=== PATIENT | female | born 2000 | race Caucasian/White ===

== ENCOUNTER 2021-04-09 19:31 | Outpatient (CLI) | payer BC, OTHER ==
[2021-04-09 20:02] VITALS: BP 133/71
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
--- NOTE | 2021-04-09 22:31 | REPVR ---
PROCEDURE INFORMATION: Exam: US Biophysical Profile without Non-Stress Test Exam date and time: 04/09/21 (8:20pm) Age: 20 years old Clinical indication: female. Decreased movement. High risk diabetic. TECHNIQUE: Imaging protocol: US biophysical profile without non-stress testing COMPARISON: No relevant prior studies available FINDINGS: FINDINGS: The LMP is reported to be: 08/27/20 Based on the menstrual history, the current expected age = 32 weeks 1 day (with KAREN = 06/03/21). heart rate is recorded at 143 bpm. The fetus lies cephalic. The placenta is fundal, with no evidence of previa nor abruption. The placenta is Grade I. The cervix is closed, measuring 2.6 cm in length. Amniotic fluid volume is adequate, with the KAMERON = 12.1 cm (at the 45th percentile for the current expected age). The deepest fluid pocket = 5.5 cm. The umbilical artery S/D ratio = 1.97 (in the normal range). A anatomic survey was not performed. BIOPHYSICAL PROFILE: Breathin/2 Gross body movements: 2/2 tone: 2/2 Qualitative amniotic fluid: 2/2 Biophysical Profile Score: 8/8 IMPRESSION: A single live intrauterine is identified, approx. 32 weeks 1 day gestational age (based on the LMP provided). Based on the menstrual history, the KAREN = 06/03/21. heartbeat is seen. The placenta is fundal, with no nor abruption noted. The cervix is closed. Umbilical artery S/D ratio is in the normal range. KAMERON (12.1 cm) is adequate. BPP score = 8/8 points. See additional comments above. Electronically signed by: Sarah Olvera On 04/09/2021 22:31:09 PM
== END 2021-04-09 21:50 | disposition home or self-care (01) ==
LOC: M LDO 19:31
PROVIDERS: ATTEND Advanced Practice Midwife
DX: O36.8130 Decreased fetal movements, third trimester, not applicable or unspecified (principal); Z3A.32 32 weeks gestation of pregnancy; O24.113 Pre-existing type 2 diabetes mellitus, in pregnancy, third trimester; O99.213 Obesity complicating pregnancy, third trimester; E66.01 Morbid (severe) obesity due to excess calories; O99.343 Other mental disorders complicating pregnancy, third trimester; F32.9 Major depressive disorder, single episode, unspecified; F43.10 Post-traumatic stress disorder, unspecified; O99.283 Endocrine, nutritional and metabolic diseases complicating pregnancy, third trimester; E88.01 Alpha-1-antitrypsin deficiency; Z68.43 Body mass index [BMI] 50.0-59.9, adult
CPT/HCPCS: 59025; 76815; 76819; 76820; G0378; G0463

== ENCOUNTER 2021-04-18 10:17 | Inpatient (IN) | payer OTHER, BC ==
[2021-04-18] VITALS (8 sets, daily range): BP systolic 107–135; BP diastolic 54–85
[~2021-04-18] VITALS: Ht 162.6 cm; Wt 160.8 kg
[2021-04-18] MEDS ORDERED: ECOT81TA5 PO (11:51)
[2021-04-18] MEDS ORDERED: HUMA100I3 SC (11:51)
[2021-04-18] MEDS ORDERED: PRENTAB9 PO (11:51)
[2021-04-18] MEDS ORDERED: INSUDET SC (11:51)
[2021-04-18] MEDS ORDERED: INSULIN IV RATE CHANGE DOCUMENTATION ML/HR XX SCH (12:55)
[2021-04-18] MEDS ORDERED: diphenhydrAMINE 50MG CAP PO PRN (12:55)
[2021-04-18] MEDS ORDERED: CARBOPROST TROMETHAMINE 250 MCG/ML AMP IM PRN (12:55)
[2021-04-18] MEDS ORDERED: METHYLERGONOVINE MALEATE 0.2 MG/ML VIAL (J2210) IM PRN (12:55)
[2021-04-18] MEDS ORDERED: OXYTOCIN DRIP 30 UNITS in IV 1 EA IV PRN (12:55)
[2021-04-18] MEDS ORDERED: ONDANSETRON 4MG/2ML VIAL IV PRN (12:55)
[2021-04-18] MEDS ORDERED: INSULIN REGULAR IN 0.9 % NACL 100 UNIT in IV 1 EA IV SCH ×2 (12:55)
[2021-04-18] MEDS ORDERED: OXYTOCIN INJ 10 UNITS/ML VIAL (J2590) IM PRN (12:55)
[2021-04-18] MEDS ORDERED: PENICILLIN G POTASSIUM IV 5 MU in D5W MINI-BAG PLUS 100 ML IV ONE (12:55)
[2021-04-18] MEDS ORDERED: NS 1,000 ML IV SCH (12:55)
[2021-04-18] MEDS ORDERED: LIDOCAINE 1% MDV 20ML VIAL INFIL PRN (12:55)
[2021-04-18] MEDS ORDERED: AZITHROMYCIN 250MG TABLET PO ONE (13:00)
--- NOTE | 2021-04-18 13:55 | HPE ---
HISTORY AND PHYSICAL DATE OF ADMISSION: 04/18/2021 HISTORY OF PRESENT ILLNESS: Paz is a 20-year-old 1, para 0, who is at 33 and 3/7 weeks gestation. She presents to labor and delivery with a report of waking up soaking wet this morning, continued leakage of fluid, cramping that has been all night long, and became more uncomfortable at 2300, and increased pressure this morning. She does report movement. She denies vaginal bleeding. Her care was initiated at [facility] with a transfer of care to the center. Her course complicated by morbid obesity, type 2 diabetes insulin dependent, alpha-1 antitrypsin deficiency, and excessive weight gain during . PAST MEDICAL HISTORY: 1. Alpha-1 antitrypsin deficiency. 2. Reflux. 3. Morbid obesity. 4. Type 2 diabetes insulin dependent. PAST SURGICAL HISTORY: None. FAMILY HISTORY: Non-contributory. SOCIAL HISTORY: The patient is . Her is at bedside and supportive. She is a nonsmoker. Denies alcohol and drug use. Denies history of abuse physical, sexual, or emotional. Denies history of sexually transmitted infections. ALLERGIES: No known drug allergies. CURRENT MEDICATIONS: 1. Famotidine 20 mg. 2. Levemir 36 units b.i.d. 3. Humalog 30 units at noon and 32 units at dinner. PHYSICAL EXAMINATION: VITAL SIGNS: Temperature 96.6, pulse 109, respirations 18, blood pressure 120/72. GENERAL: She is alert and oriented x3. She does appear uncomfortable. VITAL SIGNS: heart rate is 135 with moderate variability, positive accelerations, and negative decelerations. There is an occasional contraction on the monitor. She is extremely difficult to trace due to her body habitus. ABDOMEN: Gravid, cephalic presentation with that presentation confirmed by bedside ultrasound. Estimated weight unable to determine at this time due to body habitus. PELVIC: Negative Valsalva and negative pooling; however, positive nitrazine and positive fern. Sterile vaginal exam 1.5 cm dilated, 80% effaced, -3 station, posterior soft and no show with the exam. GBS obtained. OBSTETRIC LABORATORY DATA: A negative. Antibody screen negative. Syphilis negative. Hepatitis B negative. Hepatitis C negative. HIV negative. Her initial hemoglobin A1c was 11.6 and the most recent 9.0. Lead less than 1. Gonorrhea and chlamydia negative. Varicella immune. Horizon negative. Panorama negative for aneuploidy female fetus. GBS is unknown. She was most recently seen on 04/17/2021, at the center where she did report a watery discharge that was not evaluated for rupture of membranes. She did undergo ultrasound yesterday with a reported KAMERON of 17.34 cm of fluid. ASSESSMENT: Intrauterine at 33 and 3/7 weeks, heart rate category 1, premature rupture of membranes, insulin-dependent diabetes, morbid obesity, not in labor. PLAN: Per consult with Dr. Soliz, admit to labor and delivery. Routine laboratories. Bathroom privileges. Consistent carbohydrate diet. Betamethasone for lung maturity. Due to her diabetes insulin drip will be started. Antibiotics for latency. Order a formal ultrasound for growth, KAMERON, and BPP. The patient is aware of the plan. Risks, benefits, and alternatives have been discussed. All of her and her 's questions have been answered. Continue to observe. MTDD
[2021-04-18] MEDS: BETAMETHASONE SOLUSPAN 6MG/ML 5ML VIAL (J0702 PER 3MG) IM SCH (13:56)
[2021-04-18 14:07] LABS: HEMATOCRIT 37.9 % (36.0-47.0); HEMOGLOBIN 12.8 g/dl (12.0-15.5); MEAN CORPUSCULAR HEMOGLOBIN 29.2 pg (27.0-33.0); MEAN CORPUSCULAR HGB CONC 33.8 g/dl (32.0-36.5); MEAN CORPUSCULAR VOLUME 86.3 fl (80.0-96.0); PLATELET COUNT, AUTOMATED 203 10^3/uL (150-450); RED BLOOD COUNT 4.39 10^6/uL (4.00-5.40); WHITE BLOOD COUNT 11.8 10^3/uL (4.0-10.0)
--- NOTE | 2021-04-18 16:23 | REP ---
INDICATION: KAMERON, BPP, growth. PPROM, IDDM COMPARISON: 04/09/2021 TECHNIQUE: Transabdominal obstetrical ultrasound with color Doppler evaluation. FINDINGS: Examination demonstrates a single live intrauterine in cephalic presentation. motion is identified by technologist. Placenta is noted fundal and grade 1 without evidence for placenta previa or abruption. Amniotic fluid volume is normal. Cervix measures 2.6 cm in length and appears closed.. Gestational age by LMP and 1st U/S 33 weeks 3 days with KAREN 06/03/2021. Gestational age by current measurements 34 weeks 4 days with KAREN 05/26/2021. FHR equals 142 beats per minute. BPD: 8.7 cm at 34 weeks 6 days HC: 30.0 cm at 33 weeks 2 days AC: 34.2 cm at 38 weeks 1 day FL: 6.5 cm at 33 weeks 4 days HL: 5.7 cm at 33 weeks 0 days HC/AC: 0.88 Estimated weight 2855 grams (81stpercentile). KAMERON: 12.0 cm Biophysical profile score: 8/8 Umbilical artery SD ratio: 2.23 (1.70-3.63) IMPRESSION: 1. Single live intrauterine in cephalic presentation demonstrating appropriate interval growth. 2. Normal amniotic fluid index and biophysical profile score. 3. Cervix measures 2.6 cm in length. <Electronically signed by Zachary Griffin > 04/18/21 [id number]
[2021-04-18] MEDS: HumaLOG INSULIN (NovoLOG) PER UNIT SC SCH (17:30)
[2021-04-18] MEDS ORDERED: HumaLOG INSULIN (NovoLOG) PER UNIT SC SCH (17:30)
[2021-04-18] MEDS: PENICILLIN G POTASSIUM IV 2.5 MU in IV 1 EA IV SCH ×2 (18:09→22:00)
[2021-04-18] MEDS ORDERED: GLUCOSE 4GM CHEW TABLET PO PRN (20:00)
[2021-04-18] MEDS ORDERED: GLUCAGON INJ 1MG VIAL SC PRN (20:00)
[2021-04-18] MEDS ORDERED: DEXTROSE 50% 50 ML SYRINGE IV PRN (20:00)
[2021-04-18] MEDS: LEVEMIR (INSULIN DETEMIR) 1 UNITS/0.01ML SC SCH (20:46)
[2021-04-18] MEDS: NS 1,000 ML IV SCH (20:46)
[2021-04-18] MEDS: INSULIN REGULAR IN 0.9 % NACL 100 UNIT in IV 1 EA IV SCH ×2 (20:46)
[2021-04-18] MEDS ORDERED: LEVEMIR (INSULIN DETEMIR) 1 UNITS/0.01ML SC SCH (21:00)
[2021-04-19] VITALS (9 sets, daily range): BP systolic 102–137; BP diastolic 56–79
[2021-04-19] MEDS: INSULIN IV RATE CHANGE DOCUMENTATION ML/HR XX SCH ×4 (00:55→07:16)
[2021-04-19] MEDS: PENICILLIN G POTASSIUM IV 2.5 MU in IV 1 EA IV SCH ×4 (02:02→14:10)
[2021-04-19] MEDS: NS 1,000 ML IV SCH ×3 (05:19→22:14)
[2021-04-19] MEDS ORDERED: HumaLOG INSULIN (NovoLOG) PER UNIT SC SCH (07:30)
[2021-04-19] MEDS: INSULIN REGULAR IN 0.9 % NACL 100 UNIT in IV 1 EA IV SCH ×2 (08:07)
[2021-04-19] MEDS: PRENATAL VITAMINS CHEWABLE TABLET PO SCH (08:52)
[2021-04-19] MEDS: LEVEMIR (INSULIN DETEMIR) 1 UNITS/0.01ML SC SCH ×2 (09:00→21:06)
--- NOTE | 2021-04-19 09:26 | IPNPDOC ---
Text Note Date of Service The patient was seen on 04/19/21. NOTE S: 20 yo G1 at 33 4/7 weeks by 7 weeks ultrasound (EDC=06/03/2021) HD#2 with P PROM. She is still leaking fluid per vagina. She has low back pain. Not feeling any pain in her abdomen. O: AVSS NAD abd: NT, gravid FHT: cat. I toco: irregular, mild SSE: + pool, + fern, +nitrazine cervix appears closed visually A/P 20 yo G1 at 33 4/7 weeks with PPROM Finish course of steroids Continue latency antibiotics Continue insulin drip for glucose control during hospitalization EDC could be arguably different based upon review of records; however, will keep current date that was established early in . Plan induction on 04/22/2021, corresponding to 34 weeks gestation VS,Fishbone, I+O VS, Fishbone, I+O Laboratory Tests 04/18/21 13:47 Vital Signs Date Time Temp Pulse Resp B/P (MAP) Pulse Ox O2 Delivery O2 Flow Rate FiO2 04/19/21 07:09 96.7 75 18 105/58 (74) Room Air 04/18/21 10:38 96 I&O- Last 24 Hours up to 6 AM 04/19/21 06:00 Intake Total 2003.9 ml Balance 2003.9 ml LILIAN NI MD April 19, 2021 09:26
[2021-04-19] MEDS: HumaLOG INSULIN (NovoLOG) PER UNIT SC SCH ×2 (12:00→17:34)
[2021-04-19] MEDS: BETAMETHASONE SOLUSPAN 6MG/ML 5ML VIAL (J0702 PER 3MG) IM SCH (13:03)
[2021-04-19] MEDS ORDERED: AMPICILLIN SOD 2 GM in D5W MINI-BAG PLUS 100 ML IV SCH (20:00)
[2021-04-19] MEDS: AMPICILLIN SOD IV SCH (20:08)
[2021-04-19] MEDS: NS IV SCH (20:08)
[2021-04-19] MEDS ORDERED: INSULIN REGULAR IN 0.9 % NACL 100 UNIT in IV 1 EA IV SCH ×2 (21:30)
--- NOTE | 2021-04-19 21:34 | IPNPDOC ---
Text Note Date of Service The patient was seen on 04/19/21. NOTE S: contractions getting stronger. They occur every 2-3 minutes, Leakage is more pronounced. O: AVSS Appears uncomfortable SVE: 2 cm/50%/-2 posterior soft vertex FHT: cat. I toco: difficult to monitor. Appear every 2-3 minutes A/P 20 yo G1 at 33 4/7 weeks with PPROM, early labor Pt completed steroids Restart insulin drip move to clear liquid diet Anticipate letting labor progress VS,Fishbone, I+O VS, Fishbone, I+O Vital Signs Date Time Temp Pulse Resp B/P (MAP) Pulse Ox O2 Delivery O2 Flow Rate FiO2 04/19/21 19:25 97.6 100 18 137/75 (95) 98 Room Air I&O- Last 24 Hours up to 6 AM 04/19/21 06:00 Intake Total 2003.9 ml Balance 2003.9 ml LILIAN NI MD April 19, 2021 21:34
[2021-04-19] MEDS ORDERED: FAMOTIDINE 20 MG TAB PO ONE (21:35)
[2021-04-19] MEDS ORDERED: PROMETHAZINE INJ 25 MG/ML VIAL (J2550) IV ONE (22:35)
[2021-04-19] MEDS ORDERED: BUTORPHANOL 2 MG/ML INJ (J0595) IV ONE (22:35)
[2021-04-20] VITALS (10 sets, daily range): BP systolic 115–178; BP diastolic 59–96
[2021-04-20] MEDS: AMPICILLIN SOD IV SCH ×2 (01:55→08:07)
[2021-04-20] MEDS: NS IV SCH ×2 (01:55→08:07)
[2021-04-20] MEDS: INSULIN IV RATE CHANGE DOCUMENTATION ML/HR XX SCH ×2 (03:48→05:44)
[2021-04-20] MEDS: NS 1,000 ML IV SCH ×2 (05:54→20:31)
[2021-04-20] MEDS: HumaLOG INSULIN (NovoLOG) PER UNIT SC SCH ×3 (08:23→17:03)
[2021-04-20] MEDS: PRENATAL VITAMINS CHEWABLE TABLET PO SCH (08:59)
[2021-04-20] MEDS: LEVEMIR (INSULIN DETEMIR) 1 UNITS/0.01ML SC SCH ×2 (09:00→21:25)
[2021-04-20] MEDS: AMOXICILLIN 500 MG CAP PO SCH ×2 (13:55→21:25)
[2021-04-21] VITALS (9 sets, daily range): BP systolic 111–134; BP diastolic 57–87
[2021-04-21] MEDS: CALCIUM CARBONATE 500 MG CHEW U/D PO PRN ×2 (03:33→21:06)
[2021-04-21] MEDS: AMOXICILLIN 500 MG CAP PO SCH ×3 (04:41→21:57)
[2021-04-21] MEDS: HumaLOG INSULIN (NovoLOG) PER UNIT SC SCH ×3 (07:48→17:10)
--- NOTE | 2021-04-21 07:48 | IPNPDOC ---
Text Note Date of Service The patient was seen on 04/21/21. NOTE Progress Feels well. Reports good movement. States fluid remains clear. Mild cramping Cat I tracing Rare UC Afebrile, normotensive Continue with plan. Anticipate delivery tonight or tomorrow. VS,Fishbone, I+O VS, Fishbone, I+O Vital Signs Date Time Temp Pulse Resp B/P (MAP) Pulse Ox O2 Delivery O2 Flow Rate FiO2 04/21/21 07:10 96.6 04/21/21 04:30 82 18 125/82 (96) 04/19/21 19:25 98 Room Air Saniya Mccurdy CNM April 21, 2021 07:48
[2021-04-21] MEDS: LEVEMIR (INSULIN DETEMIR) 1 UNITS/0.01ML SC SCH ×2 (09:04→21:02)
[2021-04-21] MEDS: PRENATAL VITAMINS CHEWABLE TABLET PO SCH (09:04)
[2021-04-22] VITALS (39 sets, daily range): BP systolic 95–158; BP diastolic 52–83
--- NOTE | 2021-04-22 01:21 | IPNPDOC ---
Obstetrical Progress Note Date of Service April 22, 2021 Subjective Patient continues to leak fluid. No VB. No fever/chills. Denies any contractions. Objective Vital Signs Date Time Temp Pulse Resp B/P (MAP) Pulse Ox O2 Delivery O2 Flow Rate FiO2 04/21/21 23:56 96.8 85 16 111/57 (75) 04/19/21 19:25 98 Room Air Assessment Heart Rate Tracing: Category I Tocometer Frequency: irregular Strength: palpated as mild Sterile Vaginal Examination Dilation: 1cm Effacement (%): 70% Station: -3 Cervical Consistency: Medium Cervical Position: Posterior Postion/Presentation: Cephalic presentation Assessment and Plan Status: Reassuring Anticipate: Vaginal Delivery Additional Comments 34+0 weeks, PPROM. Rationale for proceeding with IOL for PPROM at 34+ weeks reviewed with patient. Cervix is unfavorable. Start with cervical ripening using Cytotec 50mcg SL q4h until favorable. JESSE TAMAYO DO April 22, 2021 01:21
[2021-04-22] MEDS: miSOPROStol 50MCG 1/2 TABLET SL SCH ×3 (01:46→09:51)
[2021-04-22] MEDS: AMOXICILLIN 500 MG CAP PO SCH (05:53)
[2021-04-22] MEDS: HumaLOG INSULIN (NovoLOG) PER UNIT SC SCH ×2 (08:12→11:57)
[2021-04-22] MEDS ORDERED: AMPICILLIN SOD 2 GM in D5W MINI-BAG PLUS 100 ML IV STA (08:14)
[2021-04-22] MEDS: PRENATAL VITAMINS CHEWABLE TABLET PO SCH (09:20)
[2021-04-22] MEDS: LEVEMIR (INSULIN DETEMIR) 1 UNITS/0.01ML SC SCH ×2 (09:20→21:20)
[2021-04-22] MEDS ORDERED: OXYTOCIN DRIP 30 UNITS in IV 1 EA IV SCH (13:55)
[2021-04-22] MEDS: NS 1,000 ML IV SCH (14:22)
--- NOTE | 2021-04-22 14:35 | IPNPDOC ---
Obstetrical Progress Note Date of Service April 22, 2021 Subjective Patient has become more uncomfortable with contractions after receiving 3 doses of misoprostol. Coping with the pain;declining pain medication at this time. No VB. Continues to leak fluid. Objective Vital Signs Date Time Temp Pulse Resp B/P (MAP) Pulse Ox O2 Delivery O2 Flow Rate FiO2 04/22/21 10:54 97.4 88 17 131/69 (89) 04/19/21 19:25 98 Room Air Assessment Heart Rate Tracing: Category I Tocometer Frequency: irregular Sterile Vaginal Examination Dilation: 2cm Effacement (%): 70% Station: -3 Cervical Consistency: Medium Cervical Position: Middle Postion/Presentation: Cephalic presentation Assessment and Plan Status: Reassuring Group B Streptococcus: Positive Anticipate: Vaginal Delivery Additional Comments Reassuring maternal and status. No IAI. Continue with GBS ppx and initiate Pitocin IOL/augmentation. Continue insulin drip protocol. JESSE TAMAYO DO April 22, 2021 14:35
[2021-04-22] MEDS ORDERED: INSULIN IV RATE CHANGE DOCUMENTATION ML/HR XX SCH ×2 (15:15→18:40)
[2021-04-22] MEDS ORDERED: INSULIN REGULAR IN 0.9 % NACL 100 UNIT in IV 1 EA IV SCH ×4 (15:15→18:40)
[2021-04-22] MEDS ORDERED: BUTORPHANOL 2 MG/ML INJ (J0595) IV ONE (16:45)
[2021-04-22] MEDS ORDERED: PROMETHAZINE INJ 25 MG/ML VIAL (J2550) IV ONE (16:45)
[2021-04-22] MEDS: AMPICILLIN SOD 1 GM in D5W MINI-BAG PLUS 50 ML IV SCH ×3 (17:06→21:19)
[2021-04-22] MEDS ORDERED: NS 1,000 ML IV SCH ×2 (18:40)
--- NOTE | 2021-04-22 20:02 | IPNPDOC ---
Obstetrical Progress Note Date of Service April 22, 2021 Subjective Patient complaining of increasing pain with contractions. Requesting epidural. Objective Vital Signs Date Time Temp Pulse Resp B/P (MAP) Pulse Ox O2 Delivery O2 Flow Rate FiO2 04/22/21 18:26 97.2 78 14 158/77 (104) 04/19/21 19:25 98 Room Air Assessment Heart Rate Tracing: Category I Tocometer Contractions: Yes Frequency: every 1-3 min. (Pit at 2mU/min) Sterile Vaginal Examination Dilation: 4 cm Effacement (%): 70% Station: -2 Cervical Consistency: Soft Cervical Position: Middle Postion/Presentation: Cephalic presentation Assessment and Plan Status: Reassuring Group B Streptococcus: Positive Anticipate: Vaginal Delivery Additional Comments Anesthesia notified of patient's request for epidural. Continue with JESSE White DO April 22, 2021 20:02
[2021-04-22] MEDS ORDERED: FENTANYL 2MCG/ML ROPIVACAINE 0.2% IN 0.9% NACL 100ML IVBAG As Ordered ONE (20:28)
[2021-04-22] MEDS ORDERED: ONDANSETRON 4MG/2ML VIAL IV PRN (20:35)
[2021-04-22] MEDS ORDERED: EPIDURAL/PCA KEYS XX PRN (20:35)
[2021-04-22] MEDS ORDERED: EPIDURAL COMMENT XX SCH (20:35)
[2021-04-22] MEDS ORDERED: diphenhydrAMINE 50MG/ML VIAL (J1200) IV PRN (20:35)
[2021-04-22] MEDS ORDERED: NALOXONE INJ 0.4MG/1ML VIAL (J2310 PER 1MG) IV PRN (20:35)
[2021-04-22] MEDS ORDERED: LACTATED RINGER'S 1000 ML IV PRN (20:35)
[2021-04-22] MEDS ORDERED: REFRIGERATOR IV KEYS XX PRN (20:35)
[2021-04-22] MEDS: FENTANYL/ROPIVACAINE/NACL BAG 100 ML EPIDURAL SCH (20:54)
[2021-04-22] MEDS: ePHEDrine SULFATE 25 MG/5 ML(5MG/ML) SYRINGE IV PRN ×2 (21:54→22:18)
[2021-04-23] VITALS (19 sets, daily range): BP systolic 100–141; BP diastolic 55–78
[2021-04-23] MEDS: AMPICILLIN SOD 1 GM in D5W MINI-BAG PLUS 50 ML IV SCH ×2 (00:48→04:39)
--- NOTE | 2021-04-23 02:43 | IPNPDOC ---
Obstetrical Progress Note Date of Service April 23, 2021 Subjective Pt is comfortable with epidural. Objective Vital Signs Date Time Temp Pulse Resp B/P (MAP) Pulse Ox O2 Delivery O2 Flow Rate FiO2 04/22/21 23:26 85 115/54 (74) 04/22/21 22:57 97.8 19 04/19/21 19:25 98 Room Air Assessment Heart Rate Tracing: Category I Tocometer Contractions: Yes Frequency: every 2-5 min. (Pit at 6mU/min. IUPC in place) Sterile Vaginal Examination Dilation: 4 cm Effacement (%): 70% Station: -2 Cervical Consistency: Soft Cervical Position: Anterior Postion/Presentation: Cephalic presentation Assessment and Plan Status: Reassuring Group B Streptococcus: Positive Additional Comments Protracted labor progress. Need to increase Pitocin as tolerated; instructed RN to increase dose. Inadequate contraction pattern. status reassuring. JESSE TAMAYO DO April 23, 2021 02:43
[2021-04-23] MEDS: FENTANYL/ROPIVACAINE/NACL BAG 100 ML EPIDURAL SCH (05:42)
[2021-04-23] MEDS ORDERED: BICITRA 30ML SOLN UDC PO ONE (06:00)
--- NOTE | 2021-04-23 06:27 | IPNPDOC ---
Obstetrical Progress Note Date of Service April 23, 2021 Subjective Patient comfortable with epidural. Objective Vital Signs Date Time Temp Pulse Resp B/P (MAP) Pulse Ox O2 Delivery O2 Flow Rate FiO2 04/23/21 04:36 97.4 78 18 129/67 (87) 04/19/21 19:25 98 Room Air Assessment Heart Rate Tracing: Category I Tocometer Contractions: Yes Frequency: every 1-3 min. Sterile Vaginal Examination Dilation: 4 cm Effacement (%): 70% Station: -2 Cervical Consistency: Soft Cervical Position: Middle Postion/Presentation: Cephalic presentation Assessment and Plan Status: Reassuring Group B Streptococcus: Positive Anticipate: Section Additional Comments Patient meets criteria for failed induction / arrest of dilation. Minimal to no cervical global climate change analyst the past several hours, despite pitocin augmentation. Offered PLTCS and patient has agreed to proceed in this fashion. R/b/a/i of PLTCS versus continuing with IOL reviewed. Informed consent obtained. JESSE TAMAYO DO April 23, 2021 06:27
[2021-04-23] MEDS ORDERED: AZITHROMYCIN INJ 500 MG, VIAL MATE ADAPTER 1 EACH in NS 250 ML IV ONE (06:45)
[2021-04-23] MEDS ORDERED: ceFAZolin SOD 1 GM in D5W MINI-BAG PLUS 50 ML IV ONE (07:00)
[2021-04-23] MEDS ORDERED: ceFAZolin SOD 2 GM in IV 1 EA IV ONE (07:00)
[2021-04-23 07:42] LABS: HEMATOCRIT 34.8 % (36.0-47.0); HEMOGLOBIN 11.6 g/dl (12.0-15.5); MEAN CORPUSCULAR HEMOGLOBIN 29.1 pg (27.0-33.0); MEAN CORPUSCULAR HGB CONC 33.3 g/dl (32.0-36.5); MEAN CORPUSCULAR VOLUME 87.2 fl (80.0-96.0); PLATELET COUNT, AUTOMATED 207 10^3/uL (150-450); RED BLOOD COUNT 3.99 10^6/uL (4.00-5.40); WHITE BLOOD COUNT 15.4 10^3/uL (4.0-10.0)
[2021-04-23] MEDS ORDERED: KETOROLAC 60MG 2ML VIAL As Ordered ONE (07:45)
[2021-04-23] MEDS ORDERED: OXYTOCIN INJ 10 UNITS/ML VIAL (J2590) As Ordered ONE (07:45)
[2021-04-23] MEDS ORDERED: ONDANSETRON 4MG/2ML VIAL As Ordered ONE (07:45)
[2021-04-23] MEDS ORDERED: LIDOCAINE PRES-FREE 2% 10ML AMP As Ordered ONE (07:45)
[2021-04-23] MEDS ORDERED: MORPHINE PRES-FREE INJ 10 MG/10 ML VIAL (J2274) As Ordered ONE (07:47)
[2021-04-23] MEDS ORDERED: BUPIVACAINE/EPIN 0.25% 30 ML VIAL As Ordered ONE (08:43)
[2021-04-23] MEDS ORDERED: NALBUPHINE HCL 10 MG/ML AMP (J2300) IV PRN ×2 (09:19→10:25)
[2021-04-23] MEDS ORDERED: diphenhydrAMINE 50MG/ML VIAL (J1200) IV PRN (09:19)
[2021-04-23] MEDS ORDERED: METOCLOPRAMIDE INJ 10MG/2ML VIAL (J2765 PER 1) IV PRN (09:19)
[2021-04-23] MEDS ORDERED: ONDANSETRON 4MG/2ML VIAL IV PRN ×3 (09:19→10:25)
[2021-04-23] MEDS ORDERED: NALOXONE INJ 0.4MG/1ML VIAL (J2310 PER 1MG) IV PRN ×2 (09:19)
[2021-04-23] MEDS ORDERED: PERCOCET 5MG/325MG TAB PO PRN (09:45)
[2021-04-23] MEDS ORDERED: ANUSOL HC CREAM 30GM TOP PRN (09:45)
[2021-04-23] MEDS ORDERED: SIMETHICONE 80MG CHEW TAB PO PRN (09:45)
[2021-04-23] MEDS ORDERED: METHYLERGONOVINE MALEATE 0.2 MG TAB PO PRN (09:45)
[2021-04-23] MEDS ORDERED: RHOGAM 300 MCG (1500 IU) INJ (J2790) IM SCH (09:45)
[2021-04-23] MEDS ORDERED: LR 1,000 ML IV SCH ×2 (09:45→10:25)
[2021-04-23] MEDS ORDERED: MEASLES,MUMPS,RUBELLA VACCINE INJ (MMR-II) (90707) SC SCH (09:45)
[2021-04-23] MEDS ORDERED: MOM 30ML SUSPENSION UDC PO PRN (09:45)
[2021-04-23] MEDS ORDERED: OXYTOCIN DRIP 30 UNITS in IV 1 EA IV SCH (09:45)
--- NOTE | 2021-04-23 09:46 | ROOPDOC ---
[facility] Report Of Operation Report of Operation DATE OF PROCEDURE: 04/23/2021 PREPROCEDURE DIAGNOSES:. 34+1 weeks gestation, prelabor rupture of membranes/steroid complete, arrest of dilation, insulin-dependent pregestational diabetes severe obesity POSTPROCEDURE DIAGNOSES: Same PROCEDURE: Primary low transverse section SURGEON: Guy Nagy DO [employer] MARKETING REPRESENTATIVE: Rory Brunson CNM (Essential role in retraction, extraction, and closure of all tissue layers) ANESTHESIA: Epidural ESTIMATED BLOOD LOSS: 600 mL. IV FLUIDS: 2000 mL LR URINE OUTPUT: 450 mL COMPLICATIONS: None. PREOPERATIVE ANTIBIOTICS: Ancef 3g IV x 1, Azithromycin 500mg IV. COMPLICATIONS: none DATA: Apgars 8,3,7. Birthweight 2994 g, 6 lbs 10 oz. SPECIMENS: none PRIMARY INDICATION FOR : Arrest of dilation DESCRIPTION OF PROCEDURE: The patient was counseled on the risks, benefits, indications and alternatives of the procedure. Informed consent was obtained. She was taken to the operating room with IV running and placed on the operating table in the dorsal supine position with a leftward tilt. Regional anesthesia was found to be adequate. Sequential compression devices were placed on the lower extremities. A Rahamn cat heter was placed under sterile conditions. She was prepared and draped in normal sterile fashion. A time out was performed per protocol. Regional anesthesia was again found to be adequate. A Pfannenstiel skin incision was made with the 10 blade. The 10 blade was used to dissect down to the level of the rectus sheath fascia. The rectus sheath pressure was incised midline and this was extended bilaterally with Holguin scissors , and manual stretch. The rectus muscle bellies were dissected off the rectus sheath fascia superiorly and inferiorly using both sharp and blunt dissection. The midline was identified. The peritoneum was identified and entered digitally. The peritoneal opening was extended with manual stretch. The Mobius retractor was placed. The vesicouterine peritoneum was dissected with Metzenbaum scissors to create the bladder flap. A low transverse uterine incision was made with the 10 blade. This was extended with manual stretch. The amniotic sac was punctured, and clear fluid was noted. The baby delivered through the hysterotomy without difficulty. The cord was doubly clamped and cut, and the baby was handed off to awaiting care. data shown above. The placenta was removed manually. The intrauterine cavity was cleared of all clot and debris. The hysterotomy was closed with 0 Vicryl in running locked fashion. This was reinforced with a second imbricating layer using 0 Monocryl in running fashion. Excellent hemostasis of the hysterotomy was noted. The pelvis was irrigated and the fluid suctioned. The Mobius retractor was removed. The peritoneum was closed with 3-0 Vicryl running fashion. The rectus muscle bellies were reapproximated with interrupted stitches using 3-0 Vicryl. The rectus muscles bellies were hemostatic. The rectus sheath fascia was closed with 0 Vicryl running fashion. The subcutaneous layer was irrigated and the fluid suctioned. Small bleeding vessels were cauterized with Bovie. Excellent hemostasis was noted. The subcutaneous layer was reapproximated with 3-0 Vicryl running fashion. Skin was closed with 3-0 Monocryl in subcuticular fashion. An Optifoam bandage was placed over the closed incision. Sponge, needle and instrument counts were correct per protocol throughout the procedure. The patient tolerated the entire procedure very well. She was transferred to the PACU in stable condition. DO ALBERTO Quiñones JONATHAN R. DO April 23, 2021 09:46
[2021-04-23] MEDS ORDERED: OXYC1TAB23 PO (09:47)
[2021-04-23] MEDS ORDERED: IBUP1TAB7 PO (09:48)
[2021-04-23] MEDS ORDERED: DOK1CAP7 PO (09:48)
[2021-04-23] MEDS ORDERED: OXYTOCIN 30 UNITS IN 0.9% NaCl 500ML IV BAG (J2590) As Ordered ONE (10:20)
[2021-04-23] MEDS ORDERED: fentaNYL 100 MCG/2 ML INJECTION (J3010) IV PRN (10:25)
[2021-04-23] MEDS ORDERED: AMOXICILLIN 500 MG CAP PO SCH (12:00)
[2021-04-23] MEDS: HumaLOG INSULIN (NovoLOG) PER UNIT SC SCH ×2 (12:13→18:01)
[2021-04-23] MEDS: NS 1,000 ML IV SCH ×2 (15:32→18:01)
[2021-04-23] MEDS: KETOROLAC 30 MG/ML 1ML VIAL IV SCH ×2 (16:49→22:12)
[2021-04-23] MEDS: DOCUSATE SODIUM 100MG CAPSULE PO SCH (21:40)
[2021-04-23] MEDS: LEVEMIR (INSULIN DETEMIR) 1 UNITS/0.01ML SC SCH (22:11)
[2021-04-23] MEDS: PERCOCET 5MG/325MG TAB PO PRN (23:45)
[2021-04-24 02:00] VITALS: BP 138/89
[2021-04-24] MEDS: NS 1,000 ML IV SCH (03:08)
[2021-04-24] MEDS: KETOROLAC 30 MG/ML 1ML VIAL IV SCH (04:59)
[2021-04-24 06:00] VITALS: BP 138/90
[2021-04-24] MEDS ORDERED: ceFAZolin SOD 3 GM in IV 1 EA IV ONE (06:00)
[2021-04-24 07:46] LABS: HEMOGLOBIN 11.2 g/dl (12.0-15.5); MEAN CORPUSCULAR HEMOGLOBIN 29.1 pg (27.0-33.0); MEAN CORPUSCULAR HGB CONC 32.9 g/dl (32.0-36.5); MEAN CORPUSCULAR VOLUME 88.3 fl (80.0-96.0); PLATELET COUNT, AUTOMATED 175 10^3/uL (150-450); RED BLOOD COUNT 3.85 10^6/uL (4.00-5.40); WHITE BLOOD COUNT 14.4 10^3/uL (4.0-10.0)
[2021-04-24] MEDS: HumaLOG INSULIN (NovoLOG) PER UNIT SC SCH ×3 (08:25→17:56)
[2021-04-24] MEDS: DOCUSATE SODIUM 100MG CAPSULE PO SCH ×2 (08:26→21:44)
[2021-04-24] MEDS: ENOXAPARIN 30MG/0.3ML SYRINGE (J1650 PER 10MG) SC SCH ×2 (08:26→20:33)
[2021-04-24] MEDS: PRENATAL VITAMINS CHEWABLE TABLET PO SCH (08:26)
[2021-04-24] MEDS: LEVEMIR (INSULIN DETEMIR) 1 UNITS/0.01ML SC SCH ×2 (08:27→21:45)
[2021-04-24] MEDS: PERCOCET 5MG/325MG TAB PO PRN ×2 (08:27→23:08)
[2021-04-24 10:01] VITALS: BP 130/60
[2021-04-24] MEDS: IBUPROFEN 800 MG TAB PO SCH ×2 (12:37→20:33)
[2021-04-24 14:00] VITALS: BP 126/66
[2021-04-24 17:30] VITALS: BP 146/86
[2021-04-24 22:00] VITALS: BP 137/72
[2021-04-25 02:00] VITALS: BP 124/79
[2021-04-25] MEDS: IBUPROFEN 800 MG TAB PO SCH ×2 (04:27→11:49)
[2021-04-25 06:00] VITALS: BP 133/75
--- NOTE | 2021-04-25 07:27 | DS.PDOC ---
Discharge Summary General Date of Admission April 18, 2021 at 12:33 Date of Discharge April 25, 2021 Discharge Summary PROCEDURES PERFORMED DURING STAY: . ADMITTING DIAGNOSES: 1. 33 3/7 weeks, PPROM, type 2 diabetes on insulin. DISCHARGE DIAGNOSES: 1. same. COMPLICATIONS/CHIEF COMPLAINT: Prom 33.3 Weeks. HISTORY OF PRESENT ILLNESS: 20 yo G1 at 33 3/7 weeks gestation presents swith leakage of fluid per vagina. She was diagnosed with premature rupture of membranes. care through [facility] itself with a center. She is a type II diabetic on insulin. She is morbidly obese.. HOSPITAL COURSE: The patient was admitted on 04/18/2020. She had confirmed premature rupture membranes by speculum exam. She is placed on lites, antibiotics. She was given betamethasone for lung maturity. Her blood sugars were initially managed with insulin drip. She was subsequently placed back on her regular insulin regimen. The plan was made for labor induction at 34 weeks. She had monitoring throughout the latency period. She had labor induction initiated with nasal process. Progress of labor. She essentially diagnosed with arrest of dilation. On 04/23/2021, term primary section. Procedures without complication. Her postoperative course was unremarkable. She had return of bladder, bowel function. Sugars were maintained in a reasonable range. The baby was stable in the NICU. DISCHARGE MEDICATIONS: Please see below. ALLERGIES: Please see below. PHYSICAL EXAMINATION ON DISCHARGE: VITAL SIGNS: Please see below. GENERAL: wnl HEENT: wnl CARDIOVASCULAR EXAMINATION: RRR RESPIRATORY EXAMINATION: Clear to auscultation ABDOMINAL EXAMINATION: Nontender, dressing clean, dry and intact EXTREMITIES: Nontender LABORATORY DATA: Please see below. PROGNOSIS: good ACTIVITY: As tolerated. DISCHARGE PLAN: Home DISCHARGE INSTRUCTIONS: 1. Instructions reviewed. 2. Pain management. 3. Follow-up 2 weeks. DISCHARGE CONDITION: Stable. TIME SPENT ON DISCHARGE: Greater than 10 minutes. Vital Signs/I&Os Vital Signs Date Time Temp Pulse Resp B/P (MAP) Pulse Ox O2 Delivery O2 Flow Rate FiO2 04/25/21 06:00 97.0 78 20 133/75 (94) 99 Room Air I&O- Last 24 Hours up to 6 AM 04/25/21 06:00 Intake Total 777 ml Output Total 800 ml Balance -23 ml Laboratory Data Labs 24H Laboratory Tests 2 04/24/21 08:07: Bedside Glucose (Misc Panel) 179H 04/24/21 12:23: Bedside Glucose (Misc Panel) 188H 04/24/21 17:15: Bedside Glucose (Misc Panel) 184H 04/24/21 21:37: Bedside Glucose (Misc Panel) 165H FSBS Laboratory Tests Test 04/24/21 08:07 04/24/21 12:23 04/24/21 17:15 04/24/21 21:37 Range/Units Bedside Glucose (Misc Panel) 179 188 184 165 70-105 MG/DL Microbiology Microbiology 04/18/21 Group B Streptococcus Screen (TIM) - Final, Complete Strep Agalactiae Group B Discharge Medications Scheduled Docusate Sodium (Dok) 100 Mg Capsule, 100 MG PO BID Ibuprofen (Ibuprofen) 800 Mg Tablet, 800 MG PO TID for pain Insulin Detemir (Levemir) 100 Unit/1 Ml Vial, 38 UNITS SC BID, (Reported) Levimer 38units at 0800 and 1700 Insulin Lispro (Humalog) 100 Unit/1 Ml Cartridge, 32 UNITS SC TID, (Reported) Humalog 32units 0800; 34units 1200; 36units 1700. No.137/Iron/Folic Acd ( Vitamin Tablet) 1 Each Tablet, 1 TAB PO DAILY, (Reported) Scheduled PRN Oxycodone HCl/Acetaminophen (Oxycodone-Acetaminophen 5-325) 1 Each Tablet, 1 TAB PO QIDP PRN for pain Allergies Coded Allergies: TAPE (Verified Allergy, Intermediate, SKIN TEARS OFF, 04/18/21) 'CLEAR MEDICAL TAPE' latex (Verified Allergy, Intermediate, HIVES; SWELLING, 04/18/21) metformin (Verified Adverse Reaction, Mild, GI UPSET, 04/18/21) LILIAN NI MD Apr 25, 2021 07:27
[2021-04-25] MEDS: HumaLOG INSULIN (NovoLOG) PER UNIT SC SCH (08:58)
[2021-04-25] MEDS: LEVEMIR (INSULIN DETEMIR) 1 UNITS/0.01ML SC SCH (08:59)
[2021-04-25] MEDS: ENOXAPARIN 30MG/0.3ML SYRINGE (J1650 PER 10MG) SC SCH (09:00)
[2021-04-25] MEDS: PRENATAL VITAMINS CHEWABLE TABLET PO SCH (09:01)
[2021-04-25] MEDS: DOCUSATE SODIUM 100MG CAPSULE PO SCH (09:01)
[2021-04-25 10:00] VITALS: BP 129/74
== END 2021-04-25 12:08 | disposition home or self-care (01) | DRG 771 ==
LOC: M LDO 10:17 → M LDI 12:33 → M OBS 04-23 11:13
PROVIDERS: ADMIT Advanced Practice Midwife; ATTEND Advanced Practice Midwife
PROC: 3E033VJ Introduction of Other Hormone into Peripheral Vein, Percutaneous Approach (ICD-10-PCS; 2021-04-18)
PROC: 10D00Z1 Extraction of Products of Conception, Low, Open Approach (ICD-10-PCS; principal; 2021-04-23 08:00)
DX: O42.013 Preterm premature rupture of membranes, onset of labor within 24 hours of rupture, third trimester (principal); O24.32 Unspecified pre-existing diabetes mellitus in childbirth; O99.214 Obesity complicating childbirth; Z37.0 Single live birth; Z3A.33 33 weeks gestation of pregnancy; E66.01 Morbid (severe) obesity due to excess calories; O99.284 Endocrine, nutritional and metabolic diseases complicating childbirth; E11.9 Type 2 diabetes mellitus without complications; Z79.4 Long term (current) use of insulin; E88.01 Alpha-1-antitrypsin deficiency; O62.0 Primary inadequate contractions; Z91.040 Latex allergy status; Z88.8 Allergy status to other drugs, medicaments and biological substances; O99.824 Streptococcus B carrier state complicating childbirth

== ENCOUNTER 2021-06-29 21:09 | Emergency (ER) | payer OTHER, BC ==
[~2021-06-29] VITALS: Ht 162.6 cm; Wt 142.8 kg
[~2021-06-29 21:09] MED LIST: DOK1CAP4 PO; ECOT81TA5 PO; HUMA100I3 SC; IBUP1TAB7 PO; INSUDET SC; OXYC1TAB23 PO; PRENTAB9 PO
[2021-06-29] MEDS ORDERED: ACET-841 PO (21:20)
[2021-06-29] MEDS ORDERED: SPRI28TA PO (21:20)
[2021-06-30 02:08] VITALS: BP 122/85
== END 2021-06-30 04:20 | disposition left against medical advice (07) ==
LOC: M ED 21:09
DX: Z53.21 Procedure and treatment not carried out due to patient leaving prior to being seen by health care provider (principal)

== ENCOUNTER → 2021-07-25 | Outpatient (CLI) | payer BC, OTHER ==
[~2021-07-25] MED LIST changes: +ACET-841 PO; +SPRI28TA PO
--- NOTE | 2021-07-26 07:27 | REP ---
INDICATION: PELVIC PAIN COMPARISON: None. TECHNIQUE: Transabdominal pelvic ultrasound followed by transvaginal examination for better evaluation of the endometrium and adnexa. FINDINGS: Bladder is unremarkable and measures 12.4 x 7.0 x 10.4 cm. Normal anteverted uterus measures 8.6 x 4.2 x 5.7 cm. The endometrial complex measures 6 mm thickness. A small amount of endocervical fluid is identified which appears to extend towards a presumed Caesarean section scar. No discrete hematoma or significant abnormal fluid collection otherwise noted. Ovaries are not visualized. No pelvic fluid. IMPRESSION: Anteverted uterus with minimal endocervical fluid and Caesarean section scar.. Ovaries not visualized. No pelvic free fluid. <Electronically signed by Zachary Griffin > 07/26/21 [id number]
== END ==
LOC: M RAD 16:04
PROVIDERS: ATTEND Obstetrics & Gynecology
DX: R10.2 Pelvic and perineal pain (principal); N85.4 Malposition of uterus

== ENCOUNTER → 2021-08-01 | Outpatient (CLI) | payer OTHER | LOC: M PLALAB 12:15 | PROVIDERS: ATTEND Obstetrics & Gynecology | DX: N93.9 Abnormal uterine and vaginal bleeding, unspecified (principal) ==

== ENCOUNTER 2021-08-23 18:18 | Emergency (ER) | payer OTHER ==
[~2021-08-23] VITALS: Ht 165.1 cm; Wt 139.6 kg
[2021-08-23 18:18] VITALS: BP 130/81
--- NOTE | 2021-08-23 19:16 | REP ---
INDICATION: TRAUMA/DEFORMITY. COMPARISON: None. TECHNIQUE: Four views FINDINGS: No acute fracture or destructive osseous lesion. IMPRESSION: No acute osseous abnormality <Electronically signed by Orlando Gibbs > 08/23/21 [id number]
--- NOTE | 2021-08-23 19:17 | REP ---
INDICATION: TRAUMA/DEFORMITY. COMPARISON: None. TECHNIQUE: Four views FINDINGS: The joint spaces are symmetric and relatively well maintained. There is no evidence of acute fracture or destructive osseous lesion. IMPRESSION: Negative hand. <Electronically signed by Orlando Gibbs > 08/23/21 [id number]
== END 2021-08-23 20:54 | disposition home or self-care (01) ==
LOC: M ED 18:18
DX: S60.212A Contusion of left wrist, initial encounter (principal); W23.1XXA Caught, crushed, jammed, or pinched between stationary objects, initial encounter; Y92.009 Unspecified place in unspecified non-institutional (private) residence as the place of occurrence of the external cause; Y93.9 Activity, unspecified; E11.9 Type 2 diabetes mellitus without complications; Y99.9 Unspecified external cause status; Z88.8 Allergy status to other drugs, medicaments and biological substances; Z91.040 Latex allergy status; Z91.048 Other nonmedicinal substance allergy status; Z79.4 Long term (current) use of insulin; Z79.899 Other long term (current) drug therapy

== ENCOUNTER → 2021-08-23 | Outpatient (REF) | payer OTHER ==
[2021-08-23 16:00] LABS: GC DNA AMPLIFICATION NEGATIVE (NEGATIVE)
== END ==
LOC: M SFHCWAGY 13:39
PROVIDERS: ATTEND Obstetrics & Gynecology
DX: Z11.3 Encounter for screening for infections with a predominantly sexual mode of transmission (principal); Z12.4 Encounter for screening for malignant neoplasm of cervix
CPT/HCPCS: 87661; G0123

== ENCOUNTER 2021-09-17 14:21 | Emergency (ER) | payer BC, OTHER ==
[~2021-09-17] VITALS: Ht 162.6 cm; Wt 134.6 kg
--- OUTSIDE RECORDS SUMMARY | 2021-09-17 14:38 | CCD ---
Author Author [facility] Organization [facility] Address Unknown Phone Unavailable Care Team Providers Care Agriculture Specialist Name Role Phone DAVION CENTENO Unavailable Unavailable DICOBY, ZA DO Unavailable Unavailable DICOBY, ZA DO Unavailable Unavailable DICOBY, ZA DO Unavailable Unavailable DICOBY, ZA DO Unavailable Unavailable DICOBY, ZA DO Unavailable Unavailable DICOBY, ZA DO Unavailable Unavailable DICOBY, ZA DO Unavailable Unavailable DICOBY, ZA DO Unavailable Unavailable DICOBY, ZA DO Unavailable Unavailable DICOBY, ZA DO Unavailable Unavailable DICOBY, ZA DO Unavailable Unavailable DICOBY, ZA DO Unavailable Unavailable DICOBY, ZA DO Unavailable Unavailable DICOBY, ZA DO Unavailable Unavailable DICOBY, ZA DO Unavailable Unavailable DICOBY, ZA DO Unavailable Unavailable DICOBY, ZA DO Unavailable Unavailable DICOBY, ZA DO Unavailable Unavailable DICOBY, ZA DO Unavailable Unavailable DICOBY, ZA DO Unavailable Unavailable DICOBY, ZA DO Unavailable Unavailable HIPOLITO Stratton Unavailable Unavailable Darby Serna M.D. Unavailable Unavailable Edil Houston DO Unavailable Unavailable Rosemarie, M Zoey DO Unavailable Unavailable Rosemarie, M Zoey DO Unavailable Unavailable Rosemarie, M Zoey DO Unavailable Unavailable Rosemarie, M Zoey DO Unavailable Unavailable Rosemarie, M Zoey DO Unavailable Unavailable Rosemarie, M Zoey DO Unavailable Unavailable Rosemarie, M Zoey DO Unavailable Unavailable Rosemarie, M Zoey DO Unavailable Unavailable Rosemarie, M Zoey DO Unavailable Unavailable Rosemarie, M Zoey DO Unavailable Unavailable Rosemarie, M Zoey DO Unavailable Unavailable Jaden Rogel MD Unavailable [phone] Pebbles, Jaden Quintana MD Unavailable [phone] Jaden Rogel MD Unavailable [phone] Pebbles, Jaden Quintana MD Unavailable [phone] LeFroy magana DO Unavailable Unavailable [place], Froy DO Unavailable Unavailable [place] Froy DO Unavailable Unavailable Le Froy DO Unavailable Unavailable Haines, M Meri PA Unavailable Unavailable Haines, M Meri PA Unavailable Unavailable Haines, M Meri PA Unavailable Unavailable Haines, M Meri PA Unavailable Unavailable Grimshaw, Rosy Unavailable Unavailable Grimshaw, Rosy Unavailable Unavailable Grimshaw, Rosy Unavailable Unavailable Grimshaw, Rosy Unavailable Unavailable Grimshaw, Rosy Unavailable Unavailable Grimshaw, Rosy Unavailable Unavailable Grimshaw, Rosy Unavailable Unavailable Grimshaw, Rosy Unavailable Unavailable Grimshaw, Rosy Unavailable Unavailable Grimshaw, Rosy Unavailable Unavailable Grimshaw, Rosy Unavailable Unavailable Grimshaw, Rosy Unavailable Unavailable Grimshaw, Rosy Unavailable Unavailable Grimshaw, Rosy Unavailable Unavailable Grimshaw, Rosy Unavailable Unavailable Grimshaw, Rosy Unavailable Unavailable Grimshaw, Rosy Unavailable Unavailable Grimshaw, Rosy Unavailable Unavailable Grimshaw, Rosy Unavailable Unavailable Grimshaw, Rosy Unavailable Unavailable Grimshaw, Rosy Unavailable Unavailable Grimshaw, Rosy Unavailable Unavailable Grimshaw, Rosy Unavailable Unavailable Grimshaw, Rosy Unavailable Unavailable Grimshaw, Rosy Unavailable Unavailable Grimshaw, Rosy Unavailable Unavailable Grimshaw, Rosy Unavailable Unavailable Grimshaw, Rosy Unavailable Unavailable Grimshaw, Rosy Unavailable Unavailable Grimshaw, Rosy Unavailable Unavailable Grimshaw, Rosy Unavailable Unavailable Grimshaw, Rosy Unavailable Unavailable Grimshaw, Rosy Unavailable Unavailable ABDULLAH, ISMAIL MELLISSA MD Unavailable Unavailable ABDULLAH, ISMAIL MELLISSA MD Unavailable Unavailable ABDULLAH, ISMAIL MELLISSA MD Unavailable Unavailable ABDULLAH, ISMAIL MELLISSA MD Unavailable Unavailable ABDULLAH, ISMAIL MELLISSA MD Unavailable Unavailable ABDULLAH, ISMAIL MELLISSA MD Unavailable Unavailable ABDULLAH, ISMAIL MELLISSA MD Unavailable Unavailable ABDULLAH, ISMAIL MELLISSA MD Unavailable Unavailable ABDULLAH, ISMAIL MELLISSA MD Unavailable Unavailable ABDULLAH, ISMAIL MELLISSA MD Unavailable Unavailable ABDULLAH, ISMAIL MELLISSA MD Unavailable Unavailable ABDULLAH, ISMAIL MELLISSA MD Unavailable Unavailable Lent, E [place] CODING COMPLIANCE MANAGER Unavailable Unavailable Lent, E [place] CODING COMPLIANCE MANAGER Unavailable Unavailable NIKKI WILLS PA Unavailable Unavailable NIKKI WILLS PA Unavailable Unavailable NIKKI WILLS PA Unavailable Unavailable NIKKI WILLS PA Unavailable Unavailable NIKKI WILLS PA Unavailable Unavailable CARLY WILLSELLE PA Unavailable Unavailable JOHANN NIKKI PA Unavailable Unavailable Fredonia, Odilia Unavailable Melisa, Odilia Unavailable LOHHÉCTOR, ROD Unavailable Unavailable Nixon L Arley DO Unavailable Unavailable Nixon L Arley DO Unavailable Unavailable BABATUNDE WONGHLEEN Unavailable Unavailable Leykin Gokul DO Unavailable Unavailable CHRIS, C CORTEZ STOVE MOUNTER Unavailable Unavailable CHRIS, C CORTEZ STOVE MOUNTER Unavailable Unavailable CHIRS, C CORTEZ STOVE MOUNTER Unavailable Unavailable CHRIS, C CORTEZ STOVE MOUNTER Unavailable Unavailable CHRIS, C CORTEZ STOVE MOUNTER Unavailable Unavailable CHRIS, C CORTEZ STOVE MOUNTER Unavailable Unavailable CHRIS, C CORTEZ STOVE MOUNTER Unavailable Unavailable CHRIS, C CORTEZ STOVE MOUNTER Unavailable Unavailable CHRIS, C CORTEZ STOVE MOUNTER Unavailable Unavailable CHRIS, C CORTEZ STOVE MOUNTER Unavailable Unavailable CHRIS, C CORTEZ STOVE MOUNTER Unavailable Unavailable CHRIS, C CORTEZ STOVE MOUNTER Unavailable Unavailable CHRIS, C CORTEZ STOVE MOUNTER Unavailable Unavailable CHRIS, C CORTEZ STOVE MOUNTER Unavailable Unavailable CHRIS, C CORTEZ STOVE MOUNTER Unavailable Unavailable CHRIS, C CORTEZ STOVE MOUNTER Unavailable Unavailable CHRIS, C CORTEZ STOVE MOUNTER Unavailable Unavailable CHRIS, C CORTEZ STOVE MOUNTER Unavailable Unavailable CHRIS, C CORTEZ STOVE MOUNTER Unavailable Unavailable CHRIS, C CORTEZ STOVE MOUNTER Unavailable Unavailable Manuelito PEREZFER STOVE MOUNTER Unavailable Unavailable CHRIS, C CORTEZ STOVE MOUNTER Unavailable Unavailable Manuelito PEREZFER STOVE MOUNTER Unavailable Unavailable Manuelito PEREZNIFER STOVE MOUNTER Unavailable Unavailable Manuelito PEREZ CORTEZ STOVE MOUNTER Unavailable Unavailable CHRIS C CORTEZ STOVE MOUNTER Unavailable Unavailable Allen, J Perry PA Unavailable [phone] Allen, J Perry PA Unavailable [phone] Allen, J Perry PA Unavailable [phone] Allen, J Perry PA Unavailable [phone] Allen, J Perry PA Unavailable [phone] Allen, J Perry PA Unavailable [phone] Allen, J Perry PA Unavailable [phone] Allen, J Perry PA Unavailable [phone] Allen, J Perry PA Unavailable [phone] Allen J Perry PA Unavailable [phone] Allen, J Perry PA Unavailable [phone] Allen, J Perry PA Unavailable [phone] Allen, J Perry PA Unavailable [phone] Olga Castillo Unavailable Unavailable Olga Castillo Unavailable Unavailable Olga Castillo Unavailable Unavailable Olga Castillo Unavailable Unavailable Olga Castillo Unavailable Unavailable SHIN SUTHERLAND MD Unavailable Unavailable SHIN SUTHERLAND MD Unavailable Unavailable SHIN SUTHERLAND MD Unavailable Unavailable SHIN SUTHERLAND MD Unavailable Unavailable SHIN SUTHERLAND MD Unavailable Unavailable SHIN SUTHERLAND MD Unavailable Unavailable SHIN SUTHERLAND MD Unavailable Unavailable HEMINK, N JANAY Unavailable Unavailable Hernandez BUSCH MD Unavailable Unavailable Hernandez BUSCH MD Unavailable Unavailable Hernandez BUSCH MD Unavailable Unavailable Hernandez BUSCH MD Unavailable Unavailable Hernandez BUSCH MD Unavailable Unavailable Hernandez BUSCH MD Unavailable Unavailable Hernandez BUSCH MD Unavailable Unavailable Hernandez BUSCH MD Unavailable Unavailable Hernandez BUSCH MD Unavailable Unavailable Hernandez BUSCH MD Unavailable Unavailable Hernandez BUSCH MD Unavailable Unavailable Hernandez BUSCH MD Unavailable Unavailable Hernandez BUSCH MD Unavailable Unavailable Hernandez BUSCH MD Unavailable Unavailable Hernandez BUSCH MD Unavailable Unavailable Hernandez BUSCH MD Unavailable Unavailable Hernandez BUSCH MD Unavailable Unavailable Hernandez BUSCH MD Unavailable Unavailable Hernandez BUSCH MD Unavailable Unavailable Hernandez BUSCH MD Unavailable Unavailable Hernandez BUSCH MD Unavailable Unavailable Hernandez BUSCH MD Unavailable Unavailable Hernandez BUSCH MD Unavailable Unavailable Hernandez BUSCH MD Unavailable Unavailable Hernandez BUSCH MD Unavailable Unavailable Hernandez BUSCH MD Unavailable Unavailable Hernandez BUSCH MD Unavailable Unavailable Hernandez BUSCH MD Unavailable Unavailable Hernandez BUSCH MD Unavailable Unavailable Hernandez BUSCH MD Unavailable Unavailable Hernandez BUSCH MD Unavailable Unavailable Hernandez BUSCH MD Unavailable Unavailable Hernandez BUSCH MD Unavailable Unavailable Hernandez BUSCH MD Unavailable Unavailable Hernandez BUSCH MD Unavailable Unavailable Hernandez BUSCH MD Unavailable Unavailable Hernandez BUSCH MD Unavailable Unavailable Hernandez BUSCH MD Unavailable Unavailable Hernandez BUSCH MD Unavailable Unavailable Hernandez BUSCH MD Unavailable Unavailable Hernandez BUSCH MD Unavailable Unavailable Hernandez BUSCH MD Unavailable Unavailable Hernandez BUSCH MD Unavailable Unavailable Hernandez BUSCH MD Unavailable Unavailable Hernandez BUSCH MD Unavailable Unavailable Hernandez BUSCH MD Unavailable Unavailable Hernandez BUSCH MD Unavailable Unavailable Hernandez BUSCH MD Unavailable Unavailable Hernandez BUSCH MD Unavailable Unavailable Hernandez BUSCH MD Unavailable Unavailable Hernandez BUSCH MD Unavailable Unavailable Hernandez BUSCH MD Unavailable Unavailable Hernandez BUSCH MD Unavailable Unavailable Hernandez BUSCH MD Unavailable Unavailable Hernandez BUSCH MD Unavailable Unavailable Hernandez BUSCH MD Unavailable Unavailable Hernandez BUSCH MD Unavailable Unavailable Hernandez BUSCH MD Unavailable Unavailable Hernandez BUSCH MD Unavailable Unavailable CARISSIMI, A MYRTLE CNM Unavailable Unavailable CARISSIMI, A MYRTLE CNM Unavailable Unavailable CARISSIMI, A MYRTLE CNM Unavailable Unavailable CARISSIMI, A MYRTLE CNM Unavailable Unavailable CARISSIMI, A MYRTLE CNM Unavailable Unavailable CARISSIMI, A MYRTLE CNM Unavailable Unavailable CARISSIMI, A MYRTLE CNM Unavailable Unavailable CARISSIMI, A MYRTLE CNM Unavailable Unavailable CARISSIMI, A MYRTLE CNM Unavailable Unavailable CARISSIMI, A MYRTLE CNM Unavailable Unavailable CARISSIMI, A MYRTLE CNM Unavailable Unavailable CARISSIMI, A MYRTLE CNM Unavailable Unavailable CARISSIMI, A MYRTLE CNM Unavailable Unavailable CARISSIMI, A MYRTLE CNM Unavailable Unavailable CARISSIMI, A MYRTLE CNM Unavailable Unavailable CARISSIMI, A MYRTLE CNM Unavailable Unavailable CARISSIMI, A MYRTLE CNM Unavailable Unavailable CARISSIMI, A MYRTLE CNM Unavailable Unavailable CARISSIMI, A MYRTLE CNM Unavailable Unavailable CARISSIMI, A MYRTLE CNM Unavailable Unavailable MASTROGIANNIS, S MELVIN Unavailable Unavailable Phipps IV, J Yariel CODING COMPLIANCE MANAGER Unavailable Unavailable Phipps IV, J Yariel CODING COMPLIANCE MANAGER Unavailable Unavailable Phipps IV, J Yariel CODING COMPLIANCE MANAGER Unavailable Unavailable Phipps IV, J Yariel CODING COMPLIANCE MANAGER Unavailable Unavailable Desmond Pelaez MD Unavailable Unavailable Desmond Pelaez MD Unavailable Unavailable POLNIAK, ARMOND STOVE MOUNTER Unavailable Unavailable POLNIAK, ARMOND STOVE MOUNTER Unavailable Unavailable POLNIAK, ARMOND STOVE MOUNTER Unavailable Unavailable POLNIAK, ARMOND STOVE MOUNTER Unavailable Unavailable POLNIAK, ARMOND STOVE MOUNTER Unavailable Unavailable POLNIAK, ARMOND STOVE MOUNTER Unavailable Unavailable POLNIAK, ARMOND STOVE MOUNTER Unavailable Unavailable POLNIAK, ARMOND STOVE MOUNTER Unavailable Unavailable POLNIAK, ARMOND STOVE MOUNTER Unavailable Unavailable POLNIAK, ARMOND STOVE MOUNTER Unavailable Unavailable POLNIAK, ARMOND STOVE MOUNTER Unavailable Unavailable POLNIAK, ARMOND STOVE MOUNTER Unavailable Unavailable POLNIAK, ARMOND STOVE MOUNTER Unavailable Unavailable POLNIAK, ARMOND STOVE MOUNTER Unavailable Unavailable POLNIAK, ARMOND STOVE MOUNTER Unavailable Unavailable POLNIAK, ARMOND STOVE MOUNTER Unavailable Unavailable Urvashi Parrish MD Unavailable Unavailable ShivaniUrvashi king MD Unavailable Unavailable Urvashi Parrish MD Unavailable Unavailable Familia Mauriceantha PA Unavailable [phone] Familia Maurice Beth PA Unavailable [phone] Familia Mauriec Beth PA Unavailable [phone] Familia Maurice Beth PA Unavailable [phone] HERMELINDA ANDERSON Unavailable Unavailable Desmond OLVERA JR, MD Unavailable Unavailable Desmond OLVERA JR, MD Unavailable Unavailable Desmond OLVERA JR, MD Unavailable Unavailable Desmond OLEVRA JR, MD Unavailable Unavailable NOSOVITCH JR, Desmond QUINTANA MD Unavailable Unavailable NOSOVITCH JR, Desmond QUINTANA MD Unavailable Unavailable NOSOVITCH JR, Desmond QUINTANA MD Unavailable Unavailable NOSOVITCH JR, Desmond QUINTANA MD Unavailable Unavailable NOSOVITCH JR, Desmond QUNITANA MD Unavailable Unavailable NOSOVITCH JR, Desmond QUINTANA MD Unavailable Unavailable NOSOVITCH JR, Desmond QUINTANA MD Unavailable Unavailable NOSOVITCH JR, Desmond QUINTANA MD Unavailable Unavailable NOSOVITCH JR, Desmond QUINTANA MD Unavailable Unavailable NOSOVITCH JR, Desmond QUINTANA MD Unavailable Unavailable NOSOVITCH JR, Desmond QUINTANA MD Unavailable Unavailable NOSOVITCH JR, Desmond QUINTANA MD Unavailable Unavailable NOSOVITCH JR, Desmond QUINTANA MD Unavailable Unavailable NOSOVITCH JR, Desmond QUINTANA MD Unavailable Unavailable NOSOVITCH JR, Desmond QUINTANA MD Unavailable Unavailable NOSOVITCH JR, Desmond QUINTANA MD Unavailable Unavailable NOSOVITCH JR, Desmond QUINTANA MD Unavailable Unavailable NOSOVITCH JR, Desmond QUINTANA MD Unavailable Unavailable NOSOVITCH JR, Desmond QUINTANA MD Unavailable Unavailable NOSOVITCH JR, Desmond QUINTANA MD Unavailable Unavailable NOSOVITCH JR, Desmond QUINTANA MD Unavailable Unavailable NOSOVITCH JR, Desmond QUINTANA MD Unavailable Unavailable NOSOVITCH JR, Desmond QUINTANA MD Unavailable Unavailable NOSOVITCH JR, Desmond QUINTANA MD Unavailable Unavailable NOSOVITCH JR, Desmond QUINTANA MD Unavailable Unavailable NOSOVITCH JR, Desmond QUINTANA MD Unavailable Unavailable NOSOVITCH JR, Desmond QUINTANA MD Unavailable Unavailable Familia Maurice PA Unavailable Unavailable Familia Allen PA Unavailable Unavailable DICOBY, ZA DO Unavailable Unavailable DICOBY, ZA DO Unavailable Unavailable DICOBY, ZA DO Unavailable Unavailable DICOBY, ZA DO Unavailable Unavailable DICOBY, ZA DO Unavailable Unavailable DICOBY, ZA DO Unavailable Unavailable DICOBY, ZA DO Unavailable Unavailable DICOBY, ZA DO Unavailable Unavailable DICOBY, ZA DO Unavailable Unavailable DICOBY, ZA DO Unavailable Unavailable DICOBY, ZA DO Unavailable Unavailable DICOBY, ZA DO Unavailable Unavailable DICOBY, ZA DO Unavailable Unavailable DICOBY, ZA DO Unavailable Unavailable DICOBY, ZA DO Unavailable Unavailable DICOBY, ZA DO Unavailable Unavailable DICOBY, ZA DO Unavailable Unavailable DICOBY, ZA DO Unavailable Unavailable DICOBY, ZA DO Unavailable Unavailable DICOBY, ZA DO Unavailable Unavailable DICOBY, ZA DO Unavailable Unavailable Manuelito JUAREZ PA Unavailable Unavailable BROUGHAL, C KAY PA Unavailable Unavailable BROUGHAL, C KAY PA Unavailable Unavailable BROUGHAL, C KAY PA Unavailable Unavailable BROUGHAL, C KAY PA Unavailable Unavailable BROUGHAL, C KAY PA Unavailable Unavailable Bridget Alicea DO Unavailable Unavailable BabsGokul chairez DO Unavailable Unavailable Re-disclosure Warning The records that you are about to access may contain information from federally-assisted alcohol or drug abuse programs. If such information is present, then the following federally mandated warning applies: This information has been disclosed to you from records protected by federal confidentiality rules (42 CFR part 2). The federal rules prohibit you from making any further disclosure of this information unless further disclosure is expressly permitted by the written consent of the person to whom it pertains or as otherwise permitted by 42 CFR part 2. A general authorization for the release of medical or other information is NOT sufficient for this purpose. The Federal rules restrict any use of the information to criminally investigate or prosecute any alcohol or drug abuse patient.The records that you are about to access may contain highly sensitive health information, the redisclosure of which is protected by Article 27-F of the [facility] Public Health law. If you continue you may have access to information: Regarding HIV / AIDS; Provided by facilities licensed or operated by the [facility] Office of Mental Health; or Provided by the [facility] Office for People With Developmental Disabilities. If such information is present, then the following [facility] mandated warning applies: This information has been disclosed to you from confidential records which are protected by state law. State law prohibits you from making any further disclosure of this information without the specific written consent of the person to whom it pertains, or as otherwise permitted by law. Any unauthorized further disclosure in violation of state law may result in a fine or detention sentence or both. A general authorization for the release of medical or other information is NOT sufficient authorization for further disc losure. Allergies and Adverse Reactions Type Description Substance Reaction Status Data Source(s ) Propensity to adverse reactions ADHESIVE TAPE ADHESIVE TAPE [facility] Propensity to adverse reactions LATEX Latex Hives [facility] Encounters Encounter Providers Location Date Indications Data Source(s ) [place] [address] [facility] [address] 08/23/2021 12:00:00 AM EDT [facility]CW[facility] Outpatient Attender: Lilian Rogel MD CPSCAORT-[id number] 08/09/20 03:38:00 PM EDT - 08/09/2021 03:39:00 PM EDT [facility] Patient discharged. Unknown [address] [facility] [address] 07/31/2021 12:00:00 AM EDT eCW1 ([facility]) Unknown [address] [facility] [address] 07/04/2021 12:00:00 AM EDT [facility]CW1 ([facility]) Unknown [address] [facility] [address] 07/03/2021 12:00:00 AM EDT eCW1 ([facility]) Emergency Attender: Marcy Pelaez MD CPSCAORT-ED 021 12:20:00 PM EDT - 06/30/2021 05:10:00 PM EDT ABDOMINAL PAIN [facility] ABDOMINAL PAIN Patient discharged. [place] [address] [facility] [address] 06/18/2021 12:00:00 AM EDT eCW1 ([facility]) Outpatient [address] [facility] [address] 06/12/2021 12:00:00 AM EDT eCW1 ([facility]) Outpatient 05/11/2021 12:00:00 AM EDT [facility] Outpatient Attender: CORTEZ PEREZ NP [facility]11[facility] 12:00:00 AM EDT [facility] ( PO) [facility] [address] [place] [address] 05/08/2021 12:00:00 AM EDT eCW1 ([facility]) Outpatient Attender: MYRTLE MOORE CNM 05/08/2021 12:0 0:00 AM EDT [facility] Outpatient 05/08/2021 12:00:00 AM EDT [facility] Outpatient 05/08/2021 12:00:00 AM [facility] Outpatient Attender: MYRTLE MOORE [facility] 05/04/2021 12:0 0:00 AM [facility] Outpatient 05/04/2021 12:00:00 AM [facility] Outpatient 05/04/2021 12:00:00 AM [facility] Outpatient Attender: MYRTLE MOORE [facility] 05/01/2021 12:0 0:00 AM [facility] Outpatient 05/01/2021 12:00:00 AM [facility] Outpatient 05/01/2021 12:00:00 AM [facility] Outpatient Attender: MYRTLE MOORE [facility] 04/27/2021 12:0 0:00 AM [facility] Outpatient 04/27/2021 12:00:00 AM [facility] Outpatient 04/27/2021 12:00:00 AM [facility] Outpatient Attender: CORTEZ PEREZ NP 04/27/2021 12:00:0 0 AM [facility] Outpatient 04/27/2021 12:00:00 AM [facility] Outpatient 04/27/2021 12:00:00 AM [facility] Outpatient 04/24/2021 12:00:00 AM [facility] Outpatient 04/24/2021 12:00:00 AM [facility] Outpatient 04/24/2021 12:00:00 AM [facility] Outpatient Attender: Marvin CastilloReferrer: ZA FRITZ DO 04/19/2021 12:00:00 AM [facility] Outpatient 04/19/2021 12:00:00 AM [facility] Outpatient 04/19/2021 12:00:00 AM [facility] Outpatient Attender: MYRTLE HANCOCKMReferrer: ZA FRITZ DO [id number] 04/17/2021 12:00:00 AM [facility] 04/17/2021 02:36:57 PM ED T Pre- existing type 2 diabetes mellitus, in , second trimester [facility] Pre-existing type 2 diabetes mellitus, i n , second trimester Outpatient Attender: Odilia Vincent [id number] 04/17/2021 12:0 0:00 AM EDT Morbid (severe) obesity due to excess calories [facility] Morbid (severe) obesity due to excess ca lories Outpatient Attender: HERMELINDA ANDERSON 04/17/2021 12:00:00 AM EDT [facility] Outpatient 04/17/2021 12:00:00 AM T [facility] Outpatient Attender: CORTEZ PEREZ NPReferrer: ZA WHITAKEREllen DON [id number] 04/11/2021 12:00:00 AM EDT - 04/11/2021 03:11:54 PM EDT Pre-existing type 2 diabetes mellitus, in , second trimester [facility] Pre-existing type 2 diabetes mellitus, i n , second trimester Outpatient Attender: JACK Olsonender: JANAY MCCLURE 04/11/2021 12:00:00 AM [facility] Outpatient 04/11/2021 12:00:00 AM [facility] Outpatient Attender: Perry KNOWLES CPSCAORT-CPSCAEND 04/10/2021 10:20:00 AM EDT - 04/10/2021 10:21:00 AM EDT [facility] pital Patient discharged. Outpatient Attender: MYRTLE MOORE CNMReferrer: ZA FRITZ DO [id number] 04/06/2021 12:00:00 AM EDT - 04/06/2021 03:31:21 PM ED T Fatty (change of) liver, not elsewhere classified [facility] Fatty (change of) liver, not elsewhere c lassified Outpatient Attender: RDO CURRAN 04/06/2021 12:00:00 AM E [facility] Outpatient 04/06/2021 12:00:00 AM [facility] Outpatient Attender: Perry KNOWLES CPSCAORT-CPSCAEND 04/04/2021 10:23:00 AM EDT - 04/04/2021 10:24:00 AM EDT [facility] pital Patient discharged. Outpatient Attender: MELLISSA MA MD CPSCAORT-OBOUT 05/2021 07:19:00 PM EDT - 03/30/2021 07:20:00 PM EDT NST [facility] NST Patient discharged. Outpatient Attender: MELVIN Castillo r: ZA FRITZ DO [id number] 03/28/2021 12:00:00 AM EDT - 03/28/2021 02:58:55 PM ED T Pre- existing type 2 diabetes mellitus, in , second trimester [facility] Pre-existing type 2 diabetes mellitus, i n , second trimester Outpatient Attender: JACK WONG 03/28/2021 12:00:00 AM EDT [facility] Outpatient 03/28/2021 12:00:00 AM [facility] Outpatient Attender: Perry MCKOY-CPSCAVANDANA 03/27/2021 11:23:00 AM EDT - 03/27/2021 11:24:00 AM EDT [facility] pital Patient discharged. Outpatient Attender: MELVIN Castillo r: ZA FRITZ DO [id number] 03/21/2021 12:00:00 AM EDT - 03/21/2021 09:53:19 AM ED T Pre- existing type 2 diabetes mellitus, in , second trimester [facility] Pre-existing type 2 diabetes mellitus, i n , second trimester Outpatient Attender: JANAY CHOWDARY 03/21/2021 12:00:00 A M [facility] Outpatient 03/21/2021 12:00:00 AM T [facility] Outpatient Attender: Perry MCKOY-CPSCAEND 03/19/2021 11:31:00 AM EDT - 03/19/2021 11:32:00 AM EDT [facility] pital Patient discharged. Outpatient Attender: ZA DINERO-LABCN 02/23 02:36:00 PM EDT - 03/16/2021 02:37:00 PM EDT Z3A.24 [facility] Z3A.24 Patient discharged. Outpatient Attender: MELVIN Castillo r: ZA FRITZ DO [id number] 03/12/2021 12:00:00 AM EDT - 03/12/2021 12:39:14 PM ED T Pre- existing type 2 diabetes mellitus, in , second trimester [facility] Pre-existing type 2 diabetes mellitus, i n , second trimester Outpatient Attender: ROD CURRAN 03/12/2021 12:00:00 AM E DT [facility] Outpatient 03/12/2021 12:00:00 AM EDT [facility] Outpatient Attender: Perry KNOWLES CPSCAORT-CPSCAEND 03/09/2021 02:47:00 PM EDT - 03/09/2021 02:48:00 PM EDT [facility] pital Patient discharged. Outpatient Attender: MELVIN Castillo r: ZA FRITZ DO [id number] 02/26/2021 12:00:00 AM EDT - 02/26/2021 12:25:28 PM ED T Morbid (severe) obesity due to excess calories [facility] Morbid (severe) obesity due to excess ca lories Outpatient Attender: DAVION CENTENO 02/26/2021 12:00:00 AM EDT [facility] Outpatient Attender: ZA AVALOSCAORT-CPSLAOBG 09:36:00 AM EDT - 02/14/2021 09:37:00 AM EDT [facility] Patient discharged. Outpatient Attender: Perry KNOWLES CPSCAORT-CPSCAEND 01/26/2021 09:44:00 AM EST - 01/26/2021 09:45:00 AM EST [facility] Patient discharged. Outpatient Attender: Odilia VincentReferrer: LILIAN Stanley JR [id number] 01/22/2021 12:00:00 AM EST - 01/22/2021 02:25:32 PM EST Morbid (severe) obesity due to excess calories [facility] Morbid (severe) obesity due to excess ca lories Outpatient Attender: MELVIN Castillo r: ZA FRITZ DO [id number] 01/22/2021 12:00:00 AM EST - 01/22/2021 01:38:11 PM ES T Rfglu-2-pyhftnpufsi deficiency [facility] Fzajh-3-sbkwuaamhsk deficiency Outpatient Attender: DAVIONUrvashi CENTENOReferrer: ZA FRITZ DO 01/22/2021 12:00:00 AM [facility] Outpatient 01/22/2021 12:00:00 AM [facility] Outpatient Attender: Odilia [place] 01/22/2021 12:00:00 A M [facility] Outpatient 01/22/2021 12:00:00 AM [facility] Outpatient Attender: ZA TRINO DO [facility] 10:42:00 AM EST - 01/15/2021 10:43:00 AM EST [facility] Patient discharged. Outpatient Attender: Perry KNOWLES [facility] 01/12/2021 09:21:00 AM EST - 01/12/2021 09:22:00 AM EST [facility] Patient discharged. Outpatient Attender: ZA FRITZ DO [facility] 12/25 02:42:00 PM EST - 01/10/2021 02:43:00 PM EST ANATOMY SCREENING [facility] ANATOMY SCREENING Patient discharged. Outpatient Attender: MELLISSA MA MD [facility] 12/25 10:32:00 AM EST - 01/05/2021 10:33:00 AM EST , TYPE 2 DIABETIC [facility] , TYPE 2 DIABETIC Patient discharged. Emergency Attender: Meri Ziegler PAAttender: Froy Lujan DO CPSCAORT-ED 01/01/2021 10:55:00 AM EST - 01/01/2021 01:25:00 PM EST ABDOMINAL CRAMPING 18 WEEKS [facility] ABDOMINAL CRAMPING 18 WEEKS Patient discharged. Outpatient Attender: ZA FRITZ DO CPSCAORT-LABLAW 12/2020 03:16:00 PM EST - 12/26/2020 03:17:00 PM EST Z13.79 [facility] Z13.79 Patient discharged. Outpatient Attender: Perry KELLEYttender: Breanne KNOWLES CPSCAORT-CPSCAEND 12/26/2020 01:19:00 PM EST - 12/26/2020 01:20:00 PM EST E16. 2 [facility] E16.2 Patient discharged. Emergency Attender: Gokul AVERY ttender: Yariel Phipps IVAttender: Gokul Guthrie DO CPSCAORT-ED 12/23/2020 08:36:00 PM EST - 12/24/2020 12:16:00 AM EST BACK PAIN 16 WEEKS [facility] BACK PAIN 16 WEEKS Patient discharged. Outpatient Attender: HIPOLITO Richardson: ARMOND SHELTON STOVE MOUNTER CPSCAORT-LABLAW 12/20/2020 02:45:00 PM EST - 12/20/2020 02:46:00 PM EST N39. 0 [facility] N39.0 Patient discharged. Outpatient Attender: ZA FRITZ DO CPSCAORT-LABLAW 11/25 03:20:00 PM EST - 12/13/2020 03:21:00 PM EST 15 WEEKS [facility] 15 WEEKS Patient discharged. Outpatient Attender: MARVIN ASIFeferrer: Desmond FRITZ DO [id number] 12/08/2020 12:00:00 AM EST - 12/08/2020 02:42:20 PM ES T Pre-existing type 2 diabetes mellitus, in , unspecified trimester [facility] Pre-existing type 2 diabetes mellitus, i n , unspecified trimester Outpatient Attender: HERMELINDA ANDERSONReferrer: ZA LOPEZ BY DO 12/08/2020 12:00:00 AM [facility] Outpatient Attender: Odilia VincentReferrer: ZA CORDOVA Y DO 12/08/2020 12:00:00 AM [facility] Outpatient Attender: KAY KNOWLES CPSCAORT-LABCOVWAR 0 12/01/2020 02:00:00 PM EST - 12/01/2020 02:01:00 PM EST SCREENING [facility] SCREENING Patient discharged. Outpatient Attender: ZA FRITZ DO CPSCAORT-CPSLAOBG 10:34:00 AM EST - 11/27/2020 10:35:00 AM EST Z13.79 [facility] Z13.79 Patient discharged. Outpatient Attender: Perry KNOWLES [facility]-CPSCAEND 11/14/2020 11:45:00 AM EST - 11/14/2020 11:46:00 AM EST [facility] Patient discharged. Outpatient Attender: Odilia VincentReferrer: ZA Hughes DO 11/14/2020 12:00:00 AM [facility] Outpatient Referrer: ZA JOHNOBEllen DO 11/14/2020 12:00:00 AM [facility] Outpatient Referrer: ZA JOHNOBY DO 11/14/2020 12:00:00 AM [facility] Emergency Attender: SHIN SUTHERLAND MD [facility] 10:24:00 AM EST - 11/03/2020 12:54:00 PM EST FALL INJURY [facility] FALL INJURY Patient discharged. Outpatient Attender: Perry KNOWLES [facility] 10/30/2020 08:54:00 AM EST - 10/30/2020 08:55:00 AM EST [facility] Patient discharged. Emergency Attender: Arley Alicea DOAttender: Alrey crawford DO [facility] 10/28/2020 01:21:00 AM EST - 10/28/2020 03:50:00 AM EST VAGINAL BLEEDING [facility] VAGINAL BLEEDING Patient discharged. Outpatient Attender: ZA FRITZ DO [facility] 02:02:00 PM EST - 10/26/2020 02:03:00 PM EST [facility] Patient discharged. Outpatient Attender: ARMOND SHELTON NP [facility] 09/25 11:15:00 AM EST - 10/16/2020 11:16:00 AM EST DATING [facility] DATING Patient discharged. Outpatient Attender: HIPOLITO Riverader: ARMOND SHELTON NP CPSCAORT-LABLAW 10/16/2020 10:27:00 AM EST - 10/16/2020 10:28:00 AM EST Z3A. 01 [facility] Z3A.01 Patient discharged. Emergency Attender: Yariel Phipps IVAttender: Arley barragan DO CPSCAORT-ED 10/05/2020 10:27:00 PM EST - 10/06/2020 01:08:00 AM EST VAGINAL BLEEDING,ABDOMINAL CRAMPING [facility] VAGINAL BLEEDING,ABDOMINAL CRAMPING Patient discharged. Outpatient Attender: ARMOND SHELTON NP CPSCAORT-CPSLAOBG 10:45:00 AM EST [facility] Emergency Attender: Boogie Serna M.D. SURG-ER 09/21/2020 12:56 :00 AM EDT [facility]. Patient discharged. Outpatient Attender: Beth Puenteender: Seferino KNOWLES CPSCAORT-CPSLAUCC 09/14/2020 02:26:00 PM EDT - 09/14/2020 02:27:00 PM ED T COVID- 19 SCREENING [facility] COVID-19 SCREENING Patient discharged. Outpatient Attender: Rosy Carbajal [facility]PS[facility]CP 06/2020 09:16:00 AM EDT - 08/31/2020 09:17:00 AM EDT [facility] Patient discharged. Outpatient Attender: Zoey Houston DO [facility]EWTH1BRR 09:47:00 AM EDT - 08/07/2020 [facility] Attender: NIKKI Puenteender: Rell mirza MD CPSCAORT-ED 07/27/2020 08:02:00 PM EDT - 07/27/2020 09:47:00 PM EDT FINGER INJURY [facility] FINGER INJURY Patient discharged. Emergency Attender: Gordon HERNANDEZttender: Froy Lujan DO CPSCAORT-ED 07/02/2020 03:04:00 PM EDT - 07/02/2020 04:29:00 PM EDT WRIST PAIN [facility] WRIST PAIN Patient discharged. Outpatient [address] [id number]-[id number] Integration Team 03/06/2017 11:00:00 AM EDT - 08/01/2021 08:00:00 AM EDT [facility] ([facility]) Patient discharged. Medications Medication Brand Name Start Date Product Form Dose Route Admi nistrative Instructions Pharmacy Instructions Status Indications Reaction Description Data Source(s) Sprintec 28 0.25-35 MG-MCG Sprintec 28 0.25-35 MG-MCG 2020 12:00:00 AM EDT 1.0 {tablet} active Sprintec 28 0.25-35 MG-MCG eCW1 ([facility]) Sprintec 28 0.25-35 MG-MCG Sprintec 28 0.25-35 MG-MCG 2020 12:00:00 AM EDT 1.0 {tablet} active Sprintec 28 0.25-35 MG-MCG eCW1 ([facility]) Sprintec 28 0.25-35 MG-MCG Sprintec 28 0.25-35 MG-MCG 2020 12:00:00 AM EDT 1.0 {tablet} active Sprintec 28 0.25-35 MG-MCG eCW1 ([facility]) Sprintec 28 0.25-35 MG-MCG Sprintec 28 0.25-35 MG-MCG 2020 12:00:00 AM EDT 1.0 {tablet} active Sprintec 28 0.25-35 MG-MCG eCW1 ([facility]) Sprintec 28 0.25-35 MG-MCG Sprintec 28 0.25-35 MG-MCG 2020 12:00:00 AM EDT 1.0 {tablet} active Sprintec 28 0.25-35 MG-MCG eCW1 ([facility]) Sprintec 28 0.25-35 MG-MCG Sprintec 28 0.25-35 MG-MCG 2020 12:00:00 AM EDT 1.0 {tablet} active Sprintec 28 0.25-35 MG-MCG eCW1 ([facility]) Insurance Providers Payer name Policy type / Coverage type Policy ID Covered constitution party ID Covered constitution party's relationship to snyder Policy Snyder Plan Information CHILD HE[employer] PLUS [id number] SP [id number] CHILD [employer] PLUS [id number] SP [id number] EXCELLUS BLUE CROSS [id number] SP [id number] EXCELLUS BLUE CROSS [id number] SP [id number] CHILD [employer] PLUS [id number] FO [id number] BLUE CROSS [id number] BRO [id number] CHILD [employer] PLUS [id number] FO [id number] CHILD [employer] PLUS [id number] FO [id number] EXCELLUS BLUE CROSS [id number] MO [id number] CHILD [employer] PLUS [id number] FO [id number] EXCELLUS H [id number] Child [id number] U [id number] Self [id number] U [id number] Self [id number] BLUE CROSS [id number] S [id number] BLUE CROSS [id number] S [id number] SELF PAY UNAVAILABLE SP UNAVAILA BLE BLUE CROSS CHILD HE[employer] PLUS [id number] Full olga e employed [id number] [employer] [place] 306/[id number] MO2 [id number] EAST [id number] S [id number] [employer] [place] PPO [id number] MO2 [id number] [place] [employer] [place] [id number] ZEN [id number] [place] [place] PPO 302/[id number] MO2 [id number] EAST [id number] [facility] [id number] [employer]LL[employer] [place] [id number] Unemployed [id number] [employer] [place] 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 [id number] [employer] 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 d [employer] [id number] [employer]LL[employer] [place] [id number] 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 [id number] [employer] [place] [employer] [id number] Full olga e employed [id number] Problems, Conditions, and Diagnoses Code Display Name Description Problem Type Effective Dates Data Source(s) Z79.4 shelter (current) use of insulin 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 Diagnosis 06/30/2021 12:20:00 PM [facility] Z91.040 Latex allergy status LATEX ALLERGY STATUS Diagnosis 06/30/2021 12:20:00 PM [facility] E10.65 Type 1 diabetes mellitus with hyperglyce ariel TYPE 1 DIABETES MELLITUS WITH HYPERGLYCEMIA Diagnosis 06/30/2021 12:20:00 PM [facility] R79.82 Elevated C-reactive protein (CRP) ELEVATED C-JACKI CTIVE PROTEIN (CRP) Diagnosis 06/30/2021 12:20:00 PM [facility] L30.4 Erythema intertrigo ERYTHEMA INTERTRIGO Diagnosis 0 06/30/2021 12:20:00 PM [facility] R10.31 Right lower quadrant pain RIGHT LOWER QUADRANT PAIN Di agnosis 06/30/2021 12:20:00 PM [facility] O24.119 Pre-existing type 2 diabetes mellitus, in , unspecified trimester Pre-existing type 2 diabetes mellitus, i n , unspecified trimester Diagnosis 04/11/2021 01:36:10 PM [facility] Z3A.32 32 weeks gestation of 32 WEEKS GESTATI ON OF Diagnosis 04/10/2021 10:20:00 AM [facility] E11.65 Type 2 diabetes mellitus with hyperglyce ariel TYPE 2 DIABETES MELLITUS WITH HYPERGLYCEMIA Diagnosis 04/10/2021 10:20:00 AM [facility] R79.89 Other specified abnormal findings of blo od chemistry Other specified abnormal findings of blood chemistry Diagnosis 04/06/2021 01:45:43 PM [facility] K76.0 Fatty (change of) liver, not elsewhere c lassified Fatty (change of) liver, not elsewhere classified Diagnosis 04/06/2021 01:45:43 PM [facility] Z3A.31 31 weeks gestation of 31 WEEKS GESTATI ON OF Diagnosis 04/04/2021 10:23:00 AM [facility] Z3A.30 30 weeks gestation of 30 WEEKS GESTATI ON OF Diagnosis 03/27/2021 11:23:00 AM [facility] Z91.19 Patient's noncompliance with other medic al treatment and regimen PATIENT'S NONCOMPLIANCE W OTH MEDICAL TREATMENT AND REGIMEN Diagnosis 03/19/2021 11:31:00 AM [facility] Z3A.29 29 weeks gestation of 29 WEEKS GESTATI ON OF Diagnosis 03/19/2021 11:31:00 AM [facility] Z3A.19 19 weeks gestation of 19 WEEKS GESTATI ON OF Diagnosis 01/12/2021 09:21:00 AM [facility] O24.112 Pre-existing type 2 diabetes mellitus, i n , second trimester PRE-EXISTING TYPE 2 DIABETES, IN , SECOND TRIMESTER Diagnosis 01/12/2021 09:21:00 AM [facility] Z91.09 Other allergy status, other than to drug s and biological substances OTH ALLERGY STATUS, OTH THAN TO DRUGS AND BIOLG SUBSTANCES Diagnosis 01/01/2021 10:55:00 AM [facility] Z88.8 Allergy status to other drug s, medicaments and biological substances status ALLERGY STATUS TO OTHER DRUG/MEDS/BIOL SUBST Diagnosis 01/01/2021 10:55:00 AM [facility] Z79.899 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 therapy O THER MCFP (CURRENT) DRUG THERAPY Diagnosis 01/01/2021 10:55:00 AM [facility] F32.9 Major depressive disorder, single episod e, unspecified MAJOR DEPRESSIVE DISORDER, SINGLE EPISODE, UNSPECIFIED Diagnosis 01/01/2021 10:55:00 AM [facility] E78.00 Pure hypercholesterolemia, unspecified P URE HYPERCHOLESTEROLEMIA, UNSPECIFIED Diagnosis 01/01/2021 10:55:00 AM [facility] E11.9 Type 2 diabetes mellitus without complic ations TYPE 2 DIABETES MELLITUS WITHOUT COMPLICATIONS Diagnosis 01/01/2021 10:55:00 AM [facility] M62.831 Muscle spasm of calf MUSCLE SPASM OF CALF Diagnosis 01/01/2021 10:55:00 AM [facility] R10.9 Unspecified abdominal pain UNSPECIFIED ABDOMINAL PAIN Diagnosis 01/01/2021 10:55:00 AM [facility] Z3A.18 18 weeks gestation of 18 WEEKS GESTATI ON OF Diagnosis 01/01/2021 10:55:00 AM [facility] O26.892 Other specified related condit ions, second trimester OTH RELATED CONDITIONS, SECOND TRIMESTER Diagnosis 021 10:55:00 AM [facility] O24.912 Unspecified diabetes mellitus in pregnan cy, second trimester UNSPECIFIED DIABETES MELLITUS IN , SECOND TRIMESTER Diagnosis 12/26 01:19:00 PM [facility] O24.312 Unspecified pre-existing brittani betes mellitus in , second trimester UNSP PRE-EXISTING DIABETES IN , SECOND TRIMESTER Di agnosis 12/23/2020 08:36:00 PM [facility] Z3A.17 17 weeks gestation of 17 WEEKS GESTATI ON OF Diagnosis 12/23/2020 08:36:00 PM [facility] N39.0 Urinary tract infection, site not specif ied URINARY TRACT INFECTION, SITE NOT SPECIFIED Diagnosis 12/20/2020 02:45:00 PM [facility] Z13.79 Encounter for other screening for geneti c and chromosomal anomalies ENCNTR FOR [facility] SCREENING FOR GENETIC AND CHROMSOML ANOMALIES Diagnosis 12/13/2020 03:20:00 PM [facility] 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 Diagnosis 12/08/2020 02:30:01 PM [facility] Z68.43 Body mass index (BMI) 50-59.9 , adult Adonay dy mass index (BMI) 50.0-59.9, adult Diagnosis 12/08/2020 02:29:46 PM [facility] E66.01 Morbid (severe) obesity due to excess ca lories Morbid (severe) obesity due to excess calories Diagnosis 12/08/2020 02:29:46 PM [facility] O24.112 Pre-existing type 2 diabetes mellitus, i n , second trimester Pre-existing type 2 diabetes mellitus, in , second trimester Diagnosis 12/08/2020 02:29:28 PM [facility] Y92.[address] or not applicable UNSPECIFIED PLACE OR NOT APPLICABLE Diagnosis 11/03/2020 10:24:00 AM [facility] W10.9XXA Fall (on) (from) unspecified stairs and steps, initial encounter FALL (ON) (FROM) UNSPECIFIED STAIRS AND STEPS, INIT ENCNTR Diagnosis 11/03/2020 10:24:00 AM [facility] Z3A.09 9 weeks gestation of 9 WEEKS GESTATION OF SD EGNANCY Diagnosis 11/03/2020 10:24:00 AM [facility] S46.011A Strain of muscle(s) and tend on(s) of the rotator cuff of right shoulder, initial encounter STRAIN OF MUSC/TEND THE ROTATOR CUFF OF RIGHT SHOULDER, INIT Diagnosis 11/03/2020 10:24:00 AM [facility] O26.891 Other specified related condit ions, first trimester OTH RELATED CONDITIONS, FIRST TRIMESTER Diagnosis 11/03/20 20 10:24:00 AM [facility] Z3A.08 8 weeks gestation of 8 WEEKS GESTATION OF SD EGNANCY Diagnosis 10/28/2020 01:21:00 AM [facility] O36.0110 Maternal care for anti-D [Rh ] antibodies, first trimester, not applicable or unspecified MATERNAL CARE FOR ANTI-D ANTIBODIES, FIR ST TRIMESTER, UNSP Diagnosis 10/28/2020 01:21:00 AM [facility] O46.8X1 Other antepartum hemorrhage, first trime ster OTHER ANTEPARTUM HEMORRHAGE, FIRST TRIMESTER Diagnosis 10/28/2020 01:21:00 AM [facility] Z34.01 Encounter for supervision of normal firs t , first trimester ENCNTR FOR SUPRVSN OF NORMAL FIRST PREG, FIRST TRIMESTER Diagnosis 10/28/2020 01:21:00 AM [facility] O36.71X0 Maternal care for viable fet us in abdominal , first trimester, not applicable or unspecified MATERNAL CARE FOR VIABLE FETUS IN ABD SD EG, FIRST TRI, UNSP Diagnosis 10/16/2020 11:15:00 AM [facility] O20.8 Other hemorrhage in early OTHER HEMORR KACI IN EARLY Diagnosis 10/16/2020 11:15:00 AM [facility] Z34.91 Encounter for supervision of normal , unspecified, first trimester ENCNTR FOR SUPRVSN OF NORMAL PREG, UNSP, FIRST TRIMESTER Brittani gnosis 10/16/2020 10:27:00 AM [facility] Z91.048 Other nonmedicinal substance allergy sta tus OTHER NONMEDICINAL SUBSTANCE ALLERGY STATUS Diagnosis 10/05/2020 10:27:00 PM [facility] O20.0 Threatened THREATENED Diagnosis 1 12/05/2019 10:27:00 PM [facility] Z3A.01 Less than 8 weeks gestation of LESS THAN 8 WEEKS GESTATION OF Diagnosis 09/29/2020 10:45:00 AM [facility] Z32.01 Encounter for test, result pos itive ENCOUNTER FOR TEST, RESULT POSITIVE Diagnosis 09/29/2020 10:45:00 AM [facility] N91.2 Amenorrhea, unspecified AMENORRHEA, UNSPECIFIED Diagno sis 09/29/2020 10:45:00 AM [facility] R59.1 Generalized enlarged lymph nodes GENERALIZED ENL ARGED LYMPH NODES Diagnosis 09/14/2020 02:26:00 PM [facility] J02.9 Acute pharyngitis, unspecified ACUTE PHARYNGITIS, UNSP ECIFIED Diagnosis 09/14/2020 02:26:00 PM [facility] R74.8 Abnormal levels of other serum enzymes A BNORMAL LEVELS OF OTHER SERUM ENZYMES Diagnosis 08/07/2020 09:47:00 AM [facility] R16.2 Hepatomegaly with splenomegaly, not else where classified HEPATOMEGALY WITH SPLENOMEGALY, NOT ELSEWHERE CLASSIFIED Diagnosis 08/07/2020 09:47:00 AM [facility] K75.81 Nonalcoholic steatohepatitis (CABALLERO) NONALCOHOLIC STEATOHEPATITIS (CABALLERO) Diagnosis 08/07/2020 09:47:00 AM [facility] Z79.3 shelter (current) use of hormonal cont raceptives 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 CONTRACEPTIVES Diagnosis 07/27/2020 08:02:00 PM [facility] Y92.[address] in unspecified n on-institutional (private) residence as the place of occurrence of the external cause OTH PLACE IN UNSP NON-INSTITUT (PRIVATE) RESIDENCE PLACE Diagnosis 07/27/2020 08:02:00 PM [facility] X58.XXXA Exposure to other specified factors, ini tial encounter EXPOSURE TO OTHER SPECIFIED FACTORS, INITIAL ENCOUNTER Diagnosis 07/27/2020 08:02: 00 PM EDT [facility] S61.306A Unspecified open wound of ri ght little finger with damage to nail, initial encounter UNSP OPEN WOUND OF R LITTLE FINGER W DAMAGE TO NAIL, I NIT Diagnosis 07/27/2020 08:02:00 PM EDT [facility] N93.9 Abnormal uterine bleeding Abnormal uterine bleeding (A UB) Problem 08/01/2021 12:00:00 AM EDT eCW1 ([facility]) Surgeries/Procedures Procedure Description Date Indications Data Source(s) CT ABDOEN & PELVIS W/CONTRAST MATERIAL CT ABD & PELV W/CONTR AST 06/30/2021 12:00:00 AM [facility] Low osmolar contrast material, 300-399 mg/ml iodine co ncentration, per ml Locm 300-399mg/ml iodine,1ml Long 06/30/2021 12:00:00 AM EDT [facility] CUL BACT AEROBIC ADDL METHS DEFINITIVE EA ISOL CULTURE AEROB IC IDENTIFY 06/30/2021 12:00:00 AM [facility] SUSCEPTIBLTY STDY ANTIMICRBIAL MICRO/AGAR DILUTJ MICROBE ANTONIO CEPTIBLE TIM 06/30/2021 12:00:00 AM [facility] URNLS DIP STICK/TABLET REAGENT AUTO MICROSCOPY URINALYSIS AU TO W/SCOPE 06/30/2021 12:00:00 AM [facility] BLOOD COUNT COMPLETE AUTO&AUTO DIFRNTL WBC COUNT COMPLETE CB C W/AUTO DIFF WBC 06/30/2021 12:00:00 AM [facility] GONADOTROPIN CHORIONIC QUALITATIVE CHORIONIC GONADOTROPIN SAY 06/30/2021 12:00:00 AM [facility] C-REACTIVE PROTEIN C-REACTIVE PROTEIN 06/30/2021 12:00:00 AM [facility] LIPASE ASSAY OF LIPASE 06/30/2021 12:00:00 AM [facility] COMPREHENSIVE METABOLIC PANEL COMPREHEN METABOLIC PANEL 05/2021 12:00:00 AM [facility] Injection, acetaminophen, 10 mg 06/30/2021 12:00:00 AM [facility] Non-covered item or service NON-COVERED ITEM OR SERVICE 05[facility]X [facility] SINGLE/1ST SBST/DRUG THER/PROPH/DI AG INJ IV PUSH 06/30/2021 [facility] HIGH SEVERITY&THREAT FUNCJ EMERGENCY DE PT VISIT 06/30/2021 12:00:00 AM EDT [facility] outpatient clinic visit for assessment and ma nagement of a patient Hospital Outpatient Clinic Visit 04/10/2021 12:00:00 AM [facility] GLUC BLD GLUC MNTR DEV CLEARED FDA SPEC HOME USE GLUCOSE BLO OD TEST 04/10/2021 12:00:00 AM [facility] US PREG UTERUS REAL TIME F/U TRNSABDL PER FETUS 2020 12:00:00 AM [facility] DUP-SCAN XTR VEINS UNILATERAL/LIMITED STUDY EXTREMITY STUDY 01/01/2021 12:00:00 AM [facility] US UTERUS LIMITED 1/> FETUSES OB US LIMITED FETUS(S ) 01/01/2021 12:00:00 AM [facility] URNLS DIP STICK/TABLET RGNT AUTO W/O MICROSCOPY URINALYSIS A UTO W/O SCOPE 01/01/2021 12:00:00 AM [facility] COLLECTION VENOUS BLOOD VENIPUNCTURE ROUTINE VENIPUNCTURE 12:00:00 AM [facility] IV INFUSION THERAPY/PROPHYLAXIS /DX 1ST TO 1 HR THER/PROPH/D IAG IV INF INIT 01/01/2021 12:00:00 AM [facility] EMERGENCY DEPARTMENT VISIT HIGH/URGENT SEVERITY EMERGENCY DE PT VISIT 01/01/2021 12:00:00 AM [facility] HEMOGLOBIN GLYCOSYLATED A1C GLYCOSYLATED HEMOGLOBIN TEST 12/2020 12:00:00 AM [facility] BASIC METABOLIC PANEL CALCIUM TOTAL METABOLIC PANEL TOTAL CA 12/26/2020 12:00:00 AM [facility] US UTERUS 14 WK TRANSABDL 1/ GESTAT OB US < 14 W [place] SINGLE FETUS 11/03/2020 12:00:00 AM [facility] CULTURE BACTERIAL QUANTTATIVE COLONY COUNT URINE URINE CULTU RE/COLONY COUNT 11/03/2020 12:00:00 AM [facility] US PREG UTERUS REAL TIME W/IMAGE DCMTN TRANSVAG TRANSVAGINAL US OBSTETRIC 10/28/2020 12:00:00 AM [facility] BLOOD TYPING RH D BLOOD TYPING SEROLOGIC RH(D) 10/28/2020 12:00:00 AM [facility] BLOOD TYPING ABO BLOOD TYPING SEROLOGIC ABO 10/28/2020 12:00:00 AM [facility] GONADOTROPIN CHORIONIC QUANTITATIVE CHORIONIC GONADOTROPIN [facility] 10/28/2020 12:00:00 AM [facility] Injection, rho d immune globulin, human, full dose, 30 0 micrograms (1500 i.u.) 10/28/2020 12:00:00 AM [facility] THERAPEUTIC PROPHYLACTIC/DX INJECTION SUBQ/IM THER/PROPH/BRITTANI G INJ SC/IM 10/28/2020 12:00:00 AM [facility] ANTIBODY SCREEN RBC EACH SERUM TECHNIQUE RBC ANTIBODY SCREEN 10/16/2020 12:00:00 AM [facility] IADNA NEISSERIA GONORRHOEAE AMPLIFIED PROBE TQ N.GONORRHOEAE DNA AMP PROB 10/16/2020 12:00:00 AM [facility] IADNA CHLAMYDIA TRACHOMATIS AMPLIFIED PROBE TQ CHYLMD TRACH DNA AMP PROBE 10/16/2020 12:00:00 AM [facility] ANTIBODY TOXOPLASMA TOXOPLASMA ANTIBODY 10/16/2020 12:00:00 AM [facility] LEAD ASSAY OF LEAD 10/16/2020 12:00:00 AM [facility] ANTIBODY VARICELLA-ZOSTER VARICELLA-ZOSTER ANTIBODY 10/16/2020 1 2:00:00 AM [facility] THYROID STIMULATING HORMONE TSH ASSAY THYROID STIM HORMONE 1 12/16/2019 12:00:00 AM [facility] ANTIBODY TOXOPLASMA IGM TOXOPLASMA ANTIBODY IGM 10/16/2020 12:00:00 AM [facility] IAAD EIA HEPATITIS B SURFACE ANTIGEN HEPATITIS B SURFACE AG IA 10/16/2020 12:00:00 AM [facility] [id number] DRUG TEST PRSMV CHEM ANLYZR 10/16/2020 12:00:00 AM [facility] ANTIBODY TREPONEMA PALLIDUM TREPONEMA PALLIDUM 10/16/2020 12:00:00 AM [facility] IAAD EIA HIV-1 AG W/HIV-1&HIV-2 ANTBDY SINGLE HIV-1 AG W/HIV -1 & HIV-2 AB 10/16/2020 12:00:00 AM [facility] ANTIBODY RUBELLA RUBELLA ANTIBODY 10/16/2020 12:00:00 AM [facility] HEPATITIS C ANTIBODY HEPATITIS C AB TEST 10/16/2020 12:00:00 AM [facility] [id number] 10/16/2020 12:00:00 AM [facility] URINE TEST VISUAL COLOR CMPRSN METHS URINE PREGNAN CY TEST 09/29/2020 12:00:00 AM [facility] URNLS DIP STICK/TABLET RGNT NON-AUTO W/O MICRSCP URINALYSIS NONAUTO W/O SCOPE 09/29/2020 12:00:00 AM [facility] IADNA STREPTOCOCCUS GROUP A AMPLIFIED PROBE TQ STREP A DNA A MP PROBE 09/14/2020 12:00:00 AM [facility] Injection, dexamethasone sodium phosphate, 1mg 020 12:00:00 AM [facility] U0003 SARS-CoV-2 detection by nucleic acid 09/14/2020 12:00: 00 AM [facility] EMERGENCY DEPARTMENT VISIT LIMITED/MINOR PROB EMERGENCY DEPT VISIT 07/27/2020 12:00:00 AM [facility] Results ID Date Data Source CHLAMYDIA, GC and TRICH AMP 08/23/2021 12:00:00 AM EDT [facility] ([facility]) Name Value Range Interpretation Code Description Data Ellen rce(s) Supporting Document(s) NOT DETECTED NEGATIVE Trichomonas vaginalis ( AMP) [facility] ([facility]) ID Date Data Source [id number] 06/30/2021 12:20:00 PM EDT [facility] Name: [facility]IC[facility] Rec #: [id number] : 2000 Age/Sex: 20F Date of Service: 06/30/21 DISPOSITION SUMMARY Discharge Summary [facility] Name:[facility] Emergency Department Age:20 yrs Sex:Female :2000 Arrival:06/30/2021 12:20 Departure Date06/30/2021 Departure Time17:12 Private MD:Rosy Carbajal Outcome: Discharge Location: Home/Self Care Condition: Good Chief Complaint: Abdominal Pain Diagnosis: Abdominal Pain, Right Lower Quadrant, Erythema intertrigo Prescriptions: Clotrimazole 1 % Topical Cream - Apply to affected area 1 application by TOPICAL route every 12 hours; 15 gram Follow up: Rosy Carbajal Custom Notes: <span>Rest and stay well-hydrated.</span>
<span>Stick to bland diet while you are symptomatic.</span>
<span>Your labs, urine, imaging are reassuring today - your potassium was on the lower-end of normal, therefore be sure to incorporate bananas and sweet potatoes (foods that are rich in potassium, as we discussed)</span><span>You will also need to closely monitor your blood sugar, as we discussed. </span>
<span>It is important that you follow-up with your primary care, please call her on Friday to make an appt. </span>
<span>Return to the emergency room for any new or worsening symptoms as we discussed.</span> Attending Physician: Marcy Pelaez MD Private MD: Rosy Carbajal Mid Level Provider: Yi Stevens PA-C Followup Physician: Rosy Carbajal Orders: CRP - Wide Range, Cbc With Auto Differential, Comprehensive Metabolic Prof., Lipase, UA., Beta Hcg,Qualitative, Collect Urine - Clean Catch, Iv Saline Lock, NPO, Ofirmev, Ct Abdomen & Pelvis with Con, Urinalysis Auto w/Microscopy, Urine Culture, Potassium Chloride Discharge Instruction: Discharge Summary Sheet, Abdominal Pain, Adult, Intertrigo, Medication Reconciliation Name Value Range Interpretation Code Description Data Ellen rce(s) Supporting Document(s) ID Date Data Source [id number] 06/30/2021 12:20:00 PM EDT [facility] Name: [place] Rec #: [id number] : 2000 Age/Sex: 20F Date of Service: 06/30/21 PHYSICIAN CHART Physician Documentation [facility] Name: [facility] Age: 20 yrs Sex: Female : 2000 Arrival Date: 06/30/2021 Time: 12:20 Bed 7 Private MD: Rosy Carbajal D ED Physician Marcy Pelaez Disposition: 06/30 16:42 Attestation: I discussed the plan of care with [facility] and agree with what they have documented. HPI: 14:51 This 20 yrs old Female presents to ER via Walk-In 2 with complaints of Abdominal Pain. 14:51 Patient is a 20-year-old female with a past medical history 2 of insulin- dependent diabetes, presents today due to evaluation of right lower quadrant abdominal pain. Patient states for the last 2 days she has had pain in her right lower quadrant with associated nausea and decreased appetite. She also tells me that she has noticed slight redness feelings of her scar, was in March 2021. No known fever.. 15:15 Of note, he tells me that her blood sugar have been hm2 elevated in the last 2 days. 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 Humalog U-100 Insulin 100 un it/mL Sub-Q soln 32 unit before meals 2. Levemir U-100 Insulin 100 unit/mL soln 38 unit before breakfast and dinner 3. control pill - PMHx: DEPRESSION; Diabetes - IDDM; Hypercholesterolemia; - PSHx: Liver Biopsy; section; - Med Reconciliation:: Green Alert: The patient's med list is complete to the best of the nurse's/provider's knowledge. Medications reviewed, verbally from patient/family. - Immunization history,: All immunizations are up to date. Flu vaccine is up to date. COVID-19 vaccine: Not immunized. - Advance directive: There is no existing advanced directive. Information offered. - Family History:: mother has a history of diabetes mellitus, Father : unknown medical history. - Social History: Smoking status (Tobacco): Patient states he/she has never smoked tobacco. Preferred Language: [place] Island[place] No barriers to communication noted, The patient speaks fluent [place], Speaks appropriately for age. ROS: 14:55 Constitutional: Negative for fever. Abdomen/GI: Positive hm2 for abdominal pain, nausea, See HPI. Skin: Positive for erythema, See HPI. All other systems are negative. Exam: 14:56 Constitutional: This is a well developed, well nourished hm2 patient who is awake, alert, and in no acute distress. Head/Face: Normocephalic, atraumatic. 14:56 Cardiovascular: Rate: normal, Rhythm: regular, Heart sounds: normal, normal S1and S2. 14:56 Respiratory: the patient does not display signs of respiratory distress, Respirations: normal, Breath sounds: are normal. 14:56 Abdomen/GI: Inspection: abdomen appears normal, Palpation: soft, mild abdominal tenderness, in the right lower quadrant. 14:56 Skin: Appearance: Color: pink, Temperature: warm, Moisture: dry. 14:56 Neuro: Orientation: appropriate for stated age, no acute changes, Mentation: appropriate for stated age, no acute changes. 14:56 Psych: Behavior/mood is pleasant. Vital Signs: 12:47 BP 146 / 98; Pulse 105; Resp 18; Temp 97.9(TE); Pulse Ox meb 100% on R/A; Weight 141.97 kg (R); Height 5 ft. 4 in. (162.56 cm) (R); Pain 8/10; 14:55 BP 127 / 76; Pulse 104; Resp 20; Temp 97.3; Pulse Ox 97% on edv R/A; 17:10 BP 126 / 74; Pulse 92; Resp 20; Temp 97.5; Pulse Ox 98% on edv R/A; 12:47 Body Mass Index 53.72 (141.97 kg, 162.56 cm) meb MDM: 12:55 Patient medically screened. hm2 16:21 Case presented to: Marcy Pelaez MD. Data reviewed: vital 2 signs, nurses notes, old medical records, lab test result(s), radiologic studies, CT scan. ED course: Patient has been stable while here. Presents today due to evaluation of right lower quadrant abdominal pain. Upon arrival her vital signs are stable, afebrile, nontoxic in appearance. She does have mild tenderness in her right lower quadrant, which is not peritoneal. On her site, there is mild redness, no wound dehiscence, and overall appears more like a mild fungal infection.. 16:27 ED course: CT is negative for appendicitis, as a normal hm2 appendix is visualized. She does have moderate hepatomegaly seen, she tells me she is underwent liver biopsy in the past. Otherwise unremarkable CT scan.. 16:29 ED course: hCG negative, no leukocytosis, minimally hm2 elevated CRP at 7.2, she is hyperglycemic at 323, but not acidotic, bicarb is 20. Potassium is 3.2, this will be repleted. I discussed all the results with the patient. She will be discharged home with supportive care measures and follow-up with her primary care. We discussed indication for emergent return, patient was understanding. 16:40 ED course: Of note, patient's urine contaminated with epis, hm2 she has had some spotting hence the bleeding, she denies any urinary complaints. Will send culture. 06/30 13:20 Order name: CRP - Wide Range; Complete Time: 14:50 hm2 06/30 13:20 Order name: Cbc With Auto Differential; Complete Time: 14:292 06/30 13:20 Order name: Comprehensive Metabolic Prof.; Complete Time: hm2 14:50 06/30 16:28 Interpretation: Abnormal: K 3.2; CO2 20.0; CREAT 0.67; hm2 SGPT(ALT) 56; GLU 323; ALB 3.2. 06/30 13:20 Order name: Lipase; Complete Time: 14:50 2 06/30 13:20 Order name: UA.; Complete Time: 14:29 2 06/30 13:20 Order name: Beta Hcg,Qualitative; Complete Time: 14:50 2 06/30 13:20 Order name: Collect Urine - Clean Catch; Complete Time: hm2 13:48 06/30 13:20 Order name: Iv Saline Lock; Complete Time: 14:36 2 06/30 13:20 Order name: NPO; Complete Time: 14:27 2 06/30 14:06 Order name: Ct Abdomen & Pelvis with Con 2 06/30 14:12 Order name: Urinalysis Auto w/Microscopy; Complete Time: EDMS 14:29 06/30 14:12 Order name: Urine Culture EDMS Dispensed Medications: 14:36 Drug: Ofirmev 1000 mg [Ofirmev 1,000 mg/100 mL (10 mg/mL) edv intravenous solution] Volume: 100 ml; Route: IVPB; Rate: 400 mL/hr; Infused Over: 15 mins; Site: left antecubital; Delivery: Macro Drop Tubing; 14:51 Follow up: IV Status: Completed infusion; IV Intake: 100ml edv 17:04 Follow up: Response: Pain is decreased edv 17:04 Drug: Potassium Chloride 40 mEq [potassium chloride 20 mEq edv oral packet (2 packets)] Route: PO; 17:04 Follow up: Response: Medication administered at discharge. edv Disposition Summary: 06/30/21 16:36 Discharge Ordered Location: Home/Self Care [facility] Condition: Good [facility] Diagnosis - Abdominal Pain, Right Lower Quadrant 2 - Erythema intertrigo 2 Followup: 2 - With: Emergency Department - When: As needed - Reason: Fever > 101 F, Trouble breathing, Worsening of condition Followup: [facility] - With: Rosy Carbajal - When: 1 - 2 days - Reason: Further diagnostic work-up, Recheck today's complaints, Continuance of care Discharge Instructions: - Discharge Summary Sheet hm2 - Abdominal Pain, Adult hm2 - Intertrigo hm2 Forms: - Medication Reconciliation hm2 Prescriptions: - Clotrimazole 1 % Topical Cream - Apply to affected area 1 application by TOPICAL hm2 route every 12 hours; 15 gram; Refills: 0, Product Selection Permitted Signatures: Dispatcher [employer] Allan Fulton, RN RN edv Marcy Mcclain MD MD jtv Munz, Heather, PA-C PA-C hm2 Gabriela Busch RN RN meb Paty Atwood PAS PAS vaf Name Value Range Interpretation Code Description Data Ellen rce(s) Supporting Document(s) ID Date Data Source [id number] 06/30/2021 12:20:00 PM EDT [facility] Name: [facility] Rec #: [id number] 816 : 2000 Age/Sex: 20F Date of Service: 06/30/21 NURSE CHART Nurse's Notes [facility] Name: [facility] Age: 20 yrs Sex: Female : 2000 Arrival Date: 06/30/2021 Time: 12:20 Bed 7 Private MD: Rosy Carbajal D Diagnosis: Abdominal Pain, Right Lower Quadrant;Erythema intertrigo Presentation: 06/30 12:35 Acuity: Urgent - 3 meb 12:46 Transition of care: patient was not received from another [facility] setting of care. Presenting complaint: Patient states - Had in March. States she has recovered well until recently the site is increasingly red and painful to touch. Also complaining of bilateral upper quadrant pain, described as "shooting" pain. Have you travelled in the last 30 days? No. Have you had contact with an individual with a confirmed diagnosis of Ebola or COVID-19? No. 12:46 Method Of Arrival: Walk-In [facility] Triage Assessment: 12:48 SEPSIS SCREEN: A Confirmed or Suspected Infection is ilb Unknown, their temperature is not <96.8 or >100.9, their heart rate is >90, their RR is not >20, it is unknown if their WBC is <4 or >12, the patient does not have new or unexplained altered mental status. SIRS or Sepsi s criteria is not present. Suicide Screening: Have you had thoughts of harming yourself or others? No, Behavioral health complaint? No. The patient appears to have some mild discomfort, The patient is behaving appropriately according to age. The patient complains of pain in right upper quadrant and left upper quadrant. The quality of the pain is described as shooting. GI: The patient reports nausea, The patient denies diarrhea, vomiting. 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 Humalog U-100 Insulin 100 unit/mL Sub-Q soln 32 unit before meals 2. Levemir U-100 Insulin 100 unit/mL soln 38 unit before breakfast and dinner 3. control pill - PMHx: DEPRESSION; Diabetes - IDDM; Hypercholesterolemia; - PSHx: Liver Biopsy; section; - Med Reconciliation:: Green Alert: The patient's med list is complete to the best of the nurse's/provider's knowledge. Medications reviewed, verbally from patient/family. - Immunization history,: All immunizations are up to date. Flu vaccine is up to date. COVID- 19 vaccine: Not immunized. - Advance directive: There is no existing advanced directive. Information offered. - Family History:: mother has a history of diabetes mellitus, Father : unknown medical history. - Social History: Smoking status (Tobacco): Patient states he/she has never smoked tobacco. Preferred Language: [place]er No barriers to communication noted, The patient speaks fluent [place], Speaks appropriately for age. Screenin:52 AUDIT 1. How often do you have a drink containing alcohol? meb Never (0 points). Drug Abuse Screening Test: 1. Have you used drugs other than those required for medical reasons? No (0 points), screen is complete, no risk. Abuse screen: Denies threats or abuse. Denies injuries from another. Nutritional screening: The patient is obese. Assessment: 13:49 See Triage Assessment. edv Vital Signs: 12:47 BP 146 / 98; Pulse 105; Resp 18; Temp 97.9(TE); Pulse Ox meb 100% on R/A; Weight 141.97 kg (R); Height 5 ft. 4 in. (162.56 cm) (R); Pain 8/10; 14:55 BP 127 / 76; Pulse 104; Resp 20; Temp 97.3; Pulse Ox 97% on edv R/A; 17:10 BP 126 / 74; Pulse 92; Resp 20; Temp 97.5; Pulse Ox 98% on edv R/A; 12:47 Body Mass Index 53.72 (141.97 kg, 162.56 cm) meb ED Course: 12:21 Patient arrived in ED. cc4 12:35 Triage completed. meb 12:46 Rosy Carbajal is Private Physician. meb 12:50 Arm band placed on right wrist. Patient has correct armband meb on for positive identification. 12:53 Allan Villarreal, RN is Primary Nurse. meb 12:55 Yi Stevens PA-C is PHCP. hm2 12:55 Marcy Pelaez MD is Attending Physician. hm2 13:48 Labs drawn by lab staff. Urine collected. Clean catch edv specimen. 14:36 Ct Abdomen & Pelvis with Con Sent. edv 14:37 Inserted saline lock: 20 gauge in left antecubital area. edv 14:56 Radiology: The patient went to get his/her CT at 14:56. edv 16:35 Rosy Carbajal is [facility] Physician. hm2 17:10 No procedures ordered. Discontinued lock intact, bleeding edv controlled, pressure dressing applied, No redness/swelling at site. Administered Medications: 14:36 Drug: Ofirmev 1000 mg [Ofirmev 1,000 mg/100 mL (10 mg/mL) edv intravenous solution] Volume: 100 ml; Route: IVPB; Rate: 400 mL/hr; Infused Over: 15 mins; Site: left antecubital; Delivery: Macro Drop Tubing; 14:51 Follow up: IV Status: Completed infusion; IV Intake: 100ml edv 17:04 Follow up: Response: Pain is decreased edv 17:04 Drug: Potassium Chloride 40 mEq [potassium chloride 20 mEq edv oral packet (2 packets)] Route: PO; 17:04 Follow up: Response: Medication administered at discharge. edv Intake: 14:51 IV: 100ml; Total: 100ml. edv Outcome: 16:36 Discharge ordered by . emelia 17:11 Reassessment: Patient states symptoms have improved. edv 17:11 Patient verbalized understanding of disposition instructions. Patient has no functional deficits. 17:11 Patient discharged to home ambulatory. 17:11 Condition: stable Condition: improved 17:11 Discharge instructions given to patient, Patient was instructed on discharge instructions, follow up and referral plans, medication usage, Glucose control. Dietary potassium sources. The patient demonstrated understanding of instructions, medications, Prescriptions given X 1. 17:11 Vitals are Complete in accordance with Emergency Department Policy. 17:12 Patient left the ED. edv Signatures: Allan Villarreal RN RN Yi Plummer, CARYL PAMichael hm2 Gabriela Busch RN RN Gina Aguillon cc4 Corrections: (The following items were deleted from the chart) 12:50 12:47 Pulse 105bpm; Resp 18bpm; Pulse Ox 100% RA; Temp meb 97.9F Temporal; 141.97 kg Reported; Height 5 ft. 4 in. Reported; BMI: 53.7; Pain 8/10; meb Name Value Range Interpretation Code Description Data Ellen rce(s) Supporting Document(s) ID Date Data Source [id number] 07/02/2021 08:54:00 AM EDT [facility] Name Value Range Interpretation Code Description Data Ellen rce(s) Supporting Document(s) Urine Culture [facility] ID Date Data Source [id number] 07/02/2021 08:54:00 AM EDT [facility] Name Value Range Interpretation Code Description Data Ellen rce(s) Supporting Document(s) Vancomycin Susceptible. Indicates for microbiol ogy susceptibilities only. [facility] Levofloxacin Susceptible. Indicates for m icrobiology susceptibilities only. [facility] Linezolid Susceptible. Indicates for microbiol ogy susceptibilities only. [facility] Penicillin-G Susceptible. Indicates for m icrobiology susceptibilities only. [facility] ID Date Data Source [id number] 07/03/2021 03:20:00 PM EDT [facility] Name: AUNICHO : 2000 Age/Sex: 20F Ordering Provider: ELENI Ruiz Med Rec #: [id number] Reg Status: [facility] Room #: Date of Service: 06/30/21 Report Number: [id number] cc:Rosy Carbajal MD Send Report To: [id number] CT/CT Abdomen & Pelvis w Con Reason for exam: RLQ ABDO PAIN, NAUSEA, DECREASED APPETITE FINDINGS: Liver is enlarged. Fatty infiltration of the liver is seen. Hepatic mass or biliary dilatation is not identified. Spleen is homogeneous and not enlarged. Lung bases are clear. Pancreatic mass or pancreatitis is not seen. Gallbladder, adrenal glands and kidneys are unremarkable. There is no acute bowel pathology. There is no abscess, ascites, retroperitoneum or adenopathy. Normal appendix is seen which excluded acute appendicitis. There is no acute osseous abnormality. IMPRESSION: Fatty infiltration of the liver and hepatomegaly. No acute bowel pathology. Normal appendix seen which excluded acute appendicitis. Otherwise, unremarkable exam. While performing the above CT exam, the following dose reduction techniques wereused: *Automated exposure control *Adjustment of the mA and/or kV according to patient size *Use of iterative reconstruction technique CT Dose in mSv: 38.624 Contrast Agent in ml: Isovue 300 100 Method of Administration: Intraveneous REPORT SIGNATURE ON FILE Reported By: Vivien Jamison MD Electronically signed by: Vivien Jamison MD 07/04/21 1213 Dictation Date/Time: 06/30/21 1624 Transcribed Date/Time: 07/03/21 1520 Security Vehicle Patrol Officer: SATHISH Name Value Range Interpretation Code Description Data Ellen rce(s) Supporting Document(s) ID Date Data Source [id number] 06/30/2021 02:45:00 PM EDT [facility] Name Value Range Interpretation Code Description Data Ellen rce(s) Supporting Document(s) Beta HCG Screen,Qualitative Negative Normal (appli es to non-numeric results) [facility] ID Date Data Source [id number] 06/30/2021 02:33:00 PM EDT [facility] Name Value Range Interpretation Code Description Data Ellen rce(s) Supporting Document(s) Sodium 136 mmol/L 137-145 Below low normal [facility] Potassium 3.5-5.1 Below low normal [facility] Chloride 105 mmol/L 98-112 Normal (applies to non-numeric resul ts) [facility] Carbon Dioxide CO2 22.0-33.0 Below low normal [facility] Anion Gap 4.0-11.0 Normal (applies to non-numeric resul ts) [facility] BUN 9 mg/dL 7-17 Normal (applies to non-numeric resul ts) [facility] Creatinine 0.70-1.20 Below low normal [facility] GFR >60 Normal (applies to non-numeric results) [facility] Result based on MDRD formula. Glucose Level 323 mg/dL 74-99 Above high normal [facility] The reference range is only applicable w hen fasting. Calcium-Uncorrected 8.4-10.2 Normal (applies to non-nume valerio results) [facility] Corrected Calcium 8.4-10.2 Normal (applies to non-numeri c results) [facility] Bilirubin,Total 0.2-1.3 Normal (applies to non-numeric results) [facility] SGOT(AST) 30 U/L 14-36 Normal (applies to non-numeric resul ts) [facility] SGPT(ALT) 56 U/L 9-52 Above high normal [facility] Alkaline Phosphatase 61 U/L 38-126 Normal (applies to non-num jeferson results) [facility] can increase Alkaline Phosp le vels up to 2 times the normal adult value. Normal values for children and adolescents are 2 to 3 times the normal adult value. Total Protein 6.3-8.2 Normal (applies to non-numeric re sults) [facility] Albumin 3.5-5.0 Below low normal [facility] ID Date Data Source [id number] 06/30/2021 02:33:00 PM EDT [facility] Name Value Range Interpretation Code Description Data Ellen rce(s) Supporting Document(s) C-Reactive Protein,Wide Range <3.00 Above high normal [facility] ID Date Data Source [id number] 06/30/2021 02:33:00 PM EDT [facility] Name Value Range Interpretation Code Description Data Ellen rce(s) Supporting Document(s) Lipase 114 U/L 73-393 Normal (applies to non-numeric resul ts) [facility] ID Date Data Source [id number] 06/30/2021 02:14:00 PM EDT [facility] Name Value Range Interpretation Code Description Data Ellen rce(s) Supporting Document(s) White Blood Count 4.8-10.8 Normal (applies to non-numeri c results) [facility] Red Blood Count 3.68-5.22 Normal (applies to non-numeric results) [facility] Hemoglobin 11.2-15.7 Normal (applies to non-numeric resul ts) [facility] Hematocrit 34.1-44.9 Normal (applies to non-numeric resul ts) [facility] Mean Corpuscular Volume 81-99 Below low normal [facility] Mean Corpuscular Hemoglobin 27.0-33.0 Normal (appli es to non-numeric results) [facility] Mean Corpuscular HGB Conc 32.0-36.0 Above high normal [facility] Red Cell Distribution Width 11.5-14.5 Normal (appli es to non-numeric results) [facility] Platelet Count 234 X10 3/uL 130-450 Normal (applies to non-numeric results) [facility] Mean Platelet Volume 9.5-12.7 Normal (applies to non-num jeferson results) [facility] Imm Grans% (AUTO) 1 % 0-2 Normal (applies to non-numeri c results) [facility] Neutrophils % (AUTO) 38 % 40-75 Below low normal [facility] Lymphocytes % (AUTO) 49 % 21-46 Above high normal [facility] Monocytes % (AUTO) 11 % 5-12 Normal (applies to non-numer ic results) [facility] Eosinophils % (AUTO) 1 % 1-5 Normal (applies to non-num jeferson results) [facility] Basophils % (AUTO) 1 % 0-1 Normal (applies to non-numer ic results) [facility] Imm Grans# (AUTO) 0.0-0.5 Normal (applies to non-numeri c results) [facility] Neutrophils # (AUTO) 1.5-8.1 Normal (applies to non-num jeferson results) [facility] Lymphocytes # (AUTO) 1.0-3.1 Normal (applies to non-num jeferson results) [facility] Monocytes # (AUTO) 0.2-1.3 Normal (applies to non-numer ic results) [facility] Eosinophils# (AUTO) 0.0-0.5 Normal (applies to non-nume valerio results) [facility] Basophils # (AUTO) 0.0-0.1 Normal (applies to non-numer ic results) [facility] ID Date Data Source [id number] 06/30/2021 02:12:00 PM EDT [facility] Name Value Range Interpretation Code Description Data Ellen rce(s) Supporting Document(s) Color,Urine Yellow [facility] pital Clarity,Urine Clear [facility] ospital Specific [place],Urine 1.001-1.030 Normal (applies to non- numeric results) [facility] PH,Urine 5.0-8.0 Normal (applies to non-numeric resul ts) [facility] Protein,Urine Negative [facility] ospital Glucose,Urine (UA) Negative [facility] Ketones,Urine 40 mg/dL Negative [facility] ospital Blood,Urine Negative [facility] pital Bilirubin,Urine Negative Normal (applies to non-numeric results) [facility] Urobilinogen,Urine Norm 0.2-1 Normal (applies to non-numer ic results) [facility] Leukocyte Esterase,Urine Negative [facility] Nitrite,Urine Negative Normal (applies to non-numeric re sults) [facility] ID Date Data Source [id number] 06/30/2021 02:12:00 PM EDT [facility] Name Value Range Interpretation Code Description Data Ellen rce(s) Supporting Document(s) RBC,Auto Urine 0-2 Normal (applies to non-numeric r esults) [facility] WBC Urine Auto 0-10 [facility] Casts,Hyaline,Urine Auto 0-2 Normal (applies to non -numeric results) [facility] Bacteria Urine Auto None Seen Normal (applies to non-nume valerio results) [facility] Epithelial Cell Ur Auto None-Few Normal (applies to non- numeric results) [facility] ID Date Data Source [id number] 05/03/2021 04:25:[address] [facility] Name Value Range Interpretation Code Description Data Ellen rce(s) Supporting Document(s) Progress Note [facility] OXALFk6wYdBTNgZk12/FNLpuCCGnl0OeGDkhTDl4MWmhFVVoX4NqBAF6jB6kEOP8DFyLRhTyOsHpQmXu [facility] [file] BdGO1WAl1HExU6CZV8rZXmSr1FMmK9VWBBVhWeFJ7VSJm= ID Date Data Source [id number] 04/23/2021 06:57:00 AM EDT [facility] Name Value Range Interpretation Code Description Data Ellen rce(s) Supporting Document(s) SARS coronavirus 2 RNA [Presence] in Res piratory specimen by ANGIE with probe detection NEGATIVE [facility] This lab was ordered by [facility] a nd reported by [facility]. ID Date Data Source [id number] 04/17/2021 02:52:[address] [facility] Name Value Range Interpretation Code Description Data Ellen rce(s) Supporting Document(s) Progress Note [facility] IPRRSl0hKoKVNcGb55/IEBywBQNqe5PiAAhrQRr8WHtkQHIfQ7AwOVY3hM3yJZU4LTdECqTaQyTkVMU3 lbm [file] bLc31y3YSy5DV85mC6U3XrsjgBSzrcuZ+group marketing vp+b2yqGkhi9VvZc7ZFuN6aO3KhMWgiQj0JubvcU0aQMvxs [file] RQ5EKRp= ID Date Data Source [id number] 04/17/2021 02:43:40 PM EDT [facility] Name Value Range Interpretation Code Description Data Ellen rce(s) Supporting Document(s) Progress Note [facility] YXWHBt1gGdELElRm25/MYRzjRSPdn6CzWDttDKw9TCgoJPWpB3NaVCS5tU1fRNB5LMbSAhLfLfPfGVW3 lbm [file] 6dYPZCZrBtd2fwEKwRTdxRHHZ6sEURpzEskOgPark31h44xE+drapery and upholstery estimator+7xo61vwNKIrglTxdOrhYURKiQ+R [file] ogICAgICAgICAgICAgICAgICAgICAgICAgICAgICAgICAgICAgICAgICAgICAgICAgICAgICAgICAgIC AgICAgICAgICAgICAgICAgICAgICAgICAgICAgICAg ICAgICAgICAgDQogICAgICAgICAgICAgICAgICAgICAgICAgICAgICAgICAgICAgICAgICAgICAgICAg ICAgICAgICAgICAgICAgICAgICAgICAgICAgICAgICAgICAgICAgICAgICAgICAgICAgDQogICAgICAg ICAgICAgICAgICAgICAgICAgICAgICAgICAgICAgIC AgICAgICAgICAgICAgICAgICAgICAgICAgICAgICAgICAgICAgICAgICAgICAgICAgICAgICAgICAgIC AgDQogICAgICAgICAgICAgICAgICAgICAgICAgICAgICAgICAgICAgICAgICAgICAgICAgICAgICAgIC AgICAgICAgICAgICAgICAgICAgICAgICAgICAgICAg ICAgICAgICAgICAgDQogICAgICAgICAgICAgICAgICAgICAgICAgICAgICAgICAgICAgICAgICAgICAg ICAgICAgICAgICAgICAgICAgICAgICAgICAgICAgICAgICAgICAgICAgICAgICAgICAgICAgDQogICAg ICAgICAgICAgICAgICAgICAgICAgICAgICAgICAgIC AgICAgICAgICAgICAgICAgICAgICAgICAgICAgICAgICAgICAgICAgICAgICAgICAgICAgICAgICAgIC AgICAgDQogICAgICAgICAgICAgICAgICAgICAgICAgICAgICAgICAgICAgICAgICAgICAgICAgICAgIC AgICAgICAgICAgICAgICAgICAgICAgICAgICAgICAg ICAgICAgICAgICAgICAgDQogICAgICAgICAgICAgICAgICAgICAgICAgICAgICAgICAgICAgICAgICAg ICAgICAgICAgICAgICAgICAgICAgICAgICAgICAgICAgICAgICAgICAgICAgICAgICAgICAgICAgDQog ICAgICAgICAgICAgICAgICAgICAgICAgICAgICAgIC AgICAgICAgICAgICAgICAgICAgICAgICAgICAgICAgICAgICAgICAgICAgICAgICAgICAgICAgICAgIC AgICAgICAgDQogICAgICAgICAgICAgICAgICAgICAgICAgICAgICAgICAgICAgICAgICAgICAgICAgIC AgICAgICAgICAgICAgICAgICAgICAgICAgICAgICAg UMNeKFHoELWkGOKeSUNxJVXgOXn8Z0jnDYNhHRIlNR0nQUe8Tc2+JJdXItFgANK2fjYzrA2ZSX8qo9Uz OVhyMKUff6WlKRy6AL5VBUOpFVfcCJ3MQDebiz2CKDFxASMfaTLNg9soXoFuIJS5QHWnRxukTY1LUMUf J3vunwBiHZVyFZOPWOccQYBXDJunIVZORW9CCxGtH5 QdeW00YOMBNu4+WZzrusKhNprRZrD3HPKkn1BeRVt4UV3JETInCkwnr3ZaQlSnYCOTUIzpHF6HHUD0OO WdCNTmDc6XHIDwI496gjBcHS0ANv2AVgMaWQ1geg3WDtRgIGAgMauRUii4KVpcOV2ExCMxYOaIvo1tvg DeysTRv3DwceGewYTLtZIdzY2dJSWdE2CrxSDupJ9b OLAVUo3tWMVeGD0vSQ1kHZFuSQBuHpDrZPUQHG9KAGZoAFJaqKTmTTWlRBIXSX6AWTguQRW2RTEukfNs bCKoHOiuPJ0SDJLgepEoTgzyZTMZZVg+Ar8VRC8ot8MbSEvmYPFhZR5oce3NFXdPVlCzX2K3mWToR7K0 ECrtJk7YQCCdGAGwSnnvEUNJSTunXT5YMI6jymH6AH 6CvMDaJHGaYNVplGBnGIr8J16mwIUkILewJA8UBIY+Berlin+Bi8QTDZtXRZgKAQfVjEtNQJPEmHfG2VsT4 YLo2AyK1HpAI30iIbydwUxQNnwDZ5GII6nVYWwSRLMFF0AhLFidA6catYhVHEhOWRJZlRrH55aeQSgNE RdRAW0HOCvVr2GXTMvL4ZqbtFixWsnjiJzOSSjFFMC SV8VUOfpyvLsdSOgtXruXJ20lRcnXB8QMy6SBsEdCO4ouh4CiMGiNr8WFDCcGe1GSRTaYMWsEVQvEYF1 TRUrAgBlYMrqELIuNNNhAUN6JIRvRMFnNH1IJkYjIOEvVrlbKNMdUGYiCFReur2CRBFeTCEdYLt5LvNk ODVfMKFdLYbaTTTpANHvKYX9QOYmTNIwQF4OOpOuQV DlOMQ2LfQxFSDuCVBhlo5VKTLsDMOfGxn7HNFhGUQfBWRtVRhrZBIjYBK1PGr5IYIzHTPmJL3OUpBtLU SpNCRiGENvDNUrVPUecy6PXGNvZXSmKTUeOaAzCJBjZBByYCifJSQmVUC2CZR7RPBcDLFmOU6IKvYsVI AjWHQfEkejKHEiCYMnlk9NQVNkJCWzRRW9AWIaSHYj YCJvBXzaBUAxXVNjUgL9JVPtHSKkKN6PSaJgOZLaGXV0WYLeOBVxNPFmcw5YJQCmHWRcXPjaIPKaTGAh CQIbICreQGBdIORaUHR7AMAbTVXfPJ9KWpCvYVRoZjP0VuKaGDEsQKLrhy7DFOFjSABbXrg2AUSwPURy GDPdNHmjBWIpFYN6JKazCNTzNLCaTS4LWhUoWAByZr VnNlGwANQeMOTdjh9MRASsTDSvXLI3OfDkEOVeGODgCFisEDEyZJX2VMI5MCGlUSJbLI5CRiBkAZAoQl U3DBPmCTOgJQZryz1SVVFcNJVkOUr4YDOoSMEdLTVjDLvkPDMuNGE5DvYwJDZcMONpMH9XKfHrAAPoEc N5OPFjHAFbSGSodi9YJPQtDKAvVaU0RQIeZEXsTWIj ZFdxWXMsCQW2OHC8QEEfIGOeJQ2JTcFlRSArPun1HPeoNWErINWmyu3GZGPsZYHdGTXnSUKbKMCaYIOu ZQpzXGEzPLQ1QUdgPAMhMCEtTI4BQcQnLTslELXKUot9ODqiI2w5PNVjAo2UN7Kus2PfGjHaCYQZQXco MS9ptiFlCEIrHb9RT3lMWdlyBBE5XVEzZEZjZBNuBg A0YvS9TWGcTeM6BEHdJPVeCe8rLTAuQLy6VaWfHkOeGLJdLeVvQeKrERVpPEy9RbL4HFOgGzLxSA0FQc 5AVrU1KDK4dMYkHk3QAok5BywNDhDiIT1DANv= ID Date Data Source [id number] 04/17/2021 02:03:[address] [facility] Name Value Range Interpretation Code Description Data Ellen rce(s) Supporting Document(s) Color of Urine [facility] Clarity of Urine [facility] Glucose [Mass/volume] in Urine by Test strip 500 mg/dL Negative A [facility] Bilirubin.total [Presence] in Urine by Test strip Negative [facility] Ketones [Mass/volume] in Urine by Test strip Negative [facility] Specific gravity of Urine by Test strip 1.020 1.005-1.025 [facility] Hemoglobin [Presence] in Urine by Test strip Negative [facility] pH of Urine by Test strip 6.5 5.0-8.0 [facility] Protein [Mass/volume] in Urine by Test strip Negative [facility] Urobilinogen [Units/volume] in Urine by Test strip 1.0 {Ehrlich_U}/ dL 0.2-1.0 [facility] Nitrite [Presence] in Urine by Test strip Negative [facility] Leukocyte esterase [Presence] in Urine by Test strip Negat viviana [facility] ID Date Data Source [id number] 04/11/2021 03:12:[address] [facility] Name Value Range Interpretation Code Description Data Ellen rce(s) Supporting Document(s) Progress Note [facility] FEMAPo2aKqBXUaKd41/ZEWzsHXZof7VeCAhrGAi2CYjjCFYwZ1EiIJK5wJ7kQCX7QEaGLsHdIsCzIGQ0 lbm [file] SKRUIxY8GGZdDUgmCWSJZs0B ID Date Data Source [id number] 04/11/2021 02:15:[address] [facility] Name Value Range Interpretation Code Description Data Ellen rce(s) Supporting Document(s) Color of Urine [facility] Clarity of Urine [facility] Glucose [Mass/volume] in Urine by Test strip Negative A [facility] Bilirubin.total [Presence] in Urine by Test strip Negative [facility] Ketones [Mass/volume] in Urine by Test strip Negative [facility] Specific gravity of Urine by Test strip 1.020 1.005-1.025 [facility] Hemoglobin [Presence] in Urine by Test strip Negative [facility] pH of Urine by Test strip 6.0 5.0-8.0 [facility] Protein [Mass/volume] in Urine by Test strip Negative [facility] Urobilinogen [Units/volume] in Urine by Test strip 0.2 {Ehrlich_U}/ dL 0.2-1.0 [facility] Nitrite [Presence] in Urine by Test strip Negative [facility] Leukocyte esterase [Presence] in Urine by Test strip Negat viviana [facility] ID Date Data Source [id number] [facility] Name Value [facility] Interpretation Code Description Data Ellen rce(s) Supporting Document(s) Progress Note [facility] YLSIQa1vZeDMPaUi16/AXBocMAZsn7RhSYakOUn0FXdbSIZgS9LwEYO6fJ3pFVY7SXvGLzEsRtQkMQL9 lbm [file] AgICAgICAgICAgICAgICAgICAgICAgICAgICAgICAgICAgICAgICAgICAgICAgICAgICAgICAgICAgIC AgDQogICAgICAgICAgICAgICAgICAgICAgICAgICAg ICAgICAgICAgICAgICAgICAgICAgICAgICAgICAgICAgICAgICAgICAgICAgICAgICAgICAgICAgICAg ICAgICAgICAgICAgDQogICAgICAgICAgICAgICAgICAgICAgICAgICAgICAgICAgICAgICAgICAgICAg ICAgICAgICAgICAgICAgICAgICAgICAgICAgICAgIC AgICAgICAgICAgICAgICAgICAgICAgDQogICAgICAgICAgICAgICAgICAgICAgICAgICAgICAgICAgIC AgICAgICAgICAgICAgICAgICAgICAgICAgICAgICAgICAgICAgICAgICAgICAgICAgICAgICAgICAgIC AgICAgDQogICAgICAgICAgICAgICAgICAgICAgICAg ICAgICAgICAgICAgICAgICAgICAgICAgICAgICAgICAgICAgICAgICAgICAgICAgICAgICAgICAgICAg ICAgICAgICAgICAgICAgDQogICAgICAgICAgICAgICAgICAgICAgICAgICAgICAgICAgICAgICAgICAg ICAgICAgICAgICAgICAgICAgICAgICAgICAgICAgIC AgICAgICAgICAgICAgICAgICAgICAgICAgDQogICAgICAgICAgICAgICAgICAgICAgICAgICAgICAgIC AgICAgICAgICAgICAgICAgICAgICAgICAgICAgICAgICAgICAgICAgICAgICAgICAgICAgICAgICAgIC AgICAgICAgDQogICAgICAgICAgICAgICAgICAgICAg ICAgICAgICAgICAgICAgICAgICAgICAgICAgICAgICAgICAgICAgICAgICAgICAgICAgICAgICAgICAg ICAgICAgICAgICAgICAgICAgDQogICAgICAgICAgICAgICAgICAgICAgICAgICAgICAgICAgICAgICAg ICAgICAgICAgICAgICAgICAgICAgICAgICAgICAgIC AgICAgICAgICAgICAgICAgICAgICAgICAgICAgDQogICAgICAgICAgICAgICAgICAgICAgICAgICAgIC AgICAgICAgICAgICAgICAgICAgICAgICAgICAgICAgICAgICAgICAgICAgICAgICAgICAgICAgICAgIC FkEAFnAKXrRROsNJl0H4keUYChSCGaRT7zSAc2Wr8+ SUeSRvMkFEX4qqHpuC1CGQ0vy0WhEItbQVIoa1OtEGa9JB2MJPLlSBlqAD1WDElriv7GYOZwHHCavCAY u2qoPyJaAMR9TKTgYsplRY7BJDVwP9nkwuZbNHUzECSIKKvjXUKQJJuaICAAIR0JMxGiJ2CjqN75GBRZ Cj4+CMzdquQxRotLZpB3ZYDro5GbSOq2BM8ZNLRvQy eeg3PyOoakUMUKAOmrOL1DPDS2NTR9RHTjUn5GJVKiE997evTiUM0HDq7SWqSlZY2opl0PVtrpOBGxHi nFYim2TGnsVQ7WjKMsRLwCxl1eecOaoyNYr8PnytItwEYQtRXmoB4qHLMhD5YnoITzuL0dXKDALg7eMQ OtDZ0iUS5kNSXjGGHsBfAaSCERCI2OKHJcOYYpvSCq WBTuAGDZNK5XGQgjWDD2TVFytvUppNPfQPtaQI1AMWBdizXnTpAaHDPOUWx+Kg1CER0ek8XbTSyqKDKp DY7bai2CSVaIUuUjM3U6zZFjQ8Y7MVuuMt5VEKUqRGGdHtFsMAKDKDbnLS9HHD2kwsX4FR5GuFLnNJFz BJLjoRAqDJs2L81agVKjBUjlNS6YKMQ+Berlin+Pg0KIC UsYBXtPFPeIjHuKTLELyKlB3LtY8ZLe5DeY4RpOZ88bEbntfTfXMhgVA8JBX1lWGYlOWSWEO9XnIJfrC 9jrqUsFiHeQVPUBlVzF02ugTFfKGYeEFY0DUXhMi6TEIClR2HpzqFpuDymspGuXXJgPVVJUF1LGRbmej KjsLKphGorCC92cDqtLZ8BTf9WDgOjVH7zab2TiKSo Vl7VBJBlCF7SIOYeBDPdQECvWBT7WJDnTfRgNNgkRXGaTUDtZDO4RLSdGKPbDV2KEnVfCZSpQbF0QHTv ERQpIIJztu5XCZDgTKXrAmG5GdKhOAJpEXZeXGchMCCgQFFkXPA5YEImWOKiMQ4VDmLmPJScYPF0NdAi FTVhMTKjqs1XEFPhCHWgZkIuJjRwXFJiDLUaARarMP HpOIA8NLExKCIsKVLoLN2UPmJuYEOyFVCeVFxbQUUaTMZqrf7SRWKmIBLbRHF9FYTnHVMfDDSwMNoxYD TwNAM4FFI1SGDnFUZvVO8OBwDxYDGmJVo9UvouWZYiFKCuvj7LCMVcDJMxYJrrJiZwIVCpMIOdMXseKE GnJPL8ROH4JBHuFXErJY7QCaVeONDkWVE6YtzlULIg ZGRfki5DDUZeZZHyKCT4CTMgAWGgUPHrOQebXQBvFOPyPmU4NUHmUPWnKA1MUlKoTBPrSzO8PBjlRYLf EQTgme7VHMKsUVAcQqJgDlGyQGAoVUIkKTfeZBWjHQCcCqYsGDTkEBCiJQ7SWpVdTLBrBnY3HnDxDBOl IDVcpa2DCFWnQZTaVlNlTEJtKELxVFBrZTtyPLSfAX O8RXXeEVAeUPAlPT6ELgZrTVUyQgE5GRAwRYCsFAEhap7LBHInAGEsWFeuLNPuOOBhONZmWJqcLDUlZN F5FtB5UKTrIPCuTB7LFmZoXMXhTbO9MBpqTRSiEPThho2JWHGsWMBeAqa9GULrDBGfJLReAGalRQBdRM K0RRTuYWIrSXMcUZ4JEoXsWDwiUFFMRuj2YVldK9j0 QURjHS9UA2Hcn2WvGcahTBPUNZyqSQ9bgjHnSNDyTu5GF2xLGjhkSMCaPyLiCtIgJgA1TCWzYFB0TKLs OPK1ARQ8UiBmZK3bAVO0B1T5PKQpFWXcDLmtYxCsMmmuCKQiRlDpTbl5KnN2PqQtTF7NSj2JXnH9SZK2 lAQsBy2TTbpuCozUAfLwSL4DNUn= ID Date Data Source [id number] 04/06/2021 02:04:[address] [facility] Name Value Range Interpretation Code Description Data Ellen e(s) Supporting Document(s) Color of Urine [facility] Clarity of Urine [facility] Glucose [Mass/volume] in Urine by Test strip 500 mg/dL Negative A [facility] Bilirubin.total [Presence] in Urine by Test strip Negative [facility] Ketones [Mass/volume] in Urine by Test strip Negative [facility] Specific gravity of Urine by Test strip 1.020 1.005-1.025 [facility] Hemoglobin [Presence] in Urine by Test strip Negative [facility] pH of Urine by Test strip 6.0 5.0-8.0 [facility] Protein [Mass/volume] in Urine by Test strip Negative [facility] Urobilinogen [Units/volume] in Urine by Test strip 0.2 {Ehrlich_U}/ dL 0.2-1.0 [facility] Nitrite [Presence] in Urine by Test strip Negative [facility] Leukocyte esterase [Presence] in Urine by Test strip Negat viviana [facility] ID Date Data Source [id number] 03/31/2021 04:19:00 AM EDT [facility] Name Value Range Interpretation Code Description Data Ellen rce(s) Supporting Document(s) LAB Glucose,Fingerstick 131 mg/dL 70-110 Above high normal [facility] ID Date Data Source [id number] 03/30/2021 09:22:00 PM EDT [facility] Name Value Range Interpretation Code Description Data Ellen rce(s) Supporting Document(s) Sodium 139 mmol/L 137-145 Normal (applies to non-numeric resul ts) [facility] Potassium 3.5-5.1 Normal (applies to non-numeric resul ts) [facility] Specimen hemolyzed, interpret with care. Chloride 108 mmol/L 98-112 Normal (applies to non-numeric resul ts) [facility] Carbon Dioxide CO2 22.0-33.0 Normal (applies to non-numer ic results) [facility] Anion Gap 4.0-11.0 Normal (applies to non-numeric resul ts) [facility] BUN 15 mg/dL 7-17 Normal (applies to non-numeric resul ts) [facility] Creatinine 0.70-1.20 Below low normal [facility] GFR >60 Normal (applies to non-numeric results) [facility] Result based on MDRD formula. Glucose Level 188 mg/dL 74-99 Above high normal [facility] The reference range is only applicable w hen fasting. Calcium-Uncorrected 8.4-10.2 Normal (applies to non-nume valerio results) [facility] Corrected Calcium 8.4-10.2 Normal (applies to non-numeri c results) [facility] Bilirubin,Total 0.2-1.3 Normal (applies to non-numeric results) [facility] SGOT(AST) 35 U/L 14-36 Normal (applies to non-numeric resul ts) [facility] SGPT(ALT) 46 U/L 9-52 Normal (applies to non-numeric resul ts) [facility] Alkaline Phosphatase 73 U/L 38-126 Normal (applies to non-num jeferson results) [facility] can increase Alkaline Phosp le vels up to 2 times the normal adult value. Normal values for children and adolescents are 2 to 3 times the normal adult value. Total Protein 6.3-8.2 Normal (applies to non-numeric re sults) [facility] Albumin 3.5-5.0 Below low normal [facility] ID Date Data Source [id number] 03/30/2021 09:22:00 PM EDT [facility] Name Value Range Interpretation Code Description Data Ellen rce(s) Supporting Document(s) Uric Acid 2.6-6.0 Normal (applies to non-numeric resul ts) [facility] ID Date Data Source [id number] 03/30/2021 09:16:00 PM EDT [facility] Name Value Range Interpretation Code Description Data Ellen rce(s) Supporting Document(s) PT 9.4-12.5 Normal (applies to non-numeric results) [facility] INR Normal (applies to non-numeric results) [facility] The use of the INR is restricted to damion ents on stable oral anticoagulant. Therapeutic Range: 2.0-3.0 High Risk Values: 2.5-3.5 ID Date Data Source [id number] 03/30/2021 09:16:00 PM EDT [facility] Name Value Range Interpretation Code Description Data Ellen rce(s) Supporting Document(s) PTT 25.1-36.5 Below low normal [facility] ID Date Data Source [id number] 03/30/2021 09:04:00 PM EDT [facility] Name Value Range Interpretation Code Description Data Ellen rce(s) Supporting Document(s) White Blood Count 4.8-10.8 Above high normal [facility] Red Blood Count 3.68-5.22 Normal (applies to non-numeric results) [facility] Hemoglobin 11.2-15.7 Normal (applies to non-numeric resul ts) [facility] Hematocrit 34.1-44.9 Normal (applies to non-numeric resul ts) [facility] Mean Corpuscular Volume 81-99 Normal (applies to non- numeric results) [facility] Mean Corpuscular Hemoglobin 27.0-33.0 Normal (appli es to non-numeric results) [facility] Mean Corpuscular HGB Conc 32.0-36.0 Normal (applies to no n-numeric results) [facility] Red Cell Distribution Width 11.5-14.5 Normal (appli es to non-numeric results) [facility] Platelet Count 244 X10 3/uL 130-450 Normal (applies to non-numeric results) [facility] Mean Platelet Volume 9.5-12.7 Normal (applies to non-num jeferson results) [facility] Imm Grans% (AUTO) 1 % 0-2 Normal (applies to non-numeri c results) [facility] Neutrophils % (AUTO) 59 % 40-75 Normal (applies to non-num jeferson results) [facility] Lymphocytes % (AUTO) 27 % 21-46 Normal (applies to non-num jeferson results) [facility] Monocytes % (AUTO) 13 % 5-12 Above high normal [facility] Eosinophils % (AUTO) 1 % 1-5 Normal (applies to non-num jeferson results) [facility] Basophils % (AUTO) 0 % 0-1 Normal (applies to non-numer ic results) [facility] Imm Grans# (AUTO) 0.0-0.5 Normal (applies to non-numeri c results) [facility] Neutrophils # (AUTO) 1.5-8.1 Normal (applies to non-num jeferson results) [facility] Lymphocytes # (AUTO) 1.0-3.1 Above high normal [facility] Monocytes # (AUTO) 0.2-1.3 Above high normal [facility] Eosinophils# (AUTO) 0.0-0.5 Normal (applies to non-nume valerio results) [facility] Basophils # (AUTO) 0.0-0.1 Normal (applies to non-numer ic results) [facility] ID Date Data Source [id number] 04/01/2021 09:47:00 AM EDT [facility] Name: NICHO AU : 2000 Age/Sex: 20F Ordering Provider: Mellissa Ma MD Med Rec #: [id number] Reg Status: DEP REF Room #: Date of Service: 03/30/21 Report Number: [id number] cc:Melvin Rodgers MD; Mellissa Ma MD Send Report To: [id number] US/US Duplex Lower Ext Veins Lt Reason for exam: r/o DVT Comparison is made to 2020 Technique: Ultrasound imaging performed using color flow and spectral Doppler interrogation. FINDINGS: Duplex sonography of the major deep venous system to the right lower extremity does not demonstrate a DVT. Flow and compressibility was demonstratedin the common femoral, femoral and popliteal veins. IMPRESSION: No DVT demonstrated on the current study. REPORT SIGNATURE ON FILE Reported By: Oh Colby MD <Electronically signed by Oh Colby MD> 04/02/21 1135 Dictation Date/Time: 03/30/216 Transcribed Date/Time: 04/01/21 0975 [employer] Officer: SATHISH Name Value Range Interpretation Code Description Data Ellen rce(s) Supporting Document(s) ID Date Data Source [id number] 03/30/2021 09:46:00 PM EDT [facility] Name Value Range Interpretation Code Description Data Ellen rce(s) Supporting Document(s) Creatinine,Ur Random Normal (applies to non-num jeferson results) [facility] No established reference values Total Protein,Urine Random Normal (applies to n on-numeric results) [facility] No established reference values UrTotal Protein/Creat Ratio Normal (applies to non-numeric results) [facility] No established reference values ID Date Data Source [id number] 03/30/2021 09:28:00 PM EDT [facility] Name Value Range Interpretation Code Description Data Ellen rce(s) Supporting Document(s) Color,Urine Yellow Normal (applies to non-numeric resu lts) [facility] Clarity,Urine Clear Normal (applies to non-numeric re sults) [facility] Specific [place],Urine 1.001-1.030 Normal (applies to non- numeric results) [facility] PH,Urine 5.0-8.0 Normal (applies to non-numeric resul ts) [facility] Protein,Urine Negative Normal (applies to non-numeric re sults) [facility] Glucose,Urine (UA) Negative [facility] Ketones,Urine Negative [facility] Blood,Urine Negative Normal (applies to non-numeric resu lts) [facility] Bilirubin,Urine Negative Normal (applies to non-numeric results) [facility] Urobilinogen,Urine Norm 0.2-1 Normal (applies to non-numer ic results) [facility] Leukocyte Esterase,Urine Negative Normal (applies to non -numeric results) [facility] Nitrite,Urine Negative Normal (applies to non-numeric re sults) [facility] ID Date Data Source [id number] 03/29/2021 02:34:[address] [facility] Name Value Range Interpretation Code Description Data Ellen rce(s) Supporting Document(s) Progress Note [facility] KKEXEz1fZkVQIuTl60/HBEtuJMIgt4MmDYkmEOo7YSxnUUGpP9LiAOY2cA9cDEF5JZxCZtIbJoKcCEM1 lbm [file] AgICAgICAgICAgICAgICAgICAgICAgICAgICAgICAgICAgICAgICAgICAgICAgICAgICAgICAgICAgIC AgICAgICAgICAgICAgICAgICAgICAgICAgICAgICAg ICAgICAgICANCiAgICAgICAgICAgICAgICAgICAgICAgICAgICAgICAgICAgICAgICAgICAgICAgICAg ICAgICAgICAgICAgICAgICAgICAgICAgICAgICAgICAgICAgICAgICAgICAgICAgICANCiAgICAgICAg ICAgICAgICAgICAgICAgICAgICAgICAgICAgICAgIC AgICAgICAgICAgICAgICAgICAgICAgICAgICAgICAgICAgICAgICAgICAgICAgICAgICAgICAgICAgIC ANCiAgICAgICAgICAgICAgICAgICAgICAgICAgICAgICAgICAgICAgICAgICAgICAgICAgICAgICAgIC AgICAgICAgICAgICAgICAgICAgICAgICAgICAgICAg ICAgICAgICAgICANCiAgICAgICAgICAgICAgICAgICAgICAgICAgICAgICAgICAgICAgICAgICAgICAg ICAgICAgICAgICAgICAgICAgICAgICAgICAgICAgICAgICAgICAgICAgICAgICAgICAgICANCiAgICAg ICAgICAgICAgICAgICAgICAgICAgICAgICAgICAgIC AgICAgICAgICAgICAgICAgICAgICAgICAgICAgICAgICAgICAgICAgICAgICAgICAgICAgICAgICAgIC AgICANCiAgICAgICAgICAgICAgICAgICAgICAgICAgICAgICAgICAgICAgICAgICAgICAgICAgICAgIC AgICAgICAgICAgICAgICAgICAgICAgICAgICAgICAg ICAgICAgICAgICAgICANCiAgICAgICAgICAgICAgICAgICAgICAgICAgICAgICAgICAgICAgICAgICAg ICAgICAgICAgICAgICAgICAgICAgICAgICAgICAgICAgICAgICAgICAgICAgICAgICAgICAgICANCiAg ICAgICAgICAgICAgICAgICAgICAgICAgICAgICAgIC AgICAgICAgICAgICAgICAgICAgICAgICAgICAgICAgICAgICAgICAgICAgICAgICAgICAgICAgICAgIC AgICAgICANCiAgICAgICAgICAgICAgICAgICAgICAgICAgICAgICAgICAgICAgICAgICAgICAgICAgIC AgICAgICAgICAgICAgICAgICAgICAgICAgICAgICAg ICAgICAgICAgICAgICAgICANCjw/aJXfU9ryfNUsqoX1A9nxHu2QQm5ZDM8no4UaZZGzXBvuscHsFugB EcYsWBSpHsyTXmk3UMqzZS1TxEUmH3VwN4CpHHaqYU3DJWDyBPDpjPNdDGCkMGHaObA0BDFsCHtiSV6D sBEbKQmfUJLkTFLcLhDvWOPgSC6NHHSpD734vsIwLp 4YZa8OLcUpMJ7fct7BTsInBPLbLreJSvh2MXyxDU1MwTNypELsUcDhGTKMMkUhL8nvf2DnOrUxOYNSTX osFM8Ai1KnaYYhOXf+Jo5WYP3le9MrYErkUjCiCA1pwr9ZYSjPAqGwC9BblErgSCOpk1wvSRWmWS8ghP PrERN2OSTloXq5dtcxdsOOXA3iw7Rrp7kvQJ2mhZQj KU1GPOI4FIVlFY5tLJFuOXWwAvZbWMWDQF6CVBMaBWFzuTHfYUZpQHUHLC7ZAIuwXNP9KPNvndKbrIOd FGjeXZ9QDTVohtHdVoPuKDCEMAh+Ak7XUT4ts7KwAPpaJhCuDK9ssg9PSBaCFsZiY3D9xYLcJ7D4AEej Jr9WHAOwJGRuKXgpHGWEBWjvHC6HZV9wwsM0JJ2SaR PyBIIuADPxoBRmOSz0K86kxNAlMFncSR5DBUO+Berlin+Ec1HYEWjGOXwIZNrUnFlQGVNAyOiD4KiM6EQr6 MmM0FhOA39hJwsrvAfMAqxZL9HUF0aAFYmLEQFXI1FyIYqjS7espNeSMYcZROCXlMrS22yuMQrJALjNX YaLKKqSk5TQGAyZ7CjguJyqAltswUxCPNmBOIUNW2X HDvpqoHvcVTdjVntYR56gEpaTV6QMy6XGbIzTK3zzg2CwDJuIk7BKEHzGA4THSEwSEYsQXHzQGJ3TJVf RfZzQAvqTNQwKCMsVCV4HHQnAKFlPK2TUcKhSFCbLNc2OQMnNTWeZBYmth0TNRZnMHDuIWU1BLQdXUHh SMYeDKdzGWAvMQGdHUI1NLQuJVQjRA0OKwRgJNLoXA T8EAUuDLOrXJWnap1AWXHzMNAoJnZ4NAKpBQNfHMUeALboOQSuOLC2JabeHADqUVTnPW6FMhVgCPBqKG G7ZFHwLWGaUGQfgf6FHDQzRWRwGXU8GRXiASNyEUWcBHdbTJIbHUS3QsHtSHPvALDhEI8FXpAcWPMaDY Q8RkDhNMFmPNRkhj8ZYJYvVRGqUcw6OFPeWIYhRUCh ZSwvMPXkDUU5HZcfAIMlLKVsOG3IJnWoSGXfQVghDrDpVOQdNZOesa0SAVDtJXCxQHQsQCQeSFVqFPUw JBktCIFdQEK2GHK1UVLwIXDvBG2EMvUySHCzVZgwKkAxLHTsUTCybf9LVMScVNPtVCA8DOXsYXKrJSPs WWvgELYwTLW8EKYnZQDzRHZqLX0JSmNuJJQnWGf1Rp ZxYVPeQNHzlc4OFVMfRSDpIAJ1QMDjAOWsWZExGQpbMVNgINLnNRA8YZWhUOGmAH7KKoFbCKNwOtR0YF XfNCBiTIPnlh4CiKBjzDnwhz4EMPbVMn5RoPiiYNP1GQyrEc8znKQbLaXtWRVEMd5CseExRYQpKVHYJS arPLSdTHA2ABEaFMw3MUbpKVi8DKN1UeF9TzYlFNR6 JrFfIILgHeM5ElF8GQL8Kpi1PQKdIduiAVrtUCg7QIX9YCSqTtJ3PEO+RK5fCPz+Hl7Xu4DhdcH2snJu KFmqJRy5QX7RAEGNR6HHKb== ID Date Data Source [id number] 03/29/2021 02:34:[address] [facility] Name Value Range Interpretation Code Description Data Ellen rce(s) Supporting Document(s) Progress Note [facility] CFUTRj2uKaNWNlYv38/RRJchIMWpb7OoFIfcXQs8DLpaTYQqM9LnFIH6dS6fUAZ2WJnAYyMoDuSoTAK4 lbm [file] QCIvBnVpOntvFDFmPKnxTtYkJK6OLy5EQfD6QQC9lJCvEb9HGvPoMgrBVzYxKX3IMBa= ID Date Data Source [id number] 03/28/2021 11:19:22 AM EDT [facility] Name Value Range Interpretation Code Description Data Ellen rce(s) Supporting Document(s) Color of Urine [facility] Clarity of Urine [facility] Glucose [Mass/volume] in Urine by Test strip 500 mg/dL Negative [facility] Bilirubin.total [Presence] in Urine by Test strip Negative [facility] Ketones [Mass/volume] in Urine by Test strip 80 mg/dL Negative A [facility] Specific gravity of Urine by Test strip 1.020 1.005-1.025 [facility] Hemoglobin [Presence] in Urine by Test strip Negative [facility] pH of Urine by Test strip 6.0 5.0-8.0 [facility] Protein [Mass/volume] in Urine by Test strip Negative [facility] Urobilinogen [Units/volume] in Urine by Test strip 0.2 {Ehrlich_U}/ dL 0.2-1.0 [facility] Nitrite [Presence] in Urine by Test strip Negative [facility] Leukocyte esterase [Presence] in Urine by Test strip Negat [facility] ID Date Data Source [id number] 03/21/2021 09:56:[address] [facility] Name Value Range Interpretation Code Description Data Ellen rce(s) Supporting Document(s) Progress Note [facility] GIWJZv7pRbHIVjBs50/NIBiqFYFjo7QhCLrhXRi5PKqiBFMdE0FiYRM2lC4hHGR3OQoDZuBuJsYhZMC1 lbm BjGfxRKrFpYWGvQyfIIcSrEQbrTnpvuWChUI8LsMA2ZHGdC46aWSXqUOIpB5ZcERGqPtm+Ca6SKMCiyB ZhXX6XRtpG8P4vc9cPQw3nQB5IuZV6aDEdkAN2LVxPLHt14ahdXKxXsdKH1FAjHLd4inieiVg/pj91KV 9ynwX7sm45uQah0JX2UVZj1wyjyYgQ00w/loM624u6 /34tueL4k2m85l8686lWdcfG+k/2EHlB+0sMoareCrE90Uyhj91gza0z1LbmGDe78dgHsD1GL52f [file] 7hNBQYQb7+ZXbktXXfoHwePWVLYeRzOJA6SPbzLRHALp3U ID Date Data Source [id number] 03/16/2021 09:04:00 PM EDT [facility] Name Value Range Interpretation Code Description Data Ellen rce(s) Supporting Document(s) ANTIBODY SCREEN NEGATIVE Normal (applies to non-numeric results) [facility] ID Date Data Source [id number] 03/16/2021 06:53:00 PM EDT [facility] Name Value Range Interpretation Code Description Data Ellen rce(s) Supporting Document(s) White Blood Count 4.8-10.8 Normal (applies to non-numeri c results) [facility] Red Blood Count 3.68-5.22 Normal (applies to non-numeric results) [facility] Hemoglobin 11.2-15.7 Normal (applies to non-numeric resul ts) [facility] Hematocrit 34.1-44.9 Normal (applies to non-numeric resul ts) [facility] Mean Corpuscular Volume 81-99 Normal (applies to non- numeric results) [facility] Mean Corpuscular Hemoglobin 27.0-33.0 Normal (appli es to non-numeric results) [facility] Mean Corpuscular HGB Conc 32.0-36.0 Normal (applies to no n-numeric results) [facility] Red Cell Distribution Width 11.5-14.5 Normal (appli es to non-numeric results) [facility] Platelet Count 271 X10 3/uL 130-450 Normal (applies to non-numeric results) [facility] Mean Platelet Volume 9.5-12.7 Normal (applies to non-num jeferson results) [facility] Imm Grans% (AUTO) 1 % 0-2 Normal (applies to non-numeri c results) [facility] Neutrophils % (AUTO) 61 % 40-75 Normal (applies to non-num jeferson results) [facility] Lymphocytes % (AUTO) 27 % 21-46 Normal (applies to non-num jeferson results) [facility] Monocytes % (AUTO) 11 % 5-12 Normal (applies to non-numer ic results) [facility] Eosinophils % (AUTO) 1 % 1-5 Normal (applies to non-num jeferson results) [facility] Basophils % (AUTO) 0 % 0-1 Normal (applies to non-numer ic results) [facility] Imm Grans# (AUTO) 0.0-0.5 Normal (applies to non-numeri c results) [facility] Neutrophils # (AUTO) 1.5-8.1 Normal (applies to non-num jeferson results) [facility] Lymphocytes # (AUTO) 1.0-3.1 Normal (applies to non-num jeferson results) [facility] Monocytes # (AUTO) 0.2-1.3 Normal (applies to non-numer ic results) [facility] Eosinophils# (AUTO) 0.0-0.5 Normal (applies to non-nume valerio results) [facility] Basophils # (AUTO) 0.0-0.1 Normal (applies to non-numer ic results) [facility] ID Date Data Source [id number] 03/12/2021 03:23:52 PM EDT [facility] Name Value Range Interpretation Code Description Data Ellen rce(s) Supporting Document(s) Progress Note [facility] TLTELm7fWbGLAtOn95/VYFrjZTGpm1KaSEccQQd1PPcuBTWjJ9IbCVL5jG2hPYC0HUnJDkWrIfSpTJE3 lbm [file] 4+CErtgWJkuMepCMLVMjNnOpB0ZDhfXJUNIc0W ID Date Data Source [id number] 03/12/2021 10:09:43 PM [facility] Name Value Range Interpretation Code Description Data Ellen rce(s) Supporting Document(s) Protein [Mass/volume] in Urine 8 mg/dl [facility] Creatinine [Mass/volume] in Urine 50.8 mg/dL [facility] Protein/Creatinine [Mass Ratio] in Urine 0.16 mg/mg{creat} [facility] ID Date Data Source [id number] 03/12/2021 04:12:57 PM [facility] Name Value Range Interpretation Code Description Data Ellen rce(s) Supporting Document(s) Leukocytes [#/volume] in Blood by Automated count 10.3 10*3/uL 4.5-13 [facility] Erythrocytes [#/volume] in Blood by Automated count 4.37 10*6/uL 4.1- 5.3 [facility] Hemoglobin [Mass/volume] in Blood 12.9 g/dL 11.5-15.5 [facility] Hematocrit [Volume Fraction] of Blood by Automated count 38.5 % 3 6-45 [facility] Erythrocyte mean corpuscular volume [Entitic volume] by Auto mated count 88.0 fL 80-96 [facility] Erythrocyte mean corpuscular hemoglobin [Entitic mass] by Automated count 29.5 pg 27-33 [facility] Erythrocyte mean corpuscular hemoglobin concentration [Mass/volume] by Automated count 33.5 g/dL 32.0-[facility].0 [facility] distribution width [Ratio] by Automated count 13.1 % 11.5-14.5 [facility] Platelets [#/volume] in Blood by Automated count 244 10*3/uL 150-400 [facility] Differential cell count method - Blood [facility] Neutrophils/100 leukocytes in Blood by Automated count 63 % [facility] Lymphocytes/100 leukocytes in Blood by Automated count 26 % [facility] Monocytes/100 leukocytes in Blood by Automated count 10 % [facility] Eosinophils/100 leukocytes in Blood by Automated count 1 % [facility] Basophils/100 leukocytes in Blood by Automated count 0 % [facility] Neutrophils [#/volume] in Blood by Automated count 6.55 10*3/uL 1.8-7 .0 [facility] Lymphocytes [#/volume] in Blood by Automated count 2.66 10*3/uL 1.2-4 .0 [facility] Monocytes [#/volume] in Blood by Automated count 1.00 10*3/uL 0-0.8 H [facility] Eosinophils [#/volume] in Blood by Automated count 0.07 10*3/uL 0-0.5 [facility] Basophils [#/volume] in Blood by Automated count 0.02 10*3/uL 0-0.2 [facility] Nucleated erythrocytes/100 leukocytes [Ratio] in Blood by Automated count 0 /100{WBCs} 0-0 [facility] ID Date Data Source [id number] 03/12/2021 04:35:52 PM [facility] Name Value Range Interpretation Code Description Data Ellen rce(s) Supporting Document(s) Lactate dehydrogenase [Enzymatic activit y/volume] in Serum or Plasma by Lactate to pyruvate reaction 150 U/L 122-214 [facility] ID Date Data Source [id number] 03/12/2021 04:35:52 PM [facility] Name Value Range Interpretation Code Description Data Ellen rce(s) Supporting Document(s) Albumin [Mass/volume] in Serum or Plasma by Bromocresol green (BCG) dye binding method 3.4 g/dL 3.5-5.2 [facility] Bilirubin.total [Mass/volume] in Serum or Plasma 0.3 mg/dL <1.2 [facility] Calcium [Mass/volume] in Serum or Plasma 9.4 mg/dL 8.6-10.0 [facility] Chloride [Moles/volume] in Serum or Plasma 102 mmol/L 98-107 [facility] Creatinine [Mass/volume] in Serum or Plasma 0.48 mg/dL 0.50-0.90 L [facility] Glucose [Mass/volume] in Serum or Plasma 126 mg/dL 70-140 [facility] Alkaline phosphatase [Enzymatic activity/volume] in Serum or Plasma 62 U/L 35-104 [facility] Potassium [Moles/volume] in Serum or Plasma 4.0 mmol/L 3.4-5.1 [facility] Protein [Mass/volume] in Serum or Plasma 6.9 g/dL 6.4-8.3 [facility] Sodium [Moles/volume] in Serum or Plasma 134 mmol/L 136-145 L [facility] Aspartate aminotransferase [Enzymatic activity/volume] in Serum or Plasma 23 U/L <32 [facility] Urea nitrogen [Mass/volume] in Serum or Plasma 15 mg/dL 6-20 [facility] Osmolality of Serum or Plasma by calculation 280 mosm/kg 275-300 [facility] Creatinine/Urea nitrogen [Mass Ratio] in Serum or Plasma 31 [facility] Bicarbonate [Moles/volume] in Serum 20 mmol/L 22-29 L [facility] Alanine aminotransferase [Enzymatic activity/volume] in Seru m or Plasma 32 U/L <33 [facility] Anion gap 3 in Serum or Plasma 12 mmol/L 8-15 [facility] Glomerular filtration rate/1.73 sq M pre dicted among non-blacks [Volume Rate/Area] in Serum or Plasma by Creatinine-based formula (MDRD) >6 0 [facility] Glomerular filtration rate/1.73 sq M pre dicted among blacks [Volume Rate/Area] in Serum or Plasma by Creatinine-based formula (MDRD) >60 [facility] ID Date Data Source [id number] 03/12/2021 04:35:52 PM [facility] Name Value Range Interpretation Code Description Data Ellen rce(s) Supporting Document(s) Urate [Mass/volume] in Serum or Plasma 3.9 mg/dl 2.4-5.7 [facility] ID Date Data Source [id number] 03/12/2021 04:20:28 PM [facility] Value Range Interpretation Code Description Data Ellen rce(s) Supporting Document(s) Hemoglobin A1c/Hemoglobin.total in Blood by HPLC 9.0 % 4.0-6.0 H [facility] (NOTE)<5.7% Average risk of diabetes (ADA)5.7-6.4% Increased risk of diabetes(ADA)>/= 6.5% Diagnostic for diabetes(ADA) Glucose mean value [Mass/volume] in Blood Estimated fr om glycated hemoglobin 210 mg/dL <126 H [facility] ID Date Data Source [id number] 03/12/2021 10:55:53 AM [facility] Name Value Range Interpretation Code Description Data Ellen rce(s) Supporting Document(s) Color of Urine [facility] Clarity of Urine [facility] Glucose [Mass/volume] in Urine by Test strip 500 mg/dL Negative [facility] Bilirubin.total [Presence] in Urine by Test strip Negative [facility] Ketones [Mass/volume] in Urine by Test strip Negative [facility] Specific gravity of Urine by Test strip 1.025 1.005-1.025 [facility] Hemoglobin [Presence] in Urine by Test strip Negative [facility] pH of Urine by Test strip 6.0 5.0-8.0 [facility] Protein [Mass/volume] in Urine by Test strip Negative [facility] Urobilinogen [Units/volume] in Urine by Test strip 0.2 {Ehrlich_U}/ dL 0.2-1.0 [facility] Nitrite [Presence] in Urine by Test strip Negative [facility] Leukocyte esterase [Presence] in Urine by Test strip Negat viviana [facility] ID Date Data Source [id number] 03/11/2021 02:41:[address] [facility] Name Value Range Interpretation Code Description Data Ellen rce(s) Supporting Document(s) Progress Note [facility] NFJBWh1nBaLLGbWa77/AXCzoWKHzr8DpHMzhPRw0UEduVBDpN5AfYRV3dZ5aVHO1NUqOGuRhXbUoGQK8 lbm TsDogIVaKiLUCrYokHAcUcZJnxNeexlJHiYL9RtBT7EEAhZ38iGQOiDDVeK4ZtUEE1RsE+Rr3KIDJnoD DaKM5ZJjuH0V0aizj2Aw2ohD8PjSDMS2BZmtx2YFGFhyZkQ6AhM9vXBf8GP73dJ60Dbx9i1o+qmI3w1c ZM/OQz98h5p+RGNiOtMawyFxg4WxC//SwOkygIArH+ //7PJFPidiL+/GfcdDrI563m/wLLuOaqRMKnjvW7AstOI7o2dMKECKixntSrXunwqeU6cSKUkBqe/vWV 5VxlHQyKKoPHyRYdJ5UojrVZQD30+X3FTmFKYHRdQk+ByE2DpFG7tmInbHfklh6Owu7dfUFPTbfa17im 4MkJmWUT9hqykAiODMUEJZFOVfmlz6XBXB7UcGKxa0 9K+NRRoKkcZRYHy8scQdkeIF13MufkSx+RS5+YHmXxCMHhy8F7tsGAs8uCO4AtZIW5C117AEMLqx5Uza cO927m0vwDx5MuoyYuYQjZHTLnb2KkubWAJedkl8bPvOz4RC6o0FH1kPxiyno2DvehWhxbAlCTvOYyUr AOb3ZM8B/41dosccBT3bYowN36O4fWTtwbzWXGJN1v 33IMYbq141G4BemQV4GFI0Ez0Fb/3U0JOPQ5WsPh4SRw7FSHTyXUDnrfYwndvs/2htqF1jxpRQHuwLo2 ozeyCjxhfkhOUZRsBYSTXm+gMdeJC6UqeBeUMnPso3zfmxT4dWkhCwBnsfm7nLHRi2/Oq5Gku0sIDYbL t1SKtxVoQGLAu9eQoKzSJuAHQoyrnAbI7DqPzu++nU 5rr8ACEWVpuGijqF6F43Yfg0GU3Xmmvi1OW/O8n8/nee/erBeyeb0GHMdG+Y67xHiKtE/QkJTc6UV232 E35ZgUQeQnPLS1FuCRT6dttwQPEGmXh4DdGOzB9G9qmDuvUtZoty+jlCxhWJBcR/LuMhd/FZ2R/4oljJ GUpO1GcsMhmBMibZji1gYq0t82gtw74X7sz6847196 [file] 4+VQgchMAmfUreJYTYZmYiGjJ5VWrgHJZWXf1E ID Date Data Source [id number] 01/22/2021 02:21:23 PM [facility] Name Value Range Interpretation Code Description Data Ellen rce(s) Supporting Document(s) Progress Note [facility] MXFOFi3lWsRGEyDd66/PIGjhWRTez7MuBBmrSUr9USdcWSXkE7YoTZO9wO2fLTJ7CBfGEqYpAjDgMeGn lbm [file] VLnJ4dZU1P8xtLNUQTBI9kAA8HvfZlqdxWHIfD+pAhwSVZh8PNqxk4+AZQ/KYrbpvXn4MrBTXJda++patiño [file] REHABILITATION AIDE+Sd6KISYqTNn1W3M0ZKWnSGa6F9QUU0RNANJvSKsdYAdoETCvSYu2O8X1GUVpD2XRW9Vshrwipe4+ UZ4UY51CXZTlYCu6S8N1rSZmJ2E0bCnPyVF5II3BTG 2RrAj9wTFpuZ0+OI7RZ9AJMmTyVPa8F0Y8yMYgZ8E7rTxVjMO0DR3ZOU3TeJQdQGLqaoBoRl6uC4UXKV bJFcTUZVF9XD5WiXKfPZ5OuLGJU8YuqSMnYk0nROopeQIswY4rVv3vHQcdCF8PHsVOXAgWKQX3AS7HqM GhWR9SpBCEU0PjmIHxIo9dPUvgrCRgak7+QD0IYMJw Li6WMj1+ENdbumFvBivSItY5MYHrh3SkELw0QI9OKQ2pfIqsRUR2Sk0CcUI9cAPeZ9wQVN9QxVKhX06x vORyKZDcUz2KVeF5wzXgeS2NSB30fBVtj2A3VDAiF6joUHlpd72zVZpeVNcKKC2hLWYQAEsqVGalMVY2 WtFvpuvmWJLkLc0JSfAwTBn6iW3tkTX6QGH0PwejaE NqHVgsJcXrUyJdJuU9dPyqnhr9JVnjIQ3zAJbeeifpICJgBgy+LCjeQNBvZYOvIuzFHNAvfR8stgC4fu WfVPolhEMqZs1wv3f4ErqwXb3wUl0bHKu4WnJiVrQhAFMiLi4dpJ51LSzadrGeIj7CSpWmTTO1Q9GhBh pSREY+XPdtBCfhcMf0pUVvROBsBs2FDKSiYSWqFYPb ICAgICAgICAgICAgICAgICAgICAgICAgICAgICAgICAgICAgICAgICAgICAgICAgICAgICAgICAgICAg ISGoPKWwZEGqMNKzFBBaZAWcWXMsDSOcIIDzRULbTV8XLEFqAQXuSUJuQBXcUCZqDDZxWATaJZGiYIOw ICAgICAgICAgICAgICAgICAgICAgICAgICAgICAgIC NqXSVtIPWrCUYrXNRnXGRjSDCtMDEkYDTcMXDkSKLkPMXqUZPaZKJkYM3YYPYnHDPsWDAbXFPaMRTzTE AgICAgICAgICAgICAgICAgICAgICAgICAgICAgICAgICAgICAgICAgICAgICAgICAgICAgICAgICAgIC FcBLDuSQHkHVAvEKVuMWCaISDoACPnQM4EDNOaEHTc ICAgICAgICAgICAgICAgICAgICAgICAgICAgICAgICAgICAgICAgICAgICAgICAgICAgICAgICAgICAg BEZlCKJwMKLrQJRkGJRmAUFuVWTkOGQeJTWvHSEeSNXfMT3CIFOuVMNtIGHvTUWlULVnOGWfUMCmRGFw ICAgICAgICAgICAgICAgICAgICAgICAgICAgICAgIC HlRHBqQXSfKXMySAAlAKJcTJBtRHKrIPMsQMPjFFVrKFBnPBXoAWFtFPQdWM6DAULcGSJnCCQvBSKiTU AgICAgICAgICAgICAgICAgICAgICAgICAgICAgICAgICAgICAgICAgICAgICAgICAgICAgICAgICAgIC NfKCSyVUXlKJXjFVUcUEImZJBnLMDeYSAqME5KDNTg ICAgICAgICAgICAgICAgICAgICAgICAgICAgICAgICAgICAgICAgICAgICAgICAgICAgICAgICAgICAg ISGjWGJvWOWuOHLbGBMbIHNeGLUeDOAvESVlBPPcXYNpGNOcLU3ONWPpXISeOFJhRIKfHRGaEYXzTZPz ICAgICAgICAgICAgICAgICAgICAgICAgICAgICAgIC CnDVFyLLUvFETmOBKzWWCiZERbVBZeKXIwSBMnSEWfWHBjDOKnMBZaMZCpPJUpOG9PUCAiNHVwEJYqEP AgICAgICAgICAgICAgICAgICAgICAgICAgICAgICAgICAgICAgICAgICAgICAgICAgICAgICAgICAgIC FlWCQuFHOoCSJeAXVeMLGiGHIhNFCcVSKeZAFrWW2G ICAgICAgICAgICAgICAgICAgICAgICAgICAgICAgICAgICAgICAgICAgICAgICAgICAgICAgICAgICAg MBSwXTEcPXOuWKUtHODsRPPxENVyUTZfLUWxKSBzNOYgVPLpVDXcUU0HDZ63rXRny2Y6CKYxPN4bovw/ Qf8GLRasiqSfpIYqYP7BTiWvWX0mjb7KUrZnHN3bmu 4PCZsVDlLtW6T4fBUqHVOmONYDCdTnP33ySRhvMl49SAoaFECuMiDsUAt3Ae6UOiXfW6ihPTTmMlH7PR AaBmY4DWQrKuU0WGRkMlIyWGvdLL6Kl7SdsALrIVy+Zm0UPU6mv7VpPVnbPnNeEG0wvo0IYSjMTmYgB3 BxonM3DUJ2SGDiMm0MYTPcDGAvrKHlZzUaTUXAZvZh R6PpmI16GYXILs9+MWrtepHkLyrTLyC0JFLhu8RbHMi2TP5QLUVlTYm0dTSePQLiT3Kqh9AdRd68SSHp XymrPzOwcQPajhXHQO7pvTsdvgmmDwIdMIXWCzdjD8NAFGF7MMLkUH4aORSgGUCnSeLqKPYULS3PQLMc YXKypZPwXDEvRKWZQG9EKZyyUES8JSVxnyBipMRwJA svVX9KYDLymqYlZbJeCESFJAk+Yb7TZQ2bk6ZoCWurQOZbKA2gfk4USEaXFrPmK1E0uPJdM5W6BKupSl 1TRXJfTDCgCiFqMOOANEciRF6DBR0nhzP9IE2GlGTbRIAyAOOnvBMcURa6N40xvVRzIQatVZ1ZXJB+Pi A+Wh4GVOXwKBZrEIUyVvGfTSHWKzLzC9BaW1XFa7Go I1SlFQ27bPmqfoUeFSbpPG6NDW6hFNAcVUURXO1MuGSwzL2lqgTcVwAiJUEFKlThB18rhMOzDPIyWHA8 HPIcGk3XUGAhO0FyquKzoKqffoGzGUIzCCWDMB0FWMvnewZjlDPptPymKC42aJvoZQ5IKa1LJzSbOK2n vl8TcKFbXc0LOLGnUZ7DKGCbPJDaSXUlFXP9TFNnTh XwICouIUEePINdZDY0HUTnBIBuLV3BFnUgUWQuIsSgLKEuWDYuBPRoft6GCRKlXJEtAMOsXRScDMCyYO EjLUorXUMvGOTvYXB5CANoJYHpXH0EIyYbCJNdUHR7ZMkwVXGaISHpcc1NGNRxQYDiIzlbFvLbURCsDD OqUMxkTAOuEMI6WTB9AVGmZXCjRO8UMdCvMEIzAKoc NxavERNuKGLpwv5FPAEkQVYdUKotIJReFUCtRWXhYVjdOIUaIJZ1PVC3QHKeTRGpDW2ABhLyOFRlNUS4 VeWmFSTrEDKons7SIPLtAPMjFON6ENBjZRHkHYYnTZoyXORvUTHkFtM6PURmTASiBB9WZsWkBGCtJLDf SDFyGSEmHOLqpo2WBQPfZMSjDgZzSOIkRPViJIBfAB ajQTFtYDTfNMmrKKDhVXJyQG6UTzWlMPBbIjLiWrFbYFJyRPTgqm6LINAlHMArFSZ1WRGiLKNnTLNgNC gpASTwAFQ1DTH5ZNJyILYcLT7JWnMaNSFuLvG4ODwjKEYkIBFvxd2FBEFdAWQwCIz4BtAzMTFdPVBoKT ghGDAbIAZ5QTm3JLElQABqYU9XHbDdFBZjTaAxIMWr STMrXVMgll3DKVIvYQTvNeM9DeNzCULqIOBiVEgnTLYtFGP7EmnoFGKfJOHkRF9ISrNvBQMfHdgrYnDf SQRxOEBtva3FOBObECVeKPDeGKFzSRVqTCCpXKneEGUhOJB0PjRjZZJvVQIaUT6UYhBaGMvoPYQFJpp5 TQksQ6q6YYLsGM6MZ5Yse1UlYcxiBWPUGFyiJL8uzl ZiGITsXc8AE7mIXiekRsK7N1D7HVP3QTGnBpQ8CWnqGERrFSN7Tds1AkTiRA8eDYLpVSqkRrC0MMc6ZJ K9JTp4Z6YhZ4QePYAqWIKsRCBhWdKvYV5MYb8NDfR5RUB0gWWvZj5VMvh8ZHICNsXxOY5UOFo= ID Date Data Source [id number] 01/22/2021 01:47:08 PM [facility] Name Value Range Interpretation Code Description Data Ellen rce(s) Supporting Document(s) Progress Note [facility] WMDVXq5mXdYDFvTf24/QOTwcDWUto5TiZPdaXJm0IYwhZRYnQ3UrRAL0hF7cWAA1AYtQGrBoQsUoXtSe lbm [file] ICAgICAgICAgICAgICAgICAgICAgICAgICAgICAgICAgICAgICAgICAgICAgICAgICAgICAgICAgICAg ICAgICAgICAgICAgICANCiAgICAgICAgICAgICAgICAgICAgICAgICAgICAgICAgICAgICAgICAgICAg ICAgICAgICAgICAgICAgICAgICAgICAgICAgICAgIC AgICAgICAgICAgICAgICAgICAgICAgICANCiAgICAgICAgICAgICAgICAgICAgICAgICAgICAgICAgIC AgICAgICAgICAgICAgICAgICAgICAgICAgICAgICAgICAgICAgICAgICAgICAgICAgICAgICAgICAgIC AgICAgICANCiAgICAgICAgICAgICAgICAgICAgICAg ICAgICAgICAgICAgICAgICAgICAgICAgICAgICAgICAgICAgICAgICAgICAgICAgICAgICAgICAgICAg ICAgICAgICAgICAgICAgICANCiAgICAgICAgICAgICAgICAgICAgICAgICAgICAgICAgICAgICAgICAg ICAgICAgICAgICAgICAgICAgICAgICAgICAgICAgIC AgICAgICAgICAgICAgICAgICAgICAgICAgICANCiAgICAgICAgICAgICAgICAgICAgICAgICAgICAgIC AgICAgICAgICAgICAgICAgICAgICAgICAgICAgICAgICAgICAgICAgICAgICAgICAgICAgICAgICAgIC AgICAgICAgICANCiAgICAgICAgICAgICAgICAgICAg ICAgICAgICAgICAgICAgICAgICAgICAgICAgICAgICAgICAgICAgICAgICAgICAgICAgICAgICAgICAg ICAgICAgICAgICAgICAgICAgICANCiAgICAgICAgICAgICAgICAgICAgICAgICAgICAgICAgICAgICAg ICAgICAgICAgICAgICAgICAgICAgICAgICAgICAgIC AgICAgICAgICAgICAgICAgICAgICAgICAgICAgICANCiAgICAgICAgICAgICAgICAgICAgICAgICAgIC AgICAgICAgICAgICAgICAgICAgICAgICAgICAgICAgICAgICAgICAgICAgICAgICAgICAgICAgICAgIC AgICAgICAgICAgICANCiAgICAgICAgICAgICAgICAg ICAgICAgICAgICAgICAgICAgICAgICAgICAgICAgICAgICAgICAgICAgICAgICAgICAgICAgICAgICAg ICAgICAgICAgICAgICAgICAgICAgICANCjw/xQWiF0vvwFFlinA2C4xjBm8QZv8YWV8rf6JmSFOiJWwv yvYhBctVQgNhPXQhDbkCGzu9JAkxBH9QwERvU9GfY3 UwKVvfWJ9ZNCRcLPCqxIBhUUTnQFBrRuG9ZOZaGTrpYX3MwAQoVIlkGKLuUUKnGiWiHOAgQN2FQVOmW6 73vxErXe4RCp6BXrGcQT2dum7QSoQcSUJaZnpBMum8JViyOH6YrPIgcLMtQQZyAGZODfVjG3ohp1EnYj XyQGVQZZvvKI5Ef1OfyRNtXRs+Kf4BBJ2hf3IuKMno EWYmKH3sax1WUEbONwStM6UexQhgYYOgh6zcVCAeVB1ctMPwBHE6XASafKy9bxgbtqSFRC0mt1Xmv2zn MK8hhEYmRO6EQJM3LPPsRB2qMKGiPQLwHdHtCUPFVD8RPJQuLRUjyYTdUEUaMOYWTN9HQVbhIBJ7ZUUr akLqqWSkJQogRO2UNTUwfkMpHpCpSYRHAHu+Pg0KZW 0aj3TlBVzlVfSnRO7eoq1ZHArHSiDhX9C1yQKcP8V5YGnqGn1DDUSiXVVzQgKxMQRCFPurHE8GZU2wzv G2SB3BaZNaAFCqVDDznUXqPSg2Z40ppDHhKMitHQ4UAUZ+Berlin+Bt0QTHWsXWXmDKVeFrZhGYEOSeEnW7 IoB6BRr5VjT9VtDL46pJccedTyIHyfMH4QLA7wNTMr CWDMHH1KjGHdmU4avhPyVHEgMRXKPaZnX93qrXRsRVBxJEZrLUPwTa7KHRApT1VfkyBueMdbnuTsXUEk SNGUJS2QHUyxcaXwzUWpvIivXG35yVtzMZ3NEx5PKqVgUF7aqc9MqCMhQm6QKDFxGt4QSYSqRSYoQHMi NHO2GNWhBvPbAMktHVWnHUYwAVQ4XDSeMTTjPS3SRg CcRHAdVbE4QwIlDCWiEVNolw6YSKBoTPAvDGA2HbQsVSRgAFRcPZzqQUZpDAHkANR9AGDxXMNjMN2RSw KnNBJqEFNxELGeIAYoZSMzdu0JGTFjICEnFfYhIKEcGIDiYWTjWXyvAYPrMEO9DGH0VCMyWLDcPF2AUd YhWYGoFKZgXlNuFZQfLUCjtk6BJSNxAXNmHjXyBmGl TGFeDBQrBNnpTEIeIXL7JAT2QTFlCAGlCH2NMmLoANPyNOg0YPbfPDHaNXWocr9APBYaJWEjMQP9UWTu PFEkQFJiHTwuRIIhYNQ1JQGzKHAtXETrZR3ULnFgJGFtFZadWVrjOKWnPHKiad3FCNKiNWKqTERuNzTl XXFaQRNdLFmdUTOgVRVuQqV3UUGkGHUwLZ2AXaPzMR IqMvR1FkqyMXFiJBKzfm0AALQuADZpYXV4FIZxECUvZIGuQSsxMWMsKRYqBjB1WDSoMJJqFY0DQfJxSO QbXpOiTFahZCAmYIXmqo4WGFUaMPYiSiElPNBmUVPkVQUoFBytPUJgAGMzIxZuVPZdYHJiDV8GPmHsBS OoYoTtVomoMPNcTRXsth0OICVsTVJgRGC0XYDqYTYc CTXzFZsyANHbDNP0PBMeKFJcRPCqEH0ASyWaLWGjHvC7BJVgUHNvNHNuun1XlPKckLxwlr1EWEgWQp9P hIusPLW9MHkhLr6bsUWkYvGrHODXAw8RmlDpQKTsGBAWILkkDESiZBKfUKtwTmDnHPQtJLT5LpO9E5Ma OHrnTWR6U8C6EdjiClD6AUN1MGAsDGE9YxNvOuX7Ks pjVwMfRLB5RGirKkH4NRF+WB2tNQm+Xw6Zk6QgbbY1oaAzPVcbGKq4OE6DJGLFG3KRJk== ID Date Data Source [id number] 01/15/2021 02:28:00 PM [facility] Name: AUNICHO : 2000 Age/Sex: 20F Ordering Provider: Za Fritz DO Med Rec #: [id number] Reg Status: DEP REF Room #: Date of Service: 01/10/21 Report Number: [id number] cc:Za Fritz DO Send Report To: [id number] US/US No Charge Reason for exam: PATIENT HAD NO ORDER. PT SPOKE WITH [facility] OFFICE AND THEY WERE NOT FINDINGS: PATIENT HAD NO ORDER. PT SPOKE WITH [facility] OFFICE AND THEY WERE NOT REPORT SIGNATURE ON FILE Reported By: Marvin Aldridge 01/15/219 Dictation Date/Time: 01/15/211426 Transcribed Date/Time: 01/15/211427 Security Vehicle Patrol Officer: SANDRO Name Value Range Interpretation Code Description Data Ellen rce(s) Supporting Document(s) ID Date Data Source [id number] 01/06/2021 04:07:00 PM [facility] Name: NICHO AU : 2000 Age/Sex: 20F Ordering Provider: Mellissa Ma MD Med Rec #: [id number] Reg Status: DEP REF Room #: Date of Service: 01/05/21 Report Number: [id number] cc:Rosy Carbajal MD; Mellissa Ma MD Send Report To: [id number] US/US OB Follow Up Exam Reason for exam: E11.65 TYPE 2 DIABETES MELLITUS WITH HYPERGLYCEMIA Z33.1 LMP: = EDC EGA = wks days EARLIEST ULT: 7 w 1 d = EDC06/03/2021 EGA = 18 wks 5 days GESTATION: Single PRESENTATION: Breech CERVICAL LENGTH: 32.6 mm FHR: 154 bpm PLACENTAL LOCATION: Posterior KAMERON: 8.64 cm MVP: 3.64 cm FINDINGS: Single viable intrauterine gestation is identified in breech lie. There is a posterior placenta without evidence of previa. FHR 154 bpm. Cervical length 33 mm. KAMERON 8.64 cm. MVP 3.64 cm. A ventricular septal defect is not completely excluded. Advanced sonogram at a tertiary center should be considered. IMPRESSION: Single live intrauterine gestation with a FHR 154 bpm and KAMERON measuring 8.6 cm. A ventricular septal defect is not completely excluded. Advanced sonogram should be considered. REPORT DICTATED BY LY PINEDA, REVIEWED AND SIGNED BY DR. COLBY REPORT SIGNATURE ON FILE Reported By: Oh Colby MD <Electronically signed by Oh Colby MD> 01/08/21 1115 Dictation Date/Time: 01/05/21 1305 Transcribed Date/Time: 01/06/21 1607 T ranscriptionist: SATHISH Name Value Range Interpretation Code Description Data Ellen rce(s) Supporting Document(s) ID Date Data Source [id number] 01/01/2021 10:55:00 AM [facility] Name: [facility] Rec #: [id number] 816 : 2000 Age/Sex: 20F Date of Service: 01/01/21 DISPOSITION SUMMARY Discharge Summary [facility] Name:[facility] Emergency Department Age:20 yrs Sex:Female :2000 Arrival:01/01/2021 10:55 Departure Date01/01/2021 Departure Time13:28 Private MD:Za Fritz DO Outcome: Discharge Location: Home/Self Care Condition: Good Chief Complaint: - abdominal cramping 18 weeks Diagnosis: Abdominal Cramps, 18 weeks gestation of , Muscle spasm of calf Prescriptions: Follow up: Za Fritz DO Custom Notes: <span>Your ultrasound</span> <span>showed a viable intrauterine with a heart rate of 145 bpm</span><span> with no bleed.</span> <span> Your ultrasound of your left lower extremity was negative for evidence of DVT</span> (<span>blood clot</span>). <span> You may continue to take Tylenol as needed for headaches.</span><span> Please stay well hydrated with plenty of water</span><span> and stay well rested.</span> <span> Please follow-up with Dr. Fritz</span><span> within the next week</span><span>.</span> <span> Return back to the emergency department for any new or worsening symptoms including vaginal bleeding</span>. Attending Physician: Froy Lujan DO Private MD: Za rFitz DO Mid Level Provider: Meri Ziegler PA Followup Physician: Za Fritz DO Orders: UA., Cbc With Auto Differential, OB "Limited" Study - US, Us Duplex Lower Ext Veins Lt, COMMET, Ofirmev, Collect Urine - Clean Catch, Saline Lock Discharge Instruction: Discharge Summary Sheet, Abdominal Pain During , Medication Reconciliation, Fax Visit Sylvester duncan for Za Fritz DO Name Value Range Interpretation Code Description Data Ellen rce(s) Supporting Document(s) ID Date Data Source [id number] 01/01/2021 10:55:00 AM EST [facility] Name: NICHO AU [facility] Rec #: [id number] 816 : 2000 Age/Sex: 20F Date of Service: 01/01/21 PHYSICIAN CHART Physician Documentation [facility] Name: Nicho Au Age: 20 yrs Sex: Female : 2000 Arrival Date: 01/01/2021 Time: 10:55 Bed 4 Private MD: Za Fritz ED Physician Froy Lujan Disposition: 01/01 13:06 Attestation: I was present, saw, evaluated and participated rc3 in the care with the Advanced Practice Provider. My personal exam reveals findings consistent with those documented. I have reviewed relevant laboratory values and/or imaging studies. HPI: 12:07 This 20 yrs old Female presents to ER via Walk-In mmo with complaints of abdominal cramping 18 weeks . 12:07 The patient is a 20-year-old female with past medical mmo history of insulin- dependent diabetes, hypercholesterolemia, and depression who presents the emergency department today with complaints of lower abdominal cramping and pain in the posterior left calf. Patient is currently [address] Fritz in [place] as her [employer]IGH [employer]. Patient was seen in this emergency department 1 week ago for the complaints of abdominal cramping and had an ultrasound done which was normal per the patient, she did have a history of a subchorionic hemorrhage early in her which was diagnosed here in the emergency department when she came in for vaginal bleeding, she is blood type A negative and was given RhoGam. She states the cramping in her lower abdomen comes and goes but has been getting more intense. She did contact her [employer]IGH [employer]UC[employer] TEACHER today and they told her to come to the emergency department for evaluation. She also states she began having pain in her left calf today. No injury or trauma to the left lower extremity. She denies any loss of sensation or difficulty with range of motion of the left lower extremity. No history of PE or DVT. Denies any vaginal bleeding or discharge. She denies any urinary symptoms, states she just finished an antibiotic a few days ago for a UTI. She denies any fevers or chills. No chest pain, shortness of breath, or difficulty breathing. She also states she has been having a headache for the past 1 week, she was told by HIGH [employer]CHO[employer]UC[employer] TEACHER to take Tylenol and have small amounts of caffeine. She denies any vision changes, changes in her speech, or gait disturbances.. Historical: - Allergies: Latex, Natural Rubber; Metformin HCl; Tape; - Home Meds: 1. nitrofurantoin 100 mg Oral cap twice a day for 10 days for UTI, started on 12/21/20 2. Levemir U-100 Insulin 100 unit/mL soln 18 unit before breakfast and dinner 3. Humalog U-100 Insulin 100 unit/mL Sub-Q soln 10 unit before meals - PMHx: DEPRESSION; Diabetes - IDDM; Hypercholesterolemia; - PSHx: Liver Biopsy; - Med Reconciliation:: Green Alert: The patient's med list is complete to the best of the nurse's/provider's knowledge. Medications reviewed, completed by nurse using patient's med list. verbally from patient/family. - Immunization history: All immunizations are up to date. - Advance directive: There is no existing advanced directive. Information offered. - Family History:: mother has a history of diabetes mellitus, lupus. - Social History: Smoking status (Tobacco): Patient states he/she has never smoked tobacco. Preferred Language: [place] Islander. ROS: 12:10 Constitutional: Negative for fever, chills, and weight mmo loss, Cardiovascular: Negative for chest pain, palpitations, and edema, Respiratory: Negative for shortness of breath, cough, wheezing, and pleuritic chest pain, Back: Negative for injury and pain, : Negative for dysuria, hematuria, urinary fr equency, or urinary urgency. Skin: Negative for injury, rash, and discoloration. Abdomen/GI: Positive for abdominal cramps, Negative for abdominal pain, nausea, vomiting, diarrhea, constipation, abdominal distension, anorexia, dysphagia, hematemesis, black/tarry stool. MS/extremity: Positive for Pain in the posterior left calf., Negative for injury or acute deformity, contusion, decreased range of motion, deformity, ecchymosis, erythema, paresthesias, rash. Neuro: Positive for headache, Negative for altered mental status, diplopia, dizziness, gait disturbance, hearing loss, loss of consciousness, numbness, seizure activity, speech changes, syncope, near syncope, tingling, tinnitus, tremor, urinary incontinence, visual changes, weakness. All other systems are negative. Exam: 12:11 Constitutional: This is a well developed, well nourished mmo patient who is awake, alert, and in no acute distress. Head/Face: Normocephalic, atraumatic. Cardiovascular: Regular rate and rhythm with a normal S1 and S2. No gallops, murmurs, or rubs. No pulse deficits. Respiratory: Lungs have equal breath sounds bilaterally, clear to auscultation and percussion. No rales, rhonchi or wheezes noted. Abdomen/GI: Soft, non-tender, with normal bowel sounds. No distension or tympany. No guarding or rebound. No evidence of tenderness throughout. 12:11 Back: No spinal tenderness. No costovertebral tenderness. Full range of motion. Skin: Warm, dry with normal turgor. Normal color with no rashes, no lesions, and no evidence of cellulitis. 12:11 Neuro: Awake and alert, GCS 15, oriented to person, place, time, and situation. Cranial nerves II- XII grossly intact. Motor strength 5/5 in all extremities. Sens ory grossly intact. Cerebellar exam normal. Normal gait. Psych: Behavior, mood, and affect are within normal limits. 12:11 Abdomen/GI: Inspection: obese, - morbidly 12:11 Musculoskeletal/extremity: ROM: full active range of motion, in the left leg, Pulses: noted to be 2+ in the right dorsalis pedis artery and left dorsalis pedis artery, Sensation intact. DVT Exam: no swelling, no appreciated bluish discoloration, no erythema, no increased warmth, tenderness, that is mild, of the left leg, of the left calf. Vital Signs: 11:19 BP 124 / 75; Pulse 95; Resp 16; Temp 98.5(TE); Pulse Ox 97% jc3 on R/A; Weight 131.54 kg (R); Height 5 ft. 4 in. (162.56 cm) (R); Pain 8/10; 13:27 BP 115 / 60; Pulse 90; Resp 18; Temp 98.6(TE); Pulse Ox 98% sm6 on R/A; 11:19 Body Mass Index 49.78 (131.54 kg, 162.56 cm) jc3 MDM: 11:26 Patient medically screened. mmo 12:21 ED course: US left lower ext - yulia, ( Oh Colby // [facility] Radiologist )- 01/01/2021 12:20:14 PM No evidence of DVT. 12:25 ED course: OB US - ankit, ( Vivien Jamison // Radiologist lenka Pastor )- 01/01/2021 12:10:59 PM SLIUP WITH EGA OF 18W1S. NO BLEED. FHR OF 145 BPM. CLOSED CERVIX OF 3.2 CM.. 13:02 Case presented to: Dr. Froy Lujan. Data reviewed: vital mmo signs, nurses notes, old medical records, lab test result(s), radiologic studies. ED course: The patient is a 20-year-old female with a history of insulin-dependent diabetes, hypercholesterolemia, who is currently 18 weeks who presents emergency department today with complaints of lower abdominal cramping and pain in her left calf. Ultrasound of the left lower extremity was negative for evidence of DVT. OB ultrasound read as SL IUP at 18 weeks gestation, no bleed, heart rate 145, closed cervix of 3.2 cm. Patient also complained of a slight headache which has been ongoing, she was given IV Tylenol here in the emergency department. Patient's lab work showed no evidence of abnormalities, glucose recorded at 141 with no anion gap metabolic acidosis. Patient's urine was positive for 2+ glucose and trace ketones, no proteins. Stable here in the emergency department, vital signs blood pressure 124/75, pulse in the 90s and regular, respirations 16, afebrile at 98.5F, and oxygen saturation 97% on room air. Patient states she has a follow-up with your [employer] TE[employer]ER on the of this month. Patient will be discha rged home with a plan to follow-up with her [employer]IGH [employer] TE[employer]ER and to rest. . 13:06 ED course: Patient is a G1, P0 states she feels fine now. rc3 No hypertension no pitting edema. Abdomen soft nontender x4 quadrants. No McBurney's point tenderness. She overall appears well.. 01/01 11:41 Order name: UA.; Complete Time: 12:55 mmo 01/01 12:55 Interpretation: Ur Color Yellow; Ur Clarity Clear; Ur Spec rc3 gravity 1.025; Ur PH 6.5; Ur Protein Negative; Ur Glucose 2+ 500; Ur Ketones Trace; Ur Blood Negative; Ur Bilirubin Negative; Ur Urobilinogen 0.2; Ur Leuk Est Negative; Ur Nitrite Negative. 01/01 11:41 Order name: Cbc With Auto Differential; Complete Time: 12:26mmo 01/01 12:26 Interpretation: WBC 8.0; RBC 3.74; HGB 11.3; HCT 32.1; PLT mmo 255. 01/01 11:41 Order name: OB "Limited" Study - US mmo 01/01 11:41 Order name: Us Duplex Lower Ext Veins Lt mmo 01/01 11:41 Order name: COMMET; Complete Time: 12:46 mmo 01/01 12:55 Interpretation: NA 136; K 4.0; CL 106; CO2 26.0; GAP 4.0; rc3 BUN 10; CREAT 0.55; Glom Filtration > 90; GLU 141; CA 9.1; Corrected CA 10.1; T Bili 0.5; SGOT(AST) 21; SGPT(ALT) 32; ALK PHOS 45; TP 7.0; ALB 2.8; No anion gap metabolic acidosis . 01/01 11:41 Order name: Collect Urine - Clean Catch; Complete Time: mmo 12:30 01/01 11:41 Order name: Saline Lock; Complete Time: 12:29 mmo Dispensed Medications: 12:29 Drug: Ofirmev 1000 mg [Ofirmev 1,000 mg/100 mL (10 mg/mL) edv intravenous solution] Volume: 100 ml; Route: IVPB; Rate: 400 mL/hr; Infused Over: 15 mins; Site: right antecubital; Delivery: Primary pump; 12:45 Follow up: IV Status: Completed infusion sm6 Disposition Summary: 01/01/21 13:07 Discharge Ordered Location: Home/Self Care mmo Condition: Good mmo Diagnosis - Abdominal Cramps mmo - 18 weeks gestation of mmo - Muscle spasm of calf mmo Followup: mmo - With: - When: 1 week - Reason: Recheck today's complaints Discharge Instructions: - Discharge Summary Sheet mmo - Abdominal Pain During mmo Forms: - Medication Reconciliation mmo Signatures: Dispatcher [employer] Allan Fulton RN RN Froy Woody DO DO rc3 Tahmina Cole RN RN jc3 Meri Ziegler PA PA mmo Liliana Reyes RN sm6 Corrections: (The following items were deleted from the chart) 12:14 12:07 The patient is a 20-year-old female with past medical mmo history of insulin-dependent diabetes, hypercholesterolemia, and depression who presents the emergency department today with complaints of lower abdominal cramping and pain in the posterior left calf. Patient is currently 18 weeks [address] with Dr[address] Fritz in [place] as her [employer]IGH [employer] TE[employer]ER. Patient was seen in this emergency department 1 week ago for the complaints of abdominal cramping and had an ultrasound done which was normal per the patient, she did have a history of a subchorionic hemorrhage early in her which was diagnosed here in the emergency department when she came in for vaginal bleeding, she is blood type A negative and was given RhoGam. She states the cramping in her lower abdomen comes and goes but has been getting more intense. She did contact her [employer]IGH [employer]UC[employer] TEACHER today and they told her to come to the emergency department for evaluation. She also states she began having pain in her left calf today. No injury or trauma to the left lower extremity. She denies any loss of sensation or difficulty with range of motion of the left lower extremity. No history of PE or DVT. Denies any vaginal bleeding or discharge. She denies any urinary symptoms, states she just finished an antibiotic a few days ago for a UTI. She denies any fevers or chills. No chest pain, shortness of breath, or difficulty breathing. She also states she has been having a headache for the past 1 week, she was told by [employer]IGH [employer] TEACHER to take Tylenol and have small amounts of caffeine. She den ies any vision changes, changes in her speech, or gait disturbances.. mmo 12:55 12:46 NA 136; K 4.0; CL 106; CO2 26.0; GAP 4.0; BUN 10; rc3 CREAT 0.55; Glom Filtration > 90; GLU 141; CA 9.1; Corrected CA 10.1; T Bili 0.5; SGOT(AST) 21; SGPT(ALT) 32; ALK PHOS 45; TP 7.0; ALB 2.8. mmo Name Value Range Interpretation Code Description Data Ellen rce(s) Supporting Document(s) ID Date Data Source [id number] 01/01/2021 10:55:00 AM [facility] Name: [facility] Rec #: [id number] 816 : 2000 Age/Sex: 20F Date of Service: 01/01/21 NURSE CHART Nurse's Notes [facility] Name: [facility] Age: 20 yrs Sex: Female : 2000 Arrival Date: 01/01/2021 Time: 10:55 Bed 4 Private MD: Za Fritz Diagnosis: Abdominal Cramps;18 weeks gestation of ;Muscle spasm of calf Presentation: 01/01 11:10 Transition of care: patient was not received from another [facility] setting of care. Presenting complaint: Patient states - 18 weeks with cramping and pain in left leg told to come in by OB. 11:10 Acuity: Urgent - 3 [facility] 11:10 Method Of Arrival: Walk-In jc3 11:19 Have you travelled in the last 30 days? No. Have you had jc3 contact with an individual with a confirmed diagnosis of Ebola or COVID-19? No. Triage Assessment: 11:20 SEPSIS SCREEN: A Confirmed or Suspected Infection is jc3 Unknown, their temperature is not <96.8 or >100.9, their heart rate is >90, their RR is not >20, it is unknown if their WBC is <4 or >12, the patient does not have new or unexplained altered mental status. SIRS or Sepsis criteria is not present. Suicide Screening: Have you had thoughts of harming yourself or others? No. The patient appears to have some mild discomfort, The patient is anxious, behaving appropriately according to age, cooperative. Patient states the pain is currently a 8 / 10 The patient complains of pain in abdomen and pelvis. The patient states the pain began a couple days. The quality of the pain is described as crampy, The pain is described as intermittent. The pain radiates to back. cramping constant since this morning. Musculoskeletal: reports pain to left leg. Historical: - Allergies: Latex, Natural Rubber; Metformin HCl; Tape; - Home Meds: 1. nitrofurantoin 100 mg Oral cap twice a day for 10 days for UTI, started on 12/21/20 2. Levemir U-100 Insulin 100 unit/mL soln 18 unit before breakfast and dinner 3. Humalog U-100 Insulin 100 unit/mL Sub-Q soln 10 unit before meals - PMHx: DEPRESSION; Diabetes - IDDM; Hypercholesterolemia; - PSHx: Liver Biopsy; - Med Reconciliation:: Green Alert: The patient's med list is complete to the best of the nurse's/provider's knowledge. Medications reviewed, completed by nurse using patient's med list. verbally from patient/family. - Immunization history: All immunizations are up to date. - Advance directive: There is no existing advanced directive. Information offered. - Family History:: mother has a history of diabetes mellitus, lupus. - Social History: Smoking status (Tobacco): Patient states he/she has never smoked tobacco. Preferred Language: [place] Islander. Screenin:22 AUDIT 1. How often do you have a drink containing alcohol? jc3 Never (0 points). Drug Abuse Screening Test: 1. Have you used drugs other than those required for medical reasons? No (0 points), screen is complete, no risk. Assessment: 12:30 See Triage Assessment. edv Vital Signs: 11:19 BP 124 / 75; Pulse 95; Resp 16; Temp 98.5(TE); Pulse Ox 97% jc3 on R/A; Weight 131.54 kg (R); Height 5 ft. 4 in. (162.56 cm) (R); Pain 8/10; 13:27 BP 115 / 60; Pulse 90; Resp 18; Temp 98.6(TE); Pulse Ox 98% sm6 on R/A; 11:19 Body Mass Index 49.78 (131.54 kg, 162.56 cm) jc3 ED Course: 10:55 Patient arrived in ED. led 11:10 Triage completed. jc3 11:18 Arm band placed on right wrist. Patient placed in exam room jc3 Patient has correct armband on for positive identification. 11:20 Za Fritz DO is Private Physician. jc3 11:23 Allan Villarreal, RN is Primary Nurse. jc3 11:24 Meri Ziegler PA is PHCP. mmo 11:24 Froy Lujan DO is Attending Physician. mmo 11:50 OB "Limited" Study - US Sent. edv 12:28 Labs drawn by lab staff. Inserted saline lock: 20 gauge in edv right antecubital area. 12:29 Urine collected. Clean catch specimen. edv 12:30 Radiology: The patient's bedside ultrasound was completed edv at 12:00. 12:30 Us Duplex Lower Ext Veins Lt Sent. edv 13:06 Za Fritz DO is Referral Physician. mmo 13:27 No procedures ordered. Discontinued lock bleeding sm6 controlled, pressure dressing applied, No redness/swelling at site. Administered Medications: 12:29 Drug: Ofirmev 1000 mg [Ofirmev 1,000 mg/100 mL (10 mg/mL) edv intravenous solution] Volume: 100 ml; Route: IVPB; Rate: 400 mL/hr; Infused Over: 15 mins; Site: right antecubital; Delivery: Primary pump; 12:45 Follow up: IV Status: Completed infusion sm6 Outcome: 13:07 Discharge ordered by . mmo 13:27 Patient verbalized understanding of disposition sm6 instructions. Patient has no functional deficits. 13:27 Patient discharged to home ambulatory. 13:27 Condition: stable 13:27 Discharge instructions given to patient, Patient was instructed on discharge instructions, follow up and referral plans, The patient demonstrated understanding of instructions, No prescriptions given. 13:27 Vitals are Complete in accordance with Emergency Department Policy. 13:28 Patient left the ED. 6 01/02 11:19 24 hour call back attempted, no answer 1 Signatures: Allan Villarreal RN RN Liliana Barton RN RN sm6 Tahmina Cole RN RN jc3 Nikki Romero RN RN md1 Meri Ziegler PA PA mmo Delosh, Leslie led Corrections: (The following items were deleted from the chart) 01/01 11:20 11:10 Presenting complaint: Patient states - 18 weeks jc3 with cramping and pain in leg told to come in by OB jc3 Name Value Range Interpretation Code Description Data Ellen rce(s) Supporting Document(s) ID Date Data Source [id number] 01/01/2021 12:54:00 PM EST [facility] Name Value Range Interpretation Code Description Data Ellen rce(s) Supporting Document(s) Color,Urine Yellow Normal (applies to non-numeric resu lts) [facility] Clarity,Urine Clear Normal (applies to non-numeric re sults) [facility] Specific [place],Urine 1.001-1.030 Normal (applies to non- numeric results) [facility] PH,Urine 5.0-8.0 Normal (applies to non-numeric resul ts) [facility] Protein,Urine Negative Normal (applies to non-numeric re sults) [facility] Glucose,Urine (UA) Negative [facility] Ketones,Urine Negative [facility] Blood,Urine Negative Normal (applies to non-numeric resu lts) [facility] Bilirubin,Urine Negative Normal (applies to non-numeric results) [facility] Urobilinogen,Urine Norm 0.2-1 Normal (applies to non-numer ic results) [facility] Leukocyte Esterase,Urine Negative Normal (applies to non -numeric results) [facility] Nitrite,Urine Negative Normal (applies to non-numeric re sults) [facility] ID Date Data Source [id number] 01/01/2021 12:33:00 PM EST [facility] Name Value Range Interpretation Code Description Data Ellen rce(s) Supporting Document(s) Sodium 136 mmol/L 137-145 Below low normal [facility] Potassium 3.5-5.1 Normal (applies to non-numeric resul ts) [facility] Chloride 106 mmol/L 98-112 Normal (applies to non-numeric resul ts) [facility] Carbon Dioxide CO2 22.0-33.0 Normal (applies to non-numer ic results) [facility] Anion Gap 4.0-11.0 Normal (applies to non-numeric resul ts) [facility] BUN 10 mg/dL 7-17 Normal (applies to non-numeric resul ts) [facility] Creatinine 0.70-1.20 Below low normal [facility] GFR >60 Normal (applies to non-numeric results) [facility] Result based on MDRD formula. Glucose Level 141 mg/dL 74-99 Above high normal [facility] The reference range is only applicable w hen fasting. Calcium-Uncorrected 8.4-10.2 Normal (applies to non-nume valerio results) [facility] Corrected Calcium 8.4-10.2 Normal (applies to non-numeri c results) [facility] Bilirubin,Total 0.2-1.3 Normal (applies to non-numeric results) [facility] SGOT(AST) 21 U/L 14-36 Normal (applies to non-numeric resul ts) [facility] SGPT(ALT) 32 U/L 9-52 Normal (applies to non-numeric resul ts) [facility] Alkaline Phosphatase 45 U/L 38-126 Normal (applies to non-num jeferson results) [facility] can increase Alkaline Phosp le vels up to 2 times the normal adult value. Normal values for children and adolescents are 2 to 3 times the normal adult value. Total Protein 6.3-8.2 Normal (applies to non-numeric re sults) [facility] Albumin 3.5-5.0 Below low normal [facility] ID Date Data Source [id number] 01/01/2021 12:16:00 PM EST [facility] Name Value Range Interpretation Code Description Data Ellen rce(s) Supporting Document(s) White Blood Count 4.8-10.8 Normal (applies to non-numeri c results) [facility] Red Blood Count 3.68-5.22 Normal (applies to non-numeric results) [facility] Hemoglobin 11.2-15.7 Normal (applies to non-numeric resul ts) [facility] Hematocrit 34.1-44.9 Below low normal [facility] Mean Corpuscular Volume 81-99 Normal (applies to non- numeric results) [facility] Mean Corpuscular Hemoglobin 27.0-33.0 Normal (appli es to non-numeric results) [facility] Mean Corpuscular HGB Conc 32.0-36.0 Normal (applies to no n-numeric results) [facility] Red Cell Distribution Width 11.5-14.5 Normal (appli es to non-numeric results) [facility] Platelet Count 255 X10 3/uL 130-450 Normal (applies to non-numeric results) [facility] Mean Platelet Volume 9.5-12.7 Normal (applies to non-num jeferson results) [facility] Imm Grans% (AUTO) 1 % 0-2 Normal (applies to non-numeri c results) [facility] Neutrophils % (AUTO) 54 % 40-75 Normal (applies to non-num jeferson results) [facility] Lymphocytes % (AUTO) 34 % 21-46 Normal (applies to non-num jeferson results) [facility] Monocytes % (AUTO) 11 % 5-12 Normal (applies to non-numer ic results) [facility] Eosinophils % (AUTO) 1 % 1-5 Normal (applies to non-num jeferson results) [facility] Basophils % (AUTO) 0 % 0-1 Normal (applies to non-numer ic results) [facility] Imm Grans# (AUTO) 0.0-0.5 Normal (applies to non-numeri c results) [facility] Neutrophils # (AUTO) 1.5-8.1 Normal (applies to non-num jeferson results) [facility] Lymphocytes # (AUTO) 1.0-3.1 Normal (applies to non-num jeferson results) [facility] Monocytes # (AUTO) 0.2-1.3 Normal (applies to non-numer ic results) [facility] Eosinophils# (AUTO) 0.0-0.5 Normal (applies to non-nume valerio results) [facility] Basophils # (AUTO) 0.0-0.1 Normal (applies to non-numer ic results) [facility] ID Date Data Source [id number] 01/02/2021 06:12:00 AM EST [facility] Name: NICHO AU : 2000 Age/Sex: 20F Ordering Provider: ELENI Jurado Med Rec #: [id number] Reg Status: [facility] Room #: Date of Service: 01/01/21 Report Number: [id number] cc:Rosy Carbajal MD; ELENI Jurado Send Report To: [id number] US/US OB Limited Study Reason for exam: 18 WEEKS , CRAMPING FINDINGS: EARLIEST ULT: 7w 1d = EDC 06/03/21 EGA = 18 wks 1 day GESTATION: Single. PRESENTATION: Breech. CERVICAL LENGTH: 31.6 mm. FHR: 145 bpm. PLACENTAL LOCATION: Posterior. No previa. CORD INSERTION: Central. KAMERON: 13.61 cm, MVP: 3.86 cm. IMPRESSION: Single, live, intrauterine gestation breech lie. KMAERON is 13.6 cm. MVP: 3.9 cm. Cervix is closed measuring 32 mm. heart rate 145 bpm. Gestational age is 18w 1d. REPORT DICTATED BY LY PINEDA, REVIEWED AND SIGNED BY DR. JAMISON. REPORT SIGNATURE ON FILE Reported By: Vivien Jamison MD <Electronically signed by Vivien Jamison MD> 01/02/21 1049 Dictation Date/Time: 01/01/21 1239 Transcribed Date/Time: 01/02/21 0612 Security Vehicle Patrol Officer: SALOME Name Value Range Interpretation Code Description Data Ellen rce(s) Supporting Document(s) ID Date Data Source [id number] 01/02/2021 06:04:00 AM EST [facility] Name: NICHO AU : 2000 Age/Sex: 20F Ordering Provider: ELENI Jurado Med Rec #: [id number] Reg Status: [facility] Room #: Date of Service: 01/01/21 Report Number: [id number] cc:Rosy Carbajal MD Send Report To: [id number] US/US Duplex Lower Ext Veins Lt Reason for exam: PAIN IN THE LEFT CALF Ultrasound imaging performed using color flow and spectral Doppler interrogation. Prior examination: 09/16/19 FINDINGS: Duplex color sonography of the major deep venous system of the left lower extremity does not demonstrate a DVT. Flow and compressibility are demonstrated in the common femoral, femoral, and popliteal veins. IMPRESSION: No evidence of DVT demonstrated on the current study. Fluoroscopy time in seconds: Number of Exposures: Time Portable Image Performed: Contrast Agent in ml: Method of Administration: REPORT SIGNATURE ON FILE Reported By: Oh Colby MD <Electronically signed by Oh Colby MD> 01/02/21 1035 Dictation Date/Time: 01/01/21 1231 Transcribed Date/Time: 01/02/21 0604 Security Vehicle Patrol Officer: ANUJ Name Value Range Interpretation Code Description Data Ellen rce(s) Supporting Document(s) ID Date Data Source [id number] 01/08/2021 10:33:00 AM EST [facility] Name Value Range Interpretation Code Description Data Ellen rce(s) Supporting Document(s) Panorama Collection kit result Normal (applies to non-numeric results) [facility] ID Date Data Source [id number] 12/26/2020 07:16:00 PM EST [facility] Name Value Range Interpretation Code Description Data Ellen rce(s) Supporting Document(s) Sodium 140 mmol/L 137-145 Normal (applies to non-numeric resul ts) [facility] Potassium 3.5-5.1 Normal (applies to non-numeric resul ts) [facility] Chloride 108 mmol/L 98-112 Normal (applies to non-numeric resul ts) [facility] Carbon Dioxide CO2 22.0-33.0 Normal (applies to non-numer ic results) [facility] Anion Gap 4.0-11.0 Normal (applies to non-numeric resul ts) [facility] BUN 14 mg/dL 7-17 Normal (applies to non-numeric resul ts) [facility] Creatinine 0.70-1.20 Normal (applies to non-numeric resul ts) [facility] GFR >60 Normal (applies to non-numeric results) [facility] Result based on MDRD formula. Glucose Level 50 mg/dL 74-99 Below low normal [facility] The reference range is only applicable w hen fasting. Calcium-Uncorrected 8.4-10.2 Normal (applies to non-nume valerio results) [facility] Corrected Calcium 8.4-10.2 Normal (applies to non-numeri c results) [facility] ID Date Data Source [id number] 12/26/2020 06:58:00 PM EST [facility] Name Value Range Interpretation Code Description Data Ellen rce(s) Supporting Document(s) Hemoglobin A1C % Less than 5.7% Above high normal [facility] HBA1C: Normal: Less than 5.7% Prediabetes: 5.7% to 6.4% Diabetes: 6.5% or higher HA1C % vs Estimated Average Glucose (eAG) % eAG % eAG 6% 126 mg/dL 10% 240 mg/dL 7% 154 mg/dL 11% 269 mg/dL 8% 183 mg/dL 12% 298 mg/dL 9% 212 mg/dL Reference: [place] [employer], 2017 ID Date Data Source [id number] 12/23/2020 08:36:00 PM [facility] Name: [facility] Rec #: [id number] 816 : 2000 Age/Sex: 20F Date of Service: 12/23/20 DISPOSITION SUMMARY Discharge Summary [facility] Name:[facility] Emergency Department Age:20 yrs Sex:Female :2000 Arrival:12/23/2020 20:36 Departure Date12/24/2020 Departure Time00:16 Private MD:Za Fritz DO; Rosy Carbajal Outcome: Discharge Location: Home/Self Care Condition: Good Chief Complaint: Abdominal Cramping Diagnosis: Abdominal Cramps Prescriptions: Follow up: Za Fritz DO Custom Notes: Nicho
<span>Your ultrasound appears normal shows a normal heart rate</span><span>. There is nothing concerning on the ultrasound.</span><span> I would like you to follow-up with your HIGH SCHOOL PHYSICAL EDUCATION TEACHER if you have continued symptoms. You can use acetaminophen for pain.</span><span> You can also apply heat to your back to help with cramping.</span><span> Return to the ER if you have significant bleeding or significant worsening of symptoms.</span> Attending Physician: Arley Alicea MD Private MD: Za Fritz DO Mid Level Provider: Yariel Phipps RNP Followup Physician: Za Fritz DO Orders: UA., OB "Limited" Study - US, Collect Urine - Clean Catch Discharge Instruction: Discharge Summary Sheet, Abdominal Pain During , Medication Reconciliation, Fax Visit Summary for Za Fritz DO Name Value Range Interpretation Code Description Data Ellen rce(s) Supporting Document(s) ID Date Data Source [id number] 12/23/2020 08:36:00 PM [facility] Name: NICHO AU [facility] Rec #: [id number] : 2000 Age/Sex: 20F Date of Service: 12/23/20 PHYSICIAN CHART Physician Documentation [facility] Name: Nicho Au Age: 20 yrs Sex: Female : 2000 Arrival Date: 12/23/2020 Time: 20:36 Bed 1 Private MD: Za Fritz; Rosy Carbajal D ED Physician Arley Alicea Disposition: 12/24 04:53 Attestation: Patient was seen by the [facility] mlm1 Provider. I was personally available in the department for consultation but did not see or discuss the patient with them. HPI: 12/23 21:45 This 20 yrs old Female presents to ER via Walk-In jja1 with complaints of Abdominal Cramping. 21:45 Patient is a 20-year-old female medical history significant jja for depression, insulin-dependent diabetes, hypercholesterolemia, obesity, presenting to the emergency department today with complaints of lower abdominal cramping as well as a one-time episode of vaginal spotting in the setting of . Patient is 17 weeks and has had a ultrasound previously performed at our facility showing a viable . Patient denies any falls or injury. She reports that the symptoms occurred spontaneously. She reports his symptoms are mild to moderate. She denies any radiation of the cramping or discomfort. She does report some mild naus ea but otherwise has no other symptoms. Denies recent illness including fever, chills, cough, sore throat, upper respiratory symptoms. She denies dysuria or urinary symptoms. She does report recently being treated for a urinary tract infection.. HIGH SCHOOL PH[employer]ICAL EDUCATION TEACHER: 20:46 Verified arj Historical: - Allergies: Latex, Natural Rubber; Metformin HCl; Tape; - Home Meds: 1. Humalog U-100 Insulin 100 unit/mL Sub-Q soln 10 unit before meals 2. Levemir U-100 Insulin 100 unit/mL soln 18 unit before breakfast and dinner 3. nitrofurantoin 100 mg oral cap twice a day for 10 days for UTI, started on 12/21/20 - PMHx: DEPRESSION; Diabetes - IDDM; Hypercholesterolemia; - PSHx: Liver Biopsy; - Med Reconciliation:: Medications reviewed, verbally from patient/family. - Immunization history: All immunizations are up to date. - Advance directive: There is no existing advanced directive. Information offered. - Family History:: mother is healthy, Father is healthy. - Social History: Smoking status (Tobacco): Patient states he/she has never smoked tobacco. Preferred Language: [place] Islander. - The history of the events were obtained from: the patient. ROS: 21:45 Constitutional: See HPI. Cardiovascular: Negative for chest jja1 pain. Respiratory: See HPI. Abdomen/GI: See HPI. : See HPI. Skin: Negative for rash. All other systems are negative. 21:45 Abdomen/GI: Negative for diarrhea, constipation, jja1 black/tarry stool. Exam: 21:45 Constitutional: The patient appears alert, appears to be jja1 awake, does not appear to be toxic, is obese. 21:45 Head/face: Exam is negative for abnormalities. 21:45 Eyes: Exam is negative for abnormalities. 21:45 Neck: supple. 21:45 Chest/axilla: Inspection: normal, no assymetry. 21:45 Cardiovascular: Rate: normal, Rhythm: regular, Heart sounds: normal, normal S1and S2. 21:45 Respiratory: the patient does not display signs of respiratory distress, Respirations: normal, symetrical, Breath sounds: are normal, clear throughout. 21:45 Abdomen/GI: Inspection: obese, - morbidly Bowel sounds: normal, in all quadrants, Palpation: abdomen is soft and non- tender, in all quadrants. 21:45 : Gravid exam: large obese abdomen - unable to palpate jja1 fundus. 21:45 Skin: Appearance: Color: pink, Temperature: warm, Moisture: dry. 21:45 Neuro: Orientation: to person, place, time & situation. Vital Signs: 20:46 BP 128 / 79; Pulse 103; Resp 16; Temp 98.7(TE); Pulse Ox arj 99% on R/A; Weight 127.01 kg (R); Height 5 ft. 4 in. (162.56 cm) (R); Pain 8/10; 23:47 BP 151 / 72; Pulse 89; Resp 14; Pulse Ox 100% on R/A; Pain skb 4/10; 20:46 Body Mass Index 48.06 (127.01 kg, 162.56 cm) arj MDM: 21:25 Patient medically screened. jja1 22:26 Case presented to: Dr. Arley Alicea. Data reviewed: vital jja1 signs, nurses notes, old medical records. ED course: To summarize, patient presented to the ER today with lower abdominal cramping and 1 episode of a small spot of bleeding from her vagina that occurred yesterday in the setting of . An ultrasound was performed which shows heart rate of 149 and otherwise viable with no signs of bleeding or other abnormalities. Patient is doing well here in the emergency department with vital signs that are within normal limits. Urinalysis was performed which shows no signs of urinary tract infection no protein urea, or other abnormalities. Patient will be discharged home. 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 Return for any significant worsening of symptoms.. 12/23 21:46 Order name: UA.; Complete Time: 22:26 jja1 12/23 21:46 Order name: OB "Limited" Study - US jja1 12/23 21:46 Order name: Collect Urine - Clean Catch; Complete Time: 21:51 Dispensed Medications: No medications were administered Disposition Summary: 12/24/20 00:00 Discharge Ordered Location: Home/Self Care jja1 Condition: Good jja1 Diagnosis - Abdominal Cramps j1 Followup: j1 - With: Emergency Department - When: As needed - Reason: Worsening of condition Followup: jja1 - With: Za Fritz DO - When: 2 - 3 days - Reason: If symptoms persist Discharge Instructions: - Discharge Summary Sheet j1 - Abdominal Pain During j1 Forms: - Medication Reconciliation j1 Signatures: Dispatcher [employer] EDYariel Seay RNP PROPERTY STAFF ACCOUNTANT jja1 Stephanie Cabrales RN RN Arley Morin MD MD mlm1 Name Value Range Interpretation Code Description Data Ellen rce(s) Supporting Document(s) ID Date Data Source [id number] 12/23/2020 08:36:00 PM [facility] Name: NICHO AU [facility] Rec #: [id number] : 2000 Age/Sex: 20F Date of Service: 12/23/20 NURSE CHART Nurse's Notes [facility] Name: Nicho Au Age: 20 yrs Sex: Female : 2000 Arrival Date: 12/23/2020 Time: 20:36 Bed 1 Private MD: Za Fritz; Rosy Carbajal D Diagnosis: Abdominal Cramps Presentation: 12/23 20:43 Transition of care: p atient was not received from another [facility] setting of care. Presenting complaint: Patient states - I'm 17 weeks tomorrow and I had a lot of complications at the beginning of the . I have a lot of cramps in my lower abdomen and they go into my back. They started last night. Have you travelled in the last 30 days? No. Have you had contact with an individual with a confirmed diagnosis of Ebola or COVID-19? No. 20:43 Method Of Arrival: Walk-In [facility] 20:43 Acuity: Urgent - 3 [facility] Triage Assessment: 20:45 SEPSIS SCREEN: A Confirmed or Suspected Infection is arj Unknown, their temperature is not <96.8 or >100.9, their heart rate is not >90, their RR is not >20, it is unknown if their WBC is <4 or >12, the patient does not have new or unexplained altered mental status. SIRS or Sepsis criteria is not present. Suicide Screening: Have you had thoughts of harming yourself or others? No. The patient appears to have no apparent distress, comfortable, The patient is behaving appropriately according to age, cooperative. Patient states the pain is currently a 8 / 10 The patient complains of pain in low back area, right lower quadrant and left lower quadrant. The patient states the pain began 1 day ago, The quality of the pain is described as crampy, The pain is described as intermittent. Derm: No deficits noted. Skin is intact, Skin is pink, warm & dry. HIGH [employer]CHOOL PH[employer]ICAL EDUCATION TEACHER: 20:46 Verified [facility] Historical: - Allergies: Latex, Natural Rubber; Metformin HCl; Tape; - Home Meds: 1. Humalog U-100 Insulin 100 unit/mL Sub-Q soln 10 unit before meals 2. Levemir U-100 Insulin 100 unit/mL soln 18 unit before breakfast and dinner 3. nitrofurantoin 100 mg oral cap twice a day for 10 days for UTI, started on 12/21/20 - PMHx: DEPRESSION; Diabetes - IDDM; Hypercholesterolemia; - PSHx: Liver Biopsy; - Med Reconciliation:: Medications reviewed, verbally from patient/family. - Immunization history: All immunizations are up to date. - Advance directive: There is no existing advanced directive. Information offered. - Family History:: mother is healthy, Father is healthy. - Social History: Smoking status (Tobacco): Patient states he/she has never smoked tobacco. Preferred Language: [place] Islander. - The history of the events were obtained from: the patient. Screenin:50 AUDIT 1. How often do you have a drink containing alcohol? arj Never (0 points). Drug Abuse Screening Test: 1. Have you used drugs other than those required for medical reasons? No (0 points), screen is complete, no risk. Abuse screen: Denies threats or abuse. Denies injuries from another. Nutritional screening: No deficits noted. Patient has no identifiable fall risk ([place] Scale: 0 points). Assessment: 21:34 The patient appears to have no apparent distress, The alc patient is behaving appropriately according to age, cooperative, pleasant. Respiratory: No deficits noted. : Patient reports vaginal spotting that occurred yesterday. Vital Signs: 20:46 BP 128 / 79; Pulse 103; Resp 16; Temp 98.7(TE); Pulse Ox arj 99% on R/A; Weight 127.01 kg (R); Height 5 ft. 4 in. (162.56 cm) (R); Pain 8/10; 23:47 BP 151 / 72; Pulse 89; Resp 14; Pulse Ox 100% on R/A; Pain skb 4/10; 20:46 Body Mass Index 48.06 (127.01 kg, 162.56 cm) [facility] ED Course: 20:37 Patient arrived in ED. sm11 20:43 Rosy Carbajal is Private Physician. arj 20:43 Za Fritz DO is Private Physician. arj 20:45 Triage completed. arj 20:47 Arm band placed on right wrist. Patient has correct armband arj on for positive identification. 21:23 Marietta Montoya, ASHLEY is Primary Nurse. arj 21:23 Patient placed in exam room. arj 21:23 Patient has correct armband on for positive identification, arj Placed in gown, Bed in low position, Call light in reach, Side rails up X 1. 21:25 Yariel Phipps RNP is PHCP. jja1 21:25 Arley Alicea MD is Attending Physician. jja1 21:30 Urine collected. Clean catch specimen. alc 22:19 Primary Nurse role handed off by Marietta Montoya, ASHLEY skb 22:19 Stephanie Cabrales, RN is Primary Nurse. skb 22:32 Radiology: The patient's bedside ultrasound was completed skb at 22:32. 22:32 OB "Limited" Study - US Sent. skb 23:58 Za Fritz DO is Referral Physician. jja1 Administered Medications: No medications were administered Outcome: 12/24 00:00 Discharge ordered by . jja1 00:16 Patient left the ED. adj Signatures: Marietta Montoya RN RN alc Brown, Sarah, RN RN Yariel Ley RNP PROPERTY STAFF ACCOUNTANT jja1 Stephanie Cabrales RN RN arj Jacobs, Allena, RN RN adj Beth Austin, Reg Reg sm11 Name Value Range Interpretation Code Description Data [facility](s) Supporting Document(s) ID Date Data Source [id number] 12/23/2020 10:07:00 PM EST [facility] Name Value Range Interpretation Code Description Data [facility](s) Supporting Document(s) Color,Urine Yellow Normal (applies to non-numeric resu lts) [facility] Clarity,Urine Clear Normal (applies to non-numeric re sults) [facility] Specific [place],Urine 1.001-1.030 Normal (applies to non- numeric results) [facility] PH,Urine 5.0-8.0 Normal (applies to non-numeric resul ts) [facility] Protein,Urine Negative Normal (applies to non-numeric re sults) [facility] Glucose,Urine (UA) Negative [facility] Ketones,Urine Negative [facility] Blood,Urine Negative Normal (applies to non-numeric resu lts) [facility] Bilirubin,Urine Negative Normal (applies to non-numeric results) [facility] Urobilinogen,Urine Norm 0.2-1 Normal (applies to non-numer ic results) [facility] Leukocyte Esterase,Urine Negative Normal (applies to non -numeric results) [facility] Nitrite,Urine Negative Normal (applies to non-numeric re sults) [facility] ID Date Data Source [id number] 12/24/2020 08:44:00 AM EST [facility] Name: NICHO AU : 2000 Age/Sex: 20F Ordering Provider: Yariel Phipps IV, FNP Med Rec #: [id number] Reg Status: [facility] Room #: Date of Service: 12/23/20 Report Number: [id number] cc:Rosy Carbajal MD Send Report To: [id number] US/US OB Limited Study Reason for exam: SPOTTING AND LOWER ABDOMEN CRAMPING. 17 WEEKS . FINDINGS: EARLIEST ULT: 7W 1D = EDC 06/03/21 EGA = 16 wks 6 days GESTATION: Single. PRESENTATION: Transverse. CERVICAL LENGTH: 38 mm FHR: 149 bpm PLACENTAL LOCATION: Posterior, no previa. CORD INSERTION: Central. KAMERON: 9.3 cm, MVP 3.6 cm. Evidence of perigestational hemorrhage is not seen. IMPRESSION: Single live intrauterine with estimated age of 16 weeks and 6 days based on clinical history. Unremarkable posterior placenta. Perigestational hemorrhage not seen. Amniotic fluid volume within normal limits. Placenta pathology not seen. Fluoroscopy time in seconds: Number of Exposures: Time Portable Image Performed: Contrast Agent in ml: Method of Administration: REPORT SIGNATURE ON FILE Reported By: Vivien Jamison MD <Electronically signed by Vivien Jamison MD> 12/25/20 1112 Dictation Date/Time: 12/24/20 0708 Transcribed Date/Time: 12/24/20 0844 Security Vehicle Patrol Officer: ANUJ Name Value Range Interpretation Code Description Data Ellen rce(s) Supporting Document(s) ID Date Data Source [id number] 12/21/2020 01:12:00 PM [facility] Name Value Range Interpretation Code Description Data Ellen rce(s) Supporting Document(s) Urine Culture Normal (applies to non-numeric re sults) [facility] ID Date Data Source [id number] 12/20/2020 08:47:00 PM [facility] Name Value Range Interpretation Code Description Data Ellen rce(s) Supporting Document(s) Color,Urine Yellow Normal (applies to non-numeric resu lts) [facility] Clarity,Urine Clear Normal (applies to non-numeric re sults) [facility] Specific [place],Urine 1.001-1.030 Normal (applies to non- numeric results) [facility] PH,Urine 5.0-8.0 Normal (applies to non-numeric resul ts) [facility] Protein,Urine Negative Normal (applies to non-numeric re sults) [facility] Glucose,Urine (UA) Negative Normal (applies to non-numer ic results) [facility] Ketones,Urine Negative [facility] Blood,Urine Negative Normal (applies to non-numeric resu lts) [facility] Bilirubin,Urine Negative Normal (applies to non-numeric results) [facility] Urobilinogen,Urine Norm 0.2-1 Normal (applies to non-numer ic results) [facility] Leukocyte Esterase,Urine Negative [facility] Nitrite,Urine Negative Normal (applies to non-numeric re sults) [facility] RBC,Auto Urine 0-2 Normal (applies to non-numeric r esults) [facility] WBC Urine Auto 0-10 Normal (applies to non-numeric r esults) [facility] Casts,Hyaline,Urine Auto 0-2 Normal (applies to non -numeric results) [facility] Bacteria Urine Auto None Seen Normal (applies to non-nume valerio results) [facility] Epithelial Cell Ur Auto None-Few Normal (applies to non- numeric results) [facility] ID Date Data Source [id number] 12/26/2020 02:13:00 AM EST [facility] SEE SCANNED HARD COPY RESULTS PREVIOUSL Y FAXED Name Value Range Interpretation Code Description Data Ellen rce(s) Supporting Document(s) ID Date Data Source [id number] 12/08/2020 02:55:[address] [facility] Name Value Range Interpretation Code Description Data Ellen rce(s) Supporting Document(s) Progress Note [facility] SBMGVj0eNqNSAkWb47/ORDegHPRby7BgEKokLNy6VUjlMRIbU3AaILT2iV6sAOH0TTwYAfCqSaKzHYT2 [facility] [file] Xy0yvllCCME7xUwXCMdVw4+CajFMfAhYuZfUeELDJLRwsibOXjNqms17xu63FgM+Boiler Control Technician/B4XYuZTJcEVJG [file] t3SbpurlyrLlhurk1NyoSOkbtnR/8VmnT9qody+/RB goOhVAadqL6Q7wS2xvx0/hx55k+frbU1CbLuu2wwNYcnrNtwIb9T1P64uOdGDBOb6iHMFSKufPfsYf61 sexc2814995GdHl9EV9JH5vlUaGHwazmNjoZSuQfROMu+dMMV3lUvWxNIJXzv/cC+o4z4fQFpTsFgGgw rtBzOMiABFEjeZ7ycg+rfCLhqYnz1Q4E2Eo2TZ9nu8 N/NQfeJBH7UtQXzPkmU+yr3PCntccGxQ2CpHEToqRBP7usrbFHMaOS4rchWUsaKFMa18or/6sv4l445T d3JX+Gm5h56NXzz5/yaPLP+KpLY+iWAMy5kscPOcs1givYu/ZqyzQ2BMqwvm0Vj7q697+4BRvaT0htdv qu2YMqY7j1/kpuQ8JHDGLEij0zg6snBtHD+jR718+s RIXGcTp4ZvzHZcu0oElGB5PLzOl3X+r6aQ79r/gflPwtQ5Vt150nJzIwmRERZRfVdGjfZh/F+YnAAmFx 5H8aU32JsE74BgpfaV+Roje3pcztKHNKFkC7RSzewrNRY+0vUlFvuBDmC/DEAL4qxVvAtZkBMZdktCSa pl8LXivVyXwEMBC+KCNUnOCMoM3T4ywTtiX2T4j1Dl KAcQKL4qjCi2hZ7bOjEEqG4GcVh/Da2JV36kAbFYD7ZO6856WeUL4c+Q33VCs8hbcMNh3y9kLa+z/fhs 97+S+833E1PK//9Jm/k1qhe5VE/I2QgV+f+Q2++d1G3kYyC9/ot+X+m4Dd24s6+fkd++vWQi0SCfyJVt FMJe1nUQskMYMXm4WeCtUYDLf9/M6Vv7oied4OCFH9 ONE5e3Mdl9h8fdzlWj1ZrKbj/hFRdYVOQXIyu4QimWGdNukt6P+ofmFNKSN07kl7jA04+ygXP/sud6uw 54Vk4/NJ/ZIv7DI714fvIYA5hVEV9cPpJAdkM322P5SQNcaEZr8/group marketing vp/lSPssMqia/MHbqcNm/kr7AyVG [file] ICAgICAgICAgICAgICAgICAgICAgICAgICAgICAgICAgICAgICAgICAgICAgICAgICAgICAgICAgICAg ICAgICAgICAgICAgICAgICAgICAgDQogICAgICAgIC AgICAgICAgICAgICAgICAgICAgICAgICAgICAgICAgICAgICAgICAgICAgICAgICAgICAgICAgICAgIC AgICAgICAgICAgICAgICAgICAgICAgICAgICAgICAgDQogICAgICAgICAgICAgICAgICAgICAgICAgIC AgICAgICAgICAgICAgICAgICAgICAgICAgICAgICAg ICAgICAgICAgICAgICAgICAgICAgICAgICAgICAgICAgICAgICAgICAgDQogICAgICAgICAgICAgICAg ICAgICAgICAgICAgICAgICAgICAgICAgICAgICAgICAgICAgICAgICAgICAgICAgICAgICAgICAgICAg ICAgICAgICAgICAgICAgICAgICAgICAgDQogICAgIC AgICAgICAgICAgICAgICAgICAgICAgICAgICAgICAgICAgICAgICAgICAgICAgICAgICAgICAgICAgIC AgICAgICAgICAgICAgICAgICAgICAgICAgICAgICAgICAgDQogICAgICAgICAgICAgICAgICAgICAgIC AgICAgICAgICAgICAgICAgICAgICAgICAgICAgICAg ICAgICAgICAgICAgICAgICAgICAgICAgICAgICAgICAgICAgICAgICAgICAgDQogICAgICAgICAgICAg ICAgICAgICAgICAgICAgICAgICAgICAgICAgICAgICAgICAgICAgICAgICAgICAgICAgICAgICAgICAg ICAgICAgICAgICAgICAgICAgICAgICAgICAgDQogIC AgICAgICAgICAgICAgICAgICAgICAgICAgICAgICAgICAgICAgICAgICAgICAgICAgICAgICAgICAgIC AgICAgICAgICAgICAgICAgICAgICAgICAgICAgICAgICAgICAgDQogICAgICAgICAgICAgICAgICAgIC AgICAgICAgICAgICAgICAgICAgICAgICAgICAgICAg ICAgICAgICAgICAgICAgICAgICAgICAgICAgICAgICAgICAgICAgICAgICAgICAgDQogICAgICAgICAg ICAgICAgICAgICAgICAgICAgICAgICAgICAgICAgICAgICAgICAgICAgICAgICAgICAgICAgICAgICAg ICAgICAgICAgICAgICAgICAgICAgICAgICAgICAgDQ c4T2rzQHZcBHGqYG8yGJd2Ng0+KWfALiYnCME9fmFdkL7FQJ7do1HrJHqaEOCds1JaIIa3YC5ZIXSaBE paNZ7JBRcqtx8MXJYfCZNzdVQRu6pbBvAeKCM8ZIBgUngpHM8CYMBxH0zkebJcTDGwBZZBKQrsWOGTVM joJNWAUJPcJNCrCvBzLxBzXTAzST3RQEBhT535maQy DJ6HYp8UGtTqBX3fwx8DRwXfNUGrYchVAwl1LKzsCA3TuOIpiDYzAnCcFGGFLdYxB6lyy5IvStLjAHYT XCkwKM4Yn7UlpCNlQTt+Wz5CNF0gy1ElJZanOmHnOV6mfx5PLPuKUrGtS6PmsUnvBQWlv9ywWIZqKW4y aWCwLTX0STPtAnZczZPVCIAhwXFymj4cjpfnSGBiEO QpOP3cFT5lIYRySAEgVdWxETBKDR3TIGTwVUYpfVJmVDXsVUMMQG2HZGlxNOB4HTOgwnXxvJHkFCybWI 9QYXJlbnQgMzUgMCBSDQo+Sm0LUY3hn8VpDQinHlImNC0keg0LCZdLVtIcS2L3qWGgX2F4HFgnFz2COY NiRUAeGsJyCVWBHPmxVP8JPT3dyyY7UL2FaEPyHXMy FQNijBEeVIk6Q13yoBQsGWjnVC3FIDM+Berlin+Dr7KEHZaLSSlZAXiCiVcORBZQyCaY6QpA0YCd4DzY7Rl OV18lHrliaMyBXmtOH7XXU8iUDYrOQCODN8YdZLxwX7peyHgCRArRNFCTqAgX56szTAjEVHeZNX6XHLk Ix5DCIXjQ6MkooUagMzaelQbNJIjEUACYW0RULfqxf QpmTAyuStqJE08dYnvRG5XYn3TLyWmXL5iiz4HpFGpCz5LBNOrZD0VDKVmRRWfRBZtDDK8ACBkSdFaED avHPBhPSMnTNP6JACrFMQeQJ9XXsKlLFMwRqGjGHXkVMCnBRFdbm9EFOFeSNV6Jqi6KRVnASRhJAHmJW ltZAOxSYMjIYZ5LOSzSJCgFK0PJuHzVMJbBHU4RIEx TJRdPHDhur9HTKKySDNlVrp3TMVqTYUfRNUrNGwpIEOoMEC2Zom9XKNdRHHlGR4TSxSnKNHqGUj0BQCf WBSeLNEmmw7NXODvPLPfJNKpWKVkKSWbMYZqMQgkOTFmUYM2OoU6BHCeUJHpHY2PRwVzDSWwSyDwPzPo CLObXXUxjz1QMKDcIQUdJTA0YWYdUOAoVEQhTPytOH XnNHI9RSJ7IEBxNUPrKL3KDxNuRLAlViQlRwNjNPCjZLAlde8XHVAbQYWjIaSfMMSlTFWiAHUkWNicOI VbEGO3KiD1KINqVZZvFZ9QPlEfQXYoQnQ1YUTcFNBtPBMpwr7CEMDrEBRlNzL1IQGdOSJqQZYxMJldZM GwKSZ9PouvYQMdQLBtEQ6CCdGiGIYbSnv6PlAoNDFa KVNbzc5BAIXfGUH0ZdJoVKXaMZZuDOYgWErqGHWhKNY7HMQ0ZCYlBCQmTO9DCeYkJFRtJSpmPQEqNHXj SSFpyp8DATAwJQV1Yob5MIUuIVOxPDXrVRctCQHaTYZ5OOr2GBHvHWXhAF8BJzXyCVHxYKr2LSKmBJDg DVBybw0KOYAuGLP5UGUcQBPaYOKdCVJbDEzqAXNaNO K6ZfE9TBIcFOGsLR1SCpZaYZFuPtVpKsNcLPKjYRJvmk3OZVYjBLM7IIC6QhXwWKRrQYWbKCzkGTOqJR B5Qbs9ZDZfJMJiOR5WPaLmTSCdEzU9IfMhGEVdUVLtcp3JXSIbIYY3WSG6TOOeIJGhKQWlITpkUHJwRD M5LNY6AZUgSWWuQX2BJqIiDUWlFsB1RdydYBQxZHTu ld6EOOVcNMC4VaW3QNUlNYVcTCBbYGzyGWZjTKV8AdTgYJTyISCzQM7ACzPpHEihKTYFSnh7JPwtL3a0 JFXhWC1OE8Djn8EoZhorJBYMXUkaJX0taxBkCZXfAj6HV0tNDnc7RNW4NmgvE2N4RFLoOYmhDPJ6N8Il LbRkLND9LLLoLE1sLVK5RuA3SCQeMUJbFED5H1LzXI QsB3XvJEQ5BSjfFTJaIzUcZW6JOw6SLmU8CSY3vRMwRr1DKyq6QQZAQjXdYC4HNZk= ID Date Data Source [id number] 12/02/2020 05:10:00 PM EST [facility] Name Value Range Interpretation Code Description Data Ellen rce(s) Supporting Document(s) Respiratory specimen severe acute respir atory syndrome coronavirus 2 (SARS-CoV-2) RNA Negative (qualifier value) [facility] This lab was ordered by [facility] aileen and reported by [facility]. ID Date Data Source [id number] 12/02/2020 04:55:00 PM [facility] THIS IS A [facility] REPORTABLE COMMUNICABLE DISEASE. Testing was performed using the SignalF[employer] COVID-19 MDx Assay. This test has been authorized by FDA under an (Emergency Use Authorization) EUA for use by authorized laboratories for individuals who are suspected of COVID-19 by their healthcare provider. This test is only authorized for the duration of the declaration that circumstances exist justifying the authorization of emergency use of in vitro diagnostic tests for detection and/or diagnosis of SARS-CoV-2. Methodology: Endpoint RT-PCR. Fact sheets for this EUA assay can be found at the following links: Providers: https://www.fda.gov/media/652497/download Patients : https://www.fda.gov/media/025347/download THIS IS A [facility] REPORTABLE COMMUNICABLE DISEASE Negative results do not preclude SARS-CoV-2 infection and should not be used as the sole basis for patient management decisions. Negative results must be combined with clinical observations,patient history, and epidemiological information. Name Value Range Interpretation Code Description Data Ellen rce(s) Supporting Document(s) ID Date Data Source [id number] 12/04/2020 05:51:00 PM [facility] Name Value Range Interpretation Code Description Data Ellen rce(s) Supporting Document(s) Panorama/Horizon kit result Normal (applies to non-numeric results) [facility] ID Date Data Source [id number] 11/29/2020 12:12:00 PM [facility] Name Value Range Interpretation Code Description Data Ellen rce(s) Supporting Document(s) Varicella-Zoster IgG Ab,S res See Note No rmal (applies to non-numeric results) [facility] Presence of detectable Varicella Zoster virus IgG antibodies. Test performed or referred by The [address] [address] ID Date Data Source [id number] 11/03/2020 10:24:00 AM EST [facility] Name: AU,NICHO [facility] Rec #: [id number] : 2000 Age/Sex: 20F Date of Service: 11/03/20 PHYSICIAN CHART Physician Documentation [facility] Name: [facility] Age: 20 yrs Sex: Female : 2000 Arrival Date: 11/03/2020 Time: 10:24 Bed 5 Private MD: Za Fritz ED Physician Shin Suthreland HPI: 11/03 10:48 This 20 yrs old Female presents to ER via Walk-In jdl with complaints of Fall Injury, Low Back Pain, Shoulder Pain. 10:48 This is a 20-year-old white female with past medical jdl history of insulin-dependent diabetes who presents with chief complaint of low abdominal pain, low back pain, and right shoulder pain after a fall yesterday. Patient states that she slipped while walking down stairs landing on her buttocks and then sliding down 3-4 steps. She states that she called her HIGH SCHOOL PHYSICAL EDUCATION TEACHER who instructed her to come to the emergency department for evaluation. She is complaining of mild 3 out of 10 pain when she moves her right shoulder. She is complaining of slightly worse 5 out of 10 pain in the low back particularly worse with movement. She denies any difficulty moving her bowels or bladder. She denies any pain going on the legs or numbness or tingling in the legs.. 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 Humalog U-100 Insulin 100 unit/mL Sub-Q soln 10 unit before meals 2. Levemir U-100 Insulin 100 unit/mL soln 18 unit before breakfast and dinner - PMHx: DEPRESSION; Diabetes - IDDM; Hypercholesterolemia; - PSHx: Liver Biopsy; - Med Reconciliation:: Yellow Alert: The patient's home medication list is partly complete. However, additional information is required to complete list. Medications reviewed, completed by nurse verbally from patient/family. - Immunization history: Flu vaccine is up to date. - Advance directive: There is no existing advanced directive. Information offered. - Family History:: mother is healthy, has a history of diabetes mellitus, Father liver Dz. - Social History: Smoking status (Tobacco): Patient states he/she has never smoked tobacco. No barriers to communication noted, The patient speaks fluent [place] Islander. ROS: 10:50 Constitutional: Negative for fever, c hills, and weight jdl loss. Abdomen/GI: See HPI. MS/extremity: See HPI. Skin: See HPI. Exam: 10:50 Constitutional: This is a well developed, well nourished jdl p atient who is awake, alert, and in no acute distress Eyes: Pupils equal round and reactive to light, extra-ocular motions intact. Lids and lashes normal. Conjunctiva and sclera are non-icteric and not injected. Cornea within normal limits. Periorbital areas with no swelling, redness, or edema. ENT: Nares patent. No nasal discharge. Tympanic membranes are normal and external auditory canals are clear. Oropharynx with no redness, swelling, or masses. Mucous membranes moist. Chest/axilla: normal inspection, no deformities or tenderness. Cardiovascular: Regular rate and rhythm with a normal S1 and S2. No gallops, murmurs, or rubs. Normal PMI, no JVD. Respiratory: Lungs have equal breath sounds bilaterally, clear to auscultation and percussion. No rales, rhonchi or wheezes noted. No increased work of breathing, no retractions or nasal flaring. Abdomen/GI: Soft, non- tender, with normal bowel sounds. No distension or tympany. No guarding or rebound. No evidence of tenderness throughout. Back: No spinal tenderness. No costovertebral tenderness. 10:50 Musculoskeletal/extremity: Extremities: noted in the anterior aspect of right shoulder: pain, tenderness, However the patient has full range of motion. 10:50 Neuro: Orientation: is normal, Mentation: is normal, Cerebellar function: is grossly normal, Motor: is normal. Vital Signs: 10:33 BP 130 / 85; Pulse 96; Resp 18; Temp 96.9; Pulse Ox 98% on edv R/A; Weight 131.4 kg; Height 5 ft. 4 in. (162.56 cm); 12:18 BP 138 / 84; Pulse 86; Resp 17; Temp 98.4(TE); Pulse Ox 99% mp3 on R/A; 12:52 BP 126 / 63; Pulse 67; Resp 18; Pulse Ox 98% on R/A; Pain mick 0/10; 10:33 Body Mass Index 49.72 (131.40 kg, 162.56 cm) edv MDM: 10:40 Patient medically screened. jdl 10:52 Data reviewed: vital signs, nurses notes. jdl 10:52 ED course: We discussed the risks and benefits of x-ray jdl examination of the shoulder. At this time the patient does not want to proceed with an x-ray.. 12:42 Counseling: I had a detailed discussion with the patient jdl and/or guardian regarding: lab results, radiology results, diagnosis. 11/03 10:48 Order name: . j 11/03 10:48 Order name: First Trimester - jdl Dispensed Medications: No medications were administered Disposition Summary: 11/03/20 12:43 Discharge Ordered Location: Home/Self Care jdl Condition: Good jdl Diagnosis - Strain of muscle(s) and tendon(s) of the rotator cuff jdl of right shoulder - Fall (on) (from) other stairs and steps jdl Followup: jdl - With: Za Fritz DO - When: As needed - Reason: Continuance of care Followup: jdl - With: - When: 10 - 14 days - Reason: If shoulder pain persists Discharge Instructions: - Discharge Summary Sheet jdl - Shoulder Sprain jdl Forms: - Medication Reconciliation jdl Signatures: Dispatcher [employer] Allan Fulton RN RN edShin Langley MD MD jdl Name Value Range Interpretation Code Description Data Ellen rce(s) Supporting Document(s) ID Date Data Source [id number] 11/03/2020 10:24:00 AM EST [facility] Name: [place] Rec #: [id number] 816 : 2000 Age/Sex: 20F Date of Service: 11/03/20 DISPOSITION SUMMARY Discharge Summary [facility] Name:[facility] Emergency Department Age:20 yrs Sex:Female :2000 Arrival:11/03/2020 10:24 Departure Date11/03/2020 Departure Time12:54 Private MD:Za Fritz DO Outcome: Discharge Location: Home/Self Care Condition: Good Chief Complaint: Fall Injury, Low Back Pain, Shoulder Pain Diagnosis: Strain of muscle(s) and tendon(s) of the rotator cuff of right shoulder, Fall (on) (from) other stairs and steps Prescriptions: Follow up: [facility] Follow up: Za Fritz DO Custom Notes: Attending Physician: Shin Sutherland MD Private MD: Za Fritz DO Mid Level Provider: Followup Physician: [facility] Followup Physician: Za Fritz DO Orders: UA., US First Trimester - US Discharge Instruction: Discharge Summary Sheet, Shoulder Sprain, Medication Reconciliation, Fax Visit Summary for Za Fritz DO Name Value Range Interpretation Code Description Data Ellen rce(s) Supporting Document(s) ID Date Data Source [id number] 11/03/2020 10:24:00 AM [facility] Name: [facility] Rec #: [id number] 816 : 2000 Age/Sex: 20F Date of Service: 11/03/20 NURSE CHART Nurse's Notes [facility] Name: [facility] Age: 20 yrs Sex: Female : 2000 Arrival Date: 11/03/2020 Time: 10:24 Bed 5 Private MD: Za Fritz Diagnosis: Strain of muscle(s) and tendon(s) of the rotator cuff of right shoulder;Fall (on) (from) other stairs and steps Presentation: 11/03 10:30 Transition of care: patient was received from another edv setting of care (ambulatory primary care physician practice), Za Fritz DO. Presenting complaint: Patient states - I slipped down 3-4 steps yesterday and now I have low back pain and shoulder pain. Pt states OB want her baby checked. Have you travelled in the last 30 days? No. Have you had contact with an individual with a confirmed diagnosis of Ebola or COVID-19? No. 10:30 Method Of Arrival: Walk-In edv 10:30 Acuity: Urgent - 3 edv Triage Assessment: 10:32 Suicide Screening: Have you had thoughts of harming edv yourself or others? No. The patient appears to have no apparent distress, obese, The patient is behaving appropriately according to age, cooperative. The patient complains of pain in lumbar area, left low back, right low back, anterior aspect of right shoulder and posterior aspect of right shoulder. The patient states the pain began suddenly, 1days ago. The quality of the pain is described as aching, sharp. Injury Description: Fall. 12:53 SEPSIS SCREEN: A Confirmed or Suspected Infection is mick Unknown, their temperature is not <96.8 or >100.9, their heart rate is not >90, their RR is not >20, it is unknown if their WBC is <4 or > 12, the patient does not have new or unexplained altered mental status. SIRS or Sepsis criteria is not present. 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 Humalog U-100 Insulin 100 unit/mL Sub-Q soln 10 unit before meals 2. Levemir U-100 Insulin 100 unit/mL soln 18 unit before breakfast and dinner - PMHx: DEPRESSION; Diabetes - IDDM; Hypercholesterolemia; - PSHx: Liver Biopsy; - Med Reconciliation:: Yellow Alert: The patient's home medication list is partly complete. However, additional information is required to complete list. Medications reviewed, completed by nurse verbally from patient/family. - Immunization history: Flu vaccine is up to date. - Advance directive: There is no existing advanced directive. Information offered. - Family History:: mother is healthy, has a history of diabetes mellitus, F ather liver Dz. - Social History: Smoking status (Tobacco): Patient states he/she has never smoked tobacco. No barriers to communication noted, The patient speaks fluent [place] Islander. Screenin:37 AUDIT 1. How often do you have a drink containing alcohol? edv Never (0 points). Drug Abuse Screening Test: 1. Have you used drugs other than those required for medical reasons? No (0 points), screen is complete, no risk. Abuse screen: Denies threats or abuse. Nutritional screening: The patient is obese. Patient has no identifiable fall risk ([place] Scale: 0 points). Assessment: 10:58 See Triage Assessment. mp3 Vital Signs: 10:33 BP 130 / 85; Pulse 96; Resp 18; Temp 96.9; Pulse Ox 98% on edv R/A; Weight 131.4 kg; Height 5 ft. 4 in. (162.56 cm); 12:18 BP 138 / 84; Pulse 86; Resp 17; Temp 98.4(TE); Pulse Ox 99% mp3 on R/A; 12:52 BP 126 / 63; Pulse 67; Resp 18; Pulse Ox 98% on R/A; Pain mick 0/10; 10:33 Body Mass Index 49.72 (131.40 kg, 162.56 cm) edv ED Course: 10:26 Patient arrived in ED. p 10:32 Triage completed. edv 10:35 Za Fritz DO is Private Physician. edv 10:35 Arm band placed on left wrist. Patient placed in exam room edv Patient has correct armband on for positive identification. 10:38 Dee Javier RN is Primary Nurse. edv 10:40 Shin Sutherland MD is Attending Physician. jdl 10:52 Urine collected. Clean catch specimen. mp3 11:39 Radiology: T he patient's bedside ultrasound was completed mp3 at 11:39. 12:19 US First Trimester - US Sent. mp3 12:42 Za Fritz DO is Referral Physician. jdl 12:42 [facility] is Referral Physician. jdl 12:53 No procedures ordered. mick Administered Medications: No medications were administered Outcome: 12:43 Discharge ordered by . jdl 12:53 Patient verbalized understanding of disposition mick instructions. Patient has no functional deficits. 12:53 Patient discharged to home ambulatory. 12:53 Condition: stable 12:53 Discharge instructions given to patient, Patient was instructed on discharge instructions, follow up and referral plans, medication usage, The patient demonstrated understanding of instructions, medications, No prescriptions given. 12:53 Vitals are Complete in accordance with Emergency Department Policy. 12:54 Patient left the ED. mick 11/04 12:42 24 hour call back attempted, no answer sm6 Signatures: Allan Villarreal, RN RN edv Yi Russell, Reg [facility] Shin Sutherland MD MD jdl Monroe, Susan, RN RN 6 Dee Javier RN RN 3 Kezia Dudley RN RN mick Name Value Range Interpretation Code Description Data Ellen rce(s) Supporting Document(s) ID Date Data Source [id number] 11/07/2020 01:09:00 PM [facility] Name Value Range Interpretation Code Description Data Ellen rce(s) Supporting Document(s) Urine Culture Normal (applies to non-numeric re sults) [facility] ID Date Data Source [id number] 11/07/2020 01:09:00 PM [facility] Name Value Range Interpretation Code Description Data [facility] rce(s) Supporting Document(s) Color,Urine Yellow [facility] pital Clarity,Urine Clear [facility] ospital Specific [place],Urine 1.001-1.030 Normal (applies to non- numeric results) [facility] PH,Urine 5.0-8.0 Normal (applies to non-numeric resul ts) [facility] Protein,Urine Negative [facility] ospital Glucose,Urine (UA) Negative Normal (applies to non-numer ic results) [facility] Ketones,Urine 15 mg/dL Negative [facility] ospital Blood,Urine Negative Normal (applies to non-numeric resu lts) [facility] Bilirubin,Urine Negative [facility] Positive Bilirubin is no longer doublech ecked. Bilirubin may be elevated due to urine color interference. Urobilinogen,Urine Norm 0.2-1 Normal (applies to non-numer ic results) [facility] Leukocyte Esterase,Urine Negative [facility] Nitrite,Urine Negative Normal (applies to non-numeric re sults) [facility] ID Date Data Source [id number] 11/07/2020 01:09:00 PM [facility] Name Value Range Interpretation Code Description Data [facility] rce(s) Supporting Document(s) [facility] RBC,Urine 0-2 Normal (applies to non-numeric resul ts) [facility] Hyaline Casts,Ur None Seen Normal (applies to non-numeric results) [facility] Bacteria,Urine None Seen [facility] Epithelial Cell,Ur None-Few [facility] ID Date Data Source [id number] 11/04/2020 12:26:00 PM EST [facility] Name: NICHO AU : 2000 Age/Sex: 20F Ordering Provider: Shin Sutherland MD Med Rec #: [id number] Reg Status: [facility] Room #: Date of Service: 11/03/20 Report Number: [id number] cc:Rosy Carbajal MD Send Report To: [id number] US/US OB First Trimester Reason for exam: S/P FALL - LOW ABDOMINAL PAIN; 9 WEEKS FINDINGS: Earliest U/S 7W 1D = EDC 06/03/21 EGA = 9 wks 5 days Gestation: Single. Gestational sac size: 38 x 28 x 61 = 41 mm AVERAGE [address] [place] Rump Length: 33 mm = 10 w 1 d EDC 05/31/21 Heart Rate: 173 bpm Placental Location: Undetermined. Presentation: Undetermined. Regular Shaped Gestational Sac: Yes Adequate Amniotic Fluid: Yes Yolk Sac: Yes Cervical length: 32 mm No acute changes are appreciated on the current study. IMPRESSION: Single live intrauterine gestation as described above. Fluoroscopy time in seconds: Number of Exposures: Time Portable Image Performed: Contrast Agent in ml: Method of Administration: REPORT SIGNATURE ON FILE Reported By: Oh Colby MD <Electronically signed by Oh Colby MD> 11/06/20 1305 Dictation Date/Time: 11/03/20 1304 Transcribed Date/Time: 11/04/20 1226 Security Vehicle Patrol Officer: ANUJ Name Value Range Interpretation Code Description Data Ellen rce(s) Supporting Document(s) ID Date Data Source [id number] 10/28/2020 01:21:00 AM [facility] Name: NICHO [facility] Rec #: [id number] 816 : 2000 Age/Sex: 20F Date of Service: 10/28/20 PHYSICIAN CHART Physician Documentation [facility] Name: [place] [place] Age: 20 yrs Sex: Female : 2000 Arrival Date: 10/28/2020 Time: 01:21 Bed 9 Private MD: Za Fritz; Rosy Carbajal D ED Physician Arley Alicea HPI: 10/28 01:42 This 20 yrs old Female presents to ER via Walk-In mlm1 with complaints of Vaginal Bleeding. 01:42 This is a 20-year-old female, who has insulin-dependent mlm1 diabetes, who is in her primigravida. At 8 weeks. The patient had an ultrasound on 10/16/2020 that showed a normally developing without complication. Of note the patient had some mild spotting several weeks back which showed no significant problem she was told to return if she had further bleeding. Tonight the patient had light pink to dark pink spotting, no obvious clots no significant cramping. Otherwise she has been in a good state of health. The patient is taking vitamins but no other medications as her body repairer has stopped her insulin in order to better maintain and track her sugars. The patient states that the bleeding has subsequently stopped since arrival in the ED, she is otherwise in no significant distress.. 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 None - PMHx: DEPRESSION; Diabetes - IDDM; Hypercholesterolemia; - PSHx: Liver Biopsy; - Med Reconciliation:: Medications reviewed, verbally from patient/family. - Immunization history: All immunizations are up to date. - Advance directive: There is no existing advanced directive. Information offered. - Family History:: mother is healthy, Father is healthy. - Social History: Smoking status (Tobacco): Patient states he/she has never smoked tobacco. Preferred Language: Solomon Islander. ROS: 01:44 Constitutional: I reviewed 10 systems all which were mlm1 negative other than those mentioned in the HPI. Exam: :44 Constitutional: This is a well developed, well nourished mlm1 patient who is awake, alert, and in no acute distress. Head/Face: Normocephalic, atraumatic. Eyes: Pupils equal round and reactive to light, extra-ocular motions intact. Lids and lashes normal. Conjunctiva and sclera are non-icteric and not injected. Cornea within normal limits. Periorbital areas with no swelling, redness, or edema. ENT: Nares patent. No nasal discharge, no septal abnormalities noted. Tympanic membranes are normal and external auditory canals are clear. Oropharynx with no redness, swelling, or masses, exudates, or evidence of obstruction, uvula midline. Mucous membranes moist. Neck: Trachea midline, no thyromegaly or masses palpated, and no cervical lymphadenopathy. Supple, full range of motion without nuchal rigidity, or vertebral point tenderness. No Meningismus. Chest/axilla: Normal chest wall appearance and motion. Nontender with no deformity. No lesions are appreciated. Clavicles show no deformity. Cardiovascular: Regular rate and rhythm with a normal S1 and S2. No murmurs or rubs. No noted arrthmias. No JVD. No pulse deficits. Respiratory: Lungs have clear & equal breath sounds bilaterally. No rales, rhonchi or wheezes noted. No increased work of breathing, no retractions or nasal flaring. Abdomen/GI: Soft, non-tender, with normal bowel sounds. No distension or tympany. No guardi ng, rigidity or rebound. No evidence of tenderness throughout. Back: No spinal tenderness. No costovertebral tenderness. Full range of motion. Skin: Warm, dry with normal turgor. Normal color with no rashes, no lesions, and no evidence of cellulitis. MS/ Extremity: Pulses equal, no cyanosis. Neurovascular intact. Full, normal range of motion. Neuro: Awake and alert, GCS 15, oriented to person, place, time, and situation. Cranial nerves II-XII grossly intact. Motor strength 5/5 in all extremities. Sensory grossly intact. Cerebellar exam normal. Normal gait. Psych: Awake, alert, with orientation to person, place and time. Behavior, mood, and affect are within normal limits. Vital Signs: 01:27 BP 124 / 83; Pulse 89; Resp 16; Temp 98.0(TE); Pulse Ox 98% arj on R/A; Weight 128.82 kg (R); Height 5 ft. 4 in. (162.56 cm) (R); 03:47 BP 131 / 74; Pulse 93; Resp 16; Temp 96.9(TE); Pulse Ox 99% arj on R/A; 01:27 Body Mass Index 48.75 (128.82 kg, 162.56 cm) arj MDM: 01:34 Patient medically screened. mlm1 01:44 ED course: Patient understands and will do a urinalysis [facility] type and screen beta quant and transvaginal ultrasounds. I discussed with her the plan she is in agreement. She appears in no acute distress.. 02:56 ED course: I personally spoke with the marble setter, alyssa she sees a live intrauterine measurements show 8 weeks 6 days, there is a subchorionic bleed, which was seen prev iously it is slightly bigger. Heart rate is stable at 166. No other abnormalities are seen. Will wait for the formal read.. 03:04 ED course: The patient is a negative, and in discussion ml with the lab and also the blood product records she has never had a dose of RhoGam, we will give her 300 units of RhoGam in accordance with best practice. 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 10/28 01:42 Order name: UA.; Complete Time: 02:59 mlm1 10/28 01:42 Order name: Beta Hcg,Quantitative; Complete Time: 02:59 mlm1 10/28 01:42 Order name: Type and Rh mlm1 10/28 02:21 Order name: Urinalysis Auto w/Microscopy; Complete Time: EDMS 02:59 10/28 02:22 Order name: Urine Culture EDMS 10/28 03:45 Order name: D VARIANT EDMS 10/28 01:42 Order name: Collect Urine - Clean Catch; Complete Time: mlm1 01:59 10/28 01:42 Order name: Us Transvaginal Ob mlm1 Dispensed Medications: 03:18 Drug: Rhogam - Rhophylac 300 mcg [Rhophylac 1,500 unit (300 arj mcg)/2 mL injection syringe (300 mcg)] Route: IM; Site: right deltoid; 03:47 Follow up: Response: No adverse reaction arj Disposition Summary: 10/28/20 03:14 Discharge Ordered Location: Home/Self Care mlm1 Problem: an ongoing problem mlm1 Symptoms: are unchanged mlm1 Condition: Good mlm1 Diagnosis - Subchorionic hemorrhage mlm1 - Maternal care for anti-D [Rh] antibodies, first mlm1 trimester, fetus 1 - Encounter for supervision of normal first , mlm1 first trimester Followup: mlm1 - With: Za Fritz DO - When: As needed - Reason: Recheck today's complaints Discharge Instructions: - Discharge Summary Sheet mlm1 - Rh Incompatibility mlm1 - First Trimester of , Gqmr-et-Hfeq mlm1 Forms: - Medication Reconciliation mlm1 Signatures: Dispatcher [employer] Stephanie Vivas RN RN arj Morgan, Matthew, MD MD mlm1 Name Value Range Interpretation Code Description Data Ellen rce(s) Supporting Document(s) ID Date Data Source [id number] 10/28/2020 01:21:00 AM [facility] Name: NICHO AU [facility] Rec #: [id number] : 2000 Age/Sex: 20F Date of Service: 10/28/20 NURSE CHART Nurse's Notes [facility] Name: Nicho Au Age: 20 yrs Sex: Female : 2000 Arrival Date: 10/28/2020 Time: 01:21 Bed 9 Private MD: Za Fritz; Rosy Carbajal D Diagnosis: Subchorionic hemorrhage;Maternal care for anti-D [Rh] antibodies, first trimester, fetus 1;Encounter for supervision of normal first , first trimester Presentation: 10/28 01:26 Transition of care: patient was not received from another [facility] setting of care. Presenting complaint: Patient states - I am 8 weeks and I got up to [facility] and I wiped and there was a lot of blood. It was light pink. I've had spotting before, but not this much. Have you travelled in the last 30 days? No. Have you had contact with an individual with a confirmed diagnosis of Ebola or COVID- 19? No. 01:26 Method Of Arrival: Walk-In [facility] 01:26 Acuity: Urgent - 3 [facility] Triage Assessment: 01:27 SEPSIS SCREEN: A Confirmed or Suspected Infection is arj Unknown, their temperature is not <96.8 or >100.9, their heart rate is not >90, their RR is not >20, it is unknown if their WBC is <4 or > 12, the patient does not have new or unexplained altered mental status. SIRS or Sepsis criteria is not present. Suicide Screening: Have you had thoughts of harming yourself or others? No. The patient appears to have no apparent distress, comfortable, The patient is behaving appropriately according to age, cooperative. The patient denies having pain. : Patient reports vaginal bleeding. Derm: No deficits noted. Skin is intact, is healthy with good turgor, Skin is pink, warm & dry. 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 None - PMHx: DEPRESSION; Diabetes - IDDM; Hypercholesterolemia; - PSHx: Liver Biopsy; - Med Reconciliation:: Medications reviewed, verbally from patient/family. - Immunization history: All immunizations are up to date. - Advance directive: There is no existing advanced directive. Information offered. - Family History:: mother is healthy, Father is healthy. - Social History: Smoking status (Tobacco): Patient states he/she has never smoked tobacco. Preferred Language: [place] Islander. Screenin:30 AUDIT 1. How often do you have a drink containing alcohol? arj Never (0 points). Drug Abuse Screening Test: 1. Have you used drugs other than those required for medical reasons? No (0 points), screen is complete, no risk. Abuse screen: Denies threats or abuse. Denies injuries from another. Nutritional screening: No deficits noted. Patient has no identifiable fall risk ([place] Scale: 0 points). Assessment: 01:30 See Triage Assessment. arj Vital Signs: 01:27 BP 124 / 83; Pulse 89; Resp 16; Temp 98.0(TE); Pulse Ox 98% arj on R/A; Weight 128.82 kg (R); Height 5 ft. 4 in. (162.56 cm) (R); 03:47 BP 131 / 74; Pulse 93; Resp 16; Temp 96.9(TE); Pulse Ox 99% arj on R/A; 01:27 Body Mass Index 48.75 (128.82 kg, 162.56 cm) [facility] ED Course: 01:22 Stephanie Cabrales, RN is Primary Nurse. sf2 01:22 Patient arrived in ED. sf2 01:25 Rosy Carbajal is Private Physician. arj 01:26 Za Fritz DO is Private Physician. arj 01:27 Triage completed. arj 01:29 Arm band placed on right wrist. Patient has correct armband arj on for positive identification. 01:30 Arley Alicea MD is Attending Physician. arj 01:59 Urine collected. Clean catch specimen. arj 02:25 Radiology: The patient was taken to get an ultrasound at arj 02:10. The patient returned from ultrasound at 02:25. 03:12 Za Fritz DO is Referral Physician. mlm1 03:47 No procedures ordered. arj Administered Medications: 03:18 Drug: Rhogam - Rhophylac 300 mcg [Rhophylac 1,500 unit (300 arj mcg)/2 mL injection syringe (300 mcg)] Route: IM; Site: right deltoid; 03:47 Follow up: Response: No adverse re action anirudh Outcome: 03:14 Discharge ordered by MD. shah 03:47 Patient verbalized understanding of disposition arj instructions. Patient has no functional deficits. 03:47 Patient discharged to home ambulatory. 03:47 Condition: good 03:47 Discharge instructions given to patient, Patient was instructed on discharge instructions, follow up and referral plans, medication usage, The patient demonstrated understanding of instructions, medications, No prescriptions given. 03:47 Vitals are Complete in accordance with Emergency Department Policy. 03:48 Patient left the ED. arj Addendum: 10/29/2020 13:35 24 hour call back attempted, no answer. mick Signatures: Nkechi Resendiz sf2 Kezia Dudley RN RN kal Johnson, Abigail, RN RN arj Morgan, Matthew, MD MD mlm1 Name Value Range Interpretation Code Description Data Ellen rce(s) Supporting Document(s) ID Date Data Source [id number] 10/28/2020 01:21:00 AM [facility] Name: [facility] Rec #: [id number] : 2000 Age/Sex: 20F Date of Service: 10/28/20 DISPOSITION SUMMARY Discharge Summary [facility] Name:[facility] Emergency Department Age:20 yrs Sex:Female :2000 Arrival:10/28/2020 01:21 Departure Date10/28/2020 Departure Time03:48 Private MD:Za Fritz DO; Rosy Carbajal Outcome: Discharge Location: Home/Self Care Condition: Good Chief Complaint: Vaginal Bleeding Diagnosis: - Subchorionic hemorrhage, Maternal care for anti-D [Rh] antibodies, first trimester, fetus 1, Encounter for supervision of normal first , first trimester Prescriptions: Follow up: Za Fritz DO Custom Notes: <span>You were found to b e</span><span> </span><span> 8 weeks 6 days, you received</span><span> a dose of RhoGam</span><span>, you were provided with copies of your labs.</span><span> You continue to have a small subchorionic hemorrhage, please follow-up with your</span><span> body repairer as needed.</span><span> The baby's heart rate was stable and normal at 166.</span>
Attending Physician: Arley Alicea MD Private MD: Za Fritz DO Mid Level Provider: Followup Physician: Za Fritz DO Orders: UA., Beta Hcg,Quantitative, Type and Rh, Urinalysis Auto w/Microscopy, Urine Culture, D VARIANT, Collect Urine - Clean Catch, Us Transvaginal Ob, Rhophylac Discharge Instruction: Discharge Summary Sheet, Rh Incompatibility, First Trimester of , Ea sy-to-Read, Medication Reconciliation, Fax Visit Summary for Za Fritz DO Name Value Range Interpretation Code Description Data Ellen rce(s) Supporting Document(s) ID Date Data Source [id number] 11/07/2020 08:28:00 AM [facility] Name Value Range Interpretation Code Description Data Ellen rce(s) Supporting Document(s) Urine Culture Normal (applies to non-numeric re sults) [facility] ID Date Data Source [id number] 11/07/2020 08:28:00 AM [facility] Value Range Interpretation Code Description Data Ellen rce(s) Supporting Document(s) Beta HCG,Quantitative 78573 mIU/mL [id number] Normal (ap plies to non-numeric results) [facility] Non- Females (ages 18-62): 1-3 mIU/mL Adult Males (ages 19-67: Less than or equal to 1 mIU/mL Females: Gestational Age: 0-1 Week: 5-50 mIU/mL 1-2 Week: 50-500 mIU/mL 2-3 Weeks: 100-5,000 mIU/mL 3-4 Weeks: 500-10,000 mIU/mL 4-5 Weeks: 1,000- 50,000 mIU/mL 5-6 Weeks: 10,000-100,000 mIU/mL 6-8 Weeks: 15,000- 200,000 mIU/mL 2-3 Months: 10,000-100,000 mIU/mL 2nd Trimester: 3000- 92413 mIU/mL 3rd Trimester: 1000-78729 mIU/ml ID Date Data Source [id number] 11/07/2020 08:28:00 AM [facility] Value Range Interpretation Code Description Data Ellen rce(s) Supporting Document(s) BLOOD TYPE PATIENT A Negative Normal (applies to non-numer ic results) [facility] ID Date Data Source [id number] 11/07/2020 08:28:00 AM [facility] Value Range Interpretation Code Description Data Ellen rce(s) Supporting Document(s) D VARIANT NEGATIVE Normal (applies to non-numeric resul ts) [facility] Administration of RhIG and transfusion o f Rh Negative Packed Red Blood Cells and/or Platelets are recommended when indicated. ID Date Data Source [id number] 11/07/2020 08:28:00 AM [facility] Value Range Interpretation Code Description Data Ellen rce(s) Supporting Document(s) Color,Urine Yellow Normal (applies to non-numeric resu lts) [facility] Clarity,Urine Clear [facility] o[facility]ital Specific [place],Urine 1.001-1.030 Normal (applies to non- numeric results) [facility] PH,Urine 5.0-8.0 Normal (applies to non-numeric resul ts) [facility] Protein,Urine Negative Normal (applies to non-numeric re sults) [facility] Glucose,Urine (UA) Negative Normal (applies to non-numer ic results) [facility] Ketones,Urine Negative Normal (applies to non-numeric re sults) [facility] Blood,Urine Negative [facility] pital Bilirubin,Urine Negative Normal (applies to non-numeric results) [facility] Urobilinogen,Urine Norm 0.2-1 Normal (applies to non-numer ic results) [facility] Leukocyte Esterase,Urine Negative Normal (applies to non -numeric results) [facility] Nitrite,Urine Negative Normal (applies to non-numeric re sults) [facility] ID Date Data Source [id number] 11/07/2020 08:28:00 AM EST [facility] Name Value Range Interpretation Code Description Data Ellen rce(s) Supporting Document(s) RBC,Auto Urine 0-2 [facility] WBC Urine Auto 0-10 Normal (applies to non-numeric r esults) [facility] Casts,Hyaline,Urine Auto 0-2 Normal (applies to non -numeric results) [facility] Bacteria Urine Auto None Seen Normal (applies to non-nume valerio results) [facility] Epithelial Cell Ur Auto None-Few Normal (applies to non- numeric results) [facility] ID Date Data Source [id number] 10/30/2020 02:31:00 PM [facility] Name: NICHO AU : 2000 Age/Sex: 20F Ordering Provider: Arley Alicea DO Med Rec #: [id number] Reg Status: DEP ER Room #: Date of Service: 10/28/20 Report Number: [id number] cc:Rosy Carbajal MD; Arley Alicea DO Send Report To: [id number] US/US Transvaginal OB Reason for exam: BLEEDING IN PREG 8 WKS Comparison: US - US TRANSVAGINAL OB - 10/06/2020 12:13 AM EST Findings: [place] intrauterine is identified. A single pole is noted. Yolk sac is not seen. [place]-rump length measures: 2.1 centimeters Gestational age: 9 weeks 2 days plus or minus 5 days, congruent interval growth noted KAREN: 05/31/2021 There is a lower uterine segment 8 x 5 x 14 mm hemorrhage identified. heart rate: 182 BPM tachycardia The right ovary appears normal. Left ovary not seen Impression Live intrauterine pre gnancy identified as described above. There is a lower uterine segment 8 x 5 x 14 mm hemorrhage identified. heart rate: 182 BPM tachycardia Electronically signed on Oct 28, 2020 3:49:30 AM EST by: Boogie Sheriff MD Diplomate, [place] [employer] Fluoroscopy time in seconds: Number of Exposures: Time Portable Image Performed: Contrast Agent in ml: Method of Administration: REPORT SIGNATURE ON FILE Reported By: Boogie Sheriff MD 10/30/20 1432 Dictation Date/Time: 10/28/20 0349 Transcribed Date/Time: 10/30/20 1431 Security Vehicle Patrol Officer: SALOME Name Value Range Interpretation Code Description Data Ellen rce(s) Supporting Document(s) ID Date Data Source [id number] 10/16/2020 08:27:00 PM EST [facility] Name: NICHO AU : 2000 Age/Sex: 20F Ordering Provider: HIPOLITO Stratton Med Rec #: [id number] Reg Status: DEP REF Room #: Date of Service: 10/16/20 Report Number: [id number] cc:Rosy Carbajal MD; HIPOLITO Stratton Send Report To: [id number] US/US Transvaginal OB Reason for exam: LESS THAN 8 WEEKS GESTATION OF FINDINGS: LMP: = EDC 05/30/21 EGA = 7 wks 5 days Earliest U/S Today = EDC 06/03/21 EGA = 7 wks 1 days Gestation: Single. Gestational sac size: 24.6 mm AVERAGE [address] Rump Length: 10.4 = 7 w 1 d EDC 06/03/21 Heart Rate: 144 bpm Placental Location: Undetermined. Presentation: Undetermined. Regular Shaped Gestational Sac: Yes Adequate Amniotic Fluid: Yes Yolk Sac: Yes Cervical length: 38.8 mm No signs of any adnexal masses noted. There is a small 7 x 7 mm hypodensity adjacent to the gestational sac consistent with fusing chorioamniotic layers, less likely a small subchorionic bleed. No other significant findings. IMPRESSION: Viable IUP with a heart rate of 144 bpm. Small area of subchorionic lucency as described above. REPORT SIGNATURE ON FILE Reported By: Ly Alcaraz MD <Electronically signed by Ubaldo Alcaraz MD> 10/17/20 0902 Dictation Date/Time: 10/16/20 1320 Transcribed Date/Time: 10/16/202026 Security Vehicle Patrol Officer: ANUJ Name Value Range Interpretation Code Description Data Ellen rce(s) Supporting Document(s) ID Date Data Source [id number] 01/31/2021 04:06:00 PM EST [facility] Name Value Range Interpretation Code Description Data Ellen rce(s) Supporting Document(s) Varicella-Zoster IgG Ab,S res Normal (applies t o non-numeric results) [facility] Presence of detectable Varicella Zoster virus IgG antibodies. Test performed or referred by [facility] [address] [facility], [place] [address] ID Date Data Source [id number] 01/31/2021 04:06:00 PM EST [facility] Name Value Range Interpretation Code Description Data Ellen rce(s) Supporting Document(s) Amphetamines,UDS7 Kblftu=5806 Normal (applies to non-numer ic results) [facility] Amphetamine test includes Amphetamine an d Methamphetamine. Barbiturates,UDS7 Ozayts=149 Normal (applies to non-numeri c results) [facility] Benzodiazepines,UDS7 Dvarkh=978 Normal (applies to non-num jeferson results) [facility] Cannabinoid,UDS7 Cutoff=50 Normal (applies to non-numeric results) [facility] Cocaine,UDS7 Kmmasn=602 Normal (applies to non-numeric res ults) [facility] Opiates,UDS7 Ghowyq=853 Normal (applies to non-numeric res ults) [facility] Opiate test includes Codeine and Morphin e only. Phencyclidine,UDS7 Cutoff=25 Normal (applies to non-numer ic results) [facility] Performed at: RN - [facility] [address] [id number] Digital Sales Director: Vangie Gloria MD, Phone: [phone] ID Date Data Source [id number] 01/31/2021 04:06:00 PM [facility] Name Value Range Interpretation Code Description Data Ellen rce(s) Supporting Document(s) Toxoplasma Ab,IgG result Negative Normal (applies to non -numeric results) [facility] Toxoplasma IgG Value Normal (applies to non-num jeferson results) [facility] REFERENCE VALUE------ <=9 IU/mL (Negative) 10-11 IU/mL (Equivocal) >=12 IU/mL (Positive) Test Performed by: [facility] - [address] [address] Digital Sales Director: Estuardo Islas M.D. Ph.D.; CLIA# [id number] ID Date Data Source [id number] 01/31/2021 04:06:00 PM [facility] Value Range Interpretation Code Description Data Ellen rce(s) Supporting Document(s) Toxoplasma Ab,IgM result Negative Normal (applies to non -numeric results) [facility] No IgM antibodies to T. gondii detected. Results may be negative in patients with recent infection or who are significantly immunosuppressed. Test Performed by: [facility] [address] [place] [address] Digital Sales Director: Estuardo Islas M.D. Ph.D.; CLIA# [id number] ID Date Data Source [id number] 11/06/2020 10:47:00 PM [facility] Value Range Interpretation Code Description Data Ellen rce(s) Supporting Document(s) Hep C Ab-T Test Nonreactive Normal (applies to non-numeric results) [facility] ID Date Data Source [id number] 11/06/2020 10:47:00 PM [facility] Value Range Interpretation Code Description Data Ellen rce(s) Supporting Document(s) HIV 1/2 Ab p24 Ag Screen Nonreactive Normal (applies to non-numeric results) [facility] ID Date Data Source [id number] 11/06/2020 10:47:00 PM [facility] Value Range Interpretation Code Description Data Ellen rce(s) Supporting Document(s) Rubella Ab,IgG >10.0 Normal (applies to non-numeric r esults) [facility] Interpretation of Result s Less than 5.0 IU/mL - Negative for IgG antibodies to Rubella virus 5.0 - 9.9 IU/mL - Equivocal. Suggest repeat testing on new sample 10.0 IU/mL or greater - Positive for IgG antibodies to Rubella virus ID Date Data Source [id number] 11/06/2020 10:47:00 PM [facility] Value Range Interpretation Code Description Data Ellen rce(s) Supporting Document(s) Syphilis Serology Nonreactive Normal (applies to non-numer ic results) [facility] ID Date Data Source [id number] 11/06/2020 10:47:00 PM EST [facility] Name Value Range Interpretation Code Description Data Ellen rce(s) Supporting Document(s) Hep Bs Ag Result T-Test Nonreactive Normal (applies to non -numeric results) [facility] ID Date Data Source [id number] 11/06/2020 10:47:00 PM EST [facility] Name Value Range Interpretation Code Description Data Ellen rce(s) Supporting Document(s) Chlamydia,Urine Negative Normal (applies to non-numeric results) [facility] GC Urine Negative Normal (applies to non-numeric resul ts) [facility] Methodology: Second generation nucleic a marino amplification. ID Date Data Source [id number] 11/06/2020 10:47:00 PM [facility] Name Value Range Interpretation Code Description Data Ellen rce(s) Supporting Document(s) Urine Culture Normal (applies to non-numeric re sults) [facility] ID Date Data Source [id number] 11/06/2020 10:47:00 PM EST [facility] Name Value Range Interpretation Code Description Data Ellen rce(s) Supporting Document(s) Bupren Scrn,Ur wRfx LCI SO res Negative N ormal (applies to non-numeric results) [facility] Therapeutic Drug Threshold for Buprenorp jesus: 5 ng/mL All positive findings are presumptive and unconfirmed. Confirmation of positive Buprenorphine is automatically reflexed and sent to reference laboratory. Unconfirmed results must not be used for non-medical purposes (i.e. pre-employment and legal purposes) ID Date Data Source [id number] 11/06/2020 10:47:00 PM [facility] Name Value Range Interpretation Code Description Data Ellen rce(s) Supporting Document(s) White Blood Count 4.8-10.8 Normal (applies to non-numeri c results) [facility] Red Blood Count 3.68-5.22 Normal (applies to non-numeric results) [facility] Hemoglobin 11.2-15.7 Normal (applies to non-numeric resul ts) [facility] Hematocrit 34.1-44.9 Normal (applies to non-numeric resul ts) [facility] Mean Corpuscular Volume 81-99 Normal (applies to non- numeric results) [facility] Mean Corpuscular Hemoglobin 27.0-33.0 Normal (appli es to non-numeric results) [facility] Mean Corpuscular HGB Conc 32.0-36.0 Normal (applies to no n-numeric results) [facility] Red Cell Distribution Width 11.5-14.5 Normal (appli es to non-numeric results) [facility] Platelet Count 253 X10 3/uL 130-450 Normal (applies to non-numeric results) [facility] Mean Platelet Volume 9.5-12.7 Normal (applies to non-num jeferson results) [facility] Imm Grans% (AUTO) 0 % 0-2 Normal (applies to non-numeri c results) [facility] Neutrophils % (AUTO) 44 % 40-75 Normal (applies to non-num jeferson results) [facility] Lymphocytes % (AUTO) 42 % 21-46 Normal (applies to non-num jeferson results) [facility] Monocytes % (AUTO) 11 % 5-12 Normal (applies to non-numer ic results) [facility] Eosinophils % (AUTO) 1 % 1-5 Normal (applies to non-num jeferson results) [facility] Basophils % (AUTO) 1 % 0-1 Normal (applies to non-numer ic results) [facility] Imm Grans# (AUTO) 0.0-0.5 Normal (applies to non-numeri c results) [facility] Neutrophils # (AUTO) 1.5-8.1 Normal (applies to non-num jeferson results) [facility] Lymphocytes # (AUTO) 1.0-3.1 Normal (applies to non-num jeferson results) [facility] Monocytes # (AUTO) 0.2-1.3 Normal (applies to non-numer ic results) [facility] Eosinophils# (AUTO) 0.0-0.5 Normal (applies to non-nume valerio results) [facility] Basophils # (AUTO) 0.0-0.1 Normal (applies to non-numer ic results) [facility] ID Date Data Source [id number] 11/06/2020 10:47:00 PM EST [facility] Name Value Range Interpretation Code Description Data Ellen rce(s) Supporting Document(s) Lead,Blood (Venous) result <5.0 Normal (applies to n on-numeric results) [facility] ADDITIONAL INFORMATIO N Testing performed by Inductively Coupled Plasma-Mass Spectrometry (ICP-MS). This test was developed and its performance characteristics determined by [facility] in a manner consistent with CLIA requirements. This test has not been cleared or approved by the U.S. Food and Drug Administration. [facility] Patient Street Normal (applies to non-nume valerio results) [facility] Patient City Normal (applies to non-numeri c results) [facility] Patient State Normal (applies to non-numer ic results) [facility] Patient Zip [id number] Normal (applies to non-numeric results) [facility] Patient [facility] Normal (applies to non-nume valerio results) [facility] Patient Phone [phone] Normal (applies to non-nume valerio results) [facility] Patient Race Normal (applies to non-numeri c results) [facility] Patient Ethnicity Normal (applies to non-n umeric results) [facility] Patient Occupation Normal (applies to non- numeric results) [facility] Patient Employer Normal (applies to non-nu meric results) [facility],First Normal (applies to non -numeric results) [facility] Guardian Name,Last Normal (applies to non- numeric results) [facility] Provider Name Normal (applies to non-numer ic results) [facility] Provider Street Normal (applies to non-num jeferson results) [facility] City Normal (applies to non-numer ic results) [facility] Provider State Normal (applies to non-nume valerio results) [facility] PBDV Provider Zip [address] Normal (applies to non-numeri c results) [facility] PBDV Provider Phone [phone] Normal (applies to non-num jeferson results) [facility] Phone [phone] Normal (applies to non-numeric results) [facility] Test Performed by: [facility] [address] [place] [address] Digital Sales Director: Estuardo Islas M.D. Ph.D.; CLIA# [id number] ID Date Data Source [id number] 11/06/2020 10:47:00 PM [facility] Name Value Range Interpretation Code Description Data Ellen rce(s) Supporting Document(s) Hemoglobin A1C % Less than 5.7% Above high normal [facility] HBA1C: Normal: Less than 5.7% Prediabetes: 5.7% to 6.4% Diabetes: 6.5% or higher HA1C % vs Estimated Average Glucose (eAG) % eAG % eAG 6% 126 mg/dL 10% 240 mg/dL 7% 154 mg/dL 11% 269 mg/dL 8% 183 mg/dL 12% 298 mg/dL 9% 212 mg/dL Reference: [place] [employer], 2017 ID Date Data Source [id number] 11/06/2020 10:47:00 PM [facility] Name Value Range Interpretation Code Description Data Ellen rce(s) Supporting Document(s) Thyroid Stimulate Hormone TSH 0.358-3.740 No rmal (applies to non-numeric results) [facility] ID Date Data Source [id number] 11/06/2020 10:47:00 PM [facility] Name Value Range Interpretation Code Description Data Ellen rce(s) Supporting Document(s) Beta HCG,Quantitative 11700 mIU/mL [id number] Normal (ap plies to non-numeric results) [facility] Non- Females (ages 18-62): 1-3 mIU/mL Adult Males (ages 19-67: Less than or equal to 1 mIU/mL Females: Gestational Age: 0-1 Week: 5-50 mIU/mL 1-2 Week: 50-500 mIU/mL 2-3 Weeks: 100-5,000 mIU/mL 3-4 Weeks: 500-10,000 mIU/mL 4-5 Weeks: 1,000- 50,000 mIU/mL 5-6 Weeks: 10,000-100,000 mIU/mL 6-8 Weeks: 15,000- 200,000 mIU/mL 2-3 Months: 10,000-100,000 mIU/mL 2nd Trimester: 3000- 20558 mIU/mL 3rd Trimester: 1000-44763 mIU/ml ID Date Data Source [id number] 11/06/2020 10:47:00 PM [facility] Name Value Range Interpretation Code Description Data Ellen rce(s) Supporting Document(s) BLOOD TYPE PATIENT A Negative Normal (applies to non-numer ic results) [facility] ANTIBODY SCREEN NEGATIVE Normal (applies to non-numeric results) [facility] ID Date Data Source [id number] 11/06/2020 10:47:00 PM [facility] Name Value Range Interpretation Code Description Data Ellen rce(s) Supporting Document(s) D VARIANT NEGATIVE Normal (applies to non-numeric resul ts) [facility] Administration of RhIG and transfusion o f Rh Negative Packed Red Blood Cells and/or Platelets are recommended when indicated. ID Date Data Source [id number] 10/05/2020 10:27:00 PM [facility] Name: NICHO AU [facility] Rec #: [id number] : 2000 Age/Sex: 20F Date of Service: 10/05/20 DISPOSITION SUMMARY Discharge Summary [facility] Name:Nicho Au Emergency Department Age:20 yrs Sex:Female :2000 Arrival:10/05/2020 22:27 Departure Date10/06/2020 Departure Time01:05 Private MD:Rosy Carbajal Outcome: Discharge Location: Home/Self Care Condition: Good Chief Complaint: Vaginal Bleeding, Abdominal Cramping Diagnosis: Threatened Miscarriage Prescriptions: Follow up: Za Fritz DO Custom Notes: Nicho
Your ultrasound shows a viable interuterine . This is an early . The vaginal bleeding you experienced can occur during a normal . Please watch closely for worsening of bleeding or clots. If you experience heavy bleeding, then please return to the ER. Follow-up with [employer] TEACHER in the next 2 - 3 days. Attending Physician: Arley Alicea MD Private MD: Rosy Carbajal Mid Level Provider: Yariel Phipps RNP Followup Physician: Za Fritz DO Orders: Urinalysis w/o Microscopy, ABO/RH Type, Beta HCG,Quantitative, CBC with Auto Differential, Comprehensive Metabolic Pnl, Urine Culture, Collect Urine - Clean Catch, POC - Collect UHCG, US Transvaginal OB, US OB First Trimester Discharge Instruction: Discharge Summary Sheet, Threatened Miscarriage, [id number], Medication Reconciliation, Fax Visit Summary for Za Fritz DO Name Value Range Interpretation Code Description Data Ellen rce(s) Supporting Document(s) ID Date Data Source [id number] 10/05/2020 10:27:00 PM EST [facility] Name: NICHO AU [facility] Rec #: [id number] : 2000 Age/Sex: 20F Date of Service: 10/05/20 PHYSICIAN CHART Physician Documentation [facility] Name: Nicho Au Age: 20 yrs Sex: Female : 2000 Arrival Date: 10/05/2020 Time: 22:27 Bed 4 Private MD: Rosy Carbajal D ED Physician Arley Alicea Disposition: 10/06 01:14 Attestation: I discussed the plan of care with [facility] Provider and agree with what they have documented. I have reviewed relevant laboratory values and/or imaging studies. I have reviewed and agree with the nursing records. The care plan articulated in the discharge instructions is consistent with our discussion of the patient's case. 01:15 Attestation: I discussed the plan of care with [facility] Practice Provider and agree with what they have documented. I have reviewed relevant laboratory values and/or imaging studies. I have reviewed and agree with the nursing records. The care plan articulated in the discharge instructions is consis tent with our discussion of the patient's case. HPI: 00:06 This 20 yrs old Female presents to ER via Walk-In [facility] with complaints of Vaginal Bleeding, Abdominal Cramping. 00:06 Patient is a 20-year-old female G1, P0, presenting today [facility] with complaints of positive test at home and is having vaginal bleeding. She reports vaginal bleeding that started one hour before coming to the ER. She does report that she is diabetic and takes insulin and glyburide. She reports an increase in her blood sugar, but does follow-up with endocrinology. She reports that Dr. Fritz is her [employer]ER. Denies fever, chills, nausea, vomiting, diarrhea. . [employer]UC[employer] TE[employer]ER: 10/05 22:34 Verified arj Historical: - Allergies: Latex, Natural Rubber; Metformin HCl; Tape; - Home Meds: 1. glyburide 2.5 mg Oral tab 1 tab 2 times per day 2. Novolin 70/30 InnoLet Insulin 100 unit/mL (70-30) Sub-Q inpn 38 unitis in am and 25 units at dinner - PMHx: DEPRESSION; Diabetes - IDDM; Hypercholesterolemia; - PSHx: Liver Biopsy; - Med Reconciliation:: Medications reviewed, verbally from pa joe/family. - Immunization history: All immunizations are up to date. - Advance directive: There is no existing advanced directive. Information offered. - Family History:: mother is healthy. - Social History: Smoking status (Tobacco): Patient states he/she has never smoked tobacco. Preferred Language: [place] Islander. - The history of the events were obtained from: the patient. ROS: 10/06 00:10 Constitutional: See HPI. Abdomen/GI: Negative for abdominal jja1 pain, See HPI. Negative for vaginal discharge, See HPI. Skin: Negative for rash. Neuro: Negative for acute changes. All other systems are negative. Exam: 00:10 Constitutional: The patient appears alert, appears to be jja1 awake, is obese. 00:10 Chest/axilla: Inspection: normal, no assymetry. 00:10 Cardiovascular: Rate: tachycardic, Rhythm: regular, Pulses: Pulses are 2+ in right radial artery, right dorsalis pedis artery, left radial artery and left dorsalis pedis artery. Heart sounds: normal, normal S1and S2. 00:10 Respiratory: the patient does not display signs of respiratory distress, Respirations: normal, symetrical, Breath sounds: are normal, clear throughout. 00:10 Abdomen/GI: Inspection: obese, - morbidly Bowel sounds: normal, in all quadrants, Palpation: abdomen is soft and non-tender, in all quadrants. 00:10 Skin: Appearance: Color: pink, Temperature: warm, Moisture: dry. 00:10 Neuro: Orientation: to person, place, time & situation. Vital Signs: 10/05 22:34 BP 118 / 74; Pulse 102; Resp 16; Temp 97.3(TE); Pulse Ox arj 97% on R/A; Weight 127.01 kg (R); Height 5 ft. 4 in. (162.56 cm) (R); Pain 7/10; 10/06 01:04 BP 122 / 76; Pulse 98; Resp 20; Temp 97.9; Pulse Ox 98% on kl1 R/A; 10/05 22:34 Body Mass Index 48.06 (127.01 kg, 162.56 cm) anirudh MDM: 10/05 22:46 Patient medically screened. jja1 10/06 00:54 Case presented to: Dr. Arley Alicea. Data reviewed: vital jja1 signs, nurses notes, old medical records. ED course: Patient presented to the ER for vaginal bleeding during . Ultrasound revels a viable at 6 weeks 2 day. I will refer her back to her [employer] TE[employer]ER. No other concerns at this time. This could represent a threatened miscarriage, or normal . I have advised her to return for significant worsening of her bleeding.. 10/06 00:07 Order name: Urinalysis w/o Microscopy; Complete Time: 00:36 EDMS 10/06 00:08 Order name: ABO/RH Type EDMS 10/06 00:08 Order name: Beta HCG,Quantitative EDMS 10/06 00:08 Order name: CBC with Auto Differential; Complete Time: 00:46EDMS 10/06 00:08 Order name: Comprehensive Metabolic Pnl EDMS 10/06 00:08 Order name: Urine Culture EDMS 10/05 22:40 Order name: Collect Urine - Clean Catch; Complete Time: jja 23:30 10/05 22:40 Order name: POC - Collect UHCG; Complete Time: 23:30 jja1 10/06 00:52 Order name: US OB First Trimester EDMS Dispensed Medications: No medications were administered Disposition Summary: 10/06/20 00:48 Discharge Ordered Location: Home/Self Care jja1 Condition: Good jja1 Diagnosis - Threatened Miscarriage jja1 Followup: jja1 - With: Emergency Department - When: As needed - Reason: Worsening of condition Followup: jja1 - With: Za Fritz, - When: 2 - 3 days - Reason: Continuance of care Discharge Instructions: - Discharge Summary Sheet jja1 - Threatened Miscarriage, [id number] jja1 Forms: - Medication Reconciliation jja1 Signatures: Dispatcher [employer] EDMS Yariel Phipps RNP RNP jja1 Stephanie Cabrales RN RN Arley Morin MD MD mlm1 Corrections: (The following items were deleted from the chart) 00:52 00:07 US Transvaginal OB ordered. EDMS EDMS 01:05 10/05 22:40 Urinalysis+URIN.LAB.CAN ordered. jja1 kl1 10/06 01:05 10/05 23:40 ABO/RH TYPE+BBK.LAB.CAN ordered. jboo kl1 10/06 01:05 10/05 23:40 CBC WITH AUTO DIFFERENTIAL+HEME.LAB.CAN kl1 ordered. herman10/06 01:10/05 23:40 COMPREHENSIVE METABOLIC PANEL+CHEM.LAB.CAN kl1 ordered. herman10/06 01:10/05 23:40 Beta HCG,Quantitative+CHEM.LAB.CAN ordered. [id number] 10/06 01:05 10/05 23:40 US Transvaginal OB+US.RAD.CAN ordered. jashley kl1 Name Value Range Interpretation Code Description Data Ellen rce(s) Supporting Document(s) ID Date Data Source [id number] 10/05/2020 10:27:00 PM EST [facility] Name: [facility] Rec #: [id number] : 2000 Age/Sex: 20F Date of Service: 10/05/20 NURSE CHART Nurse's Notes [facility] Name: [facility] Age: 20 yrs Sex: Female : 2000 Arrival Date: 10/05/2020 Time: 22:27 Bed 4 Private MD: Rosy Carbajal D Diagnosis: Threatened Miscarriage Presentation: 10/05 22:31 Transition of care: patient was not received from another [facility] setting of care. Presenting complaint: Patient states - I'm 6 weeks and I was having severe cramping and some spotting. The cramping is still there, but not as bad. It was9/10, now it is 7/10. My mom told me to come get checked out. Have you travelled in the last 30 days? No. Have you had contact with an individual with a confirmed diagnosis of Ebola or COVID-19? No. 22:31 Method Of Arrival: Walk-In [facility] 22:31 Acuity: Urgent - 3 [facility] Triage Assessment: 22:33 SEPSIS SCREEN: A Confirmed or Suspected Infection is dcj Unknown, their temperature is not <96.8 or >100.9, their hea rt rate is not >90, their RR is not >20, it is unknown if their WBC is <4 or >12, the patient does not have new or unexplained altered mental status. SIRS or Sepsis criteria is not present. Suicide Screening: Have you had thoughts of harming yourself or others? No. The patient appears to have no apparent distress, to have some mild discomfort, The patient is behaving appropriately according to age, cooperative. Patient states the pain is currently a 7 / 10 The patient complains of pain in right lower quadrant and left lower quadrant. The patient states the pain began 1 hour ago, The quality of the pain is described as crampy, The pain is described as intermittent. GI: Abdomen is non- distended. : Patient reports vaginal bleeding. Derm: No deficits noted. Skin is intact, is healthy with good turgor, Skin is pink, warm & dry. 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 glyburide 2.5 mg Oral tab 1 tab 2 times per day 2. Novolin 70/30 InnoLet Insulin 100 unit/mL (70-30) Sub-Q inpn 38 unitis in am and 25 units at dinner - PMHx: DEPRESSION; Diabetes - IDDM; Hypercholesterolemia; - PSHx: Liver Biopsy; - Med Reconciliation:: Medications reviewed, verbally from patient/family. - Immunization history: All immunizations are up to date. - Advance directive: There is no existing advanced directive. Information offered. - Family History:: mother is healthy. - Social History: Smoking status (Tobacco): Patient states he/she has never smoked tobacco. Preferred Language: [place] Islander. - The history of the events were obtained from: the patient. Screenin:37 AUDIT 1. How often do you have a drink containing alcohol? arj Never (0 points). Drug Abuse Screening Test: 1. Have you used drugs other than those required for medical reasons? No (0 points), screen is complete, no risk. Abuse screen: Denies threats or abuse. Denies injuries from another. Nutritional screening: No deficits noted. Patient has no identifiable fall risk ([place] Scale: 0 points). Assessment: 22:35 See Triage Assessment. ar Vital Signs: 22:34 BP 118 / 74; Pulse 102; Resp 16; Temp 97.3(TE); Pulse Ox arj 97% on R/A; Weight 127.01 kg (R); Height 5 ft. 4 in. (162.56 cm) (R); Pain 7/10; 10/06 01:04 BP 122 / 76; Pulse 98; Resp 20; Temp 97.9; Pulse Ox 98% on kl1 R/A; 10/05 22:34 Body Mass Index 48.06 (127.01 kg, 162.56 cm) [facility] ED Course: 10/05 22:27 Patient arrived in ED. rld 22:31 Rosy Carbajal is Private Physician. arj 22:33 Triage completed. arj 22:35 Arm band placed on left wrist. Patient has correct armband arj on for positive identification. 22:38 Marvin Reeder RN is Primary Nurse. arj 22:40 Yariel Phipps RNP is PHCP. jja1 22:40 Arley Alicea MD is Attending Physician. jja1 23:30 Urine collected. Clean catch specimen. A urine rjh1 test was performed by Marvin Reeder RN the test was Positive, Control Line was present. 10/06 00:48 Za Fritz DO is Referral Physician. jja1 01:05 Radiology: The [facility]. 01:05 No procedures ordered. 1 Administered Medications: No medications were administered Outcome: 00:48 Discharge ordered by . jja1 01:05 Patient verbalized understanding of disposition kl1 instructions. Patient has no functional deficits. 01:05 Patient discharged to home ambulatory. 01:05 Condition: good 01:05 Discharge instructions given to patient, No prescriptions given. 01:05 Vitals are Complete in accordance with Emergency Department Policy. 01:05 Patient left the ED. kl1 Signatures: Koffi Perkins RN RN kl1 Phipps Yariel, PROPERTY STAFF ACCOUNTANT PROPERTY STAFF ACCOUNTANT jja1 Stephanie Cabrales RN RN arj Hogan, Robert, RN RN rjh1 Jennifer Pickett Corrections: (The following items were deleted from the chart) 10/05 22:38 22:31 Stephanie Cabrales RN is Primary Nurse. anirudh oleary 22:38 22:38 Jennifer Farah RN is Primary Nurse. [facility] Name Value Range Interpretation Code Description Data [facility](s) Supporting Document(s) ID Date Data Source [id number] 11/06/2020 03:40:00 PM EST [facility] Name Value Range Interpretation Code Description Data [facility](s) Supporting Document(s) Sodium 137 mmol/L 137-145 Normal (applies to non-numeric resul ts) [facility] Potassium 3.5-5.1 Normal (applies to non-numeric resul ts) [facility] Chloride 107 mmol/L 98-112 Normal (applies to non-numeric resul ts) [facility] Carbon Dioxide CO2 22.0-33.0 Normal (applies to non-numer ic results) [facility] Anion Gap 4.0-11.0 Normal (applies to non-numeric resul ts) [facility] BUN 14 mg/dL 7-17 Normal (applies to non-numeric resul ts) [facility] Creatinine 0.70-1.20 Below low normal [facility] GFR >60 Normal (applies to non-numeric results) [facility] Result based on MDRD formula. Glucose Level 258 mg/dL 74-99 Above high normal [facility] The reference range is only applicable w hen fasting. Calcium-Uncorrected 8.4-10.2 Normal (applies to non-nume valerio results) [facility] Corrected Calcium 8.4-10.2 Normal (applies to non-numeri c results) [facility] Bilirubin,Total 0.2-1.3 Normal (applies to non-numeric results) [facility] SGOT(AST) 29 U/L 14-36 Normal (applies to non-numeric resul ts) [facility] SGPT(ALT) 52 U/L 9-52 Normal (applies to non-numeric resul ts) [facility] Alkaline Phosphatase 43 U/L 38-126 Normal (applies to non-num jeferson results) [facility] can increase Alkaline Phosp le vels up to 2 times the normal adult value. Normal values for children and adolescents are 2 to 3 times the normal adult value. Total Protein 6.3-8.2 Normal (applies to non-numeric re sults) [facility] Albumin 3.5-5.0 Below low normal [facility] ID Date Data Source [id number] 11/06/2020 03:40:00 PM EST [facility] Name Value Range Interpretation Code Description Data Ellen rce(s) Supporting Document(s) Beta HCG,Quantitative 01168 mIU/mL [id number] Normal (ap plies to non-numeric results) [facility] Non- Females (ages 18-62): 1-3 mIU/mL Adult Males (ages 19-67: Less than or equal to 1 mIU/mL Females: Gestational Age: 0-1 Week: 5-50 mIU/mL 1-2 Week: 50-500 mIU/mL 2-3 Weeks: 100-5,000 mIU/mL 3-4 Weeks: 500-10,000 mIU/mL 4-5 Weeks: 1,000- 50,000 mIU/mL 5-6 Weeks: 10,000-100,000 mIU/mL 6-8 Weeks: 15,000- 200,000 mIU/mL 2-3 Months: 10,000-100,000 mIU/mL 2nd Trimester: 3000- 40730 mIU/mL 3rd Trimester: 1000-08941 mIU/ml ID Date Data Source [id number] 11/06/2020 03:40:00 PM EST [facility] Name Value Range Interpretation Code Description Data Ellen rce(s) Supporting Document(s) White Blood Count 4.8-10.8 Normal (applies to non-numeri c results) [facility] Red Blood Count 3.68-5.22 Normal (applies to non-numeric results) [facility] Hemoglobin 11.2-15.7 Normal (applies to non-numeric resul ts) [facility] Hematocrit 34.1-44.9 Normal (applies to non-numeric resul ts) [facility] Mean Corpuscular Volume 81-99 Normal (applies to non- numeric results) [facility] Mean Corpuscular Hemoglobin 27.0-33.0 Normal (appli es to non-numeric results) [facility] Mean Corpuscular HGB Conc 32.0-36.0 Normal (applies to no n-numeric results) [facility] Red Cell Distribution Width 11.5-14.5 Normal (appli es to non-numeric results) [facility] Platelet Count 209 X10 3/uL 130-450 Normal (applies to non-numeric results) [facility] Mean Platelet Volume 9.5-12.7 Normal (applies to non-num jeferson results) [facility] Imm Grans% (AUTO) 0 % 0-2 Normal (applies to non-numeri c results) [facility] Neutrophils % (AUTO) 46 % 40-75 Normal (applies to non-num jeferson results) [facility] Lymphocytes % (AUTO) 42 % 21-46 Normal (applies to non-num jeferson results) [facility] Monocytes % (AUTO) 10 % 5-12 Normal (applies to non-numer ic results) [facility] Eosinophils % (AUTO) 1 % 1-5 Normal (applies to non-num jeferson results) [facility] Basophils % (AUTO) 0 % 0-1 Normal (applies to non-numer ic results) [facility] Imm Grans# (AUTO) 0.0-0.5 Normal (applies to non-numeri c results) [facility] Neutrophils # (AUTO) 1.5-8.1 Normal (applies to non-num jeferson results) [facility] Lymphocytes # (AUTO) 1.0-3.1 Above high normal [facility] Monocytes # (AUTO) 0.2-1.3 Normal (applies to non-numer ic results) [facility] Eosinophils# (AUTO) 0.0-0.5 Normal (applies to non-nume valerio results) [facility] Basophils # (AUTO) 0.0-0.1 Normal (applies to non-numer ic results) [facility] ID Date Data Source [id number] 11/06/2020 03:40:00 PM EST [facility] Name Value Range Interpretation Code Description Data Ellen rce(s) Supporting Document(s) BLOOD TYPE PATIENT A Negative Normal (applies to non-numer ic results) [facility] ID Date Data Source [id number] 11/06/2020 03:40:00 PM EST [facility] Name Value Range Interpretation Code Description Data Ellen rce(s) Supporting Document(s) D VARIANT NEGATIVE Normal (applies to non-numeric resul ts) [facility] Administration of RhIG and transfusion o f Rh Negative Packed Red Blood Cells and/or Platelets are recommended when indicated. ID Date Data Source [id number] 11/06/2020 03:40:00 PM [facility] Name Value Range Interpretation Code Description Data Ellen rce(s) Supporting Document(s) Urine Culture Normal (applies to non-numeric re sults) [facility] ID Date Data Source [id number] 11/06/2020 03:40:00 PM [facility] Name Value Range Interpretation Code Description Data Ellen rce(s) Supporting Document(s) Color,Urine Yellow Normal (applies to non-numeric resu lts) [facility] Clarity,Urine Clear Normal (applies to non-numeric re sults) [facility] Specific [place],Urine 1.001-1.030 Normal (applies to non- numeric results) [facility] PH,Urine 5.0-8.0 Normal (applies to non-numeric resul ts) [facility] Protein,Urine Negative Normal (applies to non-numeric re sults) [facility] Glucose,Urine (UA) Negative [facility] Ketones,Urine Negative Normal (applies to non-numeric re sults) [facility] Blood,Urine Negative Normal (applies to non-numeric resu lts) [facility] Bilirubin,Urine Negative Normal (applies to non-numeric results) [facility] Urobilinogen,Urine Norm 0.2-1 Normal (applies to non-numer ic results) [facility] Leukocyte Esterase,Urine Negative Normal (applies to non -numeric results) [facility] Nitrite,Urine Negative Normal (applies to non-numeric re sults) [facility] ID Date Data Source [id number] 09/21/2020 02:11:[address] [facility] ED Physician ReportAdditionalHPI: 20-ye ar-old female presents emergency department for evaluation ofabdominal pain and for evaluation. Patient states lastmenstrual cycle completed on the 21 of August. Patient also statesshe took multiple home test today that came back positive.Patient is an insulin-dependent diabeticReview of systems positive for abdominal cramping 12 point review ofsystems negative otherwisePatient seen resting on stretcher; NC/AT, PERRLA, EOMI, external ears andnose normal, middle ear and tympanic membrane normal bilaterally,posterior pharynx without erythema or exudate, trachea midline, clear toauscultation bilaterally without crackle or wheeze, regular rate rhythmno murmur rub gallop or jugular venous distention noted, morbidly obeseabdomen soft nontender with bowel sounds present all 4 quadrants, underdistended bladder with no tenderness to palpation, full range of motionupper lower extremities, symmetric gait, cranial nerve 3-12 nonfocalexamination, skin without rash or lesion in good turgorMedical decision makin-year-old female presents for evaluation ofabdominal pain with positive home test. confirmed byserum showing positive but low beta HCG level of slightly greater [id number]. Urinalysis collected also showed significant level of glucose but nosigns of infection. Results shared with patient who was instructed tofollow up with Ob. Return precautions were discussed patient verbalizedunderstanding and agreement with planDictated on 09/21/20210 by Boogie Serna M.D.Transcribed on 09/21/20210 by Roel Serna andonSign by Boogie Serna M.D. on 09/21/20212Sign by: Boogie Serna M.D. Name Value Range Interpretation Code Description Data Ellen rce(s) Supporting Document(s) ID Date Data Source [id number] 11/30/2020 11:45:00 AM EST [facility] COVID-19 Patient Ethnicity UnknownCOVID -19 Patient Race UnknownCOVID-19 Specimen Source Nasopharyngeal Name Value Range Interpretation Code Description Data [facility] rce(s) Supporting Document(s) SARS-CoV-2 RNA Undetected Normal (applies to non-numeric r esults) [facility] SARS-CoV-2 RNA absent. This result does not rule out COVID-19 in the patient, as the sensitivity of the test depends on the timing of the specimen collection and the quality of the specimen. Result should be correlated with patient's history and clinical presentation. SARS-CoV-2 RNA absent. This result does not rule out COVID-19 in the patient, as the sensitivity of the test depends on the timing of the specimen collection and the quality of the specimen. Result should be correlated with patient's history and clinical presentation. Patient Race Normal (applies to non-numeric res ults) [facility] Patient Ethnicity Normal (applies to non-numeri c results) [facility] Method Summary Normal (applies to non-numeric r esults) [facility] KEENA- This test uses the keena SARS-CoV -2 assay ([employer] and is performed on the keena 6800 System. It has received Emergency Use Authorization (EUA) by the U.S. Food and Drug Administration. Performance characteristics were verified by [facility] in a manner consistent with CLIA requirements. Fact sheets for this Emergency Use Authorization (EUA) can be found at the following links: https://www.fda.gov/media/409356/download for Healthcare Providers https://www.fda.gov/media/490084/download for Patients Test Performed by: [place] [address] Digital Sales Director: Estuardo Islas M.D. Ph.D.; CLIA# [id number] KEENA- This test uses the keena SARS-CoV-2 assay ([employer] and is performed on the keena 6800 System. It has received Emergency Use Authorization (EUA) by the U.S. Food and Drug Administration. Performance characteristics were verified by [facility] in a m jj consistent with CLIA requirements. Fact sheets for this Emergency Use Authorization (EUA) can befound at the following links: https://www.fda.gov/media/417728/download for Healthcare Providers https://www.fda.gov/media/428074/download for Patients Test Performed by: [place] [address] Digital Sales Director: Estuardo Islas M.D. Ph.D.; CLIA# [id number] ID Date Data Source [id number] 09/14/2020 03:30:00 PM EDT [facility] Name Value Range Interpretation Code Description Data Ellen rce(s) Supporting Document(s) SARS-CoV-2 RNA Resp Ql ANGIE+probe [facility] This lab was ordered by Oneal gallagher and reported by [facility] DLMP. ID Date Data Source [id number] 07/27/2020 08:02:00 PM EDT [facility] Rec #: [id number] : 2000 Age/Sex: 20F Date of Service: 07/27/20 NURSE CHART Nurse's Notes [facility] Name: [facility] Age: 20 yrs Sex: Female : 2000 Arrival Date: 07/27/2020 Time: 20:02 Bed FT1 Private MD: Rosy Carbajal D Diagnosis: partial nail avulsion Presentation: 07/27 20:07 Transition of care: patient was not received from another [facility] setting of care. Presenting complaint: Patient states - States lifted the fingernail on right 5th finger and will not stop bleeding. note no bleed at present. 20:07 Method Of Arrival: Walk-In [facility] 20:07 Acuity: Non-Urgent - 5 [facility] 20:26 Have you travelled in the last 30 days? No. Have you had [facility] contact with an individual with a confirmed diagnosis of Ebola or COVID-19? No. Triage Assessment: 20:27 Suicide Screening: Have you had thoughts of harming cmm yourself or others? No. The patient appears to be uncomfortable, The patient is cooperative. Patient states the ovidio n is currently a The patient complains of pain in right little fingernail. The patient states the pain began suddenly, 90minute(s) ago. 20:28 SEPSIS SCREEN: A Confirmed or Suspected Infection is cmm Unknown, their temperature is not <96.8 or >100.9, their heart rate is >90, their RR is not > 20. 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 atorvastatin 20 mg Oral tab 1 tab once daily (Last dose: 07/27/2020 08:00) 2. control (Last dose: 07/26/2020 22:00) 3. glyburide 2.5 mg Oral tab 1 tab 2 times per day (Last dose: 07/27/2020 08:00) 4. Novolin 70/30 InnoLet Insulin 100 unit/mL (70-30) subcutaneous inpn 38 unitis in am and 25 units at dinner 5. prazosin 2 mg Oral cap 1 cap at HS (Last dose: 07/26/2020 22:00) 6. sertraline 50 mg Oral tab 1 tab once daily (Last dose: 07/27/2020 08:00) - PMHx: DEPRESSION; Diabetes - IDDM; Hypercholesterolemia; - PSHx: Liver Biopsy; - Med Reconciliation:: Green Alert: The patient's med list is complete to the best of the nurse's/provider's knowledge. Medications reviewed, verbally from patient/family. - Immunization history: The patients tetanus immunization is up to date. All immunizations are up to date. Flu vaccine is up to date. - Advance directive: There is no existing advanced directive. Information offered. - Social History: Smoking status (Tobacco): Patient states he/she has never smoked tobacco. No barriers to communication noted. Screenin:40 AUDIT 1. How often do you have a drink containing alcohol? [facility] Never (0 points). Drug Abuse Screening Test: 1. Have you used drugs other than those required for medical reasons? No (0 points), screen is complete, no risk. Abuse screen: Denies threats or abuse. Nutritional screening: No deficits noted. Patient has no identifiable fall risk ([place] Scale: 0 points). Assessment: 21:40 See Triage Assessment. [facility] Vital Signs: 20:30 BP 123 / 85; Pulse 102; Resp 16; Temp 97.2; Pulse Ox 100% ; [facility] Weight 124.74 kg; Height 5 ft. 4 in. (162.56 cm); Pain 8/10; 21:47 BP 121 / 77; Pulse 89; Resp 16; Pulse Ox 100% on R/A; jm16 20:30 Body Mass Index 47.20 (124.74 kg, 162.56 cm) [facility] ED Course: 20:03 Patient arrived in ED. sfo1 20:08 Triage completed. [facility] 20:27 Rosy Carbajal is Private Physician. cmm 20:32 Arm band placed on right wrist. cmm 20:36 Tre Conner is Primary Nurse. [facility] 20:51 Nikki Wills PA-C is PHCP. 20:51 Timothy Lewis MD is Attending Physician. 21:41 Rosy Carbajal is Referral Physician. scout Administered Medications: No medications were administered Outcome: 21:41 Discharge ordered by MD. 21:41 Patient verbalized understanding of disposition [facility] instructions. Patient has no functional deficits. Patient awake and alert. Oriented to person, place and time. 21:41 Patient discharged to home ambulatory. 21:41 Condition: good 21:41 Discharge instructions given to patient, Patient was instructed on discharge instructions, follow up and referral plans, The patient demonstrated understanding of instructions. 21:41 Patient was instructed on The patient demonstrated understanding of No prescriptions given. 21:41 Vitals are Complete in accordance with Emergency Department Policy. 21:47 Patient left the ED. [email or web address] 07/28 09:29 24 hour call back completed with no concerns vocalized. Signatures: Alisha Esparza, RN RN Nikki Guardado PA-C PA-C mk Jensen, Sandra, RN RN Dangelo Flannery sfo1 Tre Conner [email or web address] Name Value Range Interpretation Code Description Data Ellen rce(s) Supporting Document(s) ID Date Data Source [id number] 07/27/2020 08:02:00 PM EDT [facility] Name: [facility] Rec #: [id number] 816 : 2000 Age/Sex: 20F Date of Service: 07/27/20 PHYSICIAN CHART Physician Documentation [facility] Name: [facility] Age: 20 yrs Sex: Female : 2000 Arrival Date: 07/27/2020 Time: 20:02 Bed FT1 Private MD: Rosy Carbajal D ED Physician Timothy Lewis Disposition: 07/28 04:15 Attestation: I discussed the plan of care with [facility] Provider and agree with what they have documented. Case discussed with mechanism of removing acrylic nail protecting distal nail bed from further injury. Agree with care plan. HPI: 07/27 21:54 This 20 yrs old Female presents to ER via Walk-In mk with complaints of Finger Injury. 21:54 The patient or guardian reports pain. The complaints affect mk the right little fingernail. Context: The problem was sustained at home, resulted from Accidentally scuffed her nail on siding of her house. She has a acrylic nail which dislodged her real nail. Patient comes into the emergency department today after having injury to her right little pinky nail. She states that she has acrylic nails and accidentally had 1 of them get caught in her home sliding walking out of her house. It has torn her nail away from its bed and she is concerned as it is causing her pain. 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 atorvastatin 20 mg Oral tab 1 tab once daily (Last dose: 07/27/2020 08:00) 2. control (Last dose: 07/26/2020 22:00) 3. glyburide 2.5 mg Oral tab 1 tab 2 times per day (Last dose: 07/27/2020 08:00) 4. Novolin 70/30 InnoLet Insulin 100 unit/mL (70-30) subcutaneous inpn 38 unitis in am and 25 units at dinner 5. prazosin 2 mg Oral cap 1 cap at HS (Last dose: 07/26/2020 22:00) 6. sertraline 50 mg Oral tab 1 tab once daily (Last dose: 07/27/2020 08:00) - PMHx: DEPRESSION; Diabetes - IDDM; Hypercholesterolemia; - PSHx: Liver Biopsy; - Med Reconciliation:: Green Alert: The patient's med list is complete to the best of the nurse's/provider's knowledge. Medications reviewed, verbally from patient/family. - Immunization history: The patients tetanus immunization is up to date. All immunizations are up to date. Flu vaccine is up to date. - Advance directive: There is no existing advanced directive. Information offered. - Social History: Smoking status (Tobacco): Patient states he/she has never smoked tobacco. No barriers to communication noted. ROS: 21:54 Constitutional: Negative for fever, chills. MS/extremity: mk Positive for pain, Injury to fingernail. Skin: Negative for acute changes. Neuro: Negative for acute changes. All other systems are negative. Exam: 21:54 Constitutional: The patient appears to have no acute mk distress, appears alert. 21:54 Musculoskeletal/extremity: Extremities: grossly normal except: noted in the right little fingernail: pain, There is an acrylic nail attached to her real nail which has been somewhat avulsed from the skin. The base matrix appears to be intact without any sign of nailbed injury, ROM: intact in all extremities, Pulses: Sensation intact. Nails: partial avulsion, of the right little fingernail. 21:54 Skin: Exam negative for abnormalities. 21:54 Neuro: Exam negative for abnormalities. Vital Signs: 20:30 BP 123 / 85; Pulse 102; Resp 16; Temp 97.2; Pulse Ox 100% ; cmm Weight 124.74 kg; Height 5 ft. 4 in. (162.56 cm); Pain 8/10; 21:47 BP 121 / 77; Pulse 89; Resp 16; Pulse Ox 100% on R/A; jm16 20:30 Body Mass Index 47.20 (124.74 kg, 162.56 cm) cmm MDM: 20:51 Patient medically screened. 21:38 Data reviewed: vital signs, nurses notes. Counseling: I had mk a detailed discussion with the patient and/or guardian regarding: diagnosis, to return to the emergency department if symptoms worsen or persist or if there are any questions or concerns that arise at home. ED course: i discussed this case with er attending who suggested keeping the nail in the matrix does not seem to be dislodged. Dermabond was placed with a small drop mid nail. Good relief good placement. Pressure dressing applied. 21:54 Case presented to: Dr. Timothy Lewis. Dispensed Medications: No medications were administered Disposition Summary: 07/27/20 21:41 Discharge Ordered Location: Home/Self Care mk Condition: Good mk Diagnosis - partial nail avulsion Followup: mk - With: Rosy Carbajal - When: - Reason: Recheck today's complaints, Continuance of care, If symptoms persist Discharge Instructions: - Discharge Summary Sheet mk - Nail Avulsion mk Forms: - Medication Reconciliation mk Signatures: Alisha Esparza RN RN Nikki Guardado PA-C PA-C mk Unkenholz, Karl, MD MD kmu Meheran, Jordan [email or web address] Name Value Range Interpretation Code Description Data Ellen rce(s) Supporting Document(s) ID Date Data Source [id number] 07/27/2020 08:02:00 PM EDT [facility] Name: [facility] Rec #: [id number] : 2000 Age/Sex: 20F Date of Service: 07/27/20 DISPOSITION SUMMARY Discharge Summary [facility] Name:[facility] Emergency Department Age:20 yrs Sex:Female :2000 Arrival:07/27/2020 20:02 Departure Date07/27/2020 Departure Time21:47 Private MD:Rosy Carbajal Outcome: Discharge Location: Home/Self Care Condition: Good Chief Complaint: Finger Injury Diagnosis: - partial nail avulsion Prescriptions: Follow up: Rosy Carbajal Custom Notes: as we discussed i would recommend watching for any sign of infection
return if any increased redness or pain.

Attending Physician: Timothy Lewis MD Private MD: Rosy Carbajal Mid Level Provider: Nikki Wills PA-C Followup Physician: Rosy Carbajal Orders: Discharge Instruction: Discharge Summary Sheet, Nail Avulsion, Medication Reconciliation Name Value Range Interpretation Code Description Data Ellen rce(s) Supporting Document(s) Procedure Social History Code Duration Value Status Description Data Source(s ) Smoking 08/23/2021 12:00:00 AM EDT Never Smoker completed Never S moker eCW1 ([facility]) Smoking 06/12/2021 12:00:00 AM EDT Never Smoker completed Never S moker eCW1 ([facility]) Smoking 06/12/2021 12:00:00 AM EDT Never Smoker completed Never S moker eCW1 ([facility]) Smoking 06/12/2021 12:00:00 AM EDT Never Smoker completed Never S moker eCW1 ([facility]) Smoking 06/12/2021 12:00:00 AM EDT Never Smoker completed Never S moker eCW1 ([facility]) Smoking 06/12/2021 12:00:00 AM EDT Never Smoker completed Never S moker eCW1 ([facility]) Smoking 05/08/2021 12:00:00 AM EDT Never Smoker completed Never S moker eCW1 ([facility]) Vital Signs ID Date Data Source UNK Name Value Range Interpretation Code Description Data Source(s) Body weight 307.2 [lb_av] 307.2 [lb_av] eCW1 ([facility]) Body weight 139.34 kg 139.34 kg [facility] ([facility]) Body height 64 [in_i] 64 [in_i] [facility] ([facility]) Body mass index (BMI) [Ratio] 52.73 kg/m2 52.73 kg/m2 [facility] ([facility]) Systolic blood pressure 124 mm[Hg] 124 mm[Hg] e CW1 ([facility]) Diastolic blood pressure 74 mm[Hg] 74 mm[Hg] [facility] ([facility]) Body weight 320 [lb_av] 320 [lb_av] eCW1 ([facility]) Body height 64 [in_i] 64 [in_i] eCW1 ([facility]) Body mass index (BMI) [Ratio] 54.92 kg/m2 54.92 kg/m2 W1 ([facility]) Systolic blood pressure 132 mm[Hg] 132 mm[Hg] e CW1 ([facility]) Diastolic blood pressure 80 mm[Hg] 80 mm[Hg] eCW1 ([facility]) Body weight 327 [lb_av] 327 [lb_av] eCW1 ([facility]) Systolic blood pressure 100 mm[Hg] 100 mm[Hg] e CW1 ([facility]) Diastolic blood pressure 60 mm[Hg] 60 mm[Hg] eCW1 ([facility]) Body mass index (BMI) [Ratio] 56.12 kg/m2 56.12 kg/m2 W1 ([facility]) Body height 64 [in_i] 64 [in_i] eCW1 ([facility]) ID Date Data Source [id number] 08/10/2021 12:41:00 AM EDT [facility] Name Value Range Interpretation Code Description Data Source(s) Weight (Calculated Kilograms) 109.68 109.68 [facility] Height (Calculated Centimeters) 165.1 165. 1 [facility] Body Mass Index (BMI) 40.6 40.6 [facility] ID Date Data Source [id number] 07/18/2021 09:04:00 AM EDT [facility] Name Value Range Interpretation Code Description Data Source(s) Weight (Calculated Kilograms) 109.68 109.68 [facility] Height (Calculated Centimeters) 165.1 165. 1 [facility] Body Mass Index (BMI) 40.6 40.6 [facility] Weight (Calculated Kilograms) 109.68 109.68 [facility] Height (Calculated Centimeters) 165.1 165. 1 [facility] Body Mass Index (BMI) 40.6 40.6 [facility] Weight (Calculated Kilograms) 109.68 109.68 [facility] Height (Calculated Centimeters) 165.1 165. 1 [facility] Body Mass Index (BMI) 40.6 40.6 [facility] ID Date Data Source [id number] 04/11/2021 03:19:[address] [facility] Name Value Range Interpretation Code Description Data Source(s) WEIGHT RECORDED 349.4 lb 349.4 lb [facility] ID Date Data Source [id number] 05/09/2021 08:20:00 AM EDT [facility] Name Value Range Interpretation Code Description Data Source(s) Weight (Calculated Kilograms) 109.68 109.68 [facility] Height (Calculated Centimeters) 165.1 165. 1 [facility] Body Mass Index (BMI) 40.6 40.6 [facility] ID Date Data Source [id number] 04/09/2021 11:16:42 AM [facility] [facility] Name Value Range Interpretation Code Description Data Source(s) WEIGHT RECORDED 347 lb 347 lb [facility] ID Date Data Source [id number] 05/09/2021 08:20:00 AM T [facility] Name Value Range Interpretation Code Description Data Source(s) Weight (Calculated Kilograms) 109.68 109.68 [facility] Height (Calculated Centimeters) 165.1 165. 1 [facility] Body Mass Index (BMI) 40.6 40.6 [facility] ID Date Data Source [id number] 04/02/2021 11:37:00 AM EDT [facility] Name Value Range Interpretation Code Description Data Source(s) Weight (Calculated Kilograms) 109.68 109.68 [facility] Height (Calculated Centimeters) 165.1 165. 1 [facility] Body Mass Index (BMI) 40.6 40.6 [facility] ID Date Data Source [id number] 03/29/2021 03:22:47 PM [facility] Name Value Range Interpretation Code Description Data Source(s) WEIGHT RECORDED 339 lb 339 lb [facility] ID Date Data Source [id number] 04/11/2021 07[facility] Value Range Interpretation Code Description Data Source(s) Weight (Calculated Kilograms) 109.68 109.68 [facility] Height (Calculated Centimeters) 165.1 165. 1 [facility] Body Mass Index (BMI) 40.[address] [facility] ID Date Data Source [id number] 03/30/2021 12:13:[address] [facility] Name Value Range Interpretation Code Description Data Source(s) WEIGHT RECORDED 336 lb 336 lb [facility] ID Date Data Source [id number] 03/30/2021 10:12:00 AM EDT [facility] Name Value Range Interpretation Code Description Data Source(s) Weight (Calculated Kilograms) 109.68 109.68 [facility] Height (Calculated Centimeters) 165.1 165. 1 [facility] Body Mass Index (BMI) 40.6 40.6 [facility] ID Date Data Source [id number] 03/17/2021 12:56:00 AM EDT [facility] Name Value Range Interpretation Code Description Data Source(s) Weight (Calculated Kilograms) 109.68 109.68 [facility] Height (Calculated Centimeters) 165.1 165. 1 [facility] Body Mass Index (BMI) 40.6 40.6 [facility] ID Date Data Source [id number] 03/12/2021 10:09:[address] [facility] Name Value Range Interpretation Code Description Data Source(s) WEIGHT RECORDED 334.2 lb 334.2 lb [facility] ID Date Data Source [id number] 03/10/2021 12:32:00 AM EDT [facility] Name Value Range Interpretation Code Description Data Source(s) Weight (Calculated Kilograms) 109.68 109.68 [facility] Height (Calculated Centimeters) 165.1 165. 1 [facility] Body Mass Index (BMI) 40.6 40.6 [facility] ID Date Data Source [id number] 03/11/2021 02:41:[address] [facility] Name Value Range Interpretation Code Description Data Source(s) WEIGHT RECORDED 321.8 lb 321.8 lb [facility] ID Date Data Source [id number] 02/15/2021 12:12:00 AM EDT [facility] Name Value Range Interpretation Code Description Data Source(s) Weight (Calculated Kilograms) 109.68 109.68 [facility] Height (Calculated Centimeters) 165.1 165. 1 [facility] Body Mass Index (BMI) 40.[address] [facility] ID Date Data Source [id number] 01/27/2021 01:31:00 AM [facility] Name Value Range Interpretation Code Description Data Source(s) Weight (Calculated Kilograms) 109.68 109.68 [facility] Height (Calculated Centimeters) 165.1 165. 1 [facility] Body Mass Index (BMI) 40.6 40.6 [facility] ID Date Data Source [id number] 01/25/2021 09:13:22 AM [facility] Name Value Range Interpretation Code Description Data Source(s) WEIGHT RECORDED 318 lb 318 lb [facility] ID Date Data Source [id number] 01/16/2021 01:52:00 AM [facility] Name Value Range Interpretation Code Description Data Source(s) Weight (Calculated Kilograms) 109.68 109.68 [facility] Height (Calculated Centimeters) 165.1 165. 1 [facility] Body Mass Index (BMI) 40.[address] [facility] ID Date Data Source [id number] 01/31/2021 09:23:00 AM [facility] Name Value Range Interpretation Code Description Data Source(s) Weight (Calculated Kilograms) 109.68 109.68 [facility] Height (Calculated Centimeters) 165.1 165. 1 [facility] Body Mass Index (BMI) 40.[address] [facility] ID Date Data Source [id number] 01/15/2021 02:29:00 PM [facility] Name Value Range Interpretation Code Description Data Source(s) Weight (Calculated Kilograms) 109.68 109.68 [facility] Height (Calculated Centimeters) 165.1 165. 1 [facility] Body Mass Index (BMI) 40.[address] [facility] ID Date Data Source [id number] 01/08/2021 11:27:00 AM [facility] Name Value Range Interpretation Code Description Data Source(s) Weight (Calculated Kilograms) 109.68 109.68 [facility] Height (Calculated Centimeters) 165.1 165. 1 [facility] Body Mass Index (BMI) 40.[address] [facility] ID Date Data Source [id number] 01/24/2021 09:05:00 AM [facility] Name Value Range Interpretation Code Description Data Source(s) Weight (Calculated Kilograms) 109.68 109.68 [facility] Height (Calculated Centimeters) 165.1 165. 1 [facility] Body Mass Index (BMI) 40.6 40.6 [facility] Weight (Calculated Kilograms) 109.68 109.68 [facility] Height (Calculated Centimeters) 165.1 165. 1 [facility] Body Mass Index (BMI) 40.6 40.6 [facility] Weight (Calculated Kilograms) 109.68 109.68 [facility] Height (Calculated Centimeters) 165.1 165. 1 [facility] Body Mass Index (BMI) 40.[address] [facility] ID Date Data Source [id number] 01/08/2021 10:33:00 AM [facility] Name Value Range Interpretation Code Description Data Source(s) Weight (Calculated Kilograms) 109.68 109.68 [facility] Height (Calculated Centimeters) 165.1 165. 1 [facility] Body Mass Index (BMI) 40.[address] [facility] ID Date Data Source [id number] 01/10/2021 08:36:00 AM [facility] Name Value Range Interpretation Code Description Data Source(s) Weight (Calculated Kilograms) 109.68 109.68 [facility] Height (Calculated Centimeters) 165.1 165. 1 [facility] Body Mass Index (BMI) 40.[address] [facility] ID Date Data Source [id number] 01/10/2021 09:03:00 AM [facility] Name Value Range Interpretation Code Description Data Source(s) Weight (Calculated Kilograms) 109.68 109.68 [facility] Height (Calculated Centimeters) 165.1 165. 1 [facility] Body Mass Index (BMI) 40.6 40.6 [facility] Weight (Calculated Kilograms) 109.68 109.68 [facility] Height (Calculated Centimeters) 165.1 165. 1 [facility] Body Mass Index (BMI) 40.6 40.6 [facility] Weight (Calculated Kilograms) 109.68 109.68 [facility] Height (Calculated Centimeters) 165.1 165. 1 [facility] Body Mass Index (BMI) 40.6 40.6 [facility] ID Date Data Source [id number] 12/21/2020 01:12:00 PM [facility] Name Value Range Interpretation Code Description Data Source(s) Weight (Calculated Kilograms) 109.68 109.68 [facility] Height (Calculated Centimeters) 165.1 165. 1 [facility] Body Mass Index (BMI) 40.6 40.6 [facility] Weight (Calculated Kilograms) 109.68 109.68 [facility] Height (Calculated Centimeters) 165.1 165. 1 [facility] Body Mass Index (BMI) 40.6 40.6 [facility] ID Date Data Source [id number] 12/26/2020 02:13:00 AM [facility] Name Value Range Interpretation Code Description Data Source(s) Weight (Calculated Kilograms) 109.68 109.68 [facility] Height (Calculated Centimeters) 165.1 165. 1 [facility] Body Mass Index (BMI) 40.6 40.6 [facility] Weight (Calculated Kilograms) 109.68 109.68 [facility] Height (Calculated Centimeters) 165.1 165. 1 [facility] Body Mass Index (BMI) 40.6 40.6 [facility] Weight (Calculated Kilograms) 109.68 109.68 [facility] Height (Calculated Centimeters) 165.1 165. 1 [facility] Body Mass Index (BMI) 40.[address] [facility] ID Date Data Source [id number] 12/02/2020 04:55:00 PM [facility] Name Value Range Interpretation Code Description Data Source(s) Weight (Calculated Kilograms) 109.68 109.68 [facility] Height (Calculated Centimeters) 165.1 165. 1 [facility] Body Mass Index (BMI) 40.6 40.6 [facility] Weight (Calculated Kilograms) 109.68 109.68 [facility] Height (Calculated Centimeters) 165.1 165. 1 [facility] Body Mass Index (BMI) 40.[address] [facility] ID Date Data Source [id number] 12/04/2020 05:51:00 PM [facility] Name Value Range Interpretation Code Description Data Source(s) Weight (Calculated Kilograms) 109.68 109.68 [facility] Height (Calculated Centimeters) 165.1 165. 1 [facility] Body Mass Index (BMI) 40.6 40.6 [facility] ID Date Data Source [id number] 11/15/2020 12:21:00 AM [facility] Name Value Range Interpretation Code Description Data Source(s) Weight (Calculated Kilograms) 109.68 109.68 [facility] Height (Calculated Centimeters) 165.1 165. 1 [facility] Body Mass Index (BMI) 40.6 40.6 [facility] ID Date Data Source [id number] 11/22/2020 09:17:00 AM [facility] Name Value Range Interpretation Code Description Data Source(s) Weight (Calculated Kilograms) 109.68 109.68 [facility] Height (Calculated Centimeters) 165.1 165. 1 [facility] Body Mass Index (BMI) 40.6 40.6 [facility] Weight (Calculated Kilograms) 109.68 109.68 [facility] Height (Calculated Centimeters) 165.1 165. 1 [facility] Body Mass Index (BMI) 40.6 40.6 [facility] Weight (Calculated Kilograms) 109.68 109.68 [facility] Height (Calculated Centimeters) 165.1 165. 1 [facility] Body Mass Index (BMI) 40.[address] [facility] ID Date Data Source [id number] 11/15/2020 08:32:00 AM [facility] Name Value Range Interpretation Code Description Data Source(s) Weight (Calculated Kilograms) 109.68 109.68 [facility] Height (Calculated Centimeters) 165.1 165. 1 [facility] Body Mass Index (BMI) 40.[address] [facility] ID Date Data Source [id number] 11/22/2020 09:16:00 AM [facility] Name Value Range Interpretation Code Description Data Source(s) Weight (Calculated Kilograms) 109.68 109.68 [facility] Height (Calculated Centimeters) 165.1 165. 1 [facility] Body Mass Index (BMI) 40.6 40.6 [facility] Weight (Calculated Kilograms) 109.68 109.68 [facility] Height (Calculated Centimeters) 165.1 165. 1 [facility] Body Mass Index (BMI) 40.6 40.6 [facility] ID Date Data Source [id number] 10/27/2020 12:28:00 AM [facility] Name Value Range Interpretation Code Description Data Source(s) Weight (Calculated Kilograms) 109.68 109.68 [facility] Height (Calculated Centimeters) 165.1 165. 1 [facility] Body Mass Index (BMI) 40.6 40.6 [facility] ID Date Data Source [id number] 10/17/2020 06:16:00 AM [facility] Name Value Range Interpretation Code Description Data Source(s) Weight (Calculated Kilograms) 109.68 109.68 [facility] Height (Calculated Centimeters) 165.1 165. 1 [facility] Body Mass Index (BMI) 40.6 40.6 [facility] Weight (Calculated Kilograms) 109.68 109.68 [facility] Height (Calculated Centimeters) 165.1 165. 1 [facility] Body Mass Index (BMI) 40.6 40.6 [facility] ID Date Data Source [id number] 01/31/2021 04:06:00 PM [facility] Name Value Range Interpretation Code Description Data Source(s) Weight (Calculated Kilograms) 109.68 109.68 [facility] Height (Calculated Centimeters) 165.1 165. 1 [facility] Body Mass Index (BMI) 40.6 40.6 [facility] Weight (Calculated Kilograms) 109.68 109.68 [facility] Height (Calculated Centimeters) 165.1 165. 1 [facility] Body Mass Index (BMI) 40.[address] [facility] ID Date Data Source [id number] 11/06/2020 03:40:00 PM [facility] Name Value Range Interpretation Code Description Data Source(s) Weight (Calculated Kilograms) 109.68 109.68 [facility] Height (Calculated Centimeters) 165.1 165. 1 [facility] Body Mass Index (BMI) 40.6 40.6 [facility] Weight (Calculated Kilograms) 109.68 109.68 [facility] Height (Calculated Centimeters) 165.1 165. 1 [facility] Body Mass Index (BMI) 40.6 40.6 [facility] Weight (Calculated Kilograms) 109.68 109.68 [facility] Height (Calculated Centimeters) 165.1 165. 1 [facility] Body Mass Index (BMI) 40.[address] [facility] ID Date Data Source [id number] 11/22/2020 08:50:00 AM [facility] Name Value Range Interpretation Code Description Data Source(s) Weight (Calculated Kilograms) 109.68 109.68 [facility] Height (Calculated Centimeters) 165.1 165. 1 [facility] Body Mass Index (BMI) 40.6 40.6 [facility] ID Date Data Source [id number] 12/27/2020 08:45:00 AM [facility] Name Value Range Interpretation Code Description Data Source(s) Weight (Calculated Kilograms) 109.68 109.68 [facility] Height (Calculated Centimeters) 165.1 165. 1 [facility] Body Mass Index (BMI) 40.[address] [facility] ID Date Data Source [id number] 09/01/2020 12:09:00 AM EDT [facility] Name Value Range Interpretation Code Description Data Source(s) Weight (Calculated Kilograms) 109.68 109.68 [facility] Height (Calculated Centimeters) 165.1 165. 1 [facility] Body Mass Index (BMI) 40.[address] [facility] ID Date Data Source [id number] 08/23/2020 08:23:00 AM EDT [facility] Name Value Range Interpretation Code Description Data Source(s) Weight (Calculated Kilograms) 109.68 109.68 [facility] Height (Calculated Centimeters) 165.1 165. 1 [facility] Body Mass Index (BMI) 40.[address] [facility] ID Date Data Source [id number] 08/16/2020 08:06:00 AM EDT [facility] Name Value Range Interpretation Code Description Data Source(s) Weight (Calculated Kilograms) 109.68 109.68 [facility] Height (Calculated Centimeters) 165.1 165. 1 [facility] Body Mass Index (BMI) 40.6 40.6 [facility] Weight (Calculated Kilograms) 109.68 109.68 [facility] Height (Calculated Centimeters) 165.1 165. 1 [facility] Body Mass Index (BMI) 40.6 40.6 [facility] Weight (Calculated Kilograms) 109.68 109.68 [facility] Height (Calculated Centimeters) 165.1 165. 1 [facility] Body Mass Index (BMI) 40.6 40.6 [facility] ID Date Data Source [id number] 07/19/2020 08:05:00 AM EDT [facility] Name Value Range Interpretation Code Description Data Source(s) Weight (Calculated Kilograms) 109.68 109.68 [facility] Height (Calculated Centimeters) 165.1 165. 1 [facility] Body Mass Index (BMI) 40.6 40.6 [facility] Weight (Calculated Kilograms) 109.68 109.68 [facility] Height (Calculated Centimeters) 165.1 165. 1 [facility] Body Mass Index (BMI) 40.6 40.6 [facility] ID Date Data Source [id number] 08/01/2021 08:42:49 AM EDT [facility]) Name Value Range Interpretation Code Description Data Source(s) Body weight 291 [lb_av] 291 [lb_av] [facility] ([facility]) Body height 65 [in_i] 65 [in_i] [facility] ([facility]) Patient Treatment Plan of Care Planned Activity Planned Date Details Description Data Source (s) Sprintec 28 0.25-35 [facility] 06/12/2021 12:00:00 AM EDT eCW1 ([facility]) Sprintec 28 0.25-35 MG-MCG 06/12/2021 12:00:00 AM EDT eCW1 ([facility]) Sprintec 28 0.25-35 MG-MCG 06/12/2021 12:00:00 AM EDT eCW1 ([facility]) Sprintec 28 0.25-35 MG-MCG 06/12/2021 12:00:00 AM EDT eCW1 ([facility]) Sprintec 28 0.25-35 MG-MCG 06/12/2021 12:00:00 AM EDT eCW1 ([facility]) Sprintec 28 0.25-35 MG-[facility]G 06/12/2021 12:00:00 AM EDT eCW1 ([facility])
[2021-09-17] MEDS ORDERED: diphenhydrAMINE 50MG/ML VIAL (J1200) IV STA (17:02)
[2021-09-17] MEDS ORDERED: NS 1,000 ML IV ONE (17:05)
[2021-09-17] MEDS ORDERED: METOCLOPRAMIDE INJ 10MG/2ML VIAL (J2765 PER 1) IV ONE (17:05)
[2021-09-17] MEDS ORDERED: KETOROLAC 30 MG/ML 1ML VIAL IV ONE (17:05)
--- OUTSIDE RECORDS SUMMARY | 2021-09-17 17:44 | CCD ---
Author Author [facility] Organization [facility] Address Unknown Phone Unavailable Care Team Providers Care Practice Administrator Name Role Phone DAVION CENTENO Unavailable Unavailable [...] DO Unavailable Unavailable Jaden Rogel MD Unavailable [phone] Pebbles, Jaden Quintana MD Unavailable [phone] Jaden Rogel MD Unavailable [phone] Pebbles, Jaden Quintana MD Unavailable [phone] LeFroy magana DO Unavailable Unavailable Wolverine, Froy DO Unavailable Unavailable Wolverine Froy DO Unavailable Unavailable Le Froy DO Unavailable Unavailable [place], M Meri PA Unavailable Unavailable [place], M Meri PA Unavailable Unavailable [place], M Meri PA Unavailable Unavailable [place], M Meri PA Unavailable Unavailable Grimshaw, Rosy [...] ISMAIL MELLISSA MD Unavailable Unavailable Lent, E Rush CHIEF CLERK Unavailable Unavailable Lent, E Rush CHIEF CLERK Unavailable Unavailable NIKKI WILLS PA Unavailable Unavailable NIKKI WILLS PA Unavailable Unavailable NIKKI WILLS PA Unavailable Unavailable NIKKI WILLS PA Unavailable Unavailable NIKKI WILLS PA Unavailable Unavailable CARLY WILLSELLE PA Unavailable Unavailable JOHANN NIKKI PA Unavailable Unavailable [place], Odilia Unavailable Melisa, Odilia Unavailable LOHHÉCTOR, ROD Unavailable Unavailable Nixon L Arley DO Unavailable Unavailable Nixon L Arley DO Unavailable Unavailable BABATUNDE WONGHLEEN Unavailable Unavailable Leykin Gokul DO Unavailable Unavailable CHRIS, C CORTEZ VALUE STREAM COACH Unavailable Unavailable CHRIS, C CORTEZ VALUE STREAM COACH Unavailable Unavailable CHRIS, C CORTEZ VALUE STREAM COACH Unavailable Unavailable CHRIS, C CORTEZ VALUE STREAM COACH Unavailable Unavailable CHRIS, C CORTEZ VALUE STREAM COACH Unavailable Unavailable CHRIS, C CORTEZ VALUE STREAM COACH Unavailable Unavailable CHRIS, C CORTEZ VALUE STREAM COACH Unavailable Unavailable CHRIS, C CORTEZ VALUE STREAM COACH Unavailable Unavailable CHRIS, C CORTEZ VALUE STREAM COACH Unavailable Unavailable CHRIS, C CORTEZ VALUE STREAM COACH Unavailable Unavailable CHRIS, C CORTEZ VALUE STREAM COACH Unavailable Unavailable CHRIS, C CORTEZ VALUE STREAM COACH Unavailable Unavailable CHRIS, C CORTEZ VALUE STREAM COACH Unavailable Unavailable CHRIS, C CORTEZ VALUE STREAM COACH Unavailable Unavailable CHRIS, C CORTEZ VALUE STREAM COACH Unavailable Unavailable CHRIS, C CORTEZ VALUE STREAM COACH Unavailable Unavailable HCRIS, C CORTEZ VALUE STREAM COACH Unavailable Unavailable CHRIS, C CORTEZ VALUE STREAM COACH Unavailable Unavailable CHRIS, C CORTEZ VALUE STREAM COACH Unavailable Unavailable CHRIS, C CORTEZ VALUE STREAM COACH Unavailable Unavailable Manuelito PEREZFER VALUE STREAM COACH Unavailable Unavailable CHRIS, C CORTEZ VALUE STREAM COACH Unavailable Unavailable Manuelito PEREZFER VALUE STREAM COACH Unavailable Unavailable Manuelito PEREZNIFER VALUE STREAM COACH Unavailable Unavailable Manuelito PEREZ CORTEZ VALUE STREAM COACH Unavailable Unavailable CHRIS C CORTEZ VALUE STREAM COACH Unavailable Unavailable Allen, J Perry PA Unavailable [phone] Allen, J Perry PA Unavailable [phone] Allen, J Perry PA Unavailable [phone] Allen, J Perry PA Unavailable [phone] Allen, J Perry PA Unavailable [phone] Allen, J Perry PA Unavailable [phone] Allen, J Perry PA Unavailable [phone] Allen, J Perry PA Unavailable [phone] Allen, J Perry PA Unavailable [phone] Allen J Perry PA Unavailable [phone] Allen, J Perry PA Unavailable [phone] Allen, J Perry PA Unavailable [phone] Allen, J Perry PA Unavailable [phone] Olga Castillo Unavailable Unavailable Olga Castillo Unavailable [...] MELVIN Unavailable Unavailable Phipps IV, J Yariel CHIEF CLERK Unavailable Unavailable Phipps IV, J Yariel CHIEF CLERK Unavailable Unavailable Phipps IV, J Yariel CHIEF CLERK Unavailable Unavailable Phipps IV, J Yariel CHIEF CLERK Unavailable Unavailable Desmond Pelaez MD Unavailable Unavailable Desmond Pelaez MD Unavailable Unavailable POLNIAK, ARMOND VALUE STREAM COACH Unavailable Unavailable POLNIAK, ARMOND VALUE STREAM COACH Unavailable Unavailable POLNIAK, ARMOND VALUE STREAM COACH Unavailable Unavailable POLNIAK, ARMOND VALUE STREAM COACH Unavailable Unavailable POLNIAK, ARMOND VALUE STREAM COACH Unavailable Unavailable POLNIAK, ARMOND VALUE STREAM COACH Unavailable Unavailable POLNIAK, ARMOND VALUE STREAM COACH Unavailable Unavailable POLNIAK, ARMOND VALUE STREAM COACH Unavailable Unavailable POLNIAK, ARMOND VALUE STREAM COACH Unavailable Unavailable POLNIAK, ARMOND VALUE STREAM COACH Unavailable Unavailable POLNIAK, ARMOND VALUE STREAM COACH Unavailable Unavailable POLNIAK, ARMOND VALUE STREAM COACH Unavailable Unavailable POLNIAK, ARMOND VALUE STREAM COACH Unavailable Unavailable POLNIAK, ARMOND VALUE STREAM COACH Unavailable Unavailable POLNIAK, ARMOND VALUE STREAM COACH Unavailable Unavailable POLNIAK, ARMOND VALUE STREAM COACH Unavailable Unavailable Urvashi Parrish MD Unavailable Unavailable ShivaniUrvashi king MD Unavailable Unavailable Urvashi Parrish MD Unavailable Unavailable Familia Mauriceantha PA Unavailable [phone] Familia Maurice Beth PA Unavailable [phone] Familia Maurice Beth PA Unavailable [phone] Familia Maurice Beth PA Unavailable [phone] HERMELINDA ANDERSON Unavailable Unavailable Desmond OLVERA JR, MD Unavailable Unavailable Desmond OLVERA JR, MD Unavailable Unavailable Desmond OLVERA JR, MD Unavailable Unavailable Desmond OLVERA JR, MD Unavailable Unavailable NOSOVITCH JR, Desmond [...] Desmond QUINTANA MD Unavailable Unavailable NOSOVITCH JR, Dsemond QUINTANA MD Unavailable Unavailable NOSOVITCH JR, Desmond [...] is protected by Article 27-F of the [facility] Public Health law. If you continue you may have access to information: Regarding HIV / AIDS; Provided by facilities licensed or operated by the [facility] Office of Mental Health; or Provided by the [facility] Office for People With Developmental Disabilities. If such information is present, then the following [facility] mandated warning applies: This information has been [...] to adverse reactions ADHESIVE TAPE ADHESIVE TAPE [facility] Propensity to adverse reactions LATEX Latex Hives [facility] Encounters Encounter Providers Location Date Indications Data Source(s ) [place] [address] [facility] [facility] [place] [address] 08/23/2021 12:00:00 AM EDT eCW1 ([facility]) Outpatient Attender: Lilian Rogel MD CPSCAORT-[id number] 08/09/20 03:38:00 PM EDT - 08/09/2021 03:39:00 PM EDT [facility] Patient discharged. Unknown [address] [facility] [place] [address] 07/31/2021 12:00:00 AM EDT eCW1 ([facility]) Unknown [address] [facility] [facility] [place] [address] 07/04/2021 12:00:00 AM EDT eCW1 ([facility]) Unknown [address] [facility] [place] [address] 07/03/2021 12:00:00 AM EDT eCW1 ([facility]) Emergency Attender: Marcy Pelaez MD CPSCAORT-ED 021 12:20:00 PM EDT - 06/30/2021 05:10:00 PM EDT ABDOMINAL PAIN [facility] ABDOMINAL PAIN Patient discharged. Unknown [address] [facility] [place] [address] 06/18/2021 12:00:00 AM EDT eCW1 ([facility]) Outpatient [address] [facility] [place] [address] 06/12/2021 12:00:00 AM EDT eCW1 ([facility]) Outpatient 05/11/2021 12:00:00 AM EDT [facility] Outpatient Attender: CORTEZ PEREZ NP 05/11[facility] 12:00:00 AM EDT [facility] ( PO) [facility] [address] [place] [address] 05/08/2021 12:00:00 AM EDT eCW1 ([facility]) Outpatient Attender: MYRTLE MOORE CNM 05/08/2021 12:0 0:00 AM EDT [facility] Outpatient 05/08/2021 12:00:00 AM EDT [facility] Outpatient 05/08/2021 12:00:00 AM [facility] Outpatient Attender: MYRTLE MOORE [facility] 05/04/2021 12:0 0:00 AM [facility] Outpatient 05/04/2021 12:00:00 AM [facility] Outpatient 05/04/2021 12:00:00 AM [facility] Outpatient Attender: MYRTLE MOORE [facility] 05/01/2021 12:0 0:00 AM [facility] Outpatient 05/01/2021 12:00:00 AM [facility] Outpatient 05/01/2021 12:00:00 AM [facility] Outpatient Attender: MYRTLE MOORE [facility] 04/27/2021 12:0 0:00 AM [facility] Outpatient 04/27/2021 12:00:00 AM [facility] Outpatient 04/27/2021 12:00:00 AM [facility] Outpatient Attender: CORTEZ PEREZ NP 04/27/2021 12:00:0 0 AM [facility] Outpatient 04/27/2021 12:00:00 AM [facility] Outpatient 04/27/2021 12:00:00 AM [facility] Outpatient 04/24/2021 12:00:00 AM [facility] Outpatient 04/24/2021 12:00:00 AM [facility] Outpatient 04/24/2021 12:00:00 AM [facility] Outpatient Attender: Marvin CastilloReferrer: ZA FRITZ DO 04/19/2021 12:00:00 AM [facility] Outpatient 04/19/2021 12:00:00 AM [facility] Outpatient 04/19/2021 12:00:00 AM [facility] Outpatient Attender: MYRTLE HANCOCKMReferrer: ZA FRITZ DO [id number] 04/17/2021 12:00:00 AM [facility] 04/17/2021 02:36:57 PM ED T Pre- existing type 2 diabetes mellitus, in , second trimester [facility] Pre-existing type 2 diabetes mellitus, i n , second trimester Outpatient Attender: Odilia Vincent [id number] 04/17/2021 12:0 0:00 AM EDT Morbid (severe) obesity due to excess calories [facility] Morbid (severe) obesity due to excess ca lories Outpatient Attender: HERMELINDA ANDERSON 04/17/2021 12:00:00 AM EDT [facility] Outpatient 04/17/2021 12:00:00 AM T [facility] Outpatient Attender: CORTEZ PEREZ NPReferrer: ZA WHITAKEREllen DON [id number] 04/11/2021 12:00:00 AM EDT - 04/11/2021 03:11:54 PM EDT Pre-existing type 2 diabetes mellitus, in , second trimester [facility] Pre-existing type 2 diabetes mellitus, i n , second trimester Outpatient Attender: JAKC Olsonender: JANAY MCCLURE 04/11/2021 12:00:00 AM [facility] Outpatient 04/11/2021 12:00:00 AM [facility] Outpatient Attender: Perry KNOWLES CPSCAORT-CPSCAEND 04/10/2021 10:20:00 AM EDT - 04/10/2021 10:21:00 AM EDT [facility] pital Patient discharged. Outpatient Attender: MYRTLE MOORE CNMReferrer: ZA FRITZ DO [id number] 04/06/2021 12:00:00 AM EDT - 04/06/2021 03:31:21 PM ED T Fatty (change of) liver, not elsewhere classified [facility] Fatty (change of) liver, not elsewhere c lassified Outpatient Attender: ROD CURRAN 04/06/2021 12:00:00 AM E [facility] Outpatient 04/06/2021 12:00:00 AM [facility] Outpatient Attender: Perry KNOWLES CPSCAORT-CPSCAEND 04/04/2021 10:23:00 AM EDT - 04/04/2021 10:24:00 AM EDT [facility] pital Patient discharged. Outpatient Attender: MELLISSA MA MD CPSCAORT-OBOUT 05/2021 07:19:00 PM EDT - 03/30/2021 07:20:00 PM EDT NST [facility] NST Patient discharged. Outpatient Attender: MELVIN Castillo r: ZA FRITZ DO [id number] 03/28/2021 12:00:00 AM EDT - 03/28/2021 02:58:55 PM ED T Pre- existing type 2 diabetes mellitus, in , second trimester [facility] Pre-existing type 2 diabetes mellitus, i n , second trimester Outpatient Attender: JACK WONG 03/28/2021 12:00:00 AM EDT [facility] Outpatient 03/28/2021 12:00:00 AM [facility] Outpatient Attender: Perry MCKOY-CPSCAVANDANA 03/27/2021 11:23:00 AM EDT - 03/27/2021 11:24:00 AM EDT [facility] pital Patient discharged. Outpatient Attender: MELVIN Castillo r: ZA FRITZ DO [id number] 03/21/2021 12:00:00 AM EDT - 03/21/2021 09:53:19 AM ED T Pre- existing type 2 diabetes mellitus, in , second trimester [facility] Pre-existing type 2 diabetes mellitus, i n , second trimester Outpatient Attender: JANAY CHOWDARY 03/21/2021 12:00:00 A M [facility] Outpatient 03/21/2021 12:00:00 AM T [facility] Outpatient Attender: Perry MCKOY-CPSCAEND 03/19/2021 11:31:00 AM EDT - 03/19/2021 11:32:00 AM EDT [facility] pital Patient discharged. Outpatient Attender: ZA DINERO-LABCN 02/23 02:36:00 PM EDT - 03/16/2021 02:37:00 PM EDT Z3A.24 [facility] Z3A.24 Patient discharged. Outpatient Attender: MELVIN Castillo r: ZA FRITZ DO [id number] 03/12/2021 12:00:00 AM EDT - 03/12/2021 12:39:14 PM ED T Pre- existing type 2 diabetes mellitus, in , second trimester [facility] Pre-existing type 2 diabetes mellitus, i n , second trimester Outpatient Attender: ROD CURRAN 03/12/2021 12:00:00 AM E DT [facility] Outpatient 03/12/2021 12:00:00 AM EDT [facility] Outpatient Attender: Perry KNOWLES CPSCAORT-CPSCAEND 03/09/2021 02:47:00 PM EDT - 03/09/2021 02:48:00 PM EDT [facility] pital Patient discharged. Outpatient Attender: MELVIN Castillo r: ZA FRITZ DO [id number] 02/26/2021 12:00:00 AM EDT - 02/26/2021 12:25:28 PM ED T Morbid (severe) obesity due to excess calories [facility] Morbid (severe) obesity due to excess ca lories Outpatient Attender: DAVION CENTENO 02/26/2021 12:00:00 AM EDT [facility] Outpatient Attender: ZA AVALOSCAORT-CPSLAOBG 09:36:00 AM EDT - 02/14/2021 09:37:00 AM EDT [facility] Patient discharged. Outpatient Attender: Perry KNOWLES CPSCAORT-CPSCAEND 01/26/2021 09:44:00 AM EST - 01/26/2021 09:45:00 AM EST [facility] Patient discharged. Outpatient Attender: Odilia VincentReferrer: LILIAN Stanley JR [id number] 01/22/2021 12:00:00 AM EST - 01/22/2021 02:25:32 PM EST Morbid (severe) obesity due to excess calories [facility] Morbid (severe) obesity due to excess ca lories Outpatient Attender: MELVIN Castillo r: ZA FRITZ DO [id number] 01/22/2021 12:00:00 AM EST - 01/22/2021 01:38:11 PM ES T Pyied-6-cdngwyaxytn deficiency [facility] Oubqv-3-humbyhhrmdo deficiency Outpatient Attender: DAVIONUrvashi CENTENOReferrer: ZA FRITZ DO 01/22/2021 12:00:00 AM [facility] Outpatient 01/22/2021 12:00:00 AM [facility] Outpatient Attender: Odilia [place] 01/22/2021 12:00:00 A M [facility] Outpatient 01/22/2021 12:00:00 AM [facility] Outpatient Attender: ZA TRINO DO [facility] 10:42:00 AM EST - 01/15/2021 10:43:00 AM EST [facility] Patient discharged. Outpatient Attender: Perry KNOWLES [facility] 01/12/2021 09:21:00 AM EST - 01/12/2021 09:22:00 AM EST [facility] Patient discharged. Outpatient Attender: ZA FRITZ DO [facility]IMAPD 12/25 02:42:00 PM EST - 01/10/2021 02:43:00 PM EST ANATOMY SCREENING [facility] ANATOMY SCREENING Patient discharged. Outpatient Attender: MELLISSA MA MD [facility]IMAL[facility] 12/25 10:32:00 AM EST - 01/05/2021 10:33:00 AM EST , TYPE 2 DIABETIC [facility] , TYPE 2 DIABETIC Patient discharged. Emergency Attender: Meri Ziegler PAAttender: Froy Lujan DO CPSCAORT-ED 01/01/2021 10:55:00 AM EST - 01/01/2021 01:25:00 PM EST ABDOMINAL CRAMPING 18 WEEKS [facility] ABDOMINAL CRAMPING 18 WEEKS Patient discharged. Outpatient Attender: ZA FRITZ DO CPSCAORT-LABLAW 12/2020 03:16:00 PM EST - 12/26/2020 03:17:00 PM EST Z13.79 [facility] Z13.79 Patient discharged. Outpatient Attender: Perry KELLEYttender: Breanne KNOWLES CPSCAORT-CPSCAEND 12/26/2020 01:19:00 PM EST - 12/26/2020 01:20:00 PM EST E16. 2 [facility] E16.2 Patient discharged. Emergency Attender: Gokul AVERY ttender: Yariel Phipps IVAttender: Gokul Guthrie DO CPSCAORT-ED 12/23/2020 08:36:00 PM EST - 12/24/2020 12:16:00 AM EST BACK PAIN 16 WEEKS [facility] BACK PAIN 16 WEEKS Patient discharged. Outpatient Attender: HIPOLITO Richardson: ARMOND SHELTON VALUE STREAM COACH CPSCAORT-LABLAW 12/20/2020 02:45:00 PM EST - 12/20/2020 02:46:00 PM EST N39. 0 [facility] N39.0 Patient discharged. Outpatient Attender: ZA FRITZ DO CPSCAORT-LABLAW 11/25 03:20:00 PM EST - 12/13/2020 03:21:00 PM EST 15 WEEKS [facility] 15 WEEKS Patient discharged. Outpatient Attender: MARVIN ASIFeferrer: Desmond FRITZ DO [id number] 12/08/2020 12:00:00 AM EST - 12/08/2020 02:42:20 PM ES T Pre-existing type 2 diabetes mellitus, in , unspecified trimester [facility] Pre-existing type 2 diabetes mellitus, i n , unspecified trimester Outpatient Attender: HERMELINDA ANDERSONReferrer: ZA LOPEZ BY DO 12/08/2020 12:00:00 AM [facility] Outpatient Attender: Odilia VincentReferrer: ZA CORDOVA Y DO 12/08/2020 12:00:00 AM [facility] Outpatient Attender: KAY KNOWLES CPSCAORT-LABCOVWAR 0 12/01/2020 02:00:00 PM EST - 12/01/2020 02:01:00 PM EST SCREENING [facility] SCREENING Patient discharged. Outpatient Attender: ZA FRITZ DO CPSCAORT-CPSLAOBG 10:34:00 AM EST - 11/27/2020 10:35:00 AM EST Z13.79 [facility] Z13.79 Patient discharged. Outpatient Attender: Perry KNOWLES [facility]-CPSCAEND 11/14/2020 11:45:00 AM EST - 11/14/2020 11:46:00 AM EST [facility] Patient discharged. Outpatient Attender: Odilia VincentReferrer: ZA Hughes DO 11/14/2020 12:00:00 AM [facility] Outpatient Referrer: [place] JOHNOBEllen DO 11/14/2020 12:00:00 AM [facility] Outpatient Referrer: ZA JOHNOBY DO 11/14/2020 12:00:00 AM [facility] Emergency Attender: SHIN SUTHERLAND MD [facility] 10:24:00 AM EST - 11/03/2020 12:54:00 PM EST FALL INJURY [facility] FALL INJURY Patient discharged. Outpatient Attender: Perry KNOWLES [facility] 10/30/2020 08:54:00 AM EST - 10/30/2020 08:55:00 AM EST [facility] Patient discharged. Emergency Attender: Arley Alicea DOAttender: Arley crawford DO [facility] 10/28/2020 01:21:00 AM EST - 10/28/2020 03:50:00 AM EST VAGINAL BLEEDING [facility] VAGINAL BLEEDING Patient discharged. Outpatient Attender: ZA FRITZ DO [facility] 02:02:00 PM EST - 10/26/2020 02:03:00 PM EST [facility] Patient discharged. Outpatient Attender: ARMOND SHELTON NP [facility]IM[facility] 09/25 11:15:00 AM EST - 10/16/2020 11:16:00 AM EST DATING [facility] DATING Patient discharged. Outpatient Attender: HIPOLITO Riverader: ARMOND SHELTON NP CPSCAORT-LABLAW 10/16/2020 10:27:00 AM EST - 10/16/2020 10:28:00 AM EST Z3A. 01 [facility] Z3A.01 Patient discharged. Emergency Attender: Yariel Phipps IVAttender: Arley barragan DO CPSCAORT-ED 10/05/2020 10:27:00 PM EST - 10/06/2020 01:08:00 AM EST VAGINAL BLEEDING,ABDOMINAL CRAMPING [facility] VAGINAL BLEEDING,ABDOMINAL CRAMPING Patient discharged. Outpatient Attender: ARMOND SHELTON NP CPSCAORT-CPSLAOBG 10:45:00 AM EST [facility] Emergency Attender: Boogie Serna M.D. SURG-ER 09/21/2020 12:56 :00 AM EDT [facility]. Patient discharged. Outpatient Attender: Beth Puenteender: Seferino KNOWLES CPSCAORT-CPSLAUCC 09/14/2020 02:26:00 PM EDT - 09/14/2020 02:27:00 PM ED T COVID- 19 SCREENING [facility] COVID-19 SCREENING Patient discharged. Outpatient Attender: Rosy Carbajal [facility]CPSLAPCP 06/2020 09:16:00 AM EDT - 08/31/2020 09:17:00 AM EDT [facility] Patient discharged. Outpatient Attender: Zoey Houston DO [facility]-SPIX1PUS 09:47:00 AM EDT - 08/07/2020 [facility] Attender: NIKKI Puenteender: Rell mirza MD CPSCAORT-ED 07/27/2020 08:02:00 PM EDT - 07/27/2020 09:47:00 PM EDT FINGER INJURY [facility] FINGER INJURY Patient discharged. Emergency Attender: Gordon HERNANDEZttender: Froy Lujan DO CPSCAORT-ED 07/02/2020 03:04:00 PM EDT - 07/02/2020 04:29:00 PM EDT WRIST PAIN [facility] WRIST PAIN Patient discharged. Outpatient [address] [address] [id number]-[id number] Integration Team 03/06/2017 11:00:00 AM EDT - 08/01/2021 08:00:00 AM EDT [facility] ([facility] Patient discharged. Medications Medication Brand Name Start Date Product Form Dose Route Admi nistrative Instructions Pharmacy Instructions Status Indications Reaction Description Data Source(s) Sprintec 28 0.25-35 MG-MCG Sprintec 28 0.25-35 MG-MCG 2020 12:00:00 AM EDT 1.0 {tablet} active Sprintec 28 0.25-35 MG-MCG eCW1 (Formerly [facility]) Sprintec 28 0.25-35 MG-MCG Sprintec 28 0.25-35 MG-MCG 2020 12:00:00 AM EDT 1.0 {tablet} active Sprintec 28 0.25-35 MG-MCG eCW1 (Formerly [facility]) Sprintec 28 0.25-35 MG-MCG Sprintec 28 0.25-35 MG-MCG 2020 12:00:00 AM EDT 1.0 {tablet} active Sprintec 28 0.25-35 MG-MCG eCW1 (Former[facility]) Sprintec 28 0.25-35 MG-MCG Sprintec 28 0.25-35 MG-MCG 2020 12:00:00 AM EDT 1.0 {tablet} active Sprintec 28 0.25-35 MG-MCG eCW1 ([facility]) Sprintec 28 0.25-35 MG-MCG Sprintec 28 0.25-35 MG-MCG 2020 12:00:00 AM EDT 1.0 {tablet} active Sprintec 28 0.25-35 MG-MCG eCW1 ([facility]ly [facility]) Sprintec 28 0.25-35 MG-MCG Sprintec 28 0.25-35 MG-MCG 2020 12:00:00 AM EDT 1.0 {tablet} active Sprintec 28 0.25-35 MG-MCG eCW1 (Formerly [facility]) Insurance Providers Payer name Policy type / Coverage type Policy ID Covered green party ID Covered green party's relationship to snyder Policy Snyder Plan Information [employer] PLUS [id number] SP [id number] [employer] PLUS [id number] SP [id number] EXCELLUS BLUE CROSS [id number] SP [id number] EXCELLUS BLUE CROSS [id number] SP [id number] [employer] PLUS [id number] FO [id number] BLUE CROSS [id number] BRO [id number] [employer] PLUS [id number] FO [id number] CH[employer] PLUS [id number] FO [id number] EXCELLUS BLUE CROSS [id number] MO [id number] CHILD HE[employer] PLUS [id number] FO [id number] EXCELLUS H [id number] Child [id number] U [id number] Self [id number] U [id number] Self [id number] BLUE CROSS [id number] S [id number] BLUE CROSS [id number] S [id number] SELF PAY UNAVAILABLE SP UNAVAILA BLE BLUE CROSS CHILD [employer] PLUS [id number] Full olga e employed [id number] [employer] [place] 306/806 [id number] MO2 [id number] [place] [id number] S [id number] [place] [place] PPO 302/307 [id number] MO2 [id number] [place] [employer] [place] [id number] ZEN [id number] [place] [place] PPO 302/307 [id number] MO2 [id number] EAST [id number] [facility]ly [facility] [phone] [employer] [place] [id number] Unemployed [id number] [employer] [place] 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 [id number] [employer] 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 d [facility] [facility] [id number] [employer] [place] [id number] 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 [id number] [employer] [place] [employer] [id number] Full olga e employed [id number] Problems, Conditions, and Diagnoses Code Display Name Description Problem Type Effective Dates Data Source(s) Z79.4 penitentiary (current) use of insulin TOUCH UP EDGER (CU RRENT) USE OF INSULIN Diagnosis 06/30/2021 12:20:00 PM [facility] Z91.040 Latex allergy status LATEX ALLERGY STATUS Diagnosis 06/30/2021 12:20:00 PM [facility] E10.65 Type 1 diabetes mellitus with hyperglyce ariel TYPE 1 DIABETES MELLITUS WITH HYPERGLYCEMIA Diagnosis 06/30/2021 12:20:00 PM [facility] R79.82 Elevated C-reactive protein (CRP) ELEVATED C-JACKI CTIVE PROTEIN (CRP) Diagnosis 06/30/2021 12:20:00 PM [facility] L30.4 Erythema intertrigo ERYTHEMA INTERTRIGO Diagnosis 0 06/30/2021 12:20:00 PM [facility] R10.31 Right lower quadrant pain RIGHT LOWER QUADRANT PAIN Di agnosis 06/30/2021 12:20:00 PM [facility] O24.119 Pre-existing type 2 diabetes mellitus, in , unspecified trimester Pre-existing type 2 diabetes mellitus, i n , unspecified trimester Diagnosis 04/11/2021 01:36:10 PM [facility] Z3A.32 32 weeks gestation of 32 WEEKS GESTATI ON OF Diagnosis 04/10/2021 10:20:00 AM [facility] E11.65 Type 2 diabetes mellitus with hyperglyce ariel TYPE 2 DIABETES MELLITUS WITH HYPERGLYCEMIA Diagnosis 04/10/2021 10:20:00 AM [facility] R79.89 Other specified abnormal findings of blo od chemistry Other specified abnormal findings of blood chemistry Diagnosis 04/06/2021 01:45:43 PM [facility] K76.0 Fatty (change of) liver, not elsewhere c lassified Fatty (change of) liver, not elsewhere classified Diagnosis 04/06/2021 01:45:43 PM [facility] Z3A.31 31 weeks gestation of 31 WEEKS GESTATI ON OF Diagnosis 04/04/2021 10:23:00 AM [facility] Z3A.30 30 weeks gestation of 30 WEEKS GESTATI ON OF Diagnosis 03/27/2021 11:23:00 AM [facility] Z91.19 Patient's noncompliance with other medic al treatment and regimen PATIENT'S NONCOMPLIANCE W OTH MEDICAL TREATMENT AND REGIMEN Diagnosis 03/19/2021 11:31:00 AM [facility] Z3A.29 29 weeks gestation of 29 WEEKS GESTATI ON OF Diagnosis 03/19/2021 11:31:00 AM [facility] Z3A.19 19 weeks gestation of 19 WEEKS GESTATI ON OF Diagnosis 01/12/2021 09:21:00 AM [facility] O24.112 Pre-existing type 2 diabetes mellitus, i n , second trimester PRE-EXISTING TYPE 2 DIABETES, IN , SECOND TRIMESTER Diagnosis 01/12/2021 09:21:00 AM [facility] Z91.09 Other allergy status, other than to drug s and biological substances OTH ALLERGY STATUS, OTH THAN TO DRUGS AND BIOLG SUBSTANCES Diagnosis 01/01/2021 10:55:00 AM [facility] Z88.8 Allergy status to other drug s, medicaments and biological substances status ALLERGY STATUS TO OTHER DRUG/MEDS/BIOL SUBST Diagnosis 01/01/2021 10:55:00 AM [facility] Z79.899 Other media assistant (current) drug therapy O THER [facility] (CURRENT) DRUG THERAPY Diagnosis 01/01/2021 10:55:00 AM [facility] F32.9 Major depressive disorder, single episod e, unspecified MAJOR DEPRESSIVE DISORDER, SINGLE EPISODE,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 xZOfVTiaIT9XRILvylRwRgoxZJTJZBk+Hr6WHG7mf0TjIIjgEYNqGU5twb4WAYoSVbHdJ1N8cBGwZ3I4 TQhjNo9OSCVgRIDnZrvgGLJICAtuZI3KMJ1uzyS6VZ 1UmJUzBLHzVANglGIyRIh6Z42zqAVzDQkpOF0UXXJ+Berlin+Jc2APPUpYLIeFWKcSyZgQJGXCiAlT1OjZ7 ITl8NiE7QpTM19fEspbtMdSUnuBN2SUW9hCKYiKLOXNS9GwJItfV1qzeMvHFSwDXNIOjZkN33xqNStLE UuFPR5XEGqMn5ABDVrT4VhtbRosOpiurOwUSEoXYUL MB9CLEhfnaGyrEIcwXbbGC82tRdgCN6SJm2EBeZnFZ2azk1GnIZyWt5PGTNcHy2MKTGcVZLlEWQdEDJ2 DDIlEyLzTJomEIKoCJCrRQB2LMZvIIGqSS2CDcHaSCHbQxtpNMPxQOAlBOByjo0JFJIdJAYhYMq0XlMm HPKwCOQrAQbmUZGfGFHhSHH7QSAfBNKyLJ0ONcQgLR HkKNA6ErGrAIUbOCQxnw4QQXXvJAIpAhs6VKFcNZBhCAQtSOypGMExETW3FZi4RYLcFBPkYY2CLmKhUQ DoWVCuGEStNHPpDTZbll0QRJIyWIAnKZImTyCmHXLzCAIxTCexUSBoHPS7KDJ0DMTjBYYfES6DQdTpSS RnIEGvYypvNDEbFUJlrq4XGKBsOUZuNOQ8BUGiVVVl ARPpZTtlNVGmLODlZwU0IQOlXFGjAB7ANtUrVHWoXXV1SOGwTGBdQBWcdv7OWEKuEJJgUDxaVASgKMDd NLNiUGnsNHCtUBAtAFD3HCLuILUaUH5QXsGyXKMoQtI7PsQrOTIbKEOxkm1GEBOeKKMkWyn3CSLuKPPd COEjWIksXQToZZG8PYgmGGLeSKNmUP8SEoBnVWEeYx LxVpGqKFHfLTYbkp3SOWWgZHWlYQV2PgCwWSWzIQTuFBqvCMHkZLR8NHU0PAStZVQeFO2OFiPiUEMlVq O3GWWpAQJaMZGckw8ETQEhUAAbORh4RVXeKDQuFDQfIPoaDYSbAHR4FgLfPQEuRDVyOE6TWaDtXXSoOm B5DYKiBQYeRUWyus7QDTPeWVEyCoP6YCAjBNLzFUMh ZRyiSKOuPUR9BGF6XPRiBLMxWP4XApHrWBFjAfx4KNsoOBJtWSDnio8GQHRsGCVkJSVaSSLeAMTaZQAw MTnbUCJqRDG0TQcbBRQvUFOdNJ7IVeEgMJbxIXESPvj4ZLrpY2t0EIMuLh7GB0Cib1GeWjWoSVXKTAku MA9npdGxVTIzCd4CC9iJJvtaXZE3JGVnMSKhLDTwBs F1EgX0BPEcYdF7OHBoMHRjGa9xLZBzCGa0VqXbZjGsWJMkUbDrApYfJYVcGTw6YnQ4IKAeNwOaYJ9IQa 9NPbT5TZU7rPYmXf8CQco8RhaGCyIcGV2NNHw= ID Date Data Source [id number] 04/17/2021 02:03:31 PM EDT [facility] Name Value Range Interpretation Code Description Data Ellen rce(s) Supporting Document(s) Color of Urine [facility] Clarity of Urine [facility] Glucose [Mass/volume] in Urine by Test strip 500 mg/dL Negative A [facility] Bilirubin.total [Presence] in Urine by Test strip Negative [facility] Ketones [Mass/volume] in Urine by Test strip Negative [facility] Specific gravity of Urine by Test strip 1.020 1.005-1.025 [facility] Hemoglobin [Presence] in Urine by Test strip Negative [facility] pH of Urine by Test strip 6.5 5.0-8.0 [facility] Protein [Mass/volume] in Urine by Test strip Negative [facility] Urobilinogen [Units/volume] in Urine by Test strip 1.0 {Ehrlich_U}/ dL 0.2-1.0 [facility] Nitrite [Presence] in Urine by Test strip Negative [facility] Leukocyte esterase [Presence] in Urine by Test strip Negat viviana [facility] ID Date Data Source [id number] 04/11/2021 03:12:26 PM T [facility] Name Value Range Interpretation Code Description Data Ellen rce(s) Supporting Document(s) Progress Note [facility] POWBZg1eAiEHMqKd04/CWLmjKEWyh6NbEKziOKh4FBxuCIZwT9HjAUG5uA4zVZP1SXuXUyRdYbEmZMK6 lbm [file] WZOSLxA3KMBnOSyfBVVFXf1Z ID Date Data Source [id number] 04/11/2021 02:15:51 PM EDT [facility] Name Value Range Interpretation Code Description Data Ellen rce(s) Supporting Document(s) Color of Urine [facility] Clarity of Urine [facility] Glucose [Mass/volume] in Urine by Test strip Negative A [facility] Bilirubin.total [Presence] in Urine by Test strip Negative [facility] Ketones [Mass/volume] in Urine by Test strip Negative [facility] Specific gravity of Urine by Test strip 1.020 1.005-1.025 [facility] Hemoglobin [Presence] in Urine by Test strip Negative [facility] pH of Urine by Test strip 6.0 5.0-8.0 [facility] Protein [Mass/volume] in Urine by Test strip Negative [facility] Urobilinogen [Units/volume] in Urine by Test strip 0.2 {Ehrlich_U}/ dL 0.2-1.0 [facility] Nitrite [Presence] in Urine by Test strip Negative [facility] Leukocyte esterase [Presence] in Urine by Test strip Negat viviana [facility] ID Date Data Source [id number] [facility]40[facility] Name Value Range Interpretation Code Description Data Ellen rce(s) Supporting Document(s) Progress Note [facility] WGKKGl7rTdQDFiNs75/LUNwcOATaz4SzRPxiAUh0KIwvMMXwU3WsGKG9lI0wPBE9BDjBRaObWeLkGDK4 lbm [file] AgICAgICAgICAgICAgICAgICAgICAgICAgICAgICAgICAgICAgICAgICAgICAgICAgICAgICAgICAgIC AgDQogICAgICAgICAgICAgICAgICAgICAgICAgICAg ICAgICAgICAgICAgICAgICAgICAgICAgICAgICAgICAgICAgICAgICAgICAgICAgICAgICAgICAgICAg ICAgICAgICAgICAgDQogICAgICAgICAgICAgICAgICAgICAgICAgICAgICAgICAgICAgICAgICAgICAg ICAgICAgICAgICAgICAgICAgICAgICAgICAgICAgIC AgICAgICAgICAgICAgICAgICAgICAgDQogICAgICAgICAgICAgICAgICAgICAgICAgICAgICAgICAgIC AgICAgICAgICAgICAgICAgICAgICAgICAgICAgICAgICAgICAgICAgICAgICAgICAgICAgICAgICAgIC AgICAgDQogICAgICAgICAgICAgICAgICAgICAgICAg ICAgICAgICAgICAgICAgICAgICAgICAgICAgICAgICAgICAgICAgICAgICAgICAgICAgICAgICAgICAg ICAgICAgICAgICAgICAgDQogICAgICAgICAgICAgICAgICAgICAgICAgICAgICAgICAgICAgICAgICAg ICAgICAgICAgICAgICAgICAgICAgICAgICAgICAgIC AgICAgICAgICAgICAgICAgICAgICAgICAgDQogICAgICAgICAgICAgICAgICAgICAgICAgICAgICAgIC AgICAgICAgICAgICAgICAgICAgICAgICAgICAgICAgICAgICAgICAgICAgICAgICAgICAgICAgICAgIC AgICAgICAgDQogICAgICAgICAgICAgICAgICAgICAg ICAgICAgICAgICAgICAgICAgICAgICAgICAgICAgICAgICAgICAgICAgICAgICAgICAgICAgICAgICAg ICAgICAgICAgICAgICAgICAgDQogICAgICAgICAgICAgICAgICAgICAgICAgICAgICAgICAgICAgICAg ICAgICAgICAgICAgICAgICAgICAgICAgICAgICAgIC AgICAgICAgICAgICAgICAgICAgICAgICAgICAgDQogICAgICAgICAgICAgICAgICAgICAgICAgICAgIC AgICAgICAgICAgICAgICAgICAgICAgICAgICAgICAgICAgICAgICAgICAgICAgICAgICAgICAgICAgIC NqVPNaCALgZDAzMKi7G8rdEVBzZOSkPE0oYCm6Fk7+ ZSxFYkLmCHZ0geYgrI1DKZ9jr3SzSJdgGAYlm0XfJNj7VC7GYMTnASehBK8RGKvdvr6GWKGgJSXvaGYP h8fsGfZwEVM5XTFmNoeqUX7YXMScF4tnhtEmUQCuKMHSJLzpEHYLMBthHJKUEN8DXdDjO3JnqO42WXQL Cj4+GTolgcCnYbfTGoS6XCNsa1MpTKf8VI3HVYErWp pfu4YgEmpqXVEAEMbhCX8IHPT8JIP2DFXnFq0ITGSqJ262ykUbGG5UQa9JOvXmEG3wwo2GLxgmLVZsZe vWXzg2FCykHX8BeVMzZHsVdf8isbIbdeZNn8XhioIfcIURlSAbtH6mXAArE9XknSZxyG7iURHFPb2lXD RcFP2kTP8jNEKuCSCrLrGhFRGQJE1CEUAvPOTpuLXs XXKvNHSSQV0CMHiuURP4HBJnsoDzdVQhMTvdNR0QRVVsryZjVpBxASIESSl+Bc1KUK1uw6VuHAheQFUq HR8jsu7BCMcCZdFyB8O6yKRqS0F0CFxeLf0VOFFdFXPySfHkRYAQZEmlXX4LOO6mimC7LP7MwNNzPVZn YNIswIVaNAq0B80szAUqDAnhKI0XYXQ+Berlin+Pg0KIC JqPPVsILUyDkHqMGSHJyRaT0YuK1BDf8HqN9DwZT30mYqlenXnJCxjDS7TWA9cWQNmYZGREJ7FxSSnwT 8ufnCaXoPgKSDENtRhA17jzTPyQLPdSAS5EVGpPp1TKFBqJ2TzngHxdBzcapAyROHfDXASPP5IUMxbkp XyrVBtuYmzQA08zRlqTD1BCi3PWwStEE5iux6WrYFu Xm2JDEHbPW3EVMKgXTRkNTKpASI5XLOoGjBfHAuqMIUuJWFvPNZ4RPGiDNMiUI4SUdBgHADuYoJ1RKIo YKJpUATtxn9PNOKkLWGdNeO6RsKtFHSqWCOxJJibNZZdBBFpQXL5AYVcBEZfIN4YYyTqOECrSJA3VkXp RZSkFUIytn2RZAHbSUYnHdViKkPlOAKiHJNjZWfnMU LwPGI9FCCmXEHfOOBqZG4PDkXtNLZqHNLkXZprTZIdKDAlhd9LENFyFLJoPPJ6EMDjTQTzONBdTWcsWM GcHNZ8LYX3LWIfLPUsNQ6XLxGuREIfUDk0WuhiPPKrRWGzal3CVALiWZWgUTsrMrZxFFUyHTJkCZoxBM JzTCH5KML0FZZfYVQoEM8PGfQgCGMqMML0WirpHNRg ZHEdcn3SMCKoBBIkIGV0UKIfTTClSJBcYDzzAPQaMNZnItA9RPAoJSGvVM4EBdWmOQRlLwK7IBldFRGb NAGgtk4CDWElQAEsLaDcVrYhUEHnCCEqSFxxFJNcYXTkEdMvAYJwPEJyEU3ZRuHbQYWfWnE6GnGiSGKu RDIzom5FAWHrGUQlGmYaSZLfASLdNEShXMatWFRmAE E1XOCuUULiYPHqRG4AImZjOSZwPvR0JPEdUSBpNBDrka8DMDPqMUSrWWcjUKLwFEYcDJIwWWyeUSGxIY A5VhN0VDHkTYFfGY6ZToSgMIPfBqO2BMxiNOYuKQDlnu2KLHEuKAOzXzf7XFGrEJMuSFXdDUqdUGLmZV K9RDGyGLNpJLUxIX2XCkRoWAkfHYPRNao7XQonP3k8 ALDkDV2QA2Kuh7BhNeabKBDDZKitJP2iecVeBSCmBm0TX5cNZwraMOYeKhEhEaWmIrS7NHAkKSA0VBKh IOT1CHB6VqEiNF4rLHB3T2E8LLIdQFBwXNasYyEvChoiGUMbDhFxCqu9QuJ8XxHsHX1LTp6RXxU8TCW9 xROoLn5NOzkfXksOQuRyRU8KADx= ID Date Data Source [id number] 04/06/2021 02:04:40 PM EDT [facility] Name Value Range Interpretation Code Description Data Ellen e(s) Supporting Document(s) Color of Urine [facility] Clarity of Urine [facility] Glucose [Mass/volume] in Urine by Test strip 500 mg/dL Negative A [facility] Bilirubin.total [Presence] in Urine by Test strip Negative [facility] Ketones [Mass/volume] in Urine by Test strip Negative [facility] Specific gravity of Urine by Test strip 1.020 1.005-1.025 [facility] Hemoglobin [Presence] in Urine by Test strip Negative [facility] pH of Urine by Test strip 6.0 5.0-8.0 [facility] Protein [Mass/volume] in Urine by Test strip Negative [facility] Urobilinogen [Units/volume] in Urine by Test strip 0.2 {Ehrlich_U}/ dL 0.2-1.0 [facility] Nitrite [Presence] in Urine by Test strip Negative [facility] Leukocyte esterase [Presence] in Urine by Test strip Negat viviana [facility] ID Date Data Source [id number] 03/31/2021 04:19:00 AM EDT [facility] Name Value Range Interpretation Code Description Data Ellen rce(s) Supporting Document(s) LAB Glucose,Fingerstick 131 mg/dL 70-110 Above high normal [facility] ID Date Data Source [id number] 03/30/2021 09:22:00 PM EDT [facility] Name Value Range Interpretation Code Description Data Ellen rce(s) Supporting Document(s) Sodium 139 mmol/L 137-145 Normal (applies to non-numeric resul ts) [facility] Potassium 3.5-5.1 Normal (applies to non-numeric resul ts) [facility] Specimen hemolyzed, interpret with care. Chloride 108 mmol/L 98-112 Normal (applies to non-numeric resul ts) [facility] Carbon Dioxide CO2 22.0-33.0 Normal (applies to non-numer ic results) [facility] Anion Gap 4.0-11.0 Normal (applies to non-numeric resul ts) [facility] BUN 15 mg/dL 7-17 Normal (applies to non-numeric resul ts) [facility] Creatinine 0.70-1.20 Below low normal [facility] GFR >60 Normal (applies to non-numeric results) [facility] Result based on MDRD formula. Glucose Level 188 mg/dL 74-99 Above high normal [facility] The reference range is only applicable w hen fasting. Calcium-Uncorrected 8.4-10.2 Normal (applies to non-nume valerio results) [facility] Corrected Calcium 8.4-10.2 Normal (applies to non-numeri c results) [facility] Bilirubin,Total 0.2-1.3 Normal (applies to non-numeric results) [facility] SGOT(AST) 35 U/L 14-36 Normal (applies to non-numeric resul ts) [facility] SGPT(ALT) 46 U/L 9-52 Normal (applies to non-numeric resul ts) [facility] Alkaline Phosphatase 73 U/L 38-126 Normal (applies to non-num jeferson results) [facility] can increase Alkaline Phosp le vels up to 2 times the normal adult value. Normal values for children and adolescents are 2 to 3 times the normal adult value. Total Protein 6.3-8.2 Normal (applies to non-numeric re sults) [facility] Albumin 3.5-5.0 Below low normal [facility] ID Date Data Source [id number] 03/30/2021 09:22:00 PM EDT [facility] Name Value Range Interpretation Code Description Data Ellen rce(s) Supporting Document(s) Uric Acid 2.6-6.0 Normal (applies to non-numeric resul ts) [facility] ID Date Data Source [id number] 03/30/2021 09:16:00 PM EDT [facility] Name Value Range Interpretation Code Description Data Ellen rce(s) Supporting Document(s) PT 9.4-12.5 Normal (applies to non-numeric results) [facility] INR Normal (applies to non-numeric results) [facility] The use of the INR is restricted to damion ents on stable oral anticoagulant. Therapeutic Range: 2.0-3.0 High Risk Values: 2.5-3.5 ID Date Data Source [id number] 03/30/2021 09:16:00 PM EDT [facility] Name Value Range Interpretation Code Description Data Ellen rce(s) Supporting Document(s) PTT 25.1-36.5 Below low normal [facility] ID Date Data Source [id number] 03/30/2021 09:04:00 PM EDT [facility] Name Value Range Interpretation Code Description Data Ellen rce(s) Supporting Document(s) White Blood Count 4.8-10.8 Above high normal [facility] Red Blood Count 3.68-5.22 Normal (applies to non-numeric results) [facility] Hemoglobin 11.2-15.7 Normal (applies to non-numeric resul ts) [facility] Hematocrit 34.1-44.9 Normal (applies to non-numeric resul ts) [facility] Mean Corpuscular Volume 81-99 Normal (applies to non- numeric results) [facility] Mean Corpuscular Hemoglobin 27.0-33.0 Normal (appli es to non-numeric results) [facility] Mean Corpuscular HGB Conc 32.0-36.0 Normal (applies to no n-numeric results) [facility] Red Cell Distribution Width 11.5-14.5 Normal (appli es to non-numeric results) [facility] Platelet Count 244 X10 3/uL 130-450 Normal (applies to non-numeric results) [facility] Mean Platelet Volume 9.5-12.7 Normal (applies to non-num jeferson results) [facility] Imm Grans% (AUTO) 1 % 0-2 Normal (applies to non-numeri c results) [facility] Neutrophils % (AUTO) 59 % 40-75 Normal (applies to non-num jeferson results) [facility] Lymphocytes % (AUTO) 27 % 21-46 Normal (applies to non-num jeferson results) [facility] Monocytes % (AUTO) 13 % 5-12 Above high normal [facility] Eosinophils % (AUTO) 1 % 1-5 Normal (applies to non-num jeferson results) [facility] Basophils % (AUTO) 0 % 0-1 Normal (applies to non-numer ic results) [facility] Imm Grans# (AUTO) 0.0-0.5 Normal (applies to non-numeri c results) [facility] Neutrophils # (AUTO) 1.5-8.1 Normal (applies to non-num jeferson results) [facility] Lymphocytes # (AUTO) 1.0-3.1 Above high normal [facility] Monocytes # (AUTO) 0.2-1.3 Above high normal [facility] Eosinophils# (AUTO) 0.0-0.5 Normal (applies to non-nume valerio results) [facility] Basophils # (AUTO) 0.0-0.1 Normal (applies to non-numer ic results) [facility] ID Date Data Source [id number] 04/01/2021 09:47:00 AM EDT [facility] Name: NICHO AU : 2000 Age/Sex: 20F Ordering Provider: Mellissa Ma MD Med Rec #: [id number] Reg Status: DEP REF Room #: Date of Service: 03/30/21 Report Number: [id number] cc:Melvin Rodgers MD; Mellissa Ma MD Send Report To: [id number] US/US Duplex Lower Ext Veins Lt Reason [...] Oh Colby MD> 04/02/21 1135 Dictation Date/Time: 03/30/217 Transcribed Date/Time: 04/01/21 0957 Property Field Inspector: SATHISH Name Value Range Interpretation Code Description Data Ellen rce(s) Supporting Document(s) ID Date Data Source [id number] 03/30/2021 09:46:00 PM EDT [facility] Name Value Range Interpretation Code Description Data Ellen rce(s) Supporting Document(s) Creatinine,Ur Random Normal (applies to non-num jeferson results) [facility] No established reference values Total Protein,Urine Random Normal (applies to n on-numeric results) [facility] No established reference values UrTotal Protein/Creat Ratio Normal (applies to non-numeric results) [facility] No established reference values ID Date Data Source [id number] 03/30/2021 09:28:00 PM EDT [facility] Name Value Range Interpretation Code Description Data Ellen rce(s) Supporting Document(s) Color,Urine Yellow Normal (applies to non-numeric resu lts) [facility] Clarity,Urine Clear Normal (applies to non-numeric re sults) [facility] Specific [place],Urine 1.001-1.030 Normal (applies to non- numeric results) [facility] PH,Urine 5.0-8.0 Normal (applies to non-numeric resul ts) [facility] Protein,Urine Negative Normal (applies to non-numeric re sults) [facility] Glucose,Urine (UA) Negative [facility] Ketones,Urine Negative [facility] ospital Blood,Urine Negative Normal (applies to non-numeric resu lts) [facility] Bilirubin,Urine Negative Normal (applies to non-numeric results) [facility] Urobilinogen,Urine Norm 0.2-1 Normal (applies to non-numer ic results) [facility] Leukocyte Esterase,Urine Negative Normal (applies to non -numeric results) [facility] Nitrite,Urine Negative Normal (applies to non-numeric re sults) [facility] ID Date Data Source [id number] 03/29/2021 02:34:19 PM EDT [facility] Name Value Range Interpretation Code Description Data Ellen rce(s) Supporting Document(s) Progress Note [facility] RABMCi9sDxYBTkVr31/RJRtvWDPfc5TnETdlMGi9QIbyPVYxU5ThMJY6bD3oSDH5AHrKCjIiEiXoCZC7 lbm [file] AgICAgICAgICAgICAgICAgICAgICAgICAgICAgICAgICAgICAgICAgICAgICAgICAgICAgICAgICAgIC AgICAgICAgICAgICAgICAgICAgICAgICAgICAgICAg ICAgICAgICANCiAgICAgICAgICAgICAgICAgICAgICAgICAgICAgICAgICAgICAgICAgICAgICAgICAg ICAgICAgICAgICAgICAgICAgICAgICAgICAgICAgICAgICAgICAgICAgICAgICAgICANCiAgICAgICAg ICAgICAgICAgICAgICAgICAgICAgICAgICAgICAgIC AgICAgICAgICAgICAgICAgICAgICAgICAgICAgICAgICAgICAgICAgICAgICAgICAgICAgICAgICAgIC ANCiAgICAgICAgICAgICAgICAgICAgICAgICAgICAgICAgICAgICAgICAgICAgICAgICAgICAgICAgIC AgICAgICAgICAgICAgICAgICAgICAgICAgICAgICAg ICAgICAgICAgICANCiAgICAgICAgICAgICAgICAgICAgICAgICAgICAgICAgICAgICAgICAgICAgICAg ICAgICAgICAgICAgICAgICAgICAgICAgICAgICAgICAgICAgICAgICAgICAgICAgICAgICANCiAgICAg ICAgICAgICAgICAgICAgICAgICAgICAgICAgICAgIC AgICAgICAgICAgICAgICAgICAgICAgICAgICAgICAgICAgICAgICAgICAgICAgICAgICAgICAgICAgIC AgICANCiAgICAgICAgICAgICAgICAgICAgICAgICAgICAgICAgICAgICAgICAgICAgICAgICAgICAgIC AgICAgICAgICAgICAgICAgICAgICAgICAgICAgICAg ICAgICAgICAgICAgICANCiAgICAgICAgICAgICAgICAgICAgICAgICAgICAgICAgICAgICAgICAgICAg ICAgICAgICAgICAgICAgICAgICAgICAgICAgICAgICAgICAgICAgICAgICAgICAgICAgICAgICANCiAg ICAgICAgICAgICAgICAgICAgICAgICAgICAgICAgIC AgICAgICAgICAgICAgICAgICAgICAgICAgICAgICAgICAgICAgICAgICAgICAgICAgICAgICAgICAgIC AgICAgICANCiAgICAgICAgICAgICAgICAgICAgICAgICAgICAgICAgICAgICAgICAgICAgICAgICAgIC AgICAgICAgICAgICAgICAgICAgICAgICAgICAgICAg ICAgICAgICAgICAgICAgICANCjw/pNUbN9tdzITjsvC1K5dkVu5KPx4XFQ7kp8SmTUDzWWlwdtRhLppV DyCwQSPfVhzFXvk9QYkrBR6YvDAaF0FqO4HsISbpLS6XHNKuJIJdyHSeBYKfNPUcYkL8BSBnKVcjEI9F iEOnTPjrLYDrBVHxGmIbECOtGZ4XXVBgX903snSjRi 4QOm9RQdLnVB6egl2EIrQgJFRjOvxUXhh9ZEytNC6UzWNnvRBsEjZrKNTENrTwK2fsd8OyQwLgAOAZUL qaAI7Gg5QjiQZiWBq+Ml2IPV0ty0OpKCawNeMdUA0jdr0EJXmWDhEaI4EqjKczLAWji0qhQYHbHV8ttY QoOWL2BCWxhWu4ykjrdgAZUQ3uw5Fvs5ckGJ3lyVYg CD1MFET3JRVtCT2mOIJyDUQuHzNhXKAUSK5ZDUWxDCCuxZZwAIYzXKWGCJ9NIQkuBLB2PQCjabNukOZe GDswUX5KMITyqkIhOsEvMVTXOZb+Bd8FKL1yz5NsVPknHkTmYS5nno3BDKyPLeQmX3N6dBHhB4H2ZPrd Vm9QCZRuCKGnAUofJWPHQOlfNK0OQV3gvrE1VE8EdX XtIBCyKWOvlWUzGUo1V40glQVcCAnrQZ3WAOW+Berlin+Pb8AZQRmNMKrWCNhDpNvGVGBKyIcR6UyH0ALr2 UsR0HyCU74uBralrWzHVrkYE8DWE3pKMGoFYFQWO7QhALsqC7okoEuIVZoVYPZAlSuW37arNCpSDIpZW FhCFSyNn5JWJRlD0PgniMkeDistxQkNPYfLYGHEM1B YNpejrDhcZRctTniLP99wBfcGA0CKl9RGqGnGY0aad4HwPOvGc0JXYFgNL5XVQUhMIUwYQTgMFK3OXJm WwQfKPadVJVrCUPvQUO0KHKmQGOhUY9DDaDmGROxQDd6RPNkIXBfFYSmvp2WOGWmDASzOCR5GXXgBNSr IPGoJHeqFRFzKVDoPIK2LVCsJJIgPG4SYfBiERDiCV A6CROtZYHqKKArfv2YGEWaFJJyQlG3VYNlEQPdZIGjHIswEEWeGWM6YxznJQVcKNTxKP3NKsXeNWUjXM I4DNXhBKAdAHYfsw9HPXFtMWKvEGR7GZGcDZEgGVSpESeaJXDsPJW8CwGrINKhQPDoEJ5XSaEzMRBoSS U5MqHcNPLjSSTyxn5RVEEhAHEnQdz4SCAlPDXvOVEf NUraPMCfMHA3LVefTPNmRNTgMK5DTlKmPGVcSAzaXhWnTRNfROCfav4QBOKsDSFyCONzVVHyJJWyFYZn KKhhINKhKGY1ZKY6UWDpEFNsBA6SZfPtPGZpXBxaFoImTWTrYCSmpg0CKNXwYCNbBED4STDzNXWpEHUe SVapNIBgZZN6HVRqUBGpQIYiNG7APjVjCRMgEAs7Ja FoBRMkQXAwey1NJOBmUEZzMHW5ZEBtYMTuXVHoUPzqVRUqQVSqDXL4PLQoYHIjDJ3SJyVqLSWjAwY7QG RpRSFtXWGjhd5HgQYdmBiyuq0DZShRCu4YdCrxZLX0KScqYr3peYCiPrKuBDMTDs4GlfNpBWApLXTJLG spJLQxLIB5NVVhRZv5ZFlyEAz6NLK5SaN8YwXxLWD8 CmAmKORmUgK6VzG2SOD9Wbl8HPCqOgwhOBizRPh1UAX8LVNxMoF1VYQ+JZ3wGBp+Ef0Uu0OslvB6gbQr EWseTWq7TJ8KNBZDM3ZWAe== ID Date Data Source [id number] 03/29/2021 02:34:14 PM EDT [facility] Name Value Range Interpretation Code Description Data Ellen rce(s) Supporting Document(s) Progress Note [facility] OHDTAk2oGtPOBxOk09/JCMntQDHmp8XoXWddTXv7GFtfNRCzA2KzULC3uM0wSRH9HRjTRyGbTmAyARQ0 lbm [file] TBAaQrJhNwkmHPIxIYnkNuBrIT4GGa3YLyM7ELQ3xBDiUb5PMtVvPazLZrJpAX2XIWk= ID Date Data Source [id number] 03/28/2021 11:19:22 AM EDT [facility] Name Value Range Interpretation Code Description Data Ellen rce(s) Supporting Document(s) Color of Urine [facility] Clarity of Urine [facility] Glucose [Mass/volume] in Urine by Test strip 500 mg/dL Negative [facility] Bilirubin.total [Presence] in Urine by Test strip Negative [facility] Ketones [Mass/volume] in Urine by Test strip 80 mg/dL Negative A [facility] Specific gravity of Urine by Test strip 1.020 1.005-1.025 [facility] Hemoglobin [Presence] in Urine by Test strip Negative [facility] pH of Urine by Test strip 6.0 5.0-8.0 [facility]st [facility] Protein [Mass/volume] in Urine by Test strip Negative [facility] Urobilinogen [Units/volume] in Urine by Test strip 0.2 {Ehrlich_U}/ dL 0.2-1.0 [facility] Nitrite [Presence] in Urine by Test strip Negative [facility] Leukocyte esterase [Presence] in Urine by Test strip Negat [facility] ID Date Data Source [id number] 03/21/2021 09:56:49 AM EDT [facility] Name Value Range Interpretation Code Description Data Ellen rce(s) Supporting Document(s) Progress Note [facility] TCSPHx4eWnXTCfCa54/YEClhUYRrr6VdIGtvXTw9CKftNYYhH3BbKEA1zW5wBZM3LUxZJoKwHxLgWUG9 lbm XuTlnFEuJnYRPiNltRCkPlPGslYqlhnWIrYI6DrCQ1TFVwY04sOQRhDMVqQ4NlDXTyDjk+Hp2EYTThhV WcTT4CAssX0B5ko3rHGw0vPY8PhQR9vXNawXR7EFkDSOy98zdmUVzJvkWB3BYjRDe5tteulZd/pj91KV 3lzqJ7la60fWnm7UE4LCJi3gbpcEsX69l/mwS172o3 /34gkmX6z4p44r9028kSnrqP+k/2EHlB+8pAgholQzL23Pmtc80lvc5t6LzmHFh26alCuX3NX28x [file] 0sSEHBTv8+CYdewIVijPtkYRUHWuPuIQR2MRtfPEWDFm1U ID Date Data Source [id number] 03/16/2021 09:04:00 PM EDT [facility] Name Value Range Interpretation Code Description Data Ellen rce(s) Supporting Document(s) ANTIBODY SCREEN NEGATIVE Normal (applies to non-numeric results) [facility] ID Date Data Source [id number] 03/16/2021 06:53:00 PM EDT [facility] Name Value Range Interpretation Code Description Data Ellen rce(s) Supporting Document(s) White Blood Count 4.8-10.8 Normal (applies to non-numeri c results) [facility] Red Blood Count 3.68-5.22 Normal (applies to non-numeric results) [facility] Hemoglobin 11.2-15.7 Normal (applies to non-numeric resul ts) [facility] Hematocrit 34.1-44.9 Normal (applies to non-numeric resul ts) [facility] Mean Corpuscular Volume 81-99 Normal (applies to non- numeric results) [facility] Mean Corpuscular Hemoglobin 27.0-33.0 Normal (appli es to non-numeric results) [facility] Mean Corpuscular HGB Conc 32.0-36.0 Normal (applies to no n-numeric results) [facility] Red Cell Distribution Width 11.5-14.5 Normal (appli es to non-numeric results) [facility] Platelet Count 271 X10 3/uL 130-450 Normal (applies to non-numeric results) [facility] Mean Platelet Volume 9.5-12.7 Normal (applies to non-num jeferson results) [facility] Imm Grans% (AUTO) 1 % 0-2 Normal (applies to non-numeri c results) [facility] Neutrophils % (AUTO) 61 % 40-75 Normal (applies to non-num jeferson results) [facility] Lymphocytes % (AUTO) 27 % 21-46 Normal (applies to non-num jeferson results) [facility] Monocytes % (AUTO) 11 % 5-12 Normal (applies to non-numer ic results) [facility] Eosinophils % (AUTO) 1 % 1-5 Normal (applies to non-num jeferson results) [facility] Basophils % (AUTO) 0 % 0-1 Normal (applies to non-numer ic results) [facility] Imm Grans# (AUTO) 0.0-0.5 Normal (applies to non-numeri c results) [facility] Neutrophils # (AUTO) 1.5-8.1 Normal (applies to non-num jeferson results) [facility] Lymphocytes # (AUTO) 1.0-3.1 Normal (applies to non-num jeferson results) [facility] Monocytes # (AUTO) 0.2-1.3 Normal (applies to non-numer ic results) [facility] Eosinophils# (AUTO) 0.0-0.5 Normal (applies to non-nume valerio results) [facility] Basophils # (AUTO) 0.0-0.1 Normal (applies to non-numer ic results) [facility] ID Date Data Source [id number] 03/12/2021 03:23:52 PM EDT [facility] Name Value Range Interpretation Code Description Data Ellen rce(s) Supporting Document(s) Progress Note [facility] VWEJGn3aDaXZPoAn01/WKCwlXVIfd5CsROjlVXl3ESrhQIThT0OiPQZ2iL3aJOU2RMmHZbNuWaMpCRT9 lbm [file] 4+GBbwoJBgrBypTNVALzDzYgU9CBvwRNJAOe3I ID Date Data Source [id number] 03/12/2021 10:09:43 PM [facility] Name Value Range Interpretation Code Description Data Ellen rce(s) Supporting Document(s) Protein [Mass/volume] in Urine 8 mg/dl [facility] Creatinine [Mass/volume] in Urine 50.8 mg/dL [facility] Protein/Creatinine [Mass Ratio] in Urine 0.16 mg/mg{creat} [facility] ID Date Data Source [id number] 03/12/2021 04:12:57 PM [facility] Name Value Range Interpretation Code Description Data Ellen rce(s) Supporting Document(s) Leukocytes [#/volume] in Blood by Automated count 10.3 10*3/uL 4.5-13 [facility] Erythrocytes [#/volume] in Blood by Automated count 4.37 10*6/uL 4.1- 5.3 [facility] Hemoglobin [Mass/volume] in Blood 12.9 g/dL 11.5-15.5 [facility] Hematocrit [Volume Fraction] of Blood by Automated count 38.5 % 3 6-45 [facility] Erythrocyte mean corpuscular volume [Entitic volume] by Auto mated count 88.0 fL 80-96 [facility] Erythrocyte mean corpuscular hemoglobin [Entitic mass] by Automated count 29.5 pg 27-33 [facility] Erythrocyte mean corpuscular hemoglobin concentration [Mass/volume] by Automated count 33.5 g/dL 32.0-36.0 [facility] distribution width [Ratio] by Automated count 13.1 % 11.5-14.5 [facility] Platelets [#/volume] in Blood by Automated count 244 10*3/uL 150-400 [facility] Differential cell count method - Blood [facility] Neutrophils/100 leukocytes in Blood by Automated count 63 % [facility] Lymphocytes/100 leukocytes in Blood by Automated count 26 % [facility] Monocytes/100 leukocytes in Blood by Automated count 10 % [facility] Eosinophils/100 leukocytes in Blood by Automated count 1 % [facility] Basophils/100 leukocytes in Blood by Automated count 0 % [facility] Neutrophils [#/volume] in Blood by Automated count 6.55 10*3/uL 1.8-7 .0 [facility] Lymphocytes [#/volume] in Blood by Automated count 2.66 10*3/uL 1.2-4 .0 [facility] Monocytes [#/volume] in Blood by Automated count 1.00 10*3/uL 0-0.8 H [facility] Eosinophils [#/volume] in Blood by Automated count 0.07 10*3/uL 0-0.5 [facility] Basophils [#/volume] in Blood by Automated count 0.02 10*3/uL 0-0.2 [facility] Nucleated erythrocytes/100 leukocytes [Ratio] in Blood by Automated count 0 /100{WBCs} 0-0 [facility] ID Date Data Source [id number] 03/12/2021 04:35:52 PM [facility] Name Value Range Interpretation Code Description Data Ellen rce(s) Supporting Document(s) Lactate dehydrogenase [Enzymatic activit y/volume] in Serum or Plasma by Lactate to pyruvate reaction 150 U/L 122-214 [facility] ID Date Data Source [id number] 03/12/2021 04:35:52 PM [facility] Name Value Range Interpretation Code Description Data Ellen rce(s) Supporting Document(s) Albumin [Mass/volume] in Serum or Plasma by Bromocresol green (BCG) dye binding method 3.4 g/dL 3.5-5.2 [facility] al Bilirubin.total [Mass/volume] in Serum or Plasma 0.3 mg/dL <1.2 [facility] Calcium [Mass/volume] in Serum or Plasma 9.4 mg/dL 8.6-10.0 [facility] Chloride [Moles/volume] in Serum or Plasma 102 mmol/L 98-107 [facility] Creatinine [Mass/volume] in Serum or Plasma 0.48 mg/dL 0.50-0.90 L [facility] Glucose [Mass/volume] in Serum or Plasma 126 mg/dL 70-140 [facility] Alkaline phosphatase [Enzymatic activity/volume] in Serum or Plasma 62 U/L 35-104 [facility] Potassium [Moles/volume] in Serum or Plasma 4.0 mmol/L 3.4-5.1 [facility] Protein [Mass/volume] in Serum or Plasma 6.9 g/dL 6.4-8.3 [facility] Sodium [Moles/volume] in Serum or Plasma 134 mmol/L 136-145 L [facility] Aspartate aminotransferase [Enzymatic activity/volume] in Serum or Plasma 23 U/L <32 [facility] Urea nitrogen [Mass/volume] in Serum or Plasma 15 mg/dL 6-20 [facility] Osmolality of Serum or Plasma by calculation 280 mosm/kg 275-300 [facility] Creatinine/Urea nitrogen [Mass Ratio] in Serum or Plasma 31 [facility] Bicarbonate [Moles/volume] in Serum 20 mmol/L 22-29 L [facility] Alanine aminotransferase [Enzymatic activity/volume] in Seru m or Plasma 32 U/L <33 [facility] Anion gap 3 in Serum or Plasma 12 mmol/L 8-15 [facility] Glomerular filtration rate/1.73 sq M pre dicted among non-blacks [Volume Rate/Area] in Serum or Plasma by Creatinine-based formula (MDRD) >6 0 [facility] Glomerular filtration rate/1.73 sq M pre dicted among blacks [Volume Rate/Area] in Serum or Plasma by Creatinine-based formula (MDRD) >60 [facility] ID Date Data Source [id number] 03/12/2021 04:35:52 PM [facility] Name Value Range Interpretation Code Description Data Ellen rce(s) Supporting Document(s) Urate [Mass/volume] in Serum or Plasma 3.9 mg/dl 2.4-5.7 [facility] ID Date Data Source [id number] 03/12/2021 04:20:28 PM [facility] Value Range Interpretation Code Description Data Ellen rce(s) Supporting Document(s) Hemoglobin A1c/Hemoglobin.total in Blood by HPLC 9.0 % 4.0-6.0 H [facility] (NOTE)<5.7% Average risk of diabetes (ADA)5.7-6.4% Increased risk of diabetes(ADA)>/= 6.5% Diagnostic for diabetes(ADA) Glucose mean value [Mass/volume] in Blood Estimated fr om glycated hemoglobin 210 mg/dL <126 H [facility] ID Date Data Source [id number] 03/12/2021 10:55:53 AM [facility] Name Value Range Interpretation Code Description Data Ellen rce(s) Supporting Document(s) Color of Urine [facility] Clarity of Urine [facility] Glucose [Mass/volume] in Urine by Test strip 500 mg/dL Negative [facility] Bilirubin.total [Presence] in Urine by Test strip Negative [facility] Ketones [Mass/volume] in Urine by Test strip Negative [facility] Specific gravity of Urine by Test strip 1.025 1.005-1.025 [facility] Hemoglobin [Presence] in Urine by Test strip Negative [facility] pH of Urine by Test strip 6.0 5.0-8.0 [facility] Protein [Mass/volume] in Urine by Test strip Negative [facility] Urobilinogen [Units/volume] in Urine by Test strip 0.2 {Ehrlich_U}/ dL 0.2-1.0 [facility] Nitrite [Presence] in Urine by Test strip Negative [facility] Leukocyte esterase [Presence] in Urine by Test strip Negat viviana [facility] ID Date Data Source [id number] 03/11/2021 02:41:12 PM EDT [facility] Name Value Range Interpretation Code Description Data Ellen rce(s) Supporting Document(s) Progress Note [facility] UYGACz3gEdFQPdJb02/UFBjrXNYim5CmKAarQFv0MNunJKKzL2OxDEU7bH4tETY9LQbSSwPpMvEjDOI3 lbm QgFijMHdKrNOQrVldCDuVwKAcgLjirdPLpQE2BaEN9CVGxM29aKYUpNRDnP5ThBFT0YzS+Ux1ZIJRrgX RyRB2CWlzI3G1iikz5Ql0bbB7ZgFSMO5ZVpgc6JEUZkvKiY5HeZ8dSTb5TL58fP30Fgx0m7v+ndV9f9j ZM/LGf18a2z+CQGkIiPtnyRue0ByD//SwOkygIArH+ //7PJFPidiL+/KznyCuQ608l/wUZrRxvHILayuH7WmvEL2p7vIPUCLqthgZoNcizfaX2eYQKqVff/vWV 8KxiCBiMPaKHkAWwR0WpdnXASO03+E0PAqSPRPXtOw+PlW3VaIU1paRujSahkl1Zfh8mqBWVOhmi89xn 2NgEeWTB6gjhwPqUIHBJUSWXLxtly7MRXU0KtBKls0 9K+TMCqNslGPKXo0qvPgjwKR56RljtEj+RS5+DLhNqUCLkm3U7kzVRo5eND0DeEKE2Z557YNMLim6Sau eB920h3cjLq5UbpvVkMLlOLTFxb9VfkxLEPkzjr0vDhEv9YP6n4HF3hSkhoqw5WgbqVvjbMtNHjGPeFq IMw0IH5I/86oegqmMX9oMlcE58R1nVEabsyLLGBA5h 87BJEnt707I5EihTS1AFZ7Ux5Bx/8G5GPHQ7AkOu1UAp7KQVUhNSQkswFzvskj/0jxdH3ksgGPPzqOg4 ozeyCjxhfkhOUZRsBYSTXm+uOwnID4QyuXfAIkLgt8safbY7kSpdMlVmtoj8rAIBl6/Zw9Oef8uXWGnV y5YUuyJiDSEIp4uAxHiSOuXTOfuurNsY3MfZhq++nU 2ac3VPNYKufXikiM6C07Yop9EM4Uthyz5MS/O8n8/nee/vfMocdi8CVBoX+K70aBgJcC/UsKJb8TZ744 D83PyNPhKkKEG8WhMUJ9zobbPQSLuUm4HtFGlM4C5xnFnzHnQtgd+jlCxhWJBcR/LuMhd/FZ2R/4oljJ XOkZ1CppLnmPKxwOft2gVj5x26pre92O4bq7238097 [file] 4+UKvjfNHcnQyqJHYFYxTfNgP9GAcwLUXBFg6X ID Date Data Source [id number] 01/22/2021 02:21:23 PM [facility] Name Value Range Interpretation Code Description Data Ellen rce(s) Supporting Document(s) Progress Note [facility] QEAWMa1tCaNDFxYb95/NEActLROel4KmQDafGZr1JPtsZRXvA8XxMXD8pG2eBRR1LAnBWaCpAeSyJvGu lbm [file] TZeI9mYA8K7vgLLKALPD5nKD5PsvSwiabXDJeF+iEueKFXq9HZdci7+AZQ/PEooxpBe8WxMRKHge++patiño [file] IT INFRASTRUCTURE ARCHITECT+Pd3XIFVnTWc6R1M1DPYrRBl6R0HVX2UETMHiWVbsSNdbVYYsCIf2F6U2DZXjT8LOO7Izlpgopl6+ VP7HB25VBLZqWOh2O3Z6gKAoH2O1cEeAnFJ9DF1PPE 6NzIc0hWXczA5+TH5AQ5XASwKaLBd8S6H0hHNrY4N8bVwWnDY9IB5QII3ShVJnREZuzqTxTy8aO6OQSQ cCAhCZKFM7ZX0BxYDvHH0FtRCEN8CcqIPpJf3cSMwnfNEnzV5cUs8bCZxjRC6AReAWUElSLSC5QA8CnC MbGN3KaAUIJ4SzpLSfUy1yELrwvGMhnb6+WS9KQJGw Jf3RPx0+ACbccbOaQurABfO0MKYos9RxBWm1IQ3SWM0okJbpKQD8Pe6QlHA7wOHzO1hYJD1LoJZaJ76a xIKuKJYuTr3CGoC4juVtjP1BRL27kQJpc2I0AXZfG5iiGXgbt04nHGvoAMyJKT6oNZHIDJntKNwuHIC0 AeMwpgaqBGWjRf6VMtAfGFy3lF0kvXL8IJO2DofwlW ApAVrfFtSdQtWlAuR7kSqrcjt6WQjjWE8yQSpcfnyzBLEdCoh+XWejWVCmRUUoRroZRIKreC3nzkB8qs BfGYaehSSrPw7oa5q4LzxoSl3zGz6oFHe0MgUoBqKcAYZlCr1atV63EObydrGfCo8JZvMhUNC7V6MhPl pSREY+QNkzGGwmqBt9dFFdMPDhNx6QQBVdRQTcVOHa ICAgICAgICAgICAgICAgICAgICAgICAgICAgICAgICAgICAgICAgICAgICAgICAgICAgICAgICAgICAg LTZmUNIbGORjMTUzQJAsWXLxBGKjFLGgDDBqNCXnQF3XCEFmAEFfWHArYMKfRDYsXTJaJDSlFACqZYTc ICAgICAgICAgICAgICAgICAgICAgICAgICAgICAgIC XjRIOgBFNsHQMbZKAiWAQzBWAsKJKkMNGhMBIyBLJiZDPoGFUeKGOjUM8SQNXfFGBrCRSjRQMiNBAoQE AgICAgICAgICAgICAgICAgICAgICAgICAgICAgICAgICAgICAgICAgICAgICAgICAgICAgICAgICAgIC GmFGVpSJHsATGaVKDhJQWaZLSuVSXhJO3QFFQuSQCm ICAgICAgICAgICAgICAgICAgICAgICAgICAgICAgICAgICAgICAgICAgICAgICAgICAgICAgICAgICAg SNDmPIHtRPBzNQTuPWRzALZtIHEdFQTmLSHqBPFfUBNoBO4BWMAyUPDhPUGnSRQmQGXlHEEiOPEjVLHl ICAgICAgICAgICAgICAgICAgICAgICAgICAgICAgIC ZeATPzQIOeNRZeEHTrNKAqDQTtMLVpRBNeGCBeGRFsPLYrJQRlYSQqBAEwNE5LZJMfRWZoIQVmSLNsXP AgICAgICAgICAgICAgICAgICAgICAgICAgICAgICAgICAgICAgICAgICAgICAgICAgICAgICAgICAgIC JwPPBgVSWrZGVrXCUbIGTeIJImOWZnOAFfRW4QBYPu ICAgICAgICAgICAgICAgICAgICAgICAgICAgICAgICAgICAgICAgICAgICAgICAgICAgICAgICAgICAg IQJaVFNbYYByJDWjMFHlSLYwSDQkMAWhEXMgAMSoETXaFCWuZC3SZVItRNVbOEAjGQDcWZQaVPDeBKQz ICAgICAgICAgICAgICAgICAgICAgICAgICAgICAgIC CfIQGiEXLaYJMvYQIqFOBlLKErHBUcKODdMINkDOQgQQUoXERwUPHmCYZwYGJqRM5WSEMaFYEkQGYePK AgICAgICAgICAgICAgICAgICAgICAgICAgICAgICAgICAgICAgICAgICAgICAgICAgICAgICAgICAgIC WwMRVgFRWuBHEyYWQiEPMzIWPoCLSgBXLeIQFfGT1Z ICAgICAgICAgICAgICAgICAgICAgICAgICAgICAgICAgICAgICAgICAgICAgICAgICAgICAgICAgICAg VDJzNWSjFHPrFFViPLYjPUGoJCWdFWObEXOoLIZlCFOfHLSqXJLtCD0LKE47zVPfs5I8AJMvRK0jcax/ Bt1OAMcibkMiuKEwOR2SVlTqRM9vyy6STyAjHG4xaq 9AMSnXQjAaP1D1mECiPEJjWJLFGjOrO01vGFzbEb01KWqqZWJzYxEoZWu4Qi2LRhTwI8hdCIIvRsQ5RK NpZrT7VGMaJuF3JHJuTaHxGWszMU0Fo2WpcPQdDKi+Sz5SZN6xp7OoXIiuJnXiUS7ule2MJApRArTcC1 HlplW7VRT2JGGdHc0VEPFrXRPkaKTyIvZvIFRYMmDe B0IwvZ30UOEGAu9+SEvgzzDhFyoZYpO4CNAbb1UgLFb2IN0VYOUcGEg3vKKoEAFiV7Vmt0MsVl55PQNb BqslXsYacIKpbyTPEN3mxWpcjbkuMfRxIBCKFownY7EEMJG8QMFrAJ5cCUUfFNUkIqMpALGUOP0SANUn RIOypNGsFRCsWZHVGG9AGMviSMG7UPAhceDryQByDU oaQS8XECHkorFrFcFpVNXUDEi+Iz9CWU2oz8QeVWrxEWWtJJ7ftq8WGVjEBhTqJ4M5dBJgJ5U4YFanSa 5ADBWtLSWdZgDeTMADTEmlXN6DKH8vqmE8SU3ZdOJiIZYgCLPvdLIcFDy3B91crLMyONwvGQ3FWSU+Pi A+Hb4PXFEvXZHwSXUzPvQaORHCJdCgX0XwP9UUz6Xt A8FoZM79iXcabqUkPRlaVM5SXN3dFDEePUAKSO5UoIKybK3ovtHrUcUgCKNUWnZaS37lrAMpMERuMNG9 FEPiOt2OZDSnN0YhyeHbxGuureYnADAfJZBWBS7CBGhompVgsFLazTtbDP74mJszXQ5UAi4BMmTuBI4j pu2VrDMnAq4EOVJqDN0PVIAzSUDeRLXyFQB9ARCwWg RtMMttDYPvFNLtUDY0FYYxQBTxHW7TMxOiQELdJmMnVEPhWFLuXWUhuj3UUIXcUOQgGGUfJFBgRTAwNQ LsSZlnZITpDEIwOFQ8BZReTWIoOD2AKuArKTLjPIB3RLhjRIIoIIPvqw0RSUXfRBAtEgpmKmPgDFWsAB BjJQykWAYyXJM3KSJ1LDGgWVQuCH1LMbXdLREhZSap PyxiQZBbPFUnik7NOHFcKOAkZJgmKFUgNOOfABObMVcxIPXhDQH9XRC4DSViVEGkDI9ZEnWdCWKtOKU6 RkTaDOGlKFCoab9FKKOiVDBeKNQ3ZDYoTEXhCDCmVSkxNDOoJCBeAaH9HWLsSYRhUR1KNvXiLVUyIEZf QRCbLPUfKQFnqf5QGNFyNUIlKrIcOFBtJPScYSOeAG vvPKGjUPScULfwVTWjEGWgCJ9SEyCnMPPhOhBuLrZmQDUlQSCcza7KFDTjZCAfHEE4BARlDYJxMECxFM xtVUMoHBH8JKV5YSHfFONmCM3IXlQuMNDvPxP9XPwrUQOeJWUayd0KFHKmENXwJXd6AhXcCDZjCUKzHL qdXDOwTET8ENj3JFHhIETbMN8REoGcNBQsLyIyDMRm QSMaYPEdyu2MJTMaPROiEeA9DsQxQHLdAIInNVwfEYYjKXV4HiifOMIoXPPjGX8DDgJjTKYvAgcjZsTy OENnVDBynx8KJTZdZBNpJAWbBKFxYGCnYTWrHBdbYNXeJMY6LnRnTAFjWEFuUL4SUvWuLVqhXKFADgr6 BLbtX0j0MBEkPV5XI7Gwl0StIxewAFGGCKboBJ8zuw SzRGHjOw6PX2uYJovmNdC3S4A4XJK1WZNqFzJ5YLnqRDNiLUC6Vof4PfWrWH9yQQJxIJomYdG9EEv8XV M2ITn1Q0SgK1DbMSCpAHVuHNFgBkHgMX4LZs6UVmL9XQP6uFQbDp2YMpc6BCNSAfSuLE2EUQt= ID Date Data Source [id number] 01/22/2021 01:47:08 PM [facility] Name Value Range Interpretation Code Description Data Ellen rce(s) Supporting Document(s) Progress Note [facility] PSPXCf1cZqFXIfBs98/PLAelEMAsi5NvQDvfIYk0DKcuVCGaT4MkPVO0lS4gRIH3CJnSWdFcIlZyMePh lbm [file] ICAgICAgICAgICAgICAgICAgICAgICAgICAgICAgICAgICAgICAgICAgICAgICAgICAgICAgICAgICAg ICAgICAgICAgICAgICANCiAgICAgICAgICAgICAgICAgICAgICAgICAgICAgICAgICAgICAgICAgICAg ICAgICAgICAgICAgICAgICAgICAgICAgICAgICAgIC AgICAgICAgICAgICAgICAgICAgICAgICANCiAgICAgICAgICAgICAgICAgICAgICAgICAgICAgICAgIC AgICAgICAgICAgICAgICAgICAgICAgICAgICAgICAgICAgICAgICAgICAgICAgICAgICAgICAgICAgIC AgICAgICANCiAgICAgICAgICAgICAgICAgICAgICAg ICAgICAgICAgICAgICAgICAgICAgICAgICAgICAgICAgICAgICAgICAgICAgICAgICAgICAgICAgICAg ICAgICAgICAgICAgICAgICANCiAgICAgICAgICAgICAgICAgICAgICAgICAgICAgICAgICAgICAgICAg ICAgICAgICAgICAgICAgICAgICAgICAgICAgICAgIC AgICAgICAgICAgICAgICAgICAgICAgICAgICANCiAgICAgICAgICAgICAgICAgICAgICAgICAgICAgIC AgICAgICAgICAgICAgICAgICAgICAgICAgICAgICAgICAgICAgICAgICAgICAgICAgICAgICAgICAgIC AgICAgICAgICANCiAgICAgICAgICAgICAgICAgICAg ICAgICAgICAgICAgICAgICAgICAgICAgICAgICAgICAgICAgICAgICAgICAgICAgICAgICAgICAgICAg ICAgICAgICAgICAgICAgICAgICANCiAgICAgICAgICAgICAgICAgICAgICAgICAgICAgICAgICAgICAg ICAgICAgICAgICAgICAgICAgICAgICAgICAgICAgIC AgICAgICAgICAgICAgICAgICAgICAgICAgICAgICANCiAgICAgICAgICAgICAgICAgICAgICAgICAgIC AgICAgICAgICAgICAgICAgICAgICAgICAgICAgICAgICAgICAgICAgICAgICAgICAgICAgICAgICAgIC AgICAgICAgICAgICANCiAgICAgICAgICAgICAgICAg ICAgICAgICAgICAgICAgICAgICAgICAgICAgICAgICAgICAgICAgICAgICAgICAgICAgICAgICAgICAg ICAgICAgICAgICAgICAgICAgICAgICANCjw/cTXlX1oyuTLimsA6U1uvZt4IHp2VBC0cf9NqHPMoGGnk ikTeVlqKKzXhYLLxPfdDGgd8LEdjMH8BiZHoS8UiQ0 PaMHpqGA7LLJNfGWIrrEFqBKVdTZBrVdJ8GLMgGLtyJN7LzTVyUCunBFCdIIVlIlMxQEGzYR8ITWOjB7 28xbAfGj0RMw9GGdTmSK6jfg3CCjPvYCKuCrsTZde9JEsvQT7YrIVbyVXmNHVeREQIOgUvO9wvk6RcOl ZgOVCTGPwkRQ1Mz4YcvERgLLo+Sc0LLW2gt8NwFUcp IDLfLT4orm4NFHwTXrNmJ6CtxQppNMYqc0oaWNGqCQ4reXTvKBU9PZTuwMz0hirznyIOFQ4bz1Izx7zd WV6pbTBhVN4LSPF5CQUeRP5vDTQjXWEtWlPfRVHYBU1UTSWqSRUivLKpCBQhAIGUIL1PVXpjXVT0ORHp frLkyFZyICfoWI4UKMXzczTiTmHyCBYVLJt+Pg0KZW 4oq3FnZOaqDzBqDM4iab9XNNaVViFhP3H9dAQtD7A3QEmxWh9FGHRjTTVuKcCeMTVJYJasVB4HDZ8skw N4PE7CyRZpXPQzNCAcsBHgOEj9B58uvFNbTBkdOI2FDDH+Berlin+Nb5TZOBvPLNtZVEnQuFjOFUJCyMpG3 EkX3BXi7DoM4NiHB54fHvryeJpSKjvUR9FDT9bVZSm THDJSS9KvOVosQ3fjvBiGZQtDDKGEsAcA65grKVrHWSvSYHdFCRhMx3RXNUwX3HsewAszBprruQjNKKz ISTLYI5MYEtuyxIyzCBhkCqsDF78oZvtSJ3BKh7BTiYaUI8uti0GmTBoMy1VCAPiIi1FRIOjCLPjBZCn VEU3GJOvMsBlRTonQOFpYDKvRSM1LPDtPSRuFN1TQv JgBCEdXoR1BdFlKWGkSIDrhs1TCJAbKIUrRWA6XnXcBFLyNFViEDqwIVIkDHOlMRU5OXCgZYSjJV3OWb EhMZMuJVZcDZDnDRZcLDSycd7OBRGjFQTtUmJdVPZbQYHbKOFrFBioPTHjOKW2XWQ8KQQcZRAjKN6NJi GrZIGpCOIjMwJsEJCrOSSdpv7IDLHdZFMfCsYdDwDy KVSoQKOlFMwvISQgSMX6CNX1IYJrCYScSV5WIwSlAFXnHVw8TMcwISCwOUGlcu1LIZTcCQNgJIB3DHTl PRZwJXOiZGlnPCBmKOX7WWHqKYNpOKSmUZ8THmRnFPMhOOfkUAkpFLAmCFHmby3TTZXyNSTsSADxIbVz REMqFGXhVXqlIYEjJQGeEqH7IUBlGROqMF6UVyHpVC JcOtO8QmvtTFIpWTCwyl4XBWSmWKFsPQZ2VTAbEEJoIBGoBDecCSRmUEMbInA5UDEyIWZcPA3XEmUdYO RxGoBaCXieVZNbLYPtcj8VOABzCXZfUkNoHLQcLODkTTFmZLqjSZAzUKRsCpGiXEGdCXJtFB5NHcFnQK VrKtRsOjluYEBoBKWfmc9AHLXwJRQtEAD7EFMuXTJx HJXiETtzGTPbDVB4QRMzZSImJJVyWR9LBuSvDYNxHkF3ASIaQQUgZFRgej2MpBXpcZpkur3MZTzHXc1B rQlpYEC5ZKznEz6uyWWrAnWiCJRJHd3QnfSwKGXmXNIUTQkoSHImUZMiDAroTxHhTVTaEYX4TnQ8X0Ls XRyvSXY6L9R0NpgzYhH5IIW2VZTgSXI9TmZlOtM9Sh tiOvZhDHB8QUynAdX6LZB+UL3lBNb+Ru6Kg2MwtuO0jhYgYOdiEXf3OS7WIZASW1DYIn== ID Date Data Source [id number] 01/15/2021 02:28:00 PM [facility] Hospital Name: [facility] : 2000 Age/Sex: 20F Ordering Provider: Za Fritz DO Med Rec #: [id number] Reg Status: DEP REF Room #: Date of Service: 01/10/21 Report Number: [id number] cc:Za Fritz DO Send Report To: [id number] US/US No Charge Reason for exam: PATIENT HAD NO ORDER. PT SPOKE WITH [facility] OFFICE AND THEY WERE NOT FINDINGS: PATIENT HAD NO ORDER. PT SPOKE WITH [facility] OFFICE AND THEY WERE NOT REPORT SIGNATURE ON FILE Reported By: Marvin Aldridge 01/15/219 Dictation Date/Time: 01/15/211426 Transcribed Date/Time: 01/15/211427 Property Field Inspector: SANDRO Name Value Range Interpretation Code Description Data Ellen rce(s) Supporting Document(s) ID Date Data Source [id number] 01/06/2021 04:07:00 PM [facility] Name: [facility] : 2000 Age/Sex: 20F Ordering Provider: Mellissa Ma MD Med Rec #: [id number] Reg Status: DEP REF Room #: Date of Service: 01/05/21 Report Number: [id number] cc:Rosy Carbajal MD; Mellissa Ma MD Send Report To: [id number] US/US OB Follow Up Exam Reason for [...] 1305 Transcribed Date/Time: 01/06/21 1607 T ranscriptionist: SATIHSH Name Value Range Interpretation Code Description Data Ellen rce(s) Supporting Document(s) ID Date Data Source [id number] 01/01/2021 10:55:00 AM [facility] Hospital Name: [facility] Rec #: [id number] : 2000 Age/Sex: 20F Date of Service: 01/01/21 DISPOSITION SUMMARY Discharge Summary [facility] Name:[facility] [place] Emergency Department Age:20 yrs Sex:Female :2000 Arrival:01/01/2021 [...] Physician: Froy Lujan DO Private MD: Za Fritz DO Mid Level Provider: Meri Ziegler PA [...] rce(s) Supporting Document(s) ID Date Data Source [id number] 01/01/2021 10:55:00 AM EST [place] Hospital Name: NICHO AU [facility] Rec #: [id number] 816 : 2000 Age/Sex: 20F Date of Service: 01/01/21 PHYSICIAN CHART Physician Documentation [facility] Name: Nicho Au Age: 20 yrs [...] weeks and 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 Patient was seen in this emergency department [...] getting more intense. She did contact her TEXTILE MACHINE OPERATOR today and they told her to come [...] past 1 week, she was told by TEXTILE MACHINE OPERATOR to take Tylenol and have small amounts [...] he/she has never smoked tobacco. Preferred Language: [place] Citizen. ROS: 12:10 Constitutional: Negative for fever, chills, [...] ext - yulia, ( Oh Col[place] // [facility] Radiologist )- 01/01/2021 12:20:14 PM No evidence [...] states she has a follow-up with your TEXTILE MACHINE OPERATOR on the of this month. Patient will be discha rged home with a plan to follow-up with her TEXTILE MACHINE OPERATOR and to rest. . 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 Patient was seen in this emergency department [...] getting more intense. She did contact her TEXTILE MACHINE OPERATOR today and they told her to come [...] past 1 week, she was told by TEXTILE MACHINE OPERATOR to take Tylenol and have small amounts [...] rce(s) Supporting Document(s) ID Date Data Source [id number] 01/01/2021 10:55:00 AM [facility] Name: [facility] Rec #: [id number] 816 : 2000 Age/Sex: 20F Date of Service: 01/01/21 NURSE CHART Nurse's Notes [facility] Name: [facility] [place] Age: 20 yrs Sex: Female : 2000 Arrival Date: 01/01/2021 Time: 10:55 Bed 4 Private MD: Za Fritz Diagnosis: Abdominal Cramps;18 weeks gestation of ;Muscle spasm of calf Presentation: 01/01 11:10 Transition of care: patient was not received from another [facility] setting of care. Presenting complaint: Patient states - 18 weeks with cramping and pain in left leg told to come in by OB. 11:10 Acuity: Urgent - 3 [facility] 11:10 Method Of Arrival: Walk-In jc3 [...] he/she has never smoked tobacco. Preferred Language: [place] Citizen. Screenin:22 AUDIT 1. How often do you [...] rce(s) Supporting Document(s) ID Date Data Source [id number] 01/01/2021 12:54:00 PM EST [facility] Name Value Range Interpretation Code Description Data Ellen rce(s) Supporting Document(s) Color,Urine Yellow Normal (applies to non-numeric resu lts) [facility] Clarity,Urine Clear Normal (applies to non-numeric re sults) [facility] Specific [place],Urine 1.001-1.030 Normal (applies to non- numeric results) [facility] PH,Urine 5.0-8.0 Normal (applies to non-numeric resul ts) [facility] Protein,Urine Negative Normal (applies to non-numeric re sults) [facility] Glucose,Urine (UA) Negative [facility] Ketones,Urine Negative [facility] ospital Blood,Urine Negative Normal (applies to non-numeric resu lts) [facility] Bilirubin,Urine Negative Normal (applies to non-numeric results) [facility] Urobilinogen,Urine Norm 0.2-1 Normal (applies to non-numer ic results) [facility] Leukocyte Esterase,Urine Negative Normal (applies to non -numeric results) [facility] Nitrite,Urine Negative Normal (applies to non-numeric re sults) [facility] ID Date Data Source [id number] 01/01/2021 12:33:00 PM EST [facility] Name Value Range Interpretation Code Description Data Ellen rce(s) Supporting Document(s) Sodium 136 mmol/L 137-145 Below low normal [facility] Potassium 3.5-5.1 Normal (applies to non-numeric resul ts) [facility] Chloride 106 mmol/L 98-112 Normal (applies to non-numeric resul ts) [facility] Carbon Dioxide CO2 22.0-33.0 Normal (applies to non-numer ic results) [facility] Anion Gap 4.0-11.0 Normal (applies to non-numeric resul ts) [facility] BUN 10 mg/dL 7-17 Normal (applies to non-numeric resul ts) [facility] Creatinine 0.70-1.20 Below low normal [facility] GFR >60 Normal (applies to non-numeric results) [facility] Result based on MDRD formula. Glucose Level 141 mg/dL 74-99 Above high normal [facility] The reference range is only applicable w hen fasting. Calcium-Uncorrected 8.4-10.2 Normal (applies to non-nume valerio results) [facility] Corrected Calcium 8.4-10.2 Normal (applies to non-numeri c results) [facility] Bilirubin,Total 0.2-1.3 Normal (applies to non-numeric results) [facility] SGOT(AST) 21 U/L 14-36 Normal (applies to non-numeric resul ts) [facility] SGPT(ALT) 32 U/L 9-52 Normal (applies to non-numeric resul ts) [facility] Alkaline Phosphatase 45 U/L 38-126 Normal (applies to non-num jeferson results) [facility] can increase Alkaline Phosp le vels up to 2 times the normal adult value. Normal values for children and adolescents are 2 to 3 times the normal adult value. Total Protein 6.3-8.2 Normal (applies to non-numeric re sults) [facility] Albumin 3.5-5.0 Below low normal [facility] ID Date Data Source [id number] 01/01/2021 12:16:00 PM EST [facility] Name Value Range Interpretation Code Description Data Ellen rce(s) Supporting Document(s) White Blood Count 4.8-10.8 Normal (applies to non-numeri c results) [facility] Red Blood Count 3.68-5.22 Normal (applies to non-numeric results) [facility] Hemoglobin 11.2-15.7 Normal (applies to non-numeric resul ts) [facility] Hematocrit 34.1-44.9 Below low normal [facility] Mean Corpuscular Volume 81-99 Normal (applies to non- numeric results) [facility] Mean Corpuscular Hemoglobin 27.0-33.0 Normal (appli es to non-numeric results) [facility] Mean Corpuscular HGB Conc 32.0-36.0 Normal (applies to no n-numeric results) [facility] Red Cell Distribution Width 11.5-14.5 Normal (appli es to non-numeric results) [facility] Platelet Count 255 X10 3/uL 130-450 Normal (applies to non-numeric results) [facility] Mean Platelet Volume 9.5-12.7 Normal (applies to non-num jeferson results) [facility] Imm Grans% (AUTO) 1 % 0-2 Normal (applies to non-numeri c results) [facility] Neutrophils % (AUTO) 54 % 40-75 Normal (applies to non-num jeferson results) [facility] Lymphocytes % (AUTO) 34 % 21-46 Normal (applies to non-num jeferson results) [facility] Monocytes % (AUTO) 11 % 5-12 Normal (applies to non-numer ic results) [facility] Eosinophils % (AUTO) 1 % 1-5 Normal (applies to non-num jeferson results) [facility] Basophils % (AUTO) 0 % 0-1 Normal (applies to non-numer ic results) [facility] Imm Grans# (AUTO) 0.0-0.5 Normal (applies to non-numeri c results) [facility] Neutrophils # (AUTO) 1.5-8.1 Normal (applies to non-num jeferson results) [facility] Lymphocytes # (AUTO) 1.0-3.1 Normal (applies to non-num jeferson results) [facility] Monocytes # (AUTO) 0.2-1.3 Normal (applies to non-numer ic results) [facility] Eosinophils# (AUTO) 0.0-0.5 Normal (applies to non-nume valerio results) [facility] Basophils # (AUTO) 0.0-0.1 Normal (applies to non-numer ic results) [facility] ID Date Data Source [id number] 01/02/2021 06:12:00 AM EST [facility] Name: NICHO AU : 2000 Age/Sex: 20F Ordering Provider: ELENI Jurado Med Rec #: [id number] Reg Status: [facility] Room #: Date of Service: 01/01/21 Report Number: [id number] cc:Rosy Carbajal MD; ELENI Jurado Send Report To: [id number] US/US OB Limited Study Reason for exam: 18 WEEKS , CRAMPING FINDINGS: EARLIEST ULT: 7w 1d = EDC 06/03/21 EGA = 18 wks 1 day GESTATION: Single. PRESENTATION: Breech. CERVICAL LENGTH: 31.6 mm. FHR: 145 bpm. PLACENTAL LOCATION: Posterior. No previa. CORD INSERTION: Central. KAMERON: 13.61 cm, MVP: 3.86 cm. IMPRESSION: Single, live, intrauterine gestation breech lie. KAMERON is 13.6 cm. MVP: 3.9 cm. Cervix is closed measuring 32 mm. heart rate 145 bpm. Gestational age is 18w 1d. REPORT DICTATED BY LY PINEDA, REVIEWED AND SIGNED BY DR. JAMISON. REPORT SIGNATURE ON FILE Reported By: Vivien Jamison MD <Electronically signed by Vivien Jamison MD> 01/02/21 1049 Dictation Date/Time: 01/01/21 1239 Transcribed Date/Time: 01/02/21 0612 Property Field Inspector: SALOME Name Value Range Interpretation Code Description Data Ellen rce(s) Supporting Document(s) ID Date Data Source [id number] 01/02/2021 06:04:00 AM EST [facility] Name: NICHO AU : 2000 Age/Sex: 20F Ordering Provider: ELENI Jurado Med Rec #: [id number] Reg Status: [facility] Room #: Date of Service: 01/01/21 Report Number: [id number] cc:Rosy Carbajal MD Send Report To: [id number] US/US Duplex Lower Ext Veins Lt Reason [...] Date/Time: 01/01/21 1231 Transcribed Date/Time: 01/02/21 0604 Property Field Inspector: ANUJ Name Value Range Interpretation Code Description Data Ellen rce(s) Supporting Document(s) ID Date Data Source [id number] 01/08/2021 10:33:00 AM EST [facility] Name Value Range Interpretation Code Description Data Ellen rce(s) Supporting Document(s) Panorama Collection kit result Normal (applies to non-numeric results) [facility] ID Date Data Source [id number] 12/26/2020 07:16:00 PM EST [facility] Name Value Range Interpretation Code Description Data Ellen rce(s) Supporting Document(s) Sodium 140 mmol/L 137-145 Normal (applies to non-numeric resul ts) [facility] Potassium 3.5-5.1 Normal (applies to non-numeric resul ts) [facility] Chloride 108 mmol/L 98-112 Normal (applies to non-numeric resul ts) [facility] Carbon Dioxide CO2 22.0-33.0 Normal (applies to non-numer ic results) [facility] Anion Gap 4.0-11.0 Normal (applies to non-numeric resul ts) [facility] BUN 14 mg/dL 7-17 Normal (applies to non-numeric resul ts) [facility] Creatinine 0.70-1.20 Normal (applies to non-numeric resul ts) [facility] GFR >60 Normal (applies to non-numeric results) [facility] Result based on MDRD formula. Glucose Level 50 mg/dL 74-99 Below low normal [facility] The reference range is only applicable w hen fasting. Calcium-Uncorrected 8.4-10.2 Normal (applies to non-nume valerio results) [facility] Corrected Calcium 8.4-10.2 Normal (applies to non-numeri c results) [facility] ID Date Data Source [id number] 12/26/2020 06:58:00 PM EST [facility] Name Value Range Interpretation Code Description Data Ellen rce(s) Supporting Document(s) Hemoglobin A1C % Less than 5.7% Above high normal [facility] HBA1C: Normal: Less than 5.7% Prediabetes: 5.7% to 6.4% Diabetes: 6.5% or higher HA1C % vs Estimated Average Glucose (eAG) % eAG % eAG 6% 126 mg/dL 10% 240 mg/dL 7% 154 mg/dL 11% 269 mg/dL 8% 183 mg/dL 12% 298 mg/dL 9% 212 mg/dL Reference: [employer], 2017 ID Date Data Source [id number] 12/23/2020 08:36:00 PM [facility] Name: [facility] Rec #: [id number] 816 : 2000 Age/Sex: 20F Date of Service: 12/23/20 DISPOSITION SUMMARY Discharge Summary [facility] Name:[facility] [place] Emergency Department Age:20 yrs Sex:Female :2000 Arrival:12/23/2020 [...] would like you to follow-up with your TEXTILE MACHINE OPERATOR if you have continued symptoms. You can [...] rce(s) Supporting Document(s) ID Date Data Source [id number] 12/23/2020 08:36:00 PM [facility] Name: NICHO AU [facility] Rec #: [id number] 816 : 2000 Age/Sex: 20F Date of Service: 12/23/20 PHYSICIAN CHART Physician Documentation [facility] Name: Nicho Au Age: 20 yrs [...] being treated for a urinary tract infection.. TEXTILE MACHINE OPERATOR: 20:46 Verified arj Historical: - Allergies: Latex, [...] he/she has never smoked tobacco. Preferred Language: [place] Citizen. - The history of the events were [...] Have advised her to follow-up with her TEXTILE MACHINE OPERATOR. Return for any significant worsening of symptoms.. [...] j1 Signatures: Dispatcher [employer] EDYariel Seay RNP COSMETOLOGY EDUCATOR jja1 Stephanie Cabrales RN RN Arley Morin MD MD mlm1 Name Value Range Interpretation Code Description Data Ellen rce(s) Supporting Document(s) ID Date Data Source [id number] 12/23/2020 08:36:00 PM [facility] Name: NICHO AU [facility] Rec #: [id number] 816 : 2000 Age/Sex: 20F Date of Service: 12/23/20 NURSE CHART Nurse's Notes [facility] Name: Nicho Au Age: 20 yrs Sex: Female : 2000 Arrival Date: 12/23/2020 Time: 20:36 Bed 1 Private MD: Za Fritz; Rosy Carbajal D Diagnosis: Abdominal Cramps Presentation: 12/23 20:43 Transition of care: p atient was not received from another [facility] setting of care. Presenting complaint: Patient [...] COVID-19? No. 20:43 Method Of Arrival: Walk-In [facility] 20:43 Acuity: Urgent - [address] [facility] Triage Assessment: 20:45 SEPSIS SCREEN: A [...] intact, Skin is pink, warm & dry. TEXTILE MACHINE OPERATOR: 20:[address] [facility] Historical: - Allergies: Latex, Natural Rubber; [...] he/she has never smoked tobacco. Preferred Language: [place] Citizen. - The history of the events were [...] Mass Index 48.06 (127.01 kg, 162.56 cm) [facility] ED Course: 20:37 Patient arrived in [...] Brown, Sarah, RN RN Yariel Ley RNP COSMETOLOGY EDUCATOR jja1 Stephanie Cabrales RN RN arj Jacobs, Allena, RN RN adj Beth Austin, Reg Reg sm11 Name Value Range Interpretation Code Description Data [facility] Supporting Document(s) ID Date Data Source [id number] 12/23/2020 10:07:00 PM EST [facility] Name Value Range Interpretation Code Description Data [facility](s) Supporting Document(s) Color,Urine Yellow Normal (applies to non-numeric resu lts) [facility] Clarity,Urine Clear Normal (applies to non-numeric re sults) [facility] Specific [place],Urine 1.001-1.030 Normal (applies to non- numeric results) [facility] PH,Urine 5.0-8.0 Normal (applies to non-numeric resul ts) [facility] Protein,Urine Negative Normal (applies to non-numeric re sults) [facility] Glucose,Urine (UA) Negative [facility] Ketones,Urine Negative [facility] ospital Blood,Urine Negative Normal (applies to non-numeric resu lts) [facility] Bilirubin,Urine Negative Normal (applies to non-numeric results) [facility] Urobilinogen,Urine Norm 0.2-1 Normal (applies to non-numer ic results) [facility] Leukocyte Esterase,Urine Negative Normal (applies to non -numeric results) [facility] Nitrite,Urine Negative Normal (applies to non-numeric re sults) [facility] ID Date Data Source [id number] 12/24/2020 08:44:00 AM EST [facility] Name: NICHO AU : 2000 Age/Sex: 20F Ordering Provider: Yariel Phipps IV, FNP Med Rec #: [id number] Reg Status: [facility] Room #: Date of Service: 12/23/20 Report Number: [id number] cc:Rosy Carbajal MD Send Report To: [id number] US/US OB Limited Study Reason for exam: [...] Date/Time: 12/24/20 0708 Transcribed Date/Time: 12/24/20 0844 Property Field Inspector: ANUJ Name Value Range Interpretation Code Description Data Ellen rce(s) Supporting Document(s) ID Date Data Source [id number] 12/21/2020 01:12:00 PM [facility] Name Value Range Interpretation Code Description Data Ellen rce(s) Supporting Document(s) Urine Culture Normal (applies to non-numeric re sults) [facility] ID Date Data Source [id number] 12/20/2020 08:47:00 PM [facility] Name Value Range Interpretation Code Description Data Ellen rce(s) Supporting Document(s) Color,Urine Yellow Normal (applies to non-numeric resu lts) [facility] Clarity,Urine Clear Normal (applies to non-numeric re sults) [facility] Specific [place],Urine 1.001-1.030 Normal (applies to non- numeric results) [facility] PH,Urine 5.0-8.0 Normal (applies to non-numeric resul ts) [facility] Protein,Urine Negative Normal (applies to non-numeric re sults) [facility] Glucose,Urine (UA) Negative Normal (applies to non-numer ic results) [facility] Ketones,Urine Negative [facility] ospital Blood,Urine Negative Normal (applies to non-numeric resu lts) [facility] Bilirubin,Urine Negative Normal (applies to non-numeric results) [facility] Urobilinogen,Urine Norm 0.2-1 Normal (applies to non-numer ic results) [facility] Leukocyte Esterase,Urine Negative [facility] Nitrite,Urine Negative Normal (applies to non-numeric re sults) [facility] RBC,Auto Urine 0-2 Normal (applies to non-numeric r esults) [facility] WBC Urine Auto 0-10 Normal (applies to non-numeric r esults) [facility] Casts,Hyaline,Urine Auto 0-2 Normal (applies to non -numeric results) [facility] Bacteria Urine Auto None Seen Normal (applies to non-nume valerio results) [facility] Epithelial Cell Ur Auto None-Few Normal (applies to non- numeric results) [facility] ID Date Data Source [id number] 12/26/2020 02:13:00 AM EST [facility] SEE SCANNED HARD COPY RESULTS PREVIOUSL Y FAXED Name Value Range Interpretation Code Description Data Ellen rce(s) Supporting Document(s) ID Date Data Source [id number] 12/08/2020 02:55:52 PM EST [facility] Name Value Range Interpretation Code Description Data Ellen rce(s) Supporting Document(s) Progress Note [facility] WYVEZm6bDgLJAyNp83/EXXrwNUEjf2BtRHtwYLv4SVaaYASqN6RvMUS9wW1aSJI0XMaKHrJxUdTwUZI7 [facility] [file] Pz2lvjmKTCE0iOoOWDlLm5+QvrTVxIwKeRuQnPXNPIBklfuAPlXblu59kd27ZoF+[employer] Consultant/A3EFiRCDgJSMF [file] a4WkvhqrkmBtznyw6JolKIlnbbE/3AvcS6bedc+/RB vsPvUSfpbV7V9rG3mag8/hx55k+hqoX5GwMyl7nvBCijxWazXa3H2Y55wIiTSDCp3lLLSSJyfTfvIb00 eocc4852056EwTs5DI1RM6ozHjTHyuhfQpjPHvLcEMJp+qCXS4jReJqTLSMng/cC+m5i2qKMnAnZoWxd ctMdWXbWQRJaoA8dfd+iwNBawAia7R9B3Xs7GM8pw8 N/VQyeACX3VhOUaZabD+kp2CKmozhOtB1GuBSSlzGEN0rlfyHZPvIS4fukKPotUDMq49vu/1my5b949B d3JX+Vf6u85FEjw0/yaPLP+KpLY+xRROp0xknJFjq1mpgDu/XvgjI5TUbgyi2Av6e084+0EYoaI0bjma ln7KZsC7p8/zevD3KXDCVDuk2wy3iuNyXQ+jR718+s OWMVsGv4RhnBOja9eHjTS0WTiRo3L+g6sW61t/hyuIncL4No108lMlBylWSPBOtLuGhaZz/F+YnAAmFx 3L5yU01FrF53AufwmS+Kmml0osxiZAXQPbS4WQgjdfRIQ+0vUlFvuBDmC/GFVY7qeEbLzKzSVRrgoJYw ev7AWhpImDtZFWL+ZMWCwOZKrB2O6vrFksA2E7d5Yn KEgBUS3hqAe3kC2eSiRNvG1QdLd/Hr6ME00fSmCES5WY6790RyUZ3l+Y27TYc6grdIYw8o5kQx+z/fhs 97+S+272H3GN//9Jm/a7uie5UG/I2QgV+f+Q2++z8R1jZpV5/ot+X+s6Uv93h1+fkd++yCUp8LJvfVMa IPRm6qZYmvTUPGx5DkKoKOKEo8/R1Kz0rsom3DQYU7 RAE1i0Wyb9a1rraiEc7DxIbt/pQCbQWWSOGbx6PprSAhXgve9C+gnwAMHTT86xk2rD12+ygXP/sud6uw 54Vk4/NJ/YTc8NN268fxDNB1oLBE9bFiXWfwP067G4FWXouKQx0/vp integrity/lSPssMqia/MHbqcNm/wu7WmKE [file] ICAgICAgICAgICAgICAgICAgICAgICAgICAgICAgICAgICAgICAgICAgICAgICAgICAgICAgICAgICAg ICAgICAgICAgICAgICAgICAgICAgDQogICAgICAgIC AgICAgICAgICAgICAgICAgICAgICAgICAgICAgICAgICAgICAgICAgICAgICAgICAgICAgICAgICAgIC AgICAgICAgICAgICAgICAgICAgICAgICAgICAgICAgDQogICAgICAgICAgICAgICAgICAgICAgICAgIC AgICAgICAgICAgICAgICAgICAgICAgICAgICAgICAg ICAgICAgICAgICAgICAgICAgICAgICAgICAgICAgICAgICAgICAgICAgDQogICAgICAgICAgICAgICAg ICAgICAgICAgICAgICAgICAgICAgICAgICAgICAgICAgICAgICAgICAgICAgICAgICAgICAgICAgICAg ICAgICAgICAgICAgICAgICAgICAgICAgDQogICAgIC AgICAgICAgICAgICAgICAgICAgICAgICAgICAgICAgICAgICAgICAgICAgICAgICAgICAgICAgICAgIC AgICAgICAgICAgICAgICAgICAgICAgICAgICAgICAgICAgDQogICAgICAgICAgICAgICAgICAgICAgIC AgICAgICAgICAgICAgICAgICAgICAgICAgICAgICAg ICAgICAgICAgICAgICAgICAgICAgICAgICAgICAgICAgICAgICAgICAgICAgDQogICAgICAgICAgICAg ICAgICAgICAgICAgICAgICAgICAgICAgICAgICAgICAgICAgICAgICAgICAgICAgICAgICAgICAgICAg ICAgICAgICAgICAgICAgICAgICAgICAgICAgDQogIC AgICAgICAgICAgICAgICAgICAgICAgICAgICAgICAgICAgICAgICAgICAgICAgICAgICAgICAgICAgIC AgICAgICAgICAgICAgICAgICAgICAgICAgICAgICAgICAgICAgDQogICAgICAgICAgICAgICAgICAgIC AgICAgICAgICAgICAgICAgICAgICAgICAgICAgICAg ICAgICAgICAgICAgICAgICAgICAgICAgICAgICAgICAgICAgICAgICAgICAgICAgDQogICAgICAgICAg ICAgICAgICAgICAgICAgICAgICAgICAgICAgICAgICAgICAgICAgICAgICAgICAgICAgICAgICAgICAg ICAgICAgICAgICAgICAgICAgICAgICAgICAgICAgDQ l1L6tiAVDkHWRiIO0wBMn9Qf8+ESrTSrVyYGU4gvPtzO9RCC5th5GtFVyzCFQus6XfLAu1EZ9CIZMfYK awMP9HWQvnbh3QCWOfNEJhiOAGz4rdDyHmDDU6LKXmKrhzZQ5JWRSaD0lkjjUdBCOpWAQERGsfZOBOSX jnQGOQFZCkEDPxGkRxXmIjMMJfMB2DWYEvM517gqRr LR5IQz5AGcHfRA6gzf8XZbXaJGGjWzbBEls3HQozGQ9UbWOoaKSnLeGxOFCSWkOrN9amu4MyNdLfTHPT CTgoHC6Mu7VtmZHuRQu+Je8HRE8xx7OcJQakZaBpQP8tic0JVLvZQwXgC5XkrXpjSCSzs2prASLvUB2j jTZhXTQ1XQLdYfSpnLGZCMNyfNBunj8sfrrxGRSiMI HkDS2yRA1pMHRmHFVcQgDeFAZIFS3XIGKyNQMbpFQfHHPvXLFNRY9CXKvkFWX6NKWapwLdeBZaNPgeMY 9QYXJlbnQgMzUgMCBSDQo+Pq4WCP9ze8DeNHwmLoMyMK6ucn1LRFgVGsHjH6Z2dEXfD3A7TMfwLf9RGP NdZMPpXgGnCFGDSCqdSD7HNK8kkdM4XX7HrPQxJBCv DXReoATrPYn2X19caNUfXNbsCC6OTZO+Berlin+Ve6WVBHqIJFvFWRcCgLtDTGVIvTmQ3JjZ4XWx7AfO8Md QN67wUvckqWnBYlnAD9VPX6yQLIbGQOUIO6ZsVGcaT3nlpYkCPThFVLENdVuY95znRIdSIIeTQK6YWDo Mq4AAHOkF6QhlyNsdDlnglEwWQFwSRARBR8LYTsybt YneWXyfVcgGF06vTtlZZ0AXd7LDsOwEI4wds3BgBCmDm8NMPSmEK7VIDMbFPNoSYJoWXW2WLRkZqEiDV fxPNRfGPZuKXS8WZDjKRKkVM2ELoIfWORbImBdSMXcHINyJBGfoo7FGSMoLVI6Nnr0NPUbJYXvCXYyDJ tmISJvKNOjOTP0AQWsFPGsLG9TOjPjLGVrCUK4QGFz QZSzATTkfb9SWEAaUUSjPhp1WEXgZXDpKGPiUKaaXZUjGFB2Xpb7LFWlORQeLM0KMmMyUXAgKJr2WIPq YLXuFOObnc1GLDZuCMPtFKNtAEXoWCDyOEUgABmaGXWeVCI7HyJ6SVVfDMIeTJ4EVqWbVMCbMwGvYrIk LWHgWEYdxz1ZDPVzRGRwGHW7WRZjRXUzHEFcUVzpFS PgEWD4ZWB1ILHoKANzUW6FIgXtSMVvCnTtMuUmVVFjFEWwtq2DXIEmXXPkReNpVCSqMOQzYTPoXJyjLY FdIRC4VvZ7ECNmELFhOE0JOeAtAGJyYdC1CRVqDJGwCFMyby8IIDDrCAGqMsU2DGZnFBIoXQCbIVcsTQ UsKCK5RiioPYIlIPIaSA1TXbTgZPNoFti6JoReHUHt MFRxzr4ISVAnPYT8ZsUrOCHhURZxCJGlOHbaDESzKTD0GMR6GFPtCZGyWZ5EBpQhFKZuMEweFIRePGNw RGEnil9JTLQhMWY2Ulk9RPRpHXCrNUUbFVefODPiDZM5BUm6PRBjEZFlQJ0FXvWgRDApMAw4NPJnHUGw MPOtum5OBHMgXKV1UFKcJPPfVDKiVJYpQVkxLCDrPL Z7BaR6JSRqCEFdFW8AErZuDDGoPsNbZkFiASCzXREeeu7DJONfWFZ6ITG9GyDgQCAgDJFnMTpkTFCxXI F8Shh4YKMqABZrJX2OZkTqKEVtPkN0DcLfKHOpGCZjkl2OMGFtDWD1STB6MBZzMVWlWDDtFPwoAZOgKW I5TEA7YHRsHVHyNA4MVsLzCMKdQuO6NxksJXYjWHKa cw2NHMSaSVU8FgG6AYLdLHZdONLtPBqkZMLlQAC7RfPdTVAzEUTfFS9NKnHoPSddYXGFCvz4ZPmnI7p5 PRPoTH5EY0Rhn7VsGmxmAULPQQzfFK1anqOlUQNvVs3QT2kZJfx2ZXG1ZyuqP1X7RLKuNNlkAWI0X1Re BkDfQVG8MOOqHI1xRJB1YiP1KLIeAZNoAMO2A0QfKA DcA3YzJKT2CNtcIDZsEeCwTJ2UMn3IXfM2SBV6eLPwBu0OHbh9IWUVCgHwSL7HJUz= ID Date Data Source [id number] 12/02/2020 05:10:00 PM EST [facility] Name Value Range Interpretation Code Description Data Ellen rce(s) Supporting Document(s) Respiratory specimen severe acute respir atory syndrome coronavirus 2 (SARS-CoV-2) RNA Negative (qualifier value) [facility] This lab was ordered by [facility] aileen and reported by [facility]. ID Date Data Source [id number] 12/02/2020 04:55:00 PM [facility] THIS IS A [facility] REPORTABLE COMMUNICABLE DISEASE. Testing was performed using the Where's Up COVID-19 MDx Assay. This test has been [...] be found at the following links: Providers: https://www.fda.gov/media/101840/download Patients : https://www.fda.gov/media/648566/download THIS IS A [facility] REPORTABLE COMMUNICABLE DISEASE Negative results do not preclude SARS-CoV-2 infection and should not be used as the sole basis for patient management decisions. Negative results must be combined with clinical observations,patient history, and epidemiological information. Name Value Range Interpretation Code Description Data Ellen rce(s) Supporting Document(s) ID Date Data Source [id number] 12/04/2020 05:51:00 PM [facility] Name Value Range Interpretation Code Description Data Ellen rce(s) Supporting Document(s) Panorama/Horizon kit result Normal (applies to non-numeric results) [facility] ID Date Data Source [id number] 11/29/2020 12:12:00 PM [facility] Name Value Range Interpretation Code Description Data Ellen rce(s) Supporting Document(s) Varicella-Zoster IgG Ab,S res See Note No rmal (applies to non-numeric results) [facility] Presence of detectable Varicella Zoster virus IgG antibodies. Test performed or referred by The [address] [address] ID Date Data Source [id number] 11/03/2020 10:24:00 AM EST [facility] Name: AU,NICHO Gill [facility] Rec #: [id number] 816 : 2000 Age/Sex: 20F Date of Service: 11/03/20 PHYSICIAN CHART Physician Documentation [facility] Name: [facility] [place] Age: 20 yrs Sex: Female : 2000 Arrival Date: 11/03/2020 Time: 10:24 Bed 5 Private MD: Za Fritz ED Physician Shin Sutherland HPI: 11/03 10:48 This 20 yrs old [...] steps. She states that she called her TEXTILE MACHINE OPERATOR who instructed her to come to the [...] or numbness or tingling in the legs.. TEXTILE MACHINE OPERATOR: 10:33 LMP 08/27/2020, Verified, EDC 06/03/2021, edv [...] to communication noted, The patient speaks fluent [place] Citizen. ROS: 10:50 Constitutional: Negative for fever, c [...] rce(s) Supporting Document(s) ID Date Data Source [id number] 11/03/2020 10:24:00 AM EST [facility] Name: [place] Rec #: [id number] 816 : 2000 Age/Sex: 20F Date of Service: 11/03/20 DISPOSITION SUMMARY Discharge Summary [facility] Name:[facility] [place] Emergency Department Age:20 yrs Sex:Female :2000 Arrival:11/03/2020 [...] rce(s) Supporting Document(s) ID Date Data Source [id number] 11/03/2020 10:24:00 AM [facility] Name: [facility] Rec #: [id number] 816 : 2000 Age/Sex: 20F Date of Service: 11/03/20 NURSE CHART Nurse's Notes [facility] Name: [facility] Age: 20 yrs Sex: Female : 2000 [...] SIRS or Sepsis criteria is not present. TEXTILE MACHINE OPERATOR: 10:33 LMP 08/27/2020, Verified, EDC 06/03/2021, edv [...] to communication noted, The patient speaks fluent [place] Citizen. Screenin:37 AUDIT 1. How often do you [...] RN RN edv Yi Russell, Reg Reg [facility] Shin Sutherland MD MD jdl Monroe, Susan, RN RN 6 Dee Javier RN RN 3 Kezia Dudley RN RN mick Name Value Range Interpretation Code Description Data Ellen rce(s) Supporting Document(s) ID Date Data Source [id number] 11/07/2020 01:09:00 PM [facility] Name Value Range Interpretation Code Description Data Ellen rce(s) Supporting Document(s) Urine Culture Normal (applies to non-numeric re sults) [facility] ID Date Data Source [id number] 11/07/2020 01:09:00 PM [facility] Name Value Range Interpretation Code Description Data [facility] rce(s) Supporting Document(s) Color,Urine Yellow [facility] pital Clarity,Urine Clear [facility] ospital Specific [place],Urine 1.001-1.030 Normal (applies to non- numeric results) [facility] PH,Urine 5.0-8.0 Normal (applies to non-numeric resul ts) [facility] Protein,Urine Negative [facility] ospital Glucose,Urine (UA) Negative Normal (applies to non-numer ic results) [facility] Ketones,Urine 15 mg/dL Negative [facility] ospital Blood,Urine Negative Normal (applies to non-numeric resu lts) [facility] Bilirubin,Urine Negative [facility] Positive Bilirubin is no longer doublech ecked. Bilirubin may be elevated due to urine color interference. Urobilinogen,Urine Norm 0.2-1 Normal (applies to non-numer ic results) [facility] Leukocyte Esterase,Urine Negative [facility] Nitrite,Urine Negative Normal (applies to non-numeric re sults) [facility] ID Date Data Source [id number] 11/07/2020 01:09:00 PM [facility] Name Value Range Interpretation Code Description Data [facility] rce(s) Supporting Document(s) [facility],URINE [facility] RBC,Urine 0-2 Normal (applies to non-numeric resul ts) [facility] Hyaline Casts,Ur None Seen Normal (applies to non-numeric results) [facility] Bacteria,Urine None Seen [facility] Epithelial Cell,Ur None-Few Bojorquez [facility] ID Date Data Source [id number] 11/04/2020 12:26:00 PM EST [facility] Name: NICHO AU : 2000 Age/Sex: 20F Ordering Provider: Shin Sutherland MD Med Rec #: [id number] Reg Status: [facility] ER Room #: Date of Service: 11/03/20 Report Number: [id number] cc:Rosy Carbajal MD Send Report To: [id number] US/US OB First Trimester Reason for exam: S/P FALL - LOW ABDOMINAL PAIN; 9 WEEKS FINDINGS: Earliest U/S 7W 1D = EDC 06/03/21 EGA = 9 wks 5 days Gestation: Single. Gestational sac size: 38 x 28 x 61 = 41 mm AVERAGE 9 w 6 d [place] Rump Length: 33 mm = 10 w [...] Date/Time: 11/03/20 1304 Transcribed Date/Time: 11/04/20 1226 Property Field Inspector: ANUJ Name Value Range Interpretation Code Description Data Ellen rce(s) Supporting Document(s) ID Date Data Source [id number] 10/28/2020 01:21:00 AM [facility] Name: NICHO AU [facility] Rec #: [id number] 816 : 2000 Age/Sex: 20F Date of Service: 10/28/20 PHYSICIAN CHART Physician Documentation [facility] Name: Nicho [place] Age: 20 yrs Sex: Female : 2000 [...] vitamins but no other medications as her risk advisor has stopped her insulin in order to better maintain and track her sugars. The patient states that the bleeding has subsequently stopped since arrival in the ED, she is otherwise in no significant distress.. TEXTILE MACHINE OPERATOR: 01:27 Verified arj Historical: - Allergies: Latex, [...] he/she has never smoked tobacco. Preferred Language: [place] Citizen. ROS: 01:44 Constitutional: I reviewed 10 systems [...] Patient understands and will do a urinalysis [facility] type and screen beta quant and transvaginal ultrasounds. I discussed with her the plan she is in agreement. She appears in no acute distress.. 02:56 ED course: I personally spoke with the bookmaker's clerk, alyssa she sees a live intrauterine measurements [...] discharge and can follow-up with her regular TEXTILE MACHINE OPERATOR physician. 10/28 01:42 Order name: UA.; Complete [...] Incompatibility mlm1 - First Trimester of , Flok-zn-Mnzp mlm1 Forms: - Medication Reconciliation mlm1 Signatures: Dispatcher [employer] Stephanie Vivas RN RN arj Morgan, Matthew, MD MD mlm1 Name Value Range Interpretation Code Description Data Ellen rce(s) Supporting Document(s) ID Date Data Source [id number] 10/28/2020 01:21:00 AM [facility] Name: NICHO AU [facility] Rec #: [id number] 816 : 2000 Age/Sex: 20F Date of Service: 10/28/20 NURSE CHART Nurse's Notes [facility] Name: Nicho Au Age: 20 yrs Sex: Female : 2000 Arrival Date: 10/28/2020 Time: 01:21 Bed 9 Private MD: Za Fritz; Rosy Carbajal D Diagnosis: Subchorionic hemorrhage;Maternal care for anti-D [Rh] antibodies, first trimester, fetus 1;Encounter for supervision of normal first , first trimester Presentation: 10/28 01:26 Transition of care: patient was not received from another [facility] setting of care. Presenting complaint: Patient states - I am 8 weeks and I got up to [facility] and I wiped and there was a lot of blood. It was light pink. I've had spotting before, but not this much. Have you travelled in the last 30 days? No. Have you had contact with an individual with a confirmed diagnosis of Ebola or COVID- 19? No. 01:26 Method Of Arrival: Walk-In [facility] 01:26 Acuity: Urgent - [address] [facility] Triage Assessment: 01:27 SEPSIS SCREEN: A [...] turgor, Skin is pink, warm & dry. TEXTILE MACHINE OPERATOR: 01:[address] [facility] Historical: - Allergies: Latex, Natural Rubber; [...] he/she has never smoked tobacco. Preferred Language: [place] Citizen. Screenin:30 AUDIT 1. How often do you [...] Mass Index 48.75 (128.82 kg, 162.56 cm) [facility] ED Course: 01:22 Stephanie Cabrales, RN [...] rce(s) Supporting Document(s) ID Date Data Source [id number] 10/28/2020 01:21:00 AM [facility] Name: [facility] Rec #: [id number] 816 : 2000 Age/Sex: 20F Date of Service: 10/28/20 DISPOSITION SUMMARY Discharge Summary [facility] Name:[facility] [place] Emergency Department Age:20 yrs Sex:Female :2000 Arrival:10/28/2020 [...] small subchorionic hemorrhage, please follow-up with your</span><span> risk advisor as needed.</span><span> The baby's heart rate was [...] rce(s) Supporting Document(s) ID Date Data Source [id number] 11/07/2020 08:28:00 AM [facility] Name Value Range Interpretation Code Description Data Ellen rce(s) Supporting Document(s) Urine Culture Normal (applies to non-numeric re sults) [facility] ID Date Data Source [id number] 11/07/2020 08:28:00 AM [facility] Value Range Interpretation Code Description Data Ellen rce(s) Supporting Document(s) Beta HCG,Quantitative 42305 mIU/mL 5-323534 Normal (ap plies to non-numeric results) [facility] Non- Females (ages 18-62): 1-3 mIU/mL Adult Males (ages 19-67: Less than or equal to 1 mIU/mL Females: Gestational Age: 0-1 Week: 5-50 mIU/mL 1-2 Week: 50-500 mIU/mL 2-3 Weeks: 100-5,000 mIU/mL 3-4 Weeks: 500-10,000 mIU/mL 4-5 Weeks: 1,000- 50,000 mIU/mL 5-6 Weeks: 10,000-100,000 mIU/mL 6-8 Weeks: 15,000- 200,000 mIU/mL 2-3 Months: 10,000-100,000 mIU/mL 2nd Trimester: 3000- 98588 mIU/mL 3rd Trimester: 1000-31339 mIU/ml ID Date Data Source [id number] 11/07/2020 08:28:00 AM [facility] Value Range Interpretation Code Description Data Ellen rce(s) Supporting Document(s) BLOOD TYPE PATIENT A Negative Normal (applies to non-numer ic results) [facility] ID Date Data Source [id number] 11/07/2020 08:28:00 AM [facility] Value Range Interpretation Code Description Data Ellen rce(s) Supporting Document(s) D VARIANT NEGATIVE Normal (applies to non-numeric resul ts) [facility] Administration of RhIG and transfusion o f Rh Negative Packed Red Blood Cells and/or Platelets are recommended when indicated. ID Date Data Source [id number] 11/07/2020 08:28:00 AM [facility] Value Range Interpretation Code Description Data Ellen rce(s) Supporting Document(s) Color,Urine Yellow Normal (applies to non-numeric resu lts) [facility] Clarity,Urine Clear Bojorquez [facility] ospital Specific [place],Urine 1.001-1.030 Normal (applies to non- numeric results) [facility] PH,Urine 5.0-8.0 Normal (applies to non-numeric resul ts) [facility] Protein,Urine Negative Normal (applies to non-numeric re sults) [facility] Glucose,Urine (UA) Negative Normal (applies to non-numer ic results) [facility] Ketones,Urine Negative Normal (applies to non-numeric re sults) [facility] Blood,Urine Negative [facility] pital Bilirubin,Urine Negative Normal (applies to non-numeric results) [facility] Urobilinogen,Urine Norm 0.2-1 Normal (applies to non-numer ic results) [facility] Leukocyte Esterase,Urine Negative Normal (applies to non -numeric results) [facility] Nitrite,Urine Negative Normal (applies to non-numeric re sults) [facility] ID Date Data Source [id number] 11/07/2020 08:28:00 AM EST [facility] Name Value Range Interpretation Code Description Data Ellen rce(s) Supporting Document(s) RBC,Auto Urine 0-2 Bojorquez [facility] WBC Urine Auto 0-10 Normal (applies to non-numeric r esults) [facility] Casts,Hyaline,Urine Auto 0-2 Normal (applies to non -numeric results) [facility] Bacteria Urine Auto None Seen Normal (applies to non-nume valerio results) [facility] Epithelial Cell Ur Auto None-Few Normal (applies to non- numeric results) [facility] ID Date Data Source [id number] 10/30/2020 02:31:00 PM [facility] Hospital Name: NICHO AU : 2000 Age/Sex: 20F Ordering Provider: Arley Alicea DO Med Rec #: [id number] Reg Status: DEP ER Room #: Date of Service: 10/28/20 Report Number: [id number] cc:Rosy Carbajal MD; Arley Alicea DO Send Report To: [id number] US/US Transvaginal OB Reason for exam: BLEEDING IN PREG 8 WKS Comparison: US - US TRANSVAGINAL OB - 10/06/2020 12:13 AM EST Findings: Osman intrauterine is identified. A single pole is noted. Yolk sac is not seen. [place]-rump length measures: 2.1 centimeters Gestational age: 9 [...] AM EST by: Boogie Sheriff MD Diplomate, [place] [employer] Fluoroscopy time in seconds: Number of Exposures: Time Portable Image Performed: Contrast Agent in ml: Method of Administration: REPORT SIGNATURE ON FILE Reported By: Boogie Sheriff MD 10/30/20 1432 Dictation Date/Time: 10/28/20 0349 Transcribed Date/Time: 10/30/20 1431 Property Field Inspector: SALOME Name Value Range Interpretation Code Description Data Ellen rce(s) Supporting Document(s) ID Date Data Source [id number] 10/16/2020 08:27:00 PM EST [facility] Hospital Name: NICHO AU : 2000 Age/Sex: 20F Ordering Provider: HIPOLITO Stratton Med Rec #: [id number] Reg Status: DEP REF Room #: Date of Service: 10/16/20 Report Number: [id number] cc:Rosy Carbajal MD; HIPOLITO Stratton Send Report To: [id number] US/US Transvaginal OB Reason for exam: LESS THAN 8 WEEKS GESTATION OF FINDINGS: LMP: = EDC 05/30/21 EGA = 7 wks 5 days Earliest U/S Today = EDC 06/03/21 EGA = 7 wks 1 days Gestation: Single. Gestational sac size: 24.6 mm AVERAGE 7 w 4 d [place] Rump Length: 10.4 = 7 w 1 [...] Dictation Date/Time: 10/16/20 1320 Transcribed Date/Time: 10/16/202026 Property Field Inspector: ANUJ Name Value Range Interpretation Code Description Data Ellen rce(s) Supporting Document(s) ID Date Data Source [id number] 01/31/2021 04:06:00 PM EST [facility] Name Value Range Interpretation Code Description Data Ellen rce(s) Supporting Document(s) Varicella-Zoster IgG Ab,S res Normal (applies t o non-numeric results) [facility] Presence of detectable Varicella Zoster virus IgG antibodies. Test performed or referred by The [address], [place] [address] ID Date Data Source [id number] 01/31/2021 04:06:00 PM EST [facility] Name Value Range Interpretation Code Description Data Ellen rce(s) Supporting Document(s) Amphetamines,UDS7 Nvtnba=2240 Normal (applies to non-numer ic results) [facility] Amphetamine test includes Amphetamine an d Methamphetamine. Barbiturates,UDS7 Opyrxi=026 Normal (applies to non-numeri c results) [facility] Benzodiazepines,UDS7 Fjsmft=806 Normal (applies to non-num jeferson results) [facility] Cannabinoid,UDS7 Cutoff=50 Normal (applies to non-numeric results) [facility] Cocaine,UDS7 Tlcbha=968 Normal (applies to non-numeric res ults) [facility] Opiates,UDS7 Nxorvu=537 Normal (applies to non-numeric res ults) [facility] Opiate test includes Codeine and Morphin e only. Phencyclidine,UDS7 Cutoff=25 Normal (applies to non-numer ic results) [facility] Performed at: RN - [facility] [address] [id number] [employer] Cook: Vangie Gloria MD, Phone: [phone] ID Date Data Source [id number] 01/31/2021 04:06:00 PM [facility] Name Value Range Interpretation Code Description Data Ellen rce(s) Supporting Document(s) Toxoplasma Ab,IgG result Negative Normal (applies to non -numeric results) [facility] Toxoplasma IgG Value Normal (applies to non-num jeferson results) [facility] REFERENCE VALUE------ <=9 IU/mL (Negative) 10-11 IU/mL (Equivocal) >=12 IU/mL (Positive) Test Performed by: [facility] - [address] [address] [employer] Cook: Estuardo Islas M.D. Ph.D.; CLIA# [id number] ID Date Data Source [id number] 01/31/2021 04:06:00 PM [facility] Value Range Interpretation Code Description Data Ellen rce(s) Supporting Document(s) Toxoplasma Ab,IgM result Negative Normal (applies to non -numeric results) [facility] No IgM antibodies to T. gondii detected. Results may be negative in patients with recent infection or who are significantly immunosuppressed. Test Performed by: [facility] [address] [place] [address] [employer] Cook: Estuardo Islas M.D. Ph.D.; CLIA# [id number] ID Date Data Source [id number] 11/06/2020 10:47:00 PM [facility] Value Range Interpretation Code Description Data Ellen rce(s) Supporting Document(s) Hep C Ab-T Test Nonreactive Normal (applies to non-numeric results) [facility] ID Date Data Source [id number] 11/06/2020 10:47:00 PM [facility] Value Range Interpretation Code Description Data Ellen rce(s) Supporting Document(s) HIV 1/2 Ab p24 Ag Screen Nonreactive Normal (applies to non-numeric results) [facility] ID Date Data Source [id number] 11/06/2020 10:47:00 PM [facility] Value Range Interpretation Code Description Data Ellen rce(s) Supporting Document(s) Rubella Ab,IgG >10.0 Normal (applies to non-numeric r esults) [facility] Interpretation of Result s Less than 5.0 IU/mL - Negative for IgG antibodies to Rubella virus 5.0 - 9.9 IU/mL - Equivocal. Suggest repeat testing on new sample 10.0 IU/mL or greater - Positive for IgG antibodies to Rubella virus ID Date Data Source [id number] 11/06/2020 10:47:00 PM [facility] Value Range Interpretation Code Description Data Ellen rce(s) Supporting Document(s) Syphilis Serology Nonreactive Normal (applies to non-numer ic results) [facility] ID Date Data Source [id number] 11/06/2020 10:47:00 PM EST [facility] Name Value Range Interpretation Code Description Data Ellen rce(s) Supporting Document(s) Hep Bs Ag Result T-Test Nonreactive Normal (applies to non -numeric results) [facility] ID Date Data Source [id number] 11/06/2020 10:47:00 PM EST [facility] Name Value Range Interpretation Code Description Data Ellen rce(s) Supporting Document(s) Chlamydia,Urine Negative Normal (applies to non-numeric results) [facility] GC Urine Negative Normal (applies to non-numeric resul ts) [facility] Methodology: Second generation nucleic a marino amplification. ID Date Data Source [id number] 11/06/2020 10:47:00 PM [facility] Name Value Range Interpretation Code Description Data Ellen rce(s) Supporting Document(s) Urine Culture Normal (applies to non-numeric re sults) [facility] ID Date Data Source [id number] 11/06/2020 10:47:00 PM EST [facility] Name Value Range Interpretation Code Description Data Ellen rce(s) Supporting Document(s) Bupren Scrn,Ur wRfx LCI SO res Negative N ormal (applies to non-numeric results) [facility] Therapeutic Drug Threshold for Buprenorp jesus: 5 ng/mL All positive findings are presumptive and unconfirmed. Confirmation of positive Buprenorphine is automatically reflexed and sent to reference laboratory. Unconfirmed results must not be used for non-medical purposes (i.e. pre-employment and legal purposes) ID Date Data Source [id number] 11/06/2020 10:47:00 PM [facility] Name Value Range Interpretation Code Description Data Ellen rce(s) Supporting Document(s) White Blood Count 4.8-10.8 Normal (applies to non-numeri c results) [facility] Red Blood Count 3.68-5.22 Normal (applies to non-numeric results) [facility] Hemoglobin 11.2-15.7 Normal (applies to non-numeric resul ts) [facility] Hematocrit 34.1-44.9 Normal (applies to non-numeric resul ts) [facility] Mean Corpuscular Volume 81-99 Normal (applies to non- numeric results) [facility] Mean Corpuscular Hemoglobin 27.0-33.0 Normal (appli es to non-numeric results) [facility] Mean Corpuscular HGB Conc 32.0-36.0 Normal (applies to no n-numeric results) [facility] Red Cell Distribution Width 11.5-14.5 Normal (appli es to non-numeric results) [facility] Platelet Count 253 X10 3/uL 130-450 Normal (applies to non-numeric results) [facility] Mean Platelet Volume 9.5-12.7 Normal (applies to non-num jeferson results) [facility] Imm Grans% (AUTO) 0 % 0-2 Normal (applies to non-numeri c results) [facility] Neutrophils % (AUTO) 44 % 40-75 Normal (applies to non-num jeferson results) [facility] Lymphocytes % (AUTO) 42 % 21-46 Normal (applies to non-num jeferson results) [facility] Monocytes % (AUTO) 11 % 5-12 Normal (applies to non-numer ic results) [facility] Eosinophils % (AUTO) 1 % 1-5 Normal (applies to non-num jeferson results) [facility] Basophils % (AUTO) 1 % 0-1 Normal (applies to non-numer ic results) [facility] Imm Grans# (AUTO) 0.0-0.5 Normal (applies to non-numeri c results) [facility] Neutrophils # (AUTO) 1.5-8.1 Normal (applies to non-num jeferson results) [facility] Lymphocytes # (AUTO) 1.0-3.1 Normal (applies to non-num jeferson results) [facility] Monocytes # (AUTO) 0.2-1.3 Normal (applies to non-numer ic results) [facility] Eosinophils# (AUTO) 0.0-0.5 Normal (applies to non-nume valerio results) [facility] Basophils # (AUTO) 0.0-0.1 Normal (applies to non-numer ic results) [facility] ID Date Data Source [id number] 11/06/2020 10:47:00 PM EST [facility] Name Value Range Interpretation Code Description Data Ellen rce(s) Supporting Document(s) Lead,Blood (Venous) result <5.0 Normal (applies to n on-numeric results) [facility] ADDITIONAL INFORMATIO N Testing performed by Inductively Coupled Plasma-Mass Spectrometry (ICP-MS). This test was developed and its performance characteristics determined by [facility] in a manner consistent with CLIA requirements. This test has not been cleared or approved by the U.S. Food and Drug Administration. [facility] Patient Street Normal (applies to non-nume valerio results) [facility] Patient City Normal (applies to non-numeri c results) [facility] Patient State Normal (applies to non-numer ic results) [facility] Patient Zip [address] Normal (applies to non-numeric results) [facility] Patient [facility] Normal (applies to non-nume valerio results) [facility] Patient Phone [phone] Normal (applies to non-nume valerio results) [facility] Patient Race Normal (applies to non-numeri c results) [facility] Patient Ethnicity Normal (applies to non-n umeric results) [facility] Patient Occupation Normal (applies to non- numeric results) [facility] Patient Employer Normal (applies to non-nu meric results) [facility] Name,First Normal (applies to non -numeric results) [facility] Guardian Name,Last Normal (applies to non- numeric results) [facility] Provider Name Normal (applies to non-numer ic results) [facility] Provider Street Normal (applies to non-num jeferson results) [facility] City Normal (applies to non-numer ic results) [facility] Provider State Normal (applies to non-nume valerio results) [facility] PBDV Provider Zip [address] Normal (applies to non-numeri c results) [facility]V Provider Phone [phone] Normal (applies to non-num jeferson results) [facility] Phone [phone] Normal (applies to non-numeric results) [facility] Test Performed by: [facility] [address] [place] [address] [employer] Cook: Estuardo Islas M.D. Ph.D.; CLIA# [id number] ID Date Data Source [id number] 11/06/2020 10:47:00 PM [facility] Name Value Range Interpretation Code Description Data Ellen rce(s) Supporting Document(s) Hemoglobin A1C % Less than 5.7% Above high normal [facility] HBA1C: Normal: Less than 5.7% Prediabetes: 5.7% to 6.4% Diabetes: 6.5% or higher HA1C % vs Estimated Average Glucose (eAG) % eAG % eAG 6% 126 mg/dL 10% 240 mg/dL 7% 154 mg/dL 11% 269 mg/dL 8% 183 mg/dL 12% 298 mg/dL 9% 212 mg/dL Reference: [employer], 2017 ID Date Data Source [id number] 11/06/2020 10:47:00 PM [facility] Name Value Range Interpretation Code Description Data Ellen rce(s) Supporting Document(s) Thyroid Stimulate Hormone TSH 0.358-3.740 No rmal (applies to non-numeric results) [facility] ID Date Data Source [id number] 11/06/2020 10:47:00 PM [facility] Name Value Range Interpretation Code Description Data Ellen rce(s) Supporting Document(s) Beta HCG,Quantitative 80062 mIU/mL [id number] Normal (ap plies to non-numeric results) [facility] Non- Females (ages 18-62): 1-3 mIU/mL Adult Males (ages 19-67: Less than or equal to 1 mIU/mL Females: Gestational Age: 0-1 Week: 5-50 mIU/mL 1-2 Week: 50-500 mIU/mL 2-3 Weeks: 100-5,000 mIU/mL 3-4 Weeks: 500-10,000 mIU/mL 4-5 Weeks: 1,000- 50,000 mIU/mL 5-6 Weeks: 10,000-100,000 mIU/mL 6-8 Weeks: 15,000- 200,000 mIU/mL 2-3 Months: 10,000-100,000 mIU/mL 2nd Trimester: 3000- 48087 mIU/mL 3rd Trimester: 1000-03432 mIU/ml ID Date Data Source [id number] 11/06/2020 10:47:00 PM [facility] Name Value Range Interpretation Code Description Data Ellen rce(s) Supporting Document(s) BLOOD TYPE PATIENT A Negative Normal (applies to non-numer ic results) [facility] ANTIBODY SCREEN NEGATIVE Normal (applies to non-numeric results) [facility] ID Date Data Source [id number] 11/06/2020 10:47:00 PM [facility] Name Value Range Interpretation Code Description Data Ellen rce(s) Supporting Document(s) D VARIANT NEGATIVE Normal (applies to non-numeric resul ts) [facility] Administration of RhIG and transfusion o f Rh Negative Packed Red Blood Cells and/or Platelets are recommended when indicated. ID Date Data Source [id number] 10/05/2020 10:27:00 PM [facility] Hospital Name: NIC[facility] Rec #: [id number] 816 : 2000 Age/Sex: 20F Date of Service: 10/05/20 DISPOSITION SUMMARY Discharge Summary [facility] Name:[facility] Emergency Department Age:20 yrs [...] please return to the ER. Follow-up with TEXTILE MACHINE OPERATOR in the next 2 - 3 days. [...] Discharge Instruction: Discharge Summary Sheet, Threatened Miscarriage, [id number], Medication Reconciliation, Fax Visit Summary for Za Fritz DO Name Value Range Interpretation Code Description Data Ellen rce(s) Supporting Document(s) ID Date Data Source [id number] 10/05/2020 10:27:00 PM EST [facility] Name: NIC[facility] Rec #: [id number] : 2000 Age/Sex: 20F Date of Service: 10/05/20 PHYSICIAN CHART Physician Documentation [facility] Name: [facility]o Au Age: 20 yrs Sex: Female : 2000 Arrival Date: 10/05/2020 Time: 22:27 Bed 4 Private MD: Rosy Carbajal D ED Physician Arley Alicea Disposition: 10/06 01:14 Attestation: I discussed the plan of care with [facility] Practice Provider and agree with what they have documented. I have reviewed relevant laboratory values and/or imaging studies. I have reviewed and agree with the nursing records. The care plan articulated in the discharge instructions is consistent with our discussion of the patient's case. 01:15 Attestation: I discussed the plan of care with [facility] Practice Provider and agree with what they have documented. I have reviewed relevant laboratory values and/or imaging studies. I have reviewed and agree with the nursing records. The care plan articulated in the discharge instructions is consis tent with our discussion of the patient's case. HPI: 00:06 This 20 yrs old Female presents to ER via Walk-In [facility] with complaints of Vaginal Bleeding, Abdominal Cramping. 00:06 Patient is a 20-year-old female G1, P0, presenting today [facility] with complaints of positive test at home and is having vaginal bleeding. She reports vaginal bleeding that started one hour before coming to the ER. She does report that she is diabetic and takes insulin and glyburide. She reports an increase in her blood sugar, but does follow-up with endocrinology. She reports that Dr. Fritz is her TEXTILE MACHINE OPERATOR. Denies fever, chills, nausea, vomiting, diarrhea. . TEXTILE MACHINE OPERATOR: 10/05 22:34 Verified arj Historical: - Allergies: [...] he/she has never smoked tobacco. Preferred Language: [place] Citizen. - The history of the events were [...] I will refer her back to her TEXTILE MACHINE OPERATOR. No other concerns at this time. This [...] Discharge Summary Sheet jja1 - Threatened Miscarriage, Cfsy-hh-Mspv jja1 Forms: - Medication Reconciliation jja1 Signatures: [...] ordered. herman10/06 01:10/05 23:40 Beta HCG,Quantitative+CHEM.LAB.CAN ordered. [id number] 10/06 01:05 10/05 23:40 US Transvaginal OB+US.RAD.CAN ordered. jashley kl1 Name Value Range Interpretation Code Description Data Ellen rce(s) Supporting Document(s) ID Date Data Source [id number] 10/05/2020 10:27:00 PM EST [facility] Name: [facility] Rec #: [id number] : 2000 Age/Sex: 20F Date of Service: 10/05/20 NURSE CHART Nurse's Notes [facility] Name: [facility] [place] Age: 20 yrs Sex: Female : 2000 Arrival Date: 10/05/2020 Time: 22:27 Bed 4 Private MD: Rosy Carbajal D Diagnosis: Threatened Miscarriage Presentation: 10/05 22:31 Transition of care: patient was not received from another [facility] setting of care. Presenting complaint: Patient [...] COVID-19? No. 22:31 Method Of Arrival: Walk-In [facility] 22:31 Acuity: Urgent - [address] [facility] Triage Assessment: 22:33 SEPSIS SCREEN: A Confirmed or Suspected Infection is wvj Unknown, their temperature is not <96.8 or [...] turgor, Skin is pink, warm & dry. TEXTILE MACHINE OPERATOR: 22:[address] [facility] Historical: - Allergies: Latex, Natural Rubber; [...] he/she has never smoked tobacco. Preferred Language: [place] Citizen. - The history of the events were [...] Mass Index 48.06 (127.01 kg, 162.56 cm) [facility] ED Course: 10/05 22:27 Patient arrived in ED. rld 22:31 Rsoy Carbajal is Private Physician. arj 22:33 Triage [...] was taken to get an ultrasound at [facility] 01:05. 01:05 No procedures ordered. 1 Administered [...] Koffi Perkins RN RN kl1 Phipps Yariel, COSMETOLOGY EDUCATOR COSMETOLOGY EDUCATOR jja1 Stephanie Cabrales RN RN arj Hogan, Robert, RN RN rjh1 Jennifer Pickett Corrections: (The following items were deleted from the chart) 10/05 22:38 22:31 Stephanie Cabrales RN is Primary Nurse. anirudh oleary 22:38 22:38 Jennifer Farah RN is Primary Nurse. [facility] Name Value Range Interpretation Code Description [facility] Supporting Document(s) ID Date Data Source [id number] 11/06/2020 03:40:00 PM EST [facility] Name Value Range Interpretation Code Description Data [facility](s) Supporting Document(s) Sodium 137 mmol/L 137-145 Normal (applies to non-numeric resul ts) [facility] Potassium 3.5-5.1 Normal (applies to non-numeric resul ts) [facility] Chloride 107 mmol/L 98-112 Normal (applies to non-numeric resul ts) [facility] Carbon Dioxide CO2 22.0-33.0 Normal (applies to non-numer ic results) [facility] Anion Gap 4.0-11.0 Normal (applies to non-numeric resul ts) [facility] BUN 14 mg/dL 7-17 Normal (applies to non-numeric resul ts) [facility] Creatinine 0.70-1.20 Below low normal [facility] GFR >60 Normal (applies to non-numeric results) [facility] Result based on MDRD formula. Glucose Level 258 mg/dL 74-99 Above high normal [facility] The reference range is only applicable w hen fasting. Calcium-Uncorrected 8.4-10.2 Normal (applies to non-nume valerio results) [facility] Corrected Calcium 8.4-10.2 Normal (applies to non-numeri c results) [facility] Bilirubin,Total 0.2-1.3 Normal (applies to non-numeric results) [facility] SGOT(AST) 29 U/L 14-36 Normal (applies to non-numeric resul ts) [facility] SGPT(ALT) 52 U/L 9-52 Normal (applies to non-numeric resul ts) [facility] Alkaline Phosphatase 43 U/L 38-126 Normal (applies to non-num jeferson results) [facility] can increase Alkaline Phosp le vels up to 2 times the normal adult value. Normal values for children and adolescents are 2 to 3 times the normal adult value. Total Protein 6.3-8.2 Normal (applies to non-numeric re sults) [facility] Albumin 3.5-5.0 Below low normal [facility] ID Date Data Source [id number] 11/06/2020 03:40:00 PM EST [facility] Name Value Range Interpretation Code Description Data Ellen rce(s) Supporting Document(s) Beta HCG,Quantitative 78064 mIU/mL 5-039884 Normal (ap plies to non-numeric results) [facility] Non- Females (ages 18-62): 1-3 mIU/mL Adult Males (ages 19-67: Less than or equal to 1 mIU/mL Females: Gestational Age: 0-1 Week: 5-50 mIU/mL 1-2 Week: 50-500 mIU/mL 2-3 Weeks: 100-5,000 mIU/mL 3-4 Weeks: 500-10,000 mIU/mL 4-5 Weeks: 1,000- 50,000 mIU/mL 5-6 Weeks: 10,000-100,000 mIU/mL 6-8 Weeks: 15,000- 200,000 mIU/mL 2-3 Months: 10,000-100,000 mIU/mL 2nd Trimester: 3000- 48367 mIU/mL 3rd Trimester: 1000-35550 mIU/ml ID Date Data Source [id number] 11/06/2020 03:40:00 PM EST [facility] Name Value Range Interpretation Code Description Data Ellen rce(s) Supporting Document(s) White Blood Count 4.8-10.8 Normal (applies to non-numeri c results) [facility] Red Blood Count 3.68-5.22 Normal (applies to non-numeric results) [facility] Hemoglobin 11.2-15.7 Normal (applies to non-numeric resul ts) [facility] Hematocrit 34.1-44.9 Normal (applies to non-numeric resul ts) [facility] Mean Corpuscular Volume 81-99 Normal (applies to non- numeric results) [facility] Mean Corpuscular Hemoglobin 27.0-33.0 Normal (appli es to non-numeric results) [facility] Mean Corpuscular HGB Conc 32.0-36.0 Normal (applies to no n-numeric results) [facility] Red Cell Distribution Width 11.5-14.5 Normal (appli es to non-numeric results) [facility] Platelet Count 209 X10 3/uL 130-450 Normal (applies to non-numeric results) [facility] Mean Platelet Volume 9.5-12.7 Normal (applies to non-num jeferson results) [facility] Imm Grans% (AUTO) 0 % 0-2 Normal (applies to non-numeri c results) [facility] Neutrophils % (AUTO) 46 % 40-75 Normal (applies to non-num jeferson results) [facility] Lymphocytes % (AUTO) 42 % 21-46 Normal (applies to non-num jeferson results) [facility] Monocytes % (AUTO) 10 % 5-12 Normal (applies to non-numer ic results) [facility] Eosinophils % (AUTO) 1 % 1-5 Normal (applies to non-num jeferson results) [facility] Basophils % (AUTO) 0 % 0-1 Normal (applies to non-numer ic results) [facility] Imm Grans# (AUTO) 0.0-0.5 Normal (applies to non-numeri c results) [facility] Neutrophils # (AUTO) 1.5-8.1 Normal (applies to non-num jeferson results) [facility] Lymphocytes # (AUTO) 1.0-3.1 Above high normal [facility] Monocytes # (AUTO) 0.2-1.3 Normal (applies to non-numer ic results) [facility] Eosinophils# (AUTO) 0.0-0.5 Normal (applies to non-nume valerio results) [facility] Basophils # (AUTO) 0.0-0.1 Normal (applies to non-numer ic results) [facility] ID Date Data Source [id number] 11/06/2020 03:40:00 PM EST [facility] Name Value Range Interpretation Code Description Data Ellen rce(s) Supporting Document(s) BLOOD TYPE PATIENT A Negative Normal (applies to non-numer ic results) [facility] ID Date Data Source [id number] 11/06/2020 03:40:00 PM EST [facility] Name Value Range Interpretation Code Description Data Ellen rce(s) Supporting Document(s) D VARIANT NEGATIVE Normal (applies to non-numeric resul ts) [facility] Administration of RhIG and transfusion o f Rh Negative Packed Red Blood Cells and/or Platelets are recommended when indicated. ID Date Data Source [id number] 11/06/2020 03:40:00 PM [facility] Name Value Range Interpretation Code Description Data Ellen rce(s) Supporting Document(s) Urine Culture Normal (applies to non-numeric re sults) [facility] ID Date Data Source [id number] 11/06/2020 03:40:00 PM [facility] Name Value Range Interpretation Code Description Data Ellen rce(s) Supporting Document(s) Color,Urine Yellow Normal (applies to non-numeric resu lts) [facility] Clarity,Urine Clear Normal (applies to non-numeric re sults) [facility] Specific [place],Urine 1.001-1.030 Normal (applies to non- numeric results) [facility] PH,Urine 5.0-8.0 Normal (applies to non-numeric resul ts) [facility] Protein,Urine Negative Normal (applies to non-numeric re sults) [facility] Glucose,Urine (UA) Negative [place] [facility] Ketones,Urine Negative Normal (applies to non-numeric re sults) [facility] Blood,Urine Negative Normal (applies to non-numeric resu lts) [facility] Bilirubin,Urine Negative Normal (applies to non-numeric results) [facility] Urobilinogen,Urine Norm 0.2-1 Normal (applies to non-numer ic results) [facility] Leukocyte Esterase,Urine Negative Normal (applies to non -numeric results) [facility] Nitrite,Urine Negative Normal (applies to non-numeric re sults) [facility] ID Date Data Source [id number] 09/21/2020 02:11:00 AM EDT [facility]. ED Physician ReportAdditionalHPI: 20-ye ar-old female presents [...] low beta HCG level of slightly greater [id number]. Urinalysis collected also showed significant level of [...] rce(s) Supporting Document(s) ID Date Data Source [id number] 11/30/2020 11:45:00 AM EST [facility] COVID-19 Patient Ethnicity UnknownCOVID -19 Patient Race UnknownCOVID-19 Specimen Source Nasopharyngeal Name Value Range Interpretation Code Description Data [facility] rce(s) Supporting Document(s) SARS-CoV-2 RNA Undetected Normal (applies to non-numeric r esults) [facility] SARS-CoV-2 RNA absent. This result does not [...] Race Normal (applies to non-numeric res ults) [facility] Patient Ethnicity Normal (applies to non-numeri c results) [facility] Method Summary Normal (applies to non-numeric r esults) [facility] KEENA- This test uses the keena SARS-CoV -2 assay ([employer] and is performed on the keena 6800 System. It has received Emergency Use Authorization (EUA) by the U.S. Food and Drug Administration. Performance characteristics were verified by [facility] in a manner consistent with CLIA requirements. Fact sheets for this Emergency Use Authorization (EUA) can be found at the following links: https://www.fda.gov/media/595367/download for Healthcare Providers https://www.fda.gov/media/403622/download for Patients Test Performed by: [place] [address] [employer] Cook: Estuarod Islas M.D. Ph.D.; CLIA# [id number] KEENA- This test uses the keena SARS-CoV-2 assay ([employer] and is performed on the keena 6800 System. It has received Emergency Use Authorization (EUA) by the U.S. Food and Drug Administration. Performance characteristics were verified by [facility] in a m jj consistent with CLIA requirements. Fact sheets for this Emergency Use Authorization (EUA) can befound at the following links: https://www.fda.gov/media/920834/download for Healthcare Providers https://www.fda.gov/media/768132/download for Patients Test Performed by: [place] [address] [employer] Cook: Estuardo Islas M.D. Ph.D.; CLIA# [id number] ID Date Data Source [id number] 09/14/2020 03:30:00 PM EDT [facility] Name Value Range Interpretation Code Description Data Ellen rce(s) Supporting Document(s) SARS-CoV-2 RNA Resp Ql ANGIE+probe [facility] This lab was ordered by Oneal gallagher and reported by [facility] DLMP. ID Date Data Source [id number] 07/27/2020 08:02:00 PM EDT [facility] Rec #: [id number] 816 : 2000 Age/Sex: 20F Date of Service: 07/27/20 NURSE CHART Nurse's Notes [facility] Name: [facility] [place] Age: 20 yrs Sex: Female : 2000 Arrival Date: 07/27/2020 Time: 20:02 Bed FT1 Private MD: Rosy Carbajal D Diagnosis: partial nail avulsion Presentation: 07/27 20:07 Transition of care: patient was not received from another [facility] setting of care. Presenting complaint: Patient states - States lifted the fingernail on right 5th finger and will not stop bleeding. note no bleed at present. 20:07 Method Of Arrival: Walk-In [facility] 20:07 Acuity: Non-Urgent - 5 [facility] 20:26 Have you travelled in the last 30 days? No. Have you had [facility] contact with an individual with a [...] >90, their RR is not > 20. 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 [facility] Never (0 points). Drug Abuse Screening Test: 1. Have you used drugs other than those required for medical reasons? No (0 points), screen is complete, no risk. Abuse screen: Denies threats or abuse. Nutritional screening: No deficits noted. Patient has no identifiable fall risk ([place] Scale: 0 points). Assessment: 21:[address] [facility] Vital Signs: 20:30 BP 123 / 85; Pulse 102; Resp 16; Temp 97.2; Pulse Ox 100% ; [facility] Weight 124.74 kg; Height 5 ft. 4 in. (162.56 cm); Pain 8/10; 21:47 BP 121 / 77; Pulse 89; Resp 16; Pulse Ox 100% on R/A; jm16 20:30 Body Mass Index 47.20 (124.74 kg, 162.56 cm) [facility] ED Course: 20:03 Patient arrived in ED. sfo1 20:08 Triage completed. [facility] 20:27 Rosy Carbajal is Private Physician. cmm 20:32 Arm band placed on right wrist. cmm 20:36 Tre Conner is Primary Nurse. [facility] 20:51 Nikki Wills PA-C is PHCP. 20:51 Timothy Lewis MD is Attending Physician. 21:41 Rosy Carbajal is Referral Physician. scout Administered Medications: No medications were administered Outcome: 21:41 Discharge ordered by MD. 21:41 Patient verbalized understanding of disposition [facility] instructions. Patient has no functional deficits. Patient [...] rce(s) Supporting Document(s) ID Date Data Source [id number] 07/27/2020 08:02:00 PM EDT [facility] Name: [facility] Rec #: [id number] 816 : 2000 Age/Sex: 20F Date of Service: 07/27/20 PHYSICIAN CHART Physician Documentation [facility] Name: [facility] [place] Age: 20 yrs Sex: Female : 2000 [...] concerned as it is causing her pain. 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 [facility] Historical: - Allergies: [...] rce(s) Supporting Document(s) ID Date Data Source [id number] 07/27/2020 08:02:00 PM EDT [facility] Name: [facility] Rec #: [id number] : 2000 Age/Sex: 20F Date of Service: 07/27/20 DISPOSITION SUMMARY Discharge Summary [facility] Name:[facility] [place] Emergency Department Age:20 yrs Sex:Female :2000 Arrival:07/27/2020 [...] Never Smoker completed Never S moker eCW1 (Former[facility]) Smoking 06/12/2021 12:00:00 AM EDT Never Smoker completed Never S moker eCW1 (Formerly [facility]) Smoking 06/12/2021 12:00:00 AM EDT Never Smoker completed Never S moker eCW1 (Formerly [facility]) Smoking 06/12/2021 12:00:00 AM EDT Never Smoker completed Never S moker eCW1 (Formerly [facility]) Smoking 06/12/2021 12:00:00 AM EDT Never Smoker completed Never S moker eCW1 (Formerly [facility]) Smoking 06/12/2021 12:00:00 AM EDT Never Smoker completed Never S moker eCW1 (Formerly [facility]) Smoking 05/08/2021 12:00:00 AM EDT Never Smoker completed Never S moker eCW1 (Formerly [facility]) Vital Signs ID Date Data Source UNK Name Value Range Interpretation Code Description Data Source(s) Body weight 307.2 [lb_av] 307.2 [lb_av] eCW1 ([facility]) Body weight 139.34 kg 139.34 kg [facility] Body height 64 [in_i] 64 [in_i] [facility] Body mass index (BMI) [Ratio] 52.73 kg/m2 52.73 kg/m2 [facility] ([facility]) Systolic blood pressure 124 mm[Hg] 124 mm[Hg] e CW1 ([facility]) Diastolic blood pressure 74 mm[Hg] 74 mm[Hg] [facility] ([facility]) Body weight 320 [lb_av] 320 [lb_av] eCW1 ([facility]) Body height 64 [in_i] 64 [in_i] eCW1 ([facility]) Body mass index (BMI) [Ratio] 54.92 kg/m2 54.92 kg/m2 W1 ([facility]) Systolic blood pressure 132 mm[Hg] 132 mm[Hg] e CW1 ([facility]) Diastolic blood pressure 80 mm[Hg] 80 mm[Hg] eCW1 ([facility]) Body mass index (BMI) [Ratio] 56.12 kg/m2 56.12 kg/m2 eCW1 ([facility]) Body weight 327 [lb_av] 327 [lb_av] eCW1 ([facility]) Body height 64 [in_i] 64 [in_i] eCW1 ([facility]) Diastolic blood pressure 60 mm[Hg] 60 mm[Hg] eCW1 ([facility]) Systolic blood pressure 100 mm[Hg] 100 mm[Hg] e CW1 ([facility]) ID Date Data Source [id number] 08/10/2021 12:41:00 AM EDT [facility] Name Value Range Interpretation Code Description Data Source(s) Weight (Calculated Kilograms) 109.68 109.68 [facility] Height (Calculated Centimeters) 165.1 165. 1 [facility] Body Mass Index (BMI) 40.6 40.6 [facility] ID Date Data Source [id number] 07/18/2021 09:04:00 AM EDT [facility] Name Value Range Interpretation Code Description Data Source(s) Weight (Calculated Kilograms) 109.68 109.68 [facility] Height (Calculated Centimeters) 165.1 165. 1 [facility] Body Mass Index (BMI) 40.6 40.6 [facility] Weight (Calculated Kilograms) 109.68 109.68 [facility] Height (Calculated Centimeters) 165.1 165. 1 [facility] Body Mass Index (BMI) 40.6 40.6 [facility] Weight (Calculated Kilograms) 109.68 109.68 [facility] Height (Calculated Centimeters) 165.1 165. 1 [facility] Body Mass Index (BMI) 40.6 40.6 [facility] ID Date Data Source [id number] 04/11/2021 03:19:23 PM T [facility] Name Value Range Interpretation Code Description Data Source(s) WEIGHT RECORDED 349.4 lb 349.4 lb [facility] ID Date Data Source [id number] 05/09/2021 08:20:00 AM EDT [facility] Name Value Range Interpretation Code Description Data Source(s) Weight (Calculated Kilograms) 109.68 109.68 [facility] Height (Calculated Centimeters) 165.1 165. 1 [facility] Body Mass Index (BMI) 40.6 40.6 [facility] ID Date Data Source [id number] 04/09/2021 11:16:42 AM [facility] Name Value Range Interpretation Code Description Data Source(s) WEIGHT RECORDED 347 lb 347 lb [facility] ID Date Data Source [id number] 05/09/2021 08:20:00 AM T [facility] Name Value Range Interpretation Code Description Data Source(s) Weight (Calculated Kilograms) 109.68 109.68 [facility] Height (Calculated Centimeters) 165.1 165. 1 [facility] Body Mass Index (BMI) 40.6 40.6 [facility] ID Date Data Source [id number] 04/02/2021 11:37:00 AM EDT [facility] Name Value Range Interpretation Code Description Data Source(s) Weight (Calculated Kilograms) 109.68 109.68 [facility] Height (Calculated Centimeters) 165.1 165. 1 [facility] Body Mass Index (BMI) 40.6 40.6 [facility] ID Date Data Source [id number] 03/29/2021 03:22:47 PM [facility] Name Value Range Interpretation Code Description Data Source(s) WEIGHT RECORDED 339 lb 339 lb [facility] ID Date Data Source [id number] [facility]ation Code Description Data Source(s) Weight (Calculated Kilograms) 109.68 109.68 [facility] Height (Calculated Centimeters) 165.1 165. 1 [facility] Body Mass Index (BMI) 40.6 40.6 [facility] ID Date Data Source [id number] 03/30/2021 12:13:06 PM EDT [facility] Name Value Range Interpretation Code Description Data Source(s) WEIGHT RECORDED 336 lb 336 lb [facility] ID Date Data Source [id number] 03/30/2021 10:12:00 AM EDT [facility] Name Value Range Interpretation Code Description Data Source(s) Weight (Calculated Kilograms) 109.68 109.68 [facility] Height (Calculated Centimeters) 165.1 165. 1 [facility] Body Mass Index (BMI) 40.6 40.6 [facility] ID Date Data Source [id number] 03/17/2021 12:56:00 AM EDT [facility] Name Value Range Interpretation Code Description Data Source(s) Weight (Calculated Kilograms) 109.68 109.68 [facility] Height (Calculated Centimeters) 165.1 165. 1 [facility] Body Mass Index (BMI) 40.6 40.6 [facility] ID Date Data Source [id number] 03/12/2021 10:09:50 PM T [facility] Name Value Range Interpretation Code Description Data Source(s) WEIGHT RECORDED 334.2 lb 334.2 lb [facility] ID Date Data Source [id number] 03/10/2021 12:32:00 AM EDT [facility] Name Value Range Interpretation Code Description Data Source(s) Weight (Calculated Kilograms) 109.68 109.68 [facility] Height (Calculated Centimeters) 165.1 165. 1 [facility] Body Mass Index (BMI) 40.6 40.6 [facility] ID Date Data Source [id number] 03/11/2021 02:41:12 PM T [facility] Name Value Range Interpretation Code Description Data Source(s) WEIGHT RECORDED 321.8 lb 321.8 lb [facility] ID Date Data Source [id number] 02/15/2021 12:12:00 AM EDT [facility] Name Value Range Interpretation Code Description Data Source(s) Weight (Calculated Kilograms) 109.68 109.68 [facility] Height (Calculated Centimeters) 165.1 165. 1 [facility] Body Mass Index (BMI) 40.6 40.6 [facility] ID Date Data Source [id number] 01/27/2021 01:31:00 AM [facility] Name Value Range Interpretation Code Description Data Source(s) Weight (Calculated Kilograms) 109.68 109.68 [facility] Height (Calculated Centimeters) 165.1 165. 1 [facility] Body Mass Index (BMI) 40.6 40.6 [facility] ID Date Data Source [id number] 01/25/2021 09:13:22 AM [facility] Name Value Range Interpretation Code Description Data Source(s) WEIGHT RECORDED 318 lb 318 lb [facility] ID Date Data Source [id number] 01/16/2021 01:52:00 AM [facility] Name Value Range Interpretation Code Description Data Source(s) Weight (Calculated Kilograms) 109.68 109.68 [facility] Height (Calculated Centimeters) 165.1 165. 1 [facility] Body Mass Index (BMI) 40.6 40.6 [facility] ID Date Data Source [id number] 01/31/2021 09:23:00 AM [facility] Name Value Range Interpretation Code Description Data Source(s) Weight (Calculated Kilograms) 109.68 109.68 [facility] Height (Calculated Centimeters) 165.1 165. 1 [facility] Body Mass Index (BMI) 40.6 40.6 [facility] ID Date Data Source [id number] 01/15/2021 02:29:00 PM [facility] Name Value Range Interpretation Code Description Data Source(s) Weight (Calculated Kilograms) 109.68 109.68 [facility] Height (Calculated Centimeters) 165.1 165. 1 [facility] Body Mass Index (BMI) 40.6 40.6 [facility] ID Date Data Source [id number] 01/08/2021 11:27:00 AM [facility] Name Value Range Interpretation Code Description Data Source(s) Weight (Calculated Kilograms) 109.68 109.68 [facility] Height (Calculated Centimeters) 165.1 165. 1 [facility] Body Mass Index (BMI) 40.6 40.6 [facility] ID Date Data Source [id number] 01/24/2021 09:05:00 AM [facility] Name Value Range Interpretation Code Description Data Source(s) Weight (Calculated Kilograms) 109.68 109.68 [facility] Height (Calculated Centimeters) 165.1 165. 1 [facility] Body Mass Index (BMI) 40.6 40.6 [facility] Weight (Calculated Kilograms) 109.68 109.68 [facility] Height (Calculated Centimeters) 165.1 165. 1 [facility] Body Mass Index (BMI) 40.6 40.6 [facility] Weight (Calculated Kilograms) 109.68 109.68 [facility] Height (Calculated Centimeters) 165.1 165. 1 [facility] Body Mass Index (BMI) 40.6 40.6 [facility] ID Date Data Source [id number] 01/08/2021 10:33:00 AM [facility] Name Value Range Interpretation Code Description Data Source(s) Weight (Calculated Kilograms) 109.68 109.68 [facility] Height (Calculated Centimeters) 165.1 165. 1 [facility] Body Mass Index (BMI) 40.6 40.6 [facility] ID Date Data Source [id number] 01/10/2021 08:36:00 AM [facility] Name Value Range Interpretation Code Description Data Source(s) Weight (Calculated Kilograms) 109.68 109.68 [facility] Height (Calculated Centimeters) 165.1 165. 1 [facility] Body Mass Index (BMI) 40.6 40.6 [facility] ID Date Data Source [id number] 01/10/2021 09:03:00 AM [facility] Name Value Range Interpretation Code Description Data Source(s) Weight (Calculated Kilograms) 109.68 109.68 [facility] Height (Calculated Centimeters) 165.1 165. 1 [facility] Body Mass Index (BMI) 40.6 40.6 [facility] Weight (Calculated Kilograms) 109.68 109.68 [facility] Height (Calculated Centimeters) 165.1 165. 1 [facility] Body Mass Index (BMI) 40.6 40.6 [facility] Weight (Calculated Kilograms) 109.68 109.68 [facility] Height (Calculated Centimeters) 165.1 165. 1 [facility] Body Mass Index (BMI) 40.6 40.6 [facility] ID Date Data Source [id number] 12/21/2020 01:12:00 PM [facility] Name Value Range Interpretation Code Description Data Source(s) Weight (Calculated Kilograms) 109.68 109.68 [facility] Height (Calculated Centimeters) 165.1 165. 1 [facility] Body Mass Index (BMI) 40.6 40.6 [facility] Weight (Calculated Kilograms) 109.68 109.68 [facility] Height (Calculated Centimeters) 165.1 165. 1 [facility] Body Mass Index (BMI) 40.6 40.6 [facility] ID Date Data Source [id number] 12/26/2020 02:13:00 AM [facility] Name Value Range Interpretation Code Description Data Source(s) Weight (Calculated Kilograms) 109.68 109.68 [facility] Height (Calculated Centimeters) 165.1 165. 1 [facility] Body Mass Index (BMI) 40.6 40.6 [facility] Weight (Calculated Kilograms) 109.68 109.68 [facility] Height (Calculated Centimeters) 165.1 165. 1 [facility] Body Mass Index (BMI) 40.6 40.6 [facility] Weight (Calculated Kilograms) 109.68 109.68 [facility] Height (Calculated Centimeters) 165.1 165. 1 [facility] Body Mass Index (BMI) 40.6 40.6 [facility] ID Date Data Source [id number] 12/02/2020 04:55:00 PM [facility] Name Value Range Interpretation Code Description Data Source(s) Weight (Calculated Kilograms) 109.68 109.68 [facility] Height (Calculated Centimeters) 165.1 165. 1 [facility] Body Mass Index (BMI) 40.6 40.6 [facility] Weight (Calculated Kilograms) 109.68 109.68 [facility] Height (Calculated Centimeters) 165.1 165. 1 [facility] Body Mass Index (BMI) 40.6 40.6 [facility] ID Date Data Source [id number] 12/04/2020 05:51:00 PM [facility] Name Value Range Interpretation Code Description Data Source(s) Weight (Calculated Kilograms) 109.68 109.68 [facility] Height (Calculated Centimeters) 165.1 165. 1 [facility] Body Mass Index (BMI) 40.6 40.6 [facility] ID Date Data Source [id number] 11/15/2020 12:21:00 AM [facility] Name Value Range Interpretation Code Description Data Source(s) Weight (Calculated Kilograms) 109.68 109.68 [facility] Height (Calculated Centimeters) 165.1 165. 1 [facility] Body Mass Index (BMI) 40.6 40.6 [facility] ID Date Data Source [id number] 11/22/2020 09:17:00 AM [facility] Name Value Range Interpretation Code Description Data Source(s) Weight (Calculated Kilograms) 109.68 109.68 [facility] Height (Calculated Centimeters) 165.1 165. 1 [facility] Body Mass Index (BMI) 40.6 40.6 [facility] Weight (Calculated Kilograms) 109.68 109.68 [facility] Height (Calculated Centimeters) 165.1 165. 1 [facility] Body Mass Index (BMI) 40.6 40.6 [facility] Weight (Calculated Kilograms) 109.68 109.68 [facility] Height (Calculated Centimeters) 165.1 165. 1 [facility] Body Mass Index (BMI) 40.6 40.6 [facility] ID Date Data Source [id number] 11/15/2020 08:32:00 AM [facility] Name Value Range Interpretation Code Description Data Source(s) Weight (Calculated Kilograms) 109.68 109.68 [facility] Height (Calculated Centimeters) 165.1 165. 1 [facility] Body Mass Index (BMI) 40.6 40.6 [facility] ID Date Data Source [id number] 11/22/2020 09:16:00 AM [facility] Name Value Range Interpretation Code Description Data Source(s) Weight (Calculated Kilograms) 109.68 109.68 [facility] Height (Calculated Centimeters) 165.1 165. 1 [facility] Body Mass Index (BMI) 40.6 40.6 [facility] Weight (Calculated Kilograms) 109.68 109.68 [facility] Height (Calculated Centimeters) 165.1 165. 1 [facility] Body Mass Index (BMI) 40.6 40.6 [facility] ID Date Data Source [id number] 10/27/2020 12:28:00 AM [facility] Name Value Range Interpretation Code Description Data Source(s) Weight (Calculated Kilograms) 109.68 109.68 [facility] Height (Calculated Centimeters) 165.1 165. 1 [facility] Body Mass Index (BMI) 40.6 40.6 [facility] ID Date Data Source [id number] 10/17/2020 06:16:00 AM [facility] Name Value Range Interpretation Code Description Data Source(s) Weight (Calculated Kilograms) 109.68 109.68 [facility] Height (Calculated Centimeters) 165.1 165. 1 [facility] Body Mass Index (BMI) 40.6 40.6 [facility] Weight (Calculated Kilograms) 109.68 109.68 [facility] Height (Calculated Centimeters) 165.1 165. 1 [facility] Body Mass Index (BMI) 40.6 40.6 [facility] ID Date Data Source [id number] 01/31/2021 04:06:00 PM [facility] Name Value Range Interpretation Code Description Data Source(s) Weight (Calculated Kilograms) 109.68 109.68 [facility] Height (Calculated Centimeters) 165.1 165. 1 [facility] Body Mass Index (BMI) 40.6 40.6 [facility] Weight (Calculated Kilograms) 109.68 109.68 [facility] Height (Calculated Centimeters) 165.1 165. 1 [facility] Body Mass Index (BMI) 40.6 40.6 [facility] ID Date Data Source [id number] 11/06/2020 03:40:00 PM [facility] Name Value Range Interpretation Code Description Data Source(s) Weight (Calculated Kilograms) 109.68 109.68 [facility] Height (Calculated Centimeters) 165.1 165. 1 [facility] Body Mass Index (BMI) 40.6 40.6 [facility] Weight (Calculated Kilograms) 109.68 109.68 [facility] Height (Calculated Centimeters) 165.1 165. 1 [facility] Body Mass Index (BMI) 40.6 40.6 [facility] Weight (Calculated Kilograms) 109.68 109.68 [facility] Height (Calculated Centimeters) 165.1 165. 1 [facility] Body Mass Index (BMI) 40.6 40.6 [facility] ID Date Data Source [id number] 11/22/2020 08:50:00 AM [facility] Name Value Range Interpretation Code Description Data Source(s) Weight (Calculated Kilograms) 109.68 109.68 [facility] Height (Calculated Centimeters) 165.1 165. 1 [facility] Body Mass Index (BMI) 40.6 40.6 [facility] ID Date Data Source [id number] 12/27/2020 08:45:00 AM [facility] Name Value Range Interpretation Code Description Data Source(s) Weight (Calculated Kilograms) 109.68 109.68 [facility] Height (Calculated Centimeters) 165.1 165. 1 [facility] Body Mass Index (BMI) 40.6 40.6 [facility] ID Date Data Source [id number] 09/01/2020 12:09:00 AM EDT [facility] Name Value Range Interpretation Code Description Data Source(s) Weight (Calculated Kilograms) 109.68 109.68 [facility] Height (Calculated Centimeters) 165.1 165. 1 [facility] Body Mass Index (BMI) 40.6 40.6 [facility] ID Date Data Source [id number] 08/23/2020 08:23:00 AM EDT [facility] Name Value Range Interpretation Code Description Data Source(s) Weight (Calculated Kilograms) 109.68 109.68 [facility] Height (Calculated Centimeters) 165.1 165. 1 [facility] Body Mass Index (BMI) 40.6 40.6 [facility] ID Date Data Source [id number] 08/16/2020 08:06:00 AM EDT [facility] Name Value Range Interpretation Code Description Data Source(s) Weight (Calculated Kilograms) 109.68 109.68 [facility] Height (Calculated Centimeters) 165.1 165. 1 [facility] Body Mass Index (BMI) 40.6 40.6 [facility] Weight (Calculated Kilograms) 109.68 109.68 [facility] Height (Calculated Centimeters) 165.1 165. 1 [facility] Body Mass Index (BMI) 40.6 40.6 [facility] Weight (Calculated Kilograms) 109.68 109.68 [facility] Height (Calculated Centimeters) 165.1 165. 1 [facility] Body Mass Index (BMI) 40.6 40.6 [facility] ID Date Data Source [id number] 07/19/2020 08:05:00 AM EDT [facility] Name Value Range Interpretation Code Description Data Source(s) Weight (Calculated Kilograms) 109.68 109.68 [facility] Height (Calculated Centimeters) 165.1 165. 1 [facility] Body Mass Index (BMI) 40.6 40.6 [facility] Weight (Calculated Kilograms) 109.68 109.68 [facility] Height (Calculated Centimeters) 165.1 165. 1 [facility] Body Mass Index (BMI) 40.6 40.6 [facility] ID Date Data Source [id number] 08/01/2021 08:42:49 AM EDT [facility]) Name Value Range Interpretation Code Description Data Source(s) Body weight 291 [lb_av] 291 [lb_av] [facility] ([facility]) Body height 65 [in_i] 65 [in_i] [facility] ([facility]) Patient Treatment Plan of Care Planned Activity Planned Date Details Description Data Source (s) Sprintec 28 0.25-35 [facility] 06/12/2021 12:00:00 AM EDT [facility] ([facility]) Sprintec 28 0.25-35 [facility] 06/12/2021 12:00:00 AM EDT eCW1 (Formerly [facility]) Sprintec 28 0.25-35 [facility] 06/12/2021 12:00:00 AM EDT eCW1 ([facility]) Sprintec 28 0.25-35 [facility] 06/12/2021 12:00:00 AM EDT [facility]CW1 ([facility]) Sprintec 28 0.25-35 [facility] 06/12/2021 12:00:00 AM EDT eCW1 (Former[facility]) Sprintec 28 0.25-35 [facility] 06/12/2021 12:00:00 AM EDT eCW1 (Formerly [facility])
[2021-09-17 17:50] LABS: BASO # 0.1 10^3/uL (0.0-0.2); BASO % 0.7 % (0.0-1.0); EOS # 0.1 10^3/uL (0.0-0.5); EOS % 1.3 % (0.0-3.0); HEMATOCRIT 46.7 % (36.0-47.0); HEMOGLOBIN 16.3 g/dl (12.0-15.5); LYMPH # 3.7 10^3/uL (1.5-5.0); LYMPH % 36.4 % (24.0-44.0); MEAN CORPUSCULAR HEMOGLOBIN 29.6 pg (27.0-33.0); MEAN CORPUSCULAR HGB CONC 34.9 g/dl (32.0-36.5); MEAN CORPUSCULAR VOLUME 84.9 fl (80.0-96.0); MONO # 1.3 10^3/uL (0.0-0.8); MONO % 12.7 % (2.0-8.0); NEUTROPHILS % 48.4 % (36.0-66.0); PLATELET COUNT, AUTOMATED 242 10^3/uL (150-450); WHITE BLOOD COUNT 10.3 10^3/uL (4.0-10.0)
[2021-09-17 18:04] LABS: C REACTIVE PROTEIN QUANTITATIV 0.48 MG/DL (0.00-0.30); MAGNESIUM LEVEL 1.7 MG/DL (1.8-2.4)
[2021-09-17 18:19] LABS: ERYTHROCYTE SEDIMENTATION RATE 8 mm/hr (0-20)
[2021-09-17 18:27] LABS: RSV AMPLIFICATION NEGATIVE (NEGATIVE)
--- NOTE | 2021-09-17 18:53 | REPVR ---
PROCEDURE INFORMATION: Exam: CT Head Without Contrast Exam date and time: 09/17/2021 5:02 PM Age: 21 years old Clinical indication: Pain; Headache; Additional info: DIAZ x 5 days, severe TECHNIQUE: Imaging protocol: Computed tomography of the head without contrast. Radiation optimization: All CT scans at this facility use at least one of these dose optimization techniques: automated exposure control; mA and/or kV adjustment per patient size (includes targeted exams where dose is matched to clinical indication); or iterative reconstruction. COMPARISON: No relevant prior studies available. FINDINGS: Brain: Normal. No hemorrhage. Unremarkable white matter. No mass effect. Cerebral ventricles: No ventriculomegaly. Paranasal sinuses: Visualized sinuses are unremarkable. No fluid levels. Mastoid air cells: Visualized mastoid air cells are well aerated. Bones/joints: Unremarkable. No acute fracture. Soft tissues: Unremarkable. IMPRESSION: No acute intracranial abnormality. Electronically signed by: Joseph Rogel On 09/17/2021 18:52:30 PM
[2021-09-17 19:25] VITALS: BP 106/63
== END 2021-09-17 20:24 | disposition home or self-care (01) ==
LOC: M ED 14:21
DX: R51.9 Headache, unspecified (principal); E11.9 Type 2 diabetes mellitus without complications; Z79.3 Long term (current) use of hormonal contraceptives; Z79.4 Long term (current) use of insulin; Z91.040 Latex allergy status; Z88.8 Allergy status to other drugs, medicaments and biological substances; Z91.048 Other nonmedicinal substance allergy status
CPT/HCPCS: 70450; 80047; 83735; 84702; 85025; 85652; 86140; 87631; 96374; 96375; 99284; J1200; J1885; J2765

== ENCOUNTER → 2021-11-01 | Outpatient (CLI) | payer BC, OTHER, SELFPAY | LOC: M WUC 11:17 | PROVIDERS: ATTEND Physician Assistant | DX: M79.674 Pain in right toe(s) (principal) ==

== ENCOUNTER 2022-03-11 07:33 | Day surgery (SDC) | payer OTHER ==
[~2022-03-11] VITALS: Ht 162.6 cm; Wt 141.1 kg
[~2022-03-11 07:33] MED LIST changes: +HumaLOG INSULIN (NovoLOG) PER UNIT SC SCH; +INSULANT SC; +LISI10TA22 PO; +LR 1,000 ML IV ONE; +SERT50TA29 PO
[2022-03-11] MEDS ORDERED: HumaLOG INSULIN (NovoLOG) PER UNIT SC ONE (08:40)
[2022-03-11] MEDS ORDERED: SUGAMMADEX SODIUM 500 MG/5 ML VIAL (BRIDION) As Ordered ONE ×2 (09:05→10:33)
[2022-03-11] MEDS ORDERED: METHYLENE BLUE 0.5% (5MG/ML) 10 ML AMP (PROVAYBLUE) As Ordered ONE (09:43)
[2022-03-11] MEDS ORDERED: BUPIVACAINE/EPIN 0.5% 30 ML VIAL As Ordered ONE (09:43)
[2022-03-11] MEDS ORDERED: OXYMETAZOLINE 0.05% NASAL SPRAY (AFRIN) As Ordered ONE (09:43)
[2022-03-11] MEDS ORDERED: propofoL 200 MG/20 ML VIAL As Ordered ONE (09:50)
[2022-03-11] MEDS ORDERED: LIDOCAINE 2% 100MG/5ML SDV (FOR ANES.) As Ordered ONE (09:50)
[2022-03-11] MEDS ORDERED: ROCURONIUM BROMIDE 50 MG/5 ML VIAL As Ordered ONE (09:50)
[2022-03-11] MEDS ORDERED: MIDAZOLAM INJ 2MG/2ML VIAL (J2250 PER 1MG) As Ordered ONE (09:51)
[2022-03-11] MEDS ORDERED: dexameTHASONE 4 MG/ML 1ML VIAL (J1100 PER 1MG) As Ordered ONE (09:51)
[2022-03-11] MEDS ORDERED: ONDANSETRON 4MG/2ML VIAL As Ordered ONE (09:51)
[2022-03-11] MEDS ORDERED: fentaNYL 100 MCG/2 ML INJECTION As Ordered ONE ×2 (09:51→10:18)
[2022-03-11] MEDS ORDERED: ACETAMINOPHEN 1000MG 100ML IV BTL (OFIRMEV) (J0131 PER 10MG) As Ordered ONE (10:18)
[2022-03-11] MEDS ORDERED: ALBUTEROL 6.7GM INHALER **FOR ANES. CART/OMNICELL ONLY As Ordered ONE (10:23)
[2022-03-11] MEDS ORDERED: fentaNYL 100 MCG/2 ML INJECTION IV PRN (11:30)
[2022-03-11] MEDS ORDERED: LR 1,000 ML IV SCH ×2 (11:30)
[2022-03-11] MEDS ORDERED: ONDANSETRON 4MG/2ML VIAL IV PRN ×2 (11:30)
[2022-03-11] MEDS ORDERED: HYDROcodone/APAP LIQUID 7.5-325MG 15ML UDC (LORTAB ELIXIR) PO PRN (11:30)
[2022-03-11] MEDS ORDERED: oxyCODONE 5MG TAB PO PRN (11:30)
[2022-03-11] MEDS ORDERED: METOCLOPRAMIDE INJ 10MG/2ML VIAL (J2765 PER 1) As Ordered ONE (11:43)
[2022-03-11] MEDS ORDERED: METOCLOPRAMIDE INJ 10MG/2ML VIAL (J2765 PER 1) IV ONE (11:55)
[2022-03-11 12:30] VITALS: BP 124/77
== END 2022-03-11 12:55 | disposition home or self-care (01) ==
LOC: M SDC 07:33
PROVIDERS: ATTEND Otolaryngology
DX: J35.03 Chronic tonsillitis and adenoiditis (principal); E11.9 Type 2 diabetes mellitus without complications; E88.01 Alpha-1-antitrypsin deficiency; Z79.899 Other long term (current) drug therapy; Z79.4 Long term (current) use of insulin; Z88.8 Allergy status to other drugs, medicaments and biological substances; Z91.040 Latex allergy status; Z91.048 Other nonmedicinal substance allergy status
CPT/HCPCS: 42821; 88302; J0131; J1815; J2250; J2405; J2765; J3010; Q9968

== ENCOUNTER 2022-11-01 00:54 | Emergency (ER) | payer OTHER ==
[~2022-11-01] VITALS: Ht 152.4 cm; Wt 148.1 kg
[~2022-11-01 00:54] MED LIST changes: -HumaLOG INSULIN (NovoLOG) PER UNIT SC SCH; -LR 1,000 ML IV ONE
[2022-11-01 01:38] LABS: HEMATOCRIT 43.6 % (36.0-47.0); HEMOGLOBIN 14.8 g/dl (12.0-15.5); MEAN CORPUSCULAR HEMOGLOBIN 29.9 pg (27.0-33.0); MEAN CORPUSCULAR HGB CONC 33.9 g/dl (32.0-36.5); MEAN CORPUSCULAR VOLUME 88.1 fl (80.0-96.0); PLATELET COUNT, AUTOMATED 310 10^3/uL (150-450); RED BLOOD COUNT 4.95 10^6/uL (4.00-5.40); WHITE BLOOD COUNT 11.5 10^3/uL (4.0-10.0)
[2022-11-01 02:05] LABS: HCG, SERUM QUALITATIVE NEGATIVE (NEGATIVE)
[2022-11-01 02:07] LABS: ATYPICAL LYMPH 3 % (0-5); EOSINOPHILS 2 % (0-3); LYMPHOCYTES 48 % (16-44); MONOCYTES 11 % (0-5); NEUTROPHILS 36 % (28-66); PLATELET ESTIMATE NORMAL (NORMAL)
[2022-11-01 02:10] LABS: LIPASE 23 U/L (12-53)
[2022-11-01 02:12] LABS: BILIRUBIN,DIRECT 0.2 MG/DL (<0.4)
[2022-11-01 02:13] LABS: ALBUMIN 3.5 G/DL (3.2-5.2); ALKALINE PHOSPHATASE 65 U/L (46-116); ALT/SGPT 155 U/L (7.0-40); AST/SGOT 121 U/L (<34); BILIRUBIN,TOTAL 0.9 MG/DL (0.3-1.2); BLOOD UREA NITROGEN 11 MG/DL (9-23); CALCIUM LEVEL 9.5 MG/DL (8.5-10.1); CARBON DIOXIDE LEVEL 27 MMOL/L (20-31); CHLORIDE LEVEL 104 MMOL/L (98-107); CREATININE FOR GFR 0.53 MG/DL (0.55-1.30); GLOMERULAR FILTRATION RATE > 60.0 (>60); GLUCOSE, FASTING 67 MG/DL (60-100); POTASSIUM SERUM 3.4 MMOL/L (3.5-5.1); SODIUM LEVEL 140 MMOL/L (136-145); TOTAL PROTEIN 7.6 G/DL (5.7-8.2)
[2022-11-01] MEDS ORDERED: ONDANSETRON 4MG 2ML VIAL IV ONE (02:15)
[2022-11-01] MEDS ORDERED: KETOROLAC 30 MG/ML 1ML VIAL IV ONE (02:15)
[2022-11-01] MEDS ORDERED: NS 1,000 ML IV ONE (02:25)
[2022-11-01 04:07] VITALS: BP 129/81
[2022-11-01] MEDS ORDERED: ONDA4TAB6 PO (04:25)
[2022-11-01] MEDS ORDERED: ONDANSETRON 4MG ORAL DISINTEGRATING TAB PO ONE (04:30)
[2022-11-01] MEDS ORDERED: FOSFOMYCIN TROMETHAMINE 3 GM POWDER PACKET (MONUROL) PO ONE (04:30)
== END 2022-11-01 05:06 | disposition home or self-care (01) ==
LOC: M ED 00:54
DX: U07.1 COVID-19 (principal); N39.0 Urinary tract infection, site not specified; B34.2 Coronavirus infection, unspecified; E11.9 Type 2 diabetes mellitus without complications; F32.A Depression, unspecified; Z79.84 Long term (current) use of oral hypoglycemic drugs; Z88.8 Allergy status to other drugs, medicaments and biological substances; Z91.040 Latex allergy status; Z91.048 Other nonmedicinal substance allergy status; Z79.811 Long term (current) use of aromatase inhibitors; Z79.899 Other long term (current) drug therapy
CPT/HCPCS: 74176; 80048; 80076; 81000; 81015; 83605; 83690; 84703; 85025; 87086; 87486; 87581; 87633; 87798; 96361; 96374; 99284; J1885; J2405

== ENCOUNTER 2022-11-24 19:05 | Emergency (ER) | payer OTHER ==
[~2022-11-24] VITALS: Ht 162.6 cm; Wt 147.7 kg
[~2022-11-24 19:05] MED LIST changes: +ONDA4TAB6 PO
[2022-11-24] MEDS ORDERED: LEXA1TAB2 PO (19:13)
[2022-11-24] MEDS ORDERED: BOOSTRIX/ADACEL VACCINE (DIPHTH/PERTUSS/ACELL/TETANUS) 0.5ML SYR IM ONE (20:25)
[2022-11-24] MEDS ORDERED: DERMABOND TOPICAL SKIN ADHESIVE TOP ONE (20:25)
[2022-11-24 21:05] VITALS: BP 123/82
== END 2022-11-24 21:06 | disposition home or self-care (01) ==
LOC: M ED 19:05
DX: S61.213A Laceration without foreign body of left middle finger without damage to nail, initial encounter (principal); W26.8XXA Contact with other sharp object(s), not elsewhere classified, initial encounter; E11.9 Type 2 diabetes mellitus without complications; I10 Essential (primary) hypertension; E66.9 Obesity, unspecified; Y92.009 Unspecified place in unspecified non-institutional (private) residence as the place of occurrence of the external cause; Y93.89 Activity, other specified; Y99.9 Unspecified external cause status; Z88.8 Allergy status to other drugs, medicaments and biological substances; Z91.040 Latex allergy status; Z79.4 Long term (current) use of insulin; Z79.811 Long term (current) use of aromatase inhibitors; Z79.899 Other long term (current) drug therapy; Z23 Encounter for immunization

== ENCOUNTER 2022-12-29 13:19 | Emergency (ER) | payer OTHER ==
[~2022-12-29] VITALS: Ht 162.6 cm; Wt 149.0 kg
[~2022-12-29 13:19] MED LIST changes: +LEXA1TAB2 PO
[2022-12-29] MEDS ORDERED: CEFD300C41 PO (17:29)
[2022-12-29] MEDS ORDERED: CEFDINIR 300 MG CAP (OMNICEF) PO ONE (17:35)
[2022-12-29 17:42] VITALS: BP 114/70
== END 2022-12-29 17:44 | disposition home or self-care (01) ==
LOC: M ED 13:19
DX: R31.9 Hematuria, unspecified (principal); N39.0 Urinary tract infection, site not specified; E11.9 Type 2 diabetes mellitus without complications; I10 Essential (primary) hypertension; Z88.8 Allergy status to other drugs, medicaments and biological substances; Z91.040 Latex allergy status; Z91.048 Other nonmedicinal substance allergy status; Z79.2 Long term (current) use of antibiotics; Z79.811 Long term (current) use of aromatase inhibitors; Z79.899 Other long term (current) drug therapy

== ENCOUNTER → 2023-01-20 | Outpatient (CLI) | payer OTHER ==
[~2023-01-20] MED LIST changes: +CEFD300C41 PO
== END ==
LOC: M RAD 07:03
PROVIDERS: ATTEND Internal Medicine Gastroenterology
DX: E88.01 Alpha-1-antitrypsin deficiency (principal); R10.11 Right upper quadrant pain

== ENCOUNTER 2023-03-29 18:55 | Inpatient (IN) | payer OTHER ==
[~2023-03-29] VITALS: Ht 162.6 cm; Wt 140.3 kg
[2023-03-29] MEDS ORDERED: NS 1,000 ML IV ONE (19:35)
[2023-03-29 19:52] LABS: BASO # 0.1 10^3/uL (0.0-0.2); BASO % 0.4 % (0.0-1.0); EOS % 0.1 % (0.0-3.0); HEMATOCRIT 50.1 % (36.0-47.0); HEMOGLOBIN 16.4 g/dl (12.0-15.5); LYMPH # 2.9 10^3/uL (1.5-5.0); MEAN CORPUSCULAR HEMOGLOBIN 30.4 pg (27.0-33.0); MEAN CORPUSCULAR HGB CONC 32.7 g/dl (32.0-36.5); MEAN CORPUSCULAR VOLUME 92.8 fl (80.0-96.0); MONO % 7.7 % (2.0-8.0); NEUTROPHILS % 76.8 % (36.0-66.0); PLATELET COUNT, AUTOMATED 405 10^3/uL (150-450); WHITE BLOOD COUNT 20.9 10^3/uL (4.0-10.0)
[2023-03-29] MEDS ORDERED: METOCLOPRAMIDE INJ 10MG/2ML VIAL IV ONE (20:00)
[2023-03-29 20:05] LABS: ETHYL ALCOHOL (ETHANOL) < 0.003 % (0.000-0.010); LIPASE 34 U/L (12-53)
[2023-03-29 20:10] LABS: ALBUMIN 4.4 G/DL (3.2-5.2); ALKALINE PHOSPHATASE 90 U/L (46-116); ALT/SGPT 94 U/L (7.0-40); AST/SGOT 58 U/L (<34); BILIRUBIN,DIRECT 0.1 MG/DL (<0.4); BILIRUBIN,TOTAL 0.4 MG/DL (0.3-1.2); BLOOD UREA NITROGEN 10 MG/DL (9-23); CALCIUM LEVEL 9.3 MG/DL (8.5-10.1); CARBON DIOXIDE LEVEL < 10.0 MMOL/L (20-31); CHLORIDE LEVEL 105 MMOL/L (98-107); CREATININE FOR GFR 0.68 MG/DL (0.55-1.30); GLOMERULAR FILTRATION RATE > 60.0 (>60); GLUCOSE, FASTING 213 MG/DL (60-100); POTASSIUM SERUM 4.8 MMOL/L (3.5-5.1); SODIUM LEVEL 138 MMOL/L (136-145); THYROID STIMULATING HORMONE 1.091 uIU/ML (0.55-4.78); TOTAL PROTEIN 8.9 G/DL (5.7-8.2)
[2023-03-29 20:16] LABS: MONO # 1.6 10^3/uL (0.0-0.8)
[2023-03-29 23:18] LABS: AMPHETAMINES LEVEL URINE NEGATIVE (NEGATIVE); BARBITURATES URINE NEGATIVE (NEGATIVE); BENZODIAZEPINES URINE NEGATIVE (NEGATIVE); CANNABINOIDS URINE NEGATIVE (NEGATIVE); COCAINE METABOLITE URINE NEGATIVE (NEGATIVE); METHADONE URINE NEGATIVE (NEGATIVE); OPIATES URINE NEGATIVE (NEGATIVE); PHENCYCLIDINE URINE NEGATIVE (NEGATIVE)
[2023-03-30] VITALS (11 sets, daily range): BP systolic 120–149; BP diastolic 61–82
[2023-03-30 00:15] LABS: VENOUS BASE EXCESS -25.4 (-2.0-2.0); VENOUS HCO3 6.2 MMOL/L (23.0-27.0); VENOUS O2 SATURATION 80.4 % (60.0-80.0); VENOUS PARTIAL PRESSURE CO2 29.8 mmHg (38.0-50.0); VENOUS PARTIAL PRESSURE O2 53.5 mmHg (30.0-50.0); VENOUS PH 6.939 UNITS (7.330-7.430); VENOUS STANDARD HCO3 7.8 MMOL/L; VENOUS TOTAL CO2 7.2 MMOL/L (24.0-28.0)
[2023-03-30] MEDS ORDERED: NS IV ONE (00:55)
[2023-03-30 01:24] LABS: OSMOLALITY SERUM 315 MOSM/KG (275-295)
[2023-03-30 01:30] LABS: ACETONE/KETONE > 4.50 MMOL/L (0.02-0.27)
[2023-03-30] MEDS ORDERED: METOCLOPRAMIDE INJ 10MG/2ML VIAL IV ONE ×2 (02:10→15:00)
[2023-03-30] MEDS ORDERED: TRUL0.5I INJ (02:36)
[2023-03-30] MEDS ORDERED: JARD1TAB3 PO (02:36)
[2023-03-30] MEDS ORDERED: HumuLIN R (REGULAR) INSULIN (NovoLIN R) **100U/ML** PER UNIT IV STA (02:58)
[2023-03-30] MEDS ORDERED: PROMETHAZINE 25MG/ML 1ML VIAL IV ONE (03:00)
[2023-03-30] MEDS ORDERED: SODIUM BICARBONATE 8.4% INJ 50ML SYRINGE IV ONE (03:00)
[2023-03-30] MEDS ORDERED: PROCHLORPERAZINE 10MG 2ML VIAL IM ONE (03:00)
[2023-03-30] MEDS: INSULIN REGULAR IN 0.9 % NACL 100 UNIT in IV 1 EA IV SCH ×2 (03:33)
[2023-03-30 04:00] LABS: BLOOD UREA NITROGEN 10 MG/DL (9-23); CALCIUM LEVEL 7.8 MG/DL (8.5-10.1); CARBON DIOXIDE LEVEL < 10.0 MMOL/L (20-31); CHLORIDE LEVEL 111 MMOL/L (98-107); CREATININE FOR GFR 0.75 MG/DL (0.55-1.30); GLOMERULAR FILTRATION RATE > 60.0 (>60); GLUCOSE, FASTING 239 MG/DL (60-100); PHOSPHORUS LEVEL 5.5 MG/DL (2.5-4.9); SODIUM LEVEL 141 MMOL/L (136-145)
[2023-03-30] MEDS ORDERED: SODIUM BICARBONATE 150 MEQ in STERILE WATER LITER BAG 1,000 ML IV SCH (04:00)
[2023-03-30] MEDS: INSULIN IV RATE CHANGE DOCUMENTATION ML/HR XX SCH ×5 (05:29→23:01)
[2023-03-30] MEDS: HEPARIN SOD (PORCINE) 5000UNITS/ML 1ML VIAL/SYRINGE SC SCH ×3 (05:34→22:00)
[2023-03-30] MEDS ORDERED: SODIUM BICARBONATE 75 MEQ in D5W 1,000 ML IV SCH (06:00)
[2023-03-30 08:39] LABS: BLOOD UREA NITROGEN 6 MG/DL (9-23); CALCIUM LEVEL 8.4 MG/DL (8.5-10.1); CARBON DIOXIDE LEVEL < 10.0 MMOL/L (20-31); CHLORIDE LEVEL 110 MMOL/L (98-107); GLOMERULAR FILTRATION RATE > 60.0 (>60); GLUCOSE, FASTING 164 MG/DL (60-100); PHOSPHORUS LEVEL 3.3 MG/DL (2.5-4.9); POTASSIUM SERUM 4.5 MMOL/L (3.5-5.1); SODIUM LEVEL 139 MMOL/L (136-145)
[2023-03-30] MEDS: PANTOPRAZOLE 40MG VIAL IV SCH (08:47)
[2023-03-30 11:17] LABS: VENOUS BASE EXCESS -20.1 (-2.0-2.0); VENOUS HCO3 7.9 MMOL/L (23.0-27.0); VENOUS O2 SATURATION 90.4 % (60.0-80.0); VENOUS PARTIAL PRESSURE CO2 25.4 mmHg (38.0-50.0); VENOUS PARTIAL PRESSURE O2 57.6 mmHg (30.0-50.0); VENOUS PH 7.108 UNITS (7.330-7.430); VENOUS STANDARD HCO3 10.3 MMOL/L; VENOUS TOTAL CO2 8.6 MMOL/L (24.0-28.0)
[2023-03-30] MEDS: ACETAMINOPHEN TAB 650MG DOSE (2X325MG) PO PRN ×2 (11:31→22:26)
[2023-03-30] MEDS: D5W/0.9% SODIUM CHLORIDE 1,000 ML IV SCH ×2 (11:44→18:04)
[2023-03-30 11:48] LABS: BLOOD UREA NITROGEN 9 MG/DL (9-23); CALCIUM LEVEL 8.3 MG/DL (8.5-10.1); CARBON DIOXIDE LEVEL < 10.0 MMOL/L (20-31); CHLORIDE LEVEL 109 MMOL/L (98-107); CREATININE FOR GFR 0.69 MG/DL (0.55-1.30); GLOMERULAR FILTRATION RATE > 60.0 (>60); GLUCOSE, FASTING 160 MG/DL (60-100); PHOSPHORUS LEVEL 2.5 MG/DL (2.5-4.9); POTASSIUM SERUM 4.6 MMOL/L (3.5-5.1); SODIUM LEVEL 139 MMOL/L (136-145)
[2023-03-30] MEDS ORDERED: KETOROLAC 30 MG/ML 1ML VIAL IV ONE (15:00)
[2023-03-30 15:17] LABS: VENOUS BASE EXCESS -18.1 (-2.0-2.0); VENOUS O2 SATURATION 98.5 % (60.0-80.0); VENOUS PARTIAL PRESSURE CO2 21.6 mmHg (38.0-50.0); VENOUS PARTIAL PRESSURE O2 119.7 mmHg (30.0-50.0); VENOUS PH 7.187 UNITS (7.330-7.430); VENOUS STANDARD HCO3 11.5 MMOL/L; VENOUS TOTAL CO2 8.7 MMOL/L (24.0-28.0)
[2023-03-30 15:31] LABS: HEMOGLOBIN A1c 11.5 % (4.0-6.0)
[2023-03-30 15:49] LABS: BLOOD UREA NITROGEN 7 MG/DL (9-23); CALCIUM LEVEL 8.8 MG/DL (8.5-10.1); CARBON DIOXIDE LEVEL < 10.0 MMOL/L (20-31); CHLORIDE LEVEL 110 MMOL/L (98-107); CREATININE FOR GFR 0.57 MG/DL (0.55-1.30); GLOMERULAR FILTRATION RATE > 60.0 (>60); GLUCOSE, FASTING 161 MG/DL (60-100); PHOSPHORUS LEVEL 1.9 MG/DL (2.5-4.9); POTASSIUM SERUM 3.9 MMOL/L (3.5-5.1); SODIUM LEVEL 138 MMOL/L (136-145)
[2023-03-30 20:08] LABS: BLOOD UREA NITROGEN 8 MG/DL (9-23); CALCIUM LEVEL 8.9 MG/DL (8.5-10.1); CARBON DIOXIDE LEVEL 11 MMOL/L (20-31); CHLORIDE LEVEL 110 MMOL/L (98-107); GLOMERULAR FILTRATION RATE > 60.0 (>60); GLUCOSE, FASTING 152 MG/DL (60-100); PHOSPHORUS LEVEL 2.1 MG/DL (2.5-4.9); POTASSIUM SERUM 4.2 MMOL/L (3.5-5.1); SODIUM LEVEL 137 MMOL/L (136-145)
[2023-03-30 23:40] LABS: VENOUS BASE EXCESS -18.4 (-2.0-2.0); VENOUS HCO3 10.2 MMOL/L (23.0-27.0); VENOUS PARTIAL PRESSURE CO2 33.3 mmHg (38.0-50.0); VENOUS PARTIAL PRESSURE O2 68.6 mmHg (30.0-50.0); VENOUS PH 7.103 UNITS (7.330-7.430); VENOUS STANDARD HCO3 11.1 MMOL/L; VENOUS TOTAL CO2 11.2 MMOL/L (24.0-28.0)
[2023-03-31] VITALS (8 sets, daily range): BP systolic 97–138; BP diastolic 49–69
[2023-03-31 00:09] LABS: BLOOD UREA NITROGEN 7 MG/DL (9-23); CALCIUM LEVEL 8.6 MG/DL (8.5-10.1); CARBON DIOXIDE LEVEL 12 MMOL/L (20-31); CHLORIDE LEVEL 112 MMOL/L (98-107); CREATININE FOR GFR 0.59 MG/DL (0.55-1.30); GLOMERULAR FILTRATION RATE > 60.0 (>60); GLUCOSE, FASTING 162 MG/DL (60-100); POTASSIUM SERUM 3.8 MMOL/L (3.5-5.1); SODIUM LEVEL 140 MMOL/L (136-145)
[2023-03-31] MEDS: D5W/0.9% SODIUM CHLORIDE 1,000 ML IV SCH (01:04)
[2023-03-31] MEDS: INSULIN IV RATE CHANGE DOCUMENTATION ML/HR XX SCH ×10 (01:07→19:09)
[2023-03-31 03:39] LABS: HEMATOCRIT 41.8 % (36.0-47.0); MEAN CORPUSCULAR HEMOGLOBIN 30.3 pg (27.0-33.0); MEAN CORPUSCULAR VOLUME 91.7 fl (80.0-96.0); PLATELET COUNT, AUTOMATED 265 10^3/uL (150-450); RED BLOOD COUNT 4.56 10^6/uL (4.00-5.40); WHITE BLOOD COUNT 11.2 10^3/uL (4.0-10.0)
[2023-03-31 03:53] LABS: HEMOGLOBIN 13.8 g/dl (12.0-15.5)
[2023-03-31 04:07] LABS: BLOOD UREA NITROGEN 5 MG/DL (9-23); CALCIUM LEVEL 8.4 MG/DL (8.5-10.1); CARBON DIOXIDE LEVEL < 10.0 MMOL/L (20-31); CHLORIDE LEVEL 114 MMOL/L (98-107); CREATININE FOR GFR 0.56 MG/DL (0.55-1.30); GLOMERULAR FILTRATION RATE > 60.0 (>60); GLUCOSE, FASTING 192 MG/DL (60-100); PHOSPHORUS LEVEL 1.4 MG/DL (2.5-4.9); POTASSIUM SERUM 3.1 MMOL/L (3.5-5.1); SODIUM LEVEL 140 MMOL/L (136-145)
[2023-03-31] MEDS ORDERED: POTASSIUM PHOSPHATE INJ 15 MMOL in D5W 250 ML IV ONE (06:00)
[2023-03-31] MEDS: HEPARIN SOD (PORCINE) 5000UNITS/ML 1ML VIAL/SYRINGE SC SCH ×3 (06:07→21:44)
[2023-03-31] MEDS: ACETAMINOPHEN TAB 650MG DOSE (2X325MG) PO PRN (06:11)
[2023-03-31] MEDS: INSULIN REGULAR IN 0.9 % NACL 100 UNIT in IV 1 EA IV SCH ×2 (06:25)
[2023-03-31] MEDS ORDERED: SODIUM BICARBONATE 8.4% INJ 50ML SYRINGE IV STA (06:38)
[2023-03-31] MEDS: ONDANSETRON 4MG 2ML VIAL IV PRN ×3 (06:44→21:46)
[2023-03-31] MEDS: KCL 20MEQ IN D5/0.45NS 1000ML 1,000 ML IV SCH ×3 (06:44→21:43)
[2023-03-31 08:06] LABS: VENOUS BASE EXCESS -15.8 (-2.0-2.0); VENOUS HCO3 11.7 MMOL/L (23.0-27.0); VENOUS O2 SATURATION 97.5 % (60.0-80.0); VENOUS PARTIAL PRESSURE CO2 33.2 mmHg (38.0-50.0); VENOUS PARTIAL PRESSURE O2 100.1 mmHg (30.0-50.0); VENOUS PH 7.164 UNITS (7.330-7.430); VENOUS STANDARD HCO3 12.8 MMOL/L; VENOUS TOTAL CO2 12.7 MMOL/L (24.0-28.0)
[2023-03-31 08:34] LABS: BLOOD UREA NITROGEN 6 MG/DL (9-23); CALCIUM LEVEL 8.6 MG/DL (8.5-10.1); CARBON DIOXIDE LEVEL 13 MMOL/L (20-31); CHLORIDE LEVEL 114 MMOL/L (98-107); CREATININE FOR GFR 0.54 MG/DL (0.55-1.30); GLOMERULAR FILTRATION RATE > 60.0 (>60); GLUCOSE, FASTING 176 MG/DL (60-100); POTASSIUM SERUM 3.6 MMOL/L (3.5-5.1); SODIUM LEVEL 142 MMOL/L (136-145)
[2023-03-31] MEDS: PANTOPRAZOLE 40MG VIAL IV SCH (08:59)
[2023-03-31] MEDS: METOCLOPRAMIDE INJ 10MG/2ML VIAL IV PRN ×2 (10:26→18:43)
[2023-03-31] MEDS ORDERED: KETOROLAC TROMETHAMINE 10 MG TAB PO ONE (12:00)
[2023-03-31 12:36] LABS: BLOOD UREA NITROGEN 5 MG/DL (9-23); CALCIUM LEVEL 8.8 MG/DL (8.5-10.1); CARBON DIOXIDE LEVEL < 10.0 MMOL/L (20-31); CHLORIDE LEVEL 113 MMOL/L (98-107); CREATININE FOR GFR 0.51 MG/DL (0.55-1.30); GLOMERULAR FILTRATION RATE > 60.0 (>60); GLUCOSE, FASTING 174 MG/DL (60-100); POTASSIUM SERUM 3.5 MMOL/L (3.5-5.1); SODIUM LEVEL 140 MMOL/L (136-145)
[2023-03-31 16:19] LABS: VENOUS BASE EXCESS -15.1 (-2.0-2.0); VENOUS HCO3 10.6 MMOL/L (23.0-27.0); VENOUS O2 SATURATION 99.4 % (60.0-80.0); VENOUS PARTIAL PRESSURE CO2 25.6 mmHg (38.0-50.0); VENOUS PARTIAL PRESSURE O2 258.7 mmHg (30.0-50.0); VENOUS PH 7.235 UNITS (7.330-7.430); VENOUS STANDARD HCO3 13.2 MMOL/L; VENOUS TOTAL CO2 11.4 MMOL/L (24.0-28.0)
[2023-03-31 16:57] LABS: BLOOD UREA NITROGEN < 5 MG/DL (9-23); CALCIUM LEVEL 8.5 MG/DL (8.5-10.1); CARBON DIOXIDE LEVEL 11 MMOL/L (20-31); CHLORIDE LEVEL 113 MMOL/L (98-107); CREATININE FOR GFR 0.53 MG/DL (0.55-1.30); GLOMERULAR FILTRATION RATE > 60.0 (>60); GLUCOSE, FASTING 158 MG/DL (60-100); POTASSIUM SERUM 3.5 MMOL/L (3.5-5.1); SODIUM LEVEL 140 MMOL/L (136-145)
[2023-03-31 20:02] LABS: VENOUS BASE EXCESS -17.8 (-2.0-2.0); VENOUS O2 SATURATION 99.2 % (60.0-80.0); VENOUS PARTIAL PRESSURE CO2 20.6 mmHg (38.0-50.0); VENOUS PARTIAL PRESSURE O2 162.1 mmHg (30.0-50.0); VENOUS PH 7.207 UNITS (7.330-7.430); VENOUS STANDARD HCO3 11.5 MMOL/L; VENOUS TOTAL CO2 8.6 MMOL/L (24.0-28.0)
[2023-03-31 20:37] LABS: BLOOD UREA NITROGEN < 5 MG/DL (9-23); CALCIUM LEVEL 8.3 MG/DL (8.5-10.1); CARBON DIOXIDE LEVEL < 10.0 MMOL/L (20-31); CHLORIDE LEVEL 112 MMOL/L (98-107); CREATININE FOR GFR 0.54 MG/DL (0.55-1.30); GLOMERULAR FILTRATION RATE > 60.0 (>60); GLUCOSE, FASTING 174 MG/DL (60-100); POTASSIUM SERUM 3.6 MMOL/L (3.5-5.1); SODIUM LEVEL 142 MMOL/L (136-145)
[2023-03-31] MEDS ORDERED: ONDANSETRON 4MG 2ML VIAL IV ONE (22:40)
[2023-04-01 00:12] VITALS: BP 126/65
[2023-04-01 00:18] LABS: VENOUS BASE EXCESS -15.3 (-2.0-2.0); VENOUS HCO3 10.7 MMOL/L (23.0-27.0); VENOUS O2 SATURATION 96.8 % (60.0-80.0); VENOUS PARTIAL PRESSURE CO2 26.8 mmHg (38.0-50.0); VENOUS PARTIAL PRESSURE O2 83.6 mmHg (30.0-50.0); VENOUS TOTAL CO2 11.5 MMOL/L (24.0-28.0)
[2023-04-01 00:57] LABS: BLOOD UREA NITROGEN < 5 MG/DL (9-23); CALCIUM LEVEL 8.3 MG/DL (8.5-10.1); CARBON DIOXIDE LEVEL 12 MMOL/L (20-31); CHLORIDE LEVEL 113 MMOL/L (98-107); CREATININE FOR GFR 0.53 MG/DL (0.55-1.30); GLOMERULAR FILTRATION RATE > 60.0 (>60); GLUCOSE, FASTING 159 MG/DL (60-100); POTASSIUM SERUM 3.7 MMOL/L (3.5-5.1); SODIUM LEVEL 142 MMOL/L (136-145)
[2023-04-01] MEDS: SODIUM BICARBONATE 75 MEQ in KCL 20MEQ IN D5W 1000ML 1,000 ML IV SCH ×6 (01:32→16:33)
[2023-04-01] MEDS: METOCLOPRAMIDE INJ 10MG/2ML VIAL IV PRN ×3 (01:40→22:17)
[2023-04-01] MEDS: ACETAMINOPHEN TAB 650MG DOSE (2X325MG) PO PRN ×2 (01:40→11:00)
[2023-04-01 04:06] VITALS: BP 113/58
[2023-04-01 04:38] LABS: VENOUS BASE EXCESS -12.2 (-2.0-2.0); VENOUS HCO3 12.7 MMOL/L (23.0-27.0); VENOUS O2 SATURATION 99.4 % (60.0-80.0); VENOUS PARTIAL PRESSURE CO2 27.2 mmHg (38.0-50.0); VENOUS PARTIAL PRESSURE O2 204.1 mmHg (30.0-50.0); VENOUS PH 7.288 UNITS (7.330-7.430); VENOUS STANDARD HCO3 15.1 MMOL/L; VENOUS TOTAL CO2 13.6 MMOL/L (24.0-28.0)
[2023-04-01 04:49] LABS: HEMATOCRIT 38.4 % (36.0-47.0); HEMOGLOBIN 13.1 g/dl (12.0-15.5); MEAN CORPUSCULAR HEMOGLOBIN 30.3 pg (27.0-33.0); MEAN CORPUSCULAR HGB CONC 34.1 g/dl (32.0-36.5); MEAN CORPUSCULAR VOLUME 88.7 fl (80.0-96.0); PLATELET COUNT, AUTOMATED 251 10^3/uL (150-450); RED BLOOD COUNT 4.33 10^6/uL (4.00-5.40)
[2023-04-01 05:12] LABS: BLOOD UREA NITROGEN < 5 MG/DL (9-23); CALCIUM LEVEL 8.5 MG/DL (8.5-10.1); CARBON DIOXIDE LEVEL 13 MMOL/L (20-31); CHLORIDE LEVEL 113 MMOL/L (98-107); CREATININE FOR GFR 0.52 MG/DL (0.55-1.30); GLOMERULAR FILTRATION RATE > 60.0 (>60); GLUCOSE, FASTING 153 MG/DL (60-100); POTASSIUM SERUM 3.4 MMOL/L (3.5-5.1); SODIUM LEVEL 140 MMOL/L (136-145)
[2023-04-01] MEDS ORDERED: POTASSIUM CHLORIDE 10% LIQ 20MEQ/15ML UDC PO ONE (06:05)
[2023-04-01] MEDS: INSULIN REGULAR IN 0.9 % NACL 100 UNIT in IV 1 EA IV SCH ×2 (06:09)
[2023-04-01] MEDS: HEPARIN SOD (PORCINE) 5000UNITS/ML 1ML VIAL/SYRINGE SC SCH ×3 (06:10→22:04)
[2023-04-01] MEDS: ONDANSETRON 4MG 2ML VIAL IV PRN (06:15)
[2023-04-01] MEDS: KCL 10MEQ/100ML SWI (KRUN) 10 MEQ in IV 1 EA IV SCH ×4 (06:43→09:00)
[2023-04-01] MEDS: PANTOPRAZOLE 40MG VIAL IV SCH (07:56)
[2023-04-01 08:00] VITALS: BP 121/80
[2023-04-01 08:12] LABS: VENOUS HCO3 13.7 MMOL/L (23.0-27.0); VENOUS O2 SATURATION 99.3 % (60.0-80.0); VENOUS PARTIAL PRESSURE CO2 28.3 mmHg (38.0-50.0); VENOUS PARTIAL PRESSURE O2 191.5 mmHg (30.0-50.0); VENOUS PH 7.304 UNITS (7.330-7.430); VENOUS TOTAL CO2 14.6 MMOL/L (24.0-28.0)
[2023-04-01 08:56] LABS: BLOOD UREA NITROGEN < 5 MG/DL (9-23); CALCIUM LEVEL 8.5 MG/DL (8.5-10.1); CARBON DIOXIDE LEVEL 15 MMOL/L (20-31); CHLORIDE LEVEL 111 MMOL/L (98-107); CREATININE FOR GFR 0.52 MG/DL (0.55-1.30); GLOMERULAR FILTRATION RATE > 60.0 (>60); GLUCOSE, FASTING 150 MG/DL (60-100); POTASSIUM SERUM 3.8 MMOL/L (3.5-5.1); SODIUM LEVEL 141 MMOL/L (136-145)
[2023-04-01] MEDS: INSULIN IV RATE CHANGE DOCUMENTATION ML/HR XX SCH ×9 (09:01→23:06)
[2023-04-01 09:22] LABS: PHOSPHORUS LEVEL 1.1 MG/DL (2.5-4.9)
[2023-04-01] MEDS ORDERED: SODIUM PHOSPHATE INJ 20 MMOL in D5W 250 ML IV ONE (10:00)
[2023-04-01 11:57] LABS: VENOUS BASE EXCESS -11.3 (-2.0-2.0); VENOUS HCO3 13.9 MMOL/L (23.0-27.0); VENOUS O2 SATURATION 99.4 % (60.0-80.0); VENOUS PARTIAL PRESSURE CO2 29.9 mmHg (38.0-50.0); VENOUS PARTIAL PRESSURE O2 214.5 mmHg (30.0-50.0); VENOUS PH 7.286 UNITS (7.330-7.430); VENOUS STANDARD HCO3 15.7 MMOL/L; VENOUS TOTAL CO2 14.8 MMOL/L (24.0-28.0)
[2023-04-01 12:00] VITALS: BP 124/73
[2023-04-01 12:28] LABS: BLOOD UREA NITROGEN < 5 MG/DL (9-23); CALCIUM LEVEL 8.1 MG/DL (8.5-10.1); CARBON DIOXIDE LEVEL 14 MMOL/L (20-31); CHLORIDE LEVEL 110 MMOL/L (98-107); CREATININE FOR GFR 0.49 MG/DL (0.55-1.30); GLOMERULAR FILTRATION RATE > 60.0 (>60); GLUCOSE, FASTING 174 MG/DL (60-100); PHOSPHORUS LEVEL 1.5 MG/DL (2.5-4.9); POTASSIUM SERUM 3.4 MMOL/L (3.5-5.1); SODIUM LEVEL 141 MMOL/L (136-145)
[2023-04-01] MEDS ORDERED: D10W 1,000 ML IV SCH (14:15)
[2023-04-01] MEDS ORDERED: KETOROLAC 30 MG/ML 1ML VIAL IV ONE (14:35)
[2023-04-01 16:00] VITALS: BP 106/53
[2023-04-01 16:05] LABS: VENOUS BASE EXCESS -10.6 (-2.0-2.0); VENOUS O2 SATURATION 99.2 % (60.0-80.0); VENOUS PARTIAL PRESSURE CO2 28.3 mmHg (38.0-50.0); VENOUS PARTIAL PRESSURE O2 147.8 mmHg (30.0-50.0); VENOUS PH 7.312 UNITS (7.330-7.430); VENOUS STANDARD HCO3 16.2 MMOL/L; VENOUS TOTAL CO2 14.9 MMOL/L (24.0-28.0)
[2023-04-01] MEDS ORDERED: HYDROMORPHONE HCL 0.5 MG/ 0.5 ML SYRINGE IV ONE (16:10)
[2023-04-01 16:44] LABS: BLOOD UREA NITROGEN < 5 MG/DL (9-23); CALCIUM LEVEL 8.4 MG/DL (8.5-10.1); CARBON DIOXIDE LEVEL 15 MMOL/L (20-31); CHLORIDE LEVEL 110 MMOL/L (98-107); CREATININE FOR GFR 0.47 MG/DL (0.55-1.30); GLOMERULAR FILTRATION RATE > 60.0 (>60); GLUCOSE, FASTING 157 MG/DL (60-100); PHOSPHORUS LEVEL 1.7 MG/DL (2.5-4.9); POTASSIUM SERUM 3.4 MMOL/L (3.5-5.1); SODIUM LEVEL 138 MMOL/L (136-145)
[2023-04-01 20:00] VITALS: BP 143/64
[2023-04-01 20:56] LABS: VENOUS BASE EXCESS -8.3 (-2.0-2.0); VENOUS HCO3 16.8 MMOL/L (23.0-27.0); VENOUS O2 SATURATION 94.5 % (60.0-80.0); VENOUS PARTIAL PRESSURE CO2 33.8 mmHg (38.0-50.0); VENOUS PARTIAL PRESSURE O2 65.8 mmHg (30.0-50.0); VENOUS PH 7.314 UNITS (7.330-7.430); VENOUS STANDARD HCO3 17.8 MMOL/L; VENOUS TOTAL CO2 17.8 MMOL/L (24.0-28.0)
[2023-04-01 21:26] LABS: BLOOD UREA NITROGEN < 5 MG/DL (9-23); CALCIUM LEVEL 8.2 MG/DL (8.5-10.1); CARBON DIOXIDE LEVEL 17 MMOL/L (20-31); CHLORIDE LEVEL 108 MMOL/L (98-107); CREATININE FOR GFR 0.49 MG/DL (0.55-1.30); GLOMERULAR FILTRATION RATE > 60.0 (>60); GLUCOSE, FASTING 172 MG/DL (60-100); PHOSPHORUS LEVEL 1.5 MG/DL (2.5-4.9); POTASSIUM SERUM 3.3 MMOL/L (3.5-5.1); SODIUM LEVEL 140 MMOL/L (136-145)
[2023-04-02] VITALS: BP 124/61
[2023-04-02] MEDS: INSULIN IV RATE CHANGE DOCUMENTATION ML/HR XX SCH ×7 (00:02→10:00)
[2023-04-02 00:26] LABS: VENOUS BASE EXCESS -8.6 (-2.0-2.0); VENOUS HCO3 16.1 MMOL/L (23.0-27.0); VENOUS O2 SATURATION 95.3 % (60.0-80.0); VENOUS PARTIAL PRESSURE CO2 31.3 mmHg (38.0-50.0); VENOUS PARTIAL PRESSURE O2 70.3 mmHg (30.0-50.0); VENOUS PH 7.328 UNITS (7.330-7.430); VENOUS STANDARD HCO3 17.6 MMOL/L
[2023-04-02 00:56] LABS: BLOOD UREA NITROGEN < 5 MG/DL (9-23); CALCIUM LEVEL 8.3 MG/DL (8.5-10.1); CARBON DIOXIDE LEVEL 16 MMOL/L (20-31); CHLORIDE LEVEL 108 MMOL/L (98-107); CREATININE FOR GFR 0.46 MG/DL (0.55-1.30); GLOMERULAR FILTRATION RATE > 60.0 (>60); GLUCOSE, FASTING 165 MG/DL (60-100); PHOSPHORUS LEVEL 1.6 MG/DL (2.5-4.9); POTASSIUM SERUM 3.3 MMOL/L (3.5-5.1); SODIUM LEVEL 140 MMOL/L (136-145)
[2023-04-02] MEDS: KCL 10MEQ/100ML SWI (KRUN) 10 MEQ in IV 1 EA IV SCH ×4 (01:18→04:55)
[2023-04-02] MEDS ORDERED: KCL 20MEQ IN D5/0.45NS 1000ML 1,000 ML IV SCH (03:45)
[2023-04-02 04:00] VITALS: BP 120/55
[2023-04-02 04:29] LABS: VENOUS BASE EXCESS -8.7 (-2.0-2.0); VENOUS HCO3 15.9 MMOL/L (23.0-27.0); VENOUS O2 SATURATION 97.7 % (60.0-80.0); VENOUS PARTIAL PRESSURE CO2 30.6 mmHg (38.0-50.0); VENOUS PARTIAL PRESSURE O2 94.2 mmHg (30.0-50.0); VENOUS PH 7.333 UNITS (7.330-7.430); VENOUS STANDARD HCO3 17.6 MMOL/L; VENOUS TOTAL CO2 16.8 MMOL/L (24.0-28.0)
[2023-04-02 04:59] LABS: BLOOD UREA NITROGEN < 5 MG/DL (9-23); CARBON DIOXIDE LEVEL 17 MMOL/L (20-31); CHLORIDE LEVEL 108 MMOL/L (98-107); GLOMERULAR FILTRATION RATE > 60.0 (>60); GLUCOSE, FASTING 157 MG/DL (60-100); PHOSPHORUS LEVEL 1.2 MG/DL (2.5-4.9); POTASSIUM SERUM 3.4 MMOL/L (3.5-5.1); SODIUM LEVEL 140 MMOL/L (136-145)
[2023-04-02] MEDS ORDERED: POTASSIUM PHOSPHATE INJ 15 MMOL in D5W 250 ML IV ONE (05:30)
[2023-04-02] MEDS: HEPARIN SOD (PORCINE) 5000UNITS/ML 1ML VIAL/SYRINGE SC SCH ×3 (06:06→22:00)
[2023-04-02 08:00] VITALS: BP 123/86
[2023-04-02 08:05] LABS: VENOUS HCO3 15.1 MMOL/L (23.0-27.0); VENOUS O2 SATURATION 99.3 % (60.0-80.0); VENOUS PARTIAL PRESSURE CO2 28.2 mmHg (38.0-50.0); VENOUS PARTIAL PRESSURE O2 252.2 mmHg (30.0-50.0); VENOUS PH 7.346 UNITS (7.330-7.430); VENOUS STANDARD HCO3 17.4 MMOL/L; VENOUS TOTAL CO2 15.9 MMOL/L (24.0-28.0)
[2023-04-02] MEDS: ONDANSETRON 4MG 2ML VIAL IV PRN ×2 (08:21→17:31)
[2023-04-02] MEDS: PANTOPRAZOLE 40MG VIAL IV SCH (08:21)
[2023-04-02 08:36] LABS: BLOOD UREA NITROGEN < 5 MG/DL (9-23); CALCIUM LEVEL 7.9 MG/DL (8.5-10.1); CARBON DIOXIDE LEVEL 17 MMOL/L (20-31); CHLORIDE LEVEL 108 MMOL/L (98-107); CREATININE FOR GFR 0.41 MG/DL (0.55-1.30); GLOMERULAR FILTRATION RATE > 60.0 (>60); GLUCOSE, FASTING 304 MG/DL (60-100); PHOSPHORUS LEVEL 2.4 MG/DL (2.5-4.9); POTASSIUM SERUM 3.6 MMOL/L (3.5-5.1); SODIUM LEVEL 134 MMOL/L (136-145)
[2023-04-02] MEDS ORDERED: GLUCAGON INJ 1MG VIAL SC PRN (09:15)
[2023-04-02] MEDS ORDERED: DEXTROSE 50% 50ML SYRINGE IV PRN (09:15)
[2023-04-02] MEDS ORDERED: GLUCOSE 4GM CHEW TABLET PO PRN (09:15)
[2023-04-02] MEDS ORDERED: INSULIN LISPRO (NovoLOG) PER UNIT SC ONE (09:50)
[2023-04-02] MEDS: LEVEMIR (INSULIN DETEMIR) 1 UNITS/0.01ML SC SCH (09:59)
[2023-04-02] MEDS: METOCLOPRAMIDE INJ 10MG/2ML VIAL IV PRN ×2 (10:00→18:26)
[2023-04-02 12:00] VITALS: BP 124/75
[2023-04-02] MEDS: INSULIN LISPRO (NovoLOG) PER UNIT SC SCH ×4 (12:51→18:26)
[2023-04-02 14:25] LABS: ALBUMIN 3.3 G/DL (3.2-5.2); ALKALINE PHOSPHATASE 71 U/L (46-116); ALT/SGPT 84 U/L (7.0-40); AST/SGOT 37 U/L (<34); BILIRUBIN,TOTAL 0.8 MG/DL (0.3-1.2); BLOOD UREA NITROGEN < 5 MG/DL (9-23); CARBON DIOXIDE LEVEL 17 MMOL/L (20-31); CHLORIDE LEVEL 106 MMOL/L (98-107); CREATININE FOR GFR 0.42 MG/DL (0.55-1.30); GLOMERULAR FILTRATION RATE > 60.0 (>60); GLUCOSE, FASTING 167 MG/DL (60-100); POTASSIUM SERUM 3.5 MMOL/L (3.5-5.1); SODIUM LEVEL 139 MMOL/L (136-145); TOTAL PROTEIN 7.1 G/DL (5.7-8.2)
[2023-04-02] MEDS ORDERED: LR 1,000 ML IV ONE (15:00)
[2023-04-02 16:00] VITALS: BP 103/59
[2023-04-02] MEDS: ACETAMINOPHEN TAB 650MG DOSE (2X325MG) PO PRN (17:31)
[2023-04-02 19:52] LABS: ALBUMIN 2.9 G/DL (3.2-5.2); ALKALINE PHOSPHATASE 66 U/L (46-116); ALT/SGPT 68 U/L (7.0-40); AST/SGOT 29 U/L (<34); BILIRUBIN,TOTAL 0.7 MG/DL (0.3-1.2); BLOOD UREA NITROGEN < 5 MG/DL (9-23); CALCIUM LEVEL 8.8 MG/DL (8.5-10.1); CARBON DIOXIDE LEVEL 20 MMOL/L (20-31); CHLORIDE LEVEL 109 MMOL/L (98-107); GLOMERULAR FILTRATION RATE > 60.0 (>60); GLUCOSE, FASTING 153 MG/DL (60-100); POTASSIUM SERUM 3.4 MMOL/L (3.5-5.1); SODIUM LEVEL 137 MMOL/L (136-145); TOTAL PROTEIN 6.3 G/DL (5.7-8.2)
[2023-04-02 20:00] VITALS: BP 146/80
[2023-04-02] MEDS ORDERED: POTASSIUM CHLORIDE 10% LIQ 20MEQ/15ML UDC PO ONE (20:00)
[2023-04-02] MEDS ORDERED: INSULIN LISPRO (NovoLOG) PER UNIT SC SCH (21:00)
[2023-04-03] VITALS: BP 139/77
[2023-04-03 04:00] VITALS: BP 112/55
[2023-04-03 04:59] LABS: BASO % 0.3 % (0.0-1.0); EOS # 0.1 10^3/uL (0.0-0.5); HEMATOCRIT 39.1 % (36.0-47.0); HEMOGLOBIN 13.4 g/dl (12.0-15.5); LYMPH # 2.7 10^3/uL (1.5-5.0); LYMPH % 37.6 % (24.0-44.0); MEAN CORPUSCULAR HEMOGLOBIN 29.8 pg (27.0-33.0); MEAN CORPUSCULAR HGB CONC 34.3 g/dl (32.0-36.5); MEAN CORPUSCULAR VOLUME 86.9 fl (80.0-96.0); MONO # 0.9 10^3/uL (0.0-0.8); MONO % 12.5 % (2.0-8.0); NEUTROPHILS # 3.5 10^3/uL (1.5-8.5); NEUTROPHILS % 48.5 % (36.0-66.0); PLATELET COUNT, AUTOMATED 223 10^3/uL (150-450); WHITE BLOOD COUNT 7.1 10^3/uL (4.0-10.0)
[2023-04-03 05:30] LABS: BLOOD UREA NITROGEN < 5 MG/DL (9-23); CALCIUM LEVEL 8.6 MG/DL (8.5-10.1); CARBON DIOXIDE LEVEL 21 MMOL/L (20-31); CHLORIDE LEVEL 106 MMOL/L (98-107); GLOMERULAR FILTRATION RATE > 60.0 (>60); GLUCOSE, FASTING 151 MG/DL (60-100); MAGNESIUM LEVEL 1.9 MG/DL (1.8-2.4); POTASSIUM SERUM 3.4 MMOL/L (3.5-5.1); SODIUM LEVEL 140 MMOL/L (136-145)
[2023-04-03] MEDS ORDERED: POTASSIUM CHLORIDE 10% LIQ 20MEQ/15ML UDC PO ONE (05:55)
[2023-04-03] MEDS: HEPARIN SOD (PORCINE) 5000UNITS/ML 1ML VIAL/SYRINGE SC SCH ×2 (06:00→12:04)
[2023-04-03] MEDS: METOCLOPRAMIDE INJ 10MG/2ML VIAL IV PRN (06:09)
[2023-04-03 08:00] VITALS: BP 116/72
[2023-04-03] MEDS: PANTOPRAZOLE 40MG VIAL IV SCH (08:27)
[2023-04-03] MEDS: LEVEMIR (INSULIN DETEMIR) 1 UNITS/0.01ML SC SCH (08:28)
[2023-04-03] MEDS: INSULIN LISPRO (NovoLOG) PER UNIT SC SCH ×4 (08:28→12:03)
[2023-04-03] MEDS ORDERED: METOCLOPRAMIDE 10MG TAB PO PRN (11:20)
[2023-04-03 12:00] VITALS: BP 126/69
[2023-04-03] MEDS ORDERED: HUMA100I3 SC (13:59)
[2023-04-03] MEDS ORDERED: INSULANT SC (13:59)
[2023-04-03] MEDS ORDERED: METO10TA2 PO (14:04)
== END 2023-04-03 15:40 | disposition home or self-care (01) | DRG 639 ==
LOC: EDBD 18:55 → M ED 18:55 → M ED INP 03-30 02:59 → M ICU 03-30 05:01
PROVIDERS: ADMIT Internal Medicine; ATTEND Internal Medicine
DX: E11.10 Type 2 diabetes mellitus with ketoacidosis without coma (principal); E66.01 Morbid (severe) obesity due to excess calories; F43.10 Post-traumatic stress disorder, unspecified; E86.0 Dehydration; E88.01 Alpha-1-antitrypsin deficiency; F32.A Depression, unspecified; E87.6 Hypokalemia; E83.39 Other disorders of phosphorus metabolism; Z20.822 Contact with and (suspected) exposure to COVID-19; I10 Essential (primary) hypertension; Z79.4 Long term (current) use of insulin; Z79.899 Other long term (current) drug therapy; Z88.8 Allergy status to other drugs, medicaments and biological substances; Z91.040 Latex allergy status; Z91.048 Other nonmedicinal substance allergy status

== ENCOUNTER 2023-05-21 17:02 | Emergency (ER) | payer OTHER ==
[~2023-05-21] VITALS: Ht 162.6 cm; Wt 150.8 kg
[~2023-05-21 17:02] MED LIST changes: +JARD1TAB3 PO; +METO10TA2 PO; +TRUL0.5I INJ
[2023-05-21 17:03] VITALS: TEMP 97.4
[2023-05-21] MEDS ORDERED: HUMA100I5 (17:13)
[2023-05-21] MEDS ORDERED: DULA4.5P (17:13)
[2023-05-21] MEDS ORDERED: LANTINJ4 (17:13)
[2023-05-21 18:04] LABS: BASO % 0.3 % (0.0-1.0); EOS # 0.1 10^3/uL (0.0-0.5); HEMATOCRIT 41.9 % (36.0-47.0); HEMOGLOBIN 14.2 g/dl (12.0-15.5); LYMPH # 3.8 10^3/uL (1.5-5.0); LYMPH % 32.6 % (24.0-44.0); MEAN CORPUSCULAR HEMOGLOBIN 30.3 pg (27.0-33.0); MEAN CORPUSCULAR HGB CONC 33.9 g/dl (32.0-36.5); MEAN CORPUSCULAR VOLUME 89.5 fl (80.0-96.0); MONO # 1.2 10^3/uL (0.0-0.8); MONO % 9.9 % (2.0-8.0); NEUTROPHILS # 6.5 10^3/uL (1.5-8.5); NEUTROPHILS % 55.9 % (36.0-66.0); PLATELET COUNT, AUTOMATED 279 10^3/uL (150-450); RED BLOOD COUNT 4.68 10^6/uL (4.00-5.40); WHITE BLOOD COUNT 11.6 10^3/uL (4.0-10.0)
[2023-05-21 18:20] LABS: BLOOD UREA NITROGEN 14 MG/DL (9-23); CALCIUM LEVEL 9.2 MG/DL (8.5-10.1); CARBON DIOXIDE LEVEL 26 MMOL/L (20-31); CHLORIDE LEVEL 106 MMOL/L (98-107); CREATININE FOR GFR 0.45 MG/DL (0.55-1.30); GLOMERULAR FILTRATION RATE > 60.0 (>60); GLUCOSE, FASTING 140 MG/DL (60-100); POTASSIUM SERUM 4.1 MMOL/L (3.5-5.1); SODIUM LEVEL 138 MMOL/L (136-145)
[2023-05-21 22:45] VITALS: BP 124/74; O2SAT 99
== END 2023-05-21 22:49 | disposition home or self-care (01) ==
LOC: M ED 17:02
DX: O20.0 Threatened abortion (principal); Z3A.01 Less than 8 weeks gestation of pregnancy; O24.111 Pre-existing type 2 diabetes mellitus, in pregnancy, first trimester; O99.341 Other mental disorders complicating pregnancy, first trimester; F41.9 Anxiety disorder, unspecified; Z91.040 Latex allergy status; Z79.4 Long term (current) use of insulin; Z88.8 Allergy status to other drugs, medicaments and biological substances; Z79.899 Other long term (current) drug therapy

== ENCOUNTER → 2023-05-23 | Outpatient (CLI) | payer OTHER ==
[~2023-05-23] MED LIST changes: +DULA4.5P; +HUMA100I5; +LANTINJ4
== END ==
LOC: M LAB 12:22
PROVIDERS: ATTEND Physician Assistant Medical
DX: Z00.00 Encounter for general adult medical examination without abnormal findings (principal)

== ENCOUNTER 2023-06-04 19:26 | Emergency (ER) | payer OTHER ==
[~2023-06-04] VITALS: Ht 162.6 cm; Wt 156.6 kg
[2023-06-04 19:26] VITALS: BP 138/87; TEMP 97.4; O2SAT 98
[2023-06-04 20:39] LABS: BASO % 0.4 % (0.0-1.0); EOS # 0.1 10^3/uL (0.0-0.5); EOS % 1.4 % (0.0-3.0); HEMATOCRIT 36.6 % (36.0-47.0); HEMOGLOBIN 12.2 g/dl (12.0-15.5); LYMPH # 3.7 10^3/uL (1.5-5.0); LYMPH % 39.1 % (24.0-44.0); MEAN CORPUSCULAR HGB CONC 33.3 g/dl (32.0-36.5); MEAN CORPUSCULAR VOLUME 90.1 fl (80.0-96.0); MONO # 1.1 10^3/uL (0.0-0.8); NEUTROPHILS # 4.4 10^3/uL (1.5-8.5); NEUTROPHILS % 46.9 % (36.0-66.0); PLATELET COUNT, AUTOMATED 286 10^3/uL (150-450); RED BLOOD COUNT 4.06 10^6/uL (4.00-5.40); WHITE BLOOD COUNT 9.4 10^3/uL (4.0-10.0)
[2023-06-04 21:00] LABS: BLOOD UREA NITROGEN 15 MG/DL (9-23); CALCIUM LEVEL 8.8 MG/DL (8.5-10.1); CARBON DIOXIDE LEVEL 26 MMOL/L (20-31); CHLORIDE LEVEL 107 MMOL/L (98-107); CREATININE FOR GFR 0.51 MG/DL (0.55-1.30); GLOMERULAR FILTRATION RATE > 60.0 (>60); GLUCOSE, FASTING 84 MG/DL (60-100); POTASSIUM SERUM 3.8 MMOL/L (3.5-5.1); SODIUM LEVEL 140 MMOL/L (136-145)
[2023-06-04 21:13] LABS: HCG, SERUM QUANTITATIVE 12753.9 MIU/ML (<4.2)
[2023-06-04] MEDS ORDERED: RHOGAM 300MCG (1500IU) INJ IM ONE (23:20)
== END 2023-06-05 00:05 | disposition home or self-care (01) ==
LOC: M ED 19:26
DX: O20.9 Hemorrhage in early pregnancy, unspecified (principal); Z3A.01 Less than 8 weeks gestation of pregnancy; O24.911 Unspecified diabetes mellitus in pregnancy, first trimester; O10.911 Unspecified pre-existing hypertension complicating pregnancy, first trimester; E88.01 Alpha-1-antitrypsin deficiency; O99.281 Endocrine, nutritional and metabolic diseases complicating pregnancy, first trimester
CPT/HCPCS: 36415; 76801; 76817; 80048; 81001; 84702; 85025; 86850; 86900; 86901; 99282; J2790

== ENCOUNTER → 2023-06-06 | Outpatient (CLI) | payer OTHER | LOC: M WHC 15:01 | PROVIDERS: ATTEND Obstetrics & Gynecology | DX: E11.9 Type 2 diabetes mellitus without complications (principal); E66.01 Morbid (severe) obesity due to excess calories ==